=== PATIENT | female | born 1990 | race Two or more races ===

== ENCOUNTER 2017-11-26 00:25 | Emergency (ER) | payer MEDICAID, SELFPAY ==
[2017-11-26 00:25] VITALS: BP 133/83; PULSE 120; RESP 24; TEMP 36.8; O2SAT 97; BMI 54.1
--- NOTE | 2017-11-26 00:59 | EKG12_ITS ---
Test Reason : GENERALILLNESS Blood Pressure : / mmHG Vent. Rate : 103 BPM Atrial Rate : 103 BPM P-R Int : 160 ms QRS Dur : 082 ms QT Int : 336 ms P-R-T Axes : 046 013 012 degrees QTc Int : 440 ms Sinus tachycardia Otherwise normal ECG Confirmed by EDWARD CIFUENTES MD ([id number]), newspaper copy editor MARLENY MEHTA ([id number]) on 11/27/2017 8:35:15 AM Referred By: MARIO ALBERTO Confirmed By:EDWARD CIFUENTES MD
--- NOTE | 2017-11-26 01:15 | ED.DCSUM_ITS ---
- ER Visit Summary Date of Service: 11/26/17 Chief Complaint: Chest pain, leg pain, weakness History of Present Illness: The patient is a 27 F patient states 3 day history increasing weakness. No falls or injuries. States having shakes throughout. No fever, chills, sweats. Patient states 2 weeks ago had some right knee and leg swelling, improved over time. States a week ago noticed left leg swelling. Saw her PCP 5 days ago after developing some left lower back pain. States was recommended go to physical therapy. No testing performed. Patient states 4 days ago had mild left-sided chest pain, has shortness of breath, symptoms worsen with deep breaths. No exertional dyspnea. States pain in her right leg now in her medial thigh. No paresthesias. No injuries. History of venous sinus thrombosis 2 years ago . She is on Coumadin for 1 year. No recent travel, surgeries, or immobilizations. Patient states dry cough. No tobacco history. Physical Examination: General: Alert and oriented ?3, no acute distress HEENT: Normocephalic, atraumatic. Moist mucosa membranes Neck: supple, nontender. Cardiovascular: Regular tachycardic rate 102 and rhythm, no murmurs Respiratory: Normal breath sounds, symmetric, no distress Abdomen: Soft, nontender, nondistended Extremities: Symmetric lower extremities. Pulses intact distally. There is tenderness to medial thigh on the right. Neuro: no focal neurological deficits. Test Results: EKG: Sinus rate of 103, no ST changes. Isolated T-wave inversion in leads III. Troponin negative. D-dimer negative. HCG negative. CBC BMP negative. Chest x-ray: Negative. Emergency Department Course and Treatment: Patient presents with chest pain. Cardiac workup was negative. She has had persistent symptoms last 3 days. Negative troponin less likely cardiac in nature. Low risk Wells criteria for PE with tachycardia. D-dimer obtained negative. Initial order for Zofran however she declined due to symptoms resolving. Chest x-ray negative. Patient does have medial thigh pain on the right, she has had venous sinus thrombosis in the past. No recent travel. Discuss cannot rule out DVT out at this time therefore discussed giving Lovenox and returning for an ultrasound in the morning. She agrees with the plan. Discussed with patient any worsening symptoms to return otherwise follow-up with her PCP. All questions were answered. Treatment Plan: [] Disposition: Discharge Impression: 1. Atypical chest pain 2. Lower extremity pain bilateral This note was generated with [employer] dictation software. It may contain incorrect words, spelling, and punctuation that were not noted in review of the chart prior to signing ED Disposition - Plan for ED Patient: Disposition: Home or Assisted Living Chief Complaint: General Illness Diagnosis: Atypical chest pain, Bilateral lower extremity pain Instructions: ED Chest Pain Atypical Unkn Cause Referrals: Wade Antony [Primary Care Provider] - 3-5 Days Additional Instructions: Status post Lovenox. Return for ultrasound the legs in the morning. Follow-up with your PCP, return if any worsening symptoms.
[2017-11-26 01:33] VITALS: O2SAT 99
[2017-11-26] MEDS: 0.9% Normal Saline 1,000 ML 250 ML IV (01:34)
[2017-11-26 01:44] LABS: Absolute Lymphocyte Count 2.54 X10^3/ul (0.83-4.51); Absolute Neutrophil Count 6.1 X10^3/uL (2.0-7.7); Basophil# 0.01 X10^3/uL; Basophil% 0.1 % (0-1); Eosinophil# 0.08 X10^3/uL; Eosinophils% 0.9 % (0-5); Hematocrit 41.9 % (37-47); Hemoglobin 14.5 g/dl (12.0-15.0); Lymphocyte # 2.54 X10^3/ul (4.0); Lymphocyte % 27.1 % (19-41); Mean Corp Hgb Conc 34.6 g/gl (32-36); Mean Corpuscular Hgb 30.2 pg (27.0-32.0); Mean Corpuscular Volume 87.3 fL (81-99); Mean Platelet Vol. 10.3 fl (6.2-12.0); Monocyte# 0.63 X10^3/uL; Monocyte% 6.7 % (0-10); Neutrophil # 6.12 X10^3/uL (2.7-7.7); Neutrophil % 65.1 % (47-70); Platelet Count 223 K/mm3 (150-450); RBC Distribution Width CV 13.2 % (11.6-14.6); RBC Distribution Width SD 41.7 fl (35.1-43.9); White Blood Count 9.4 K/mm3 (4.4-11.0)
[2017-11-26 01:46] LABS: POSITIVE COUNT NO; POSITIVE DIFFERENTIAL NO; POSITIVE MORPHOLOGY NO
[2017-11-26 01:51] LABS: International Normalized Ratio 1.1; Partial Thromboplast Time 27.7 Seconds (24.1-36.2); Prothrombin Time (Protime)PT. 13.9 SECONDS (11.7-14.9)
[2017-11-26 02:01] LABS: Anion Gap 10 (5-15); BUN 12 mg/dL (7-18); BUN/Creat Ratio 17.7 RATIO (10-20); Calcium,Total 8.3 mg/dL (8.5-10.1); Chloride 103 mmol/L (98-107); Creatinine, Serum 0.68 mg/dL (0.55-1.02); EST Glomerular Filtration Rate 111 mL/min (>60); Est Glom Filt Rate - Afr Amer 134 mL/min (>60); Estimated Creatinine Clearance 98.29 ml/min; Glucose 97 mg/dL (74-106); Potassium 3.9 mmol/L (3.5-5.1); Sodium Level 139 mmol/L (136-145)
[2017-11-26 02:02] LABS: Pregnancy, Serum, hCG Quali. NEGATIVE Negative (0-9 Nonpreg)
--- NOTE | 2017-11-26 02:05 | RAD_ITS ---
STUDY: X-RAY CHEST REASON FOR EXAM: Female, 27 years old. Pain under left breast increased weakness and shaking x3 days. TECHNIQUE: PA and lateral views of the chest. 3 images COMPARISON: None. FINDINGS: The lungs are clear and expanded. There is no demonstrated pleural abnormality. Normal size heart. Normal mediastinum and ernst. Normal visualized pulmonary arteries. Normal visualized aortic arch and descending thoracic aorta. Normal visualized thoracic spine. Normal visualized ribs, clavicles, and shoulders. Obesity. RAD/Chest PA and Lateral IMPRESSION: Normal x-ray examination of the chest. Electronically Signed: Meghna Valente MD at 3:01 EDT , Service support ,
[2017-11-26 02:34] VITALS: BP 119/66; PULSE 92; RESP 18; O2SAT 96
[2017-11-26] MEDS: Enoxaparin 150 MG/ML Syringe SC (03:38)
[2017-11-26 04:16] VITALS: BP 113/66; PULSE 94; RESP 21; O2SAT 100
== END 2017-11-26 04:18 | disposition home or self-care (01) ==
PROVIDERS: Emergency Provider Emergency Medicine; Family Provider Family Medicine; PCP Family Medicine
DX: R07.89 Other chest pain (principal); M79.604 Pain in right leg; M79.605 Pain in left leg; R29.898 Other symptoms and signs involving the musculoskeletal system; R06.00 Dyspnea, unspecified; R05 Cough; R11.0 Nausea; I10 Essential (primary) hypertension; Z86.718 Personal history of other venous thrombosis and embolism; Z79.899 Other long term (current) drug therapy
CPT/HCPCS: 71046; 80048; 84484; 84703; 85025; 85379; 85610; 85730; 93005; 96361; 96372; 96374; 99284; J2405

== ENCOUNTER 2018-02-26 07:35 | Emergency (ER) | payer MEDICAID, SELFPAY ==
[2018-02-26 07:36] VITALS: BP 164/92; PULSE 120; RESP 20; TEMP 36.6; O2SAT 99; BMI 54.8
--- NOTE | 2018-02-26 07:51 | EKG12_ITS ---
Test Reason : UPPER EXTREMTE Blood Pressure : / mmHG Vent. Rate : 089 BPM Atrial Rate : 089 BPM P-R Int : 164 ms QRS Dur : 084 ms QT Int : 350 ms P-R-T Axes : 049 006 010 degrees QTc Int : 425 ms Normal sinus rhythm Minimal voltage criteria for LVH, may be normal variant Borderline ECG Confirmed by JADE PINA, FLORENCIO ([id number]), field map editor FUAD CARRINGTON ([id number]) on 03/01/2018 2:58:24 PM Referred By: NAVEEN Confirmed By:FLORENCIO HANSEN MD
--- NOTE | 2018-02-26 07:51 | RAD_ITS ---
STUDY: X-RAY CHEST REASON FOR EXAM: Female, 27 years old. Anterior chest pain and right-sided rib pain following heavy lifting. TECHNIQUE: PA and lateral views of the chest. COMPARISON: Comparison is made with prior study dated November 18, 2017. FINDINGS: EKG electrodes are seen. The lungs are clear and expanded. There is no demonstrated pleural abnormality. Normal size heart. Normal mediastinum and ernst. Normal visualized pulmonary arteries. Normal visualized aortic arch and descending thoracic aorta. Normal visualized thoracic spine. Normal visualized ribs, clavicles, and shoulders. There is no demonstrated abnormality of the visualized soft tissue structures of the upper abdomen. RAD/Chest PA and Lateral IMPRESSION: Normal x-ray examination of the chest. Electronically Signed: Nas Patel MD at 8:37 EDT Tel [phone], Service support ,
--- NOTE | 2018-02-26 08:10 | ED.DCSUM_ITS ---
- ER Visit Summary Date of Service: 02/26/18 Chief Complaint: Arm pain, chest heaviness History of Present Illness: The patient is a 27 F presents to the emergency department with multiple complaints. Patient states that last Thursday, she was moving a lot of furniture. She states she began have a tightness across her left lateral ribs. It went into her back. She states it was worse when she would move her cough. She states that she saw her primary care physician who thought it was more likely muscular. She was started on muscle relaxers. She states over the past few days, she is noticed a lot more pain in her left tricep especially when she moves it. She states today, she began to have more h eaviness across her chest and felt like it hurts to take a deep breath. She denies cough. She denies fevers or chills. She denies any history of pulmonary embolus. She has no history of coronary vascular disease. Physical Examination: Vital signs reviewed General: Well-nourished, well-developed Head: Normocephalic, atraumatic Eyes: Pupils equal and reactive, extraocular muscles intact Neck, supple, no lymphadenopathy Heart: Regular rate and rhythm Respiratory: No distress, clear bilaterally, mild tenderness over the lower left lateral ribs without step-off or deformity Abdomen: Soft, nontender, nondistended, no peritoneal signs Back: Nontender Extremities: Mild tenderness in the left posterior tricep with arm extension, 5 out of 5 strength, normal pulses, no edema, no cords Skin: Normal color no rash Neuro: Alert and oriented, no focal or lateralizing deficits Test Results: [] Emergency Department Course and Treatment: Clinically, the patient symptoms do seem entirely muscular. However, she is been having pain with taking a deep breath. She was initially tachycardic. She has no asymmetric leg swelling. She has no history of coagulopathy. EKG was obtained which showed sinus rhythm at a rate of 89. There is no evidence of right ventricular strain or acute ischemia. Chest x-ray shows no pneumonia, hemothorax, or other dangerous process. I did obtain a d-dimer which was negative. Patient's cardiac enzymes were also negative. At this time, I am going to continue her on anti-infla mmatories. I will add 2 days of analgesics. The patient will continue light range of motion exercises of the tricep. Again, her pulses are normal. Compartments are soft. There is no evidence of infectious process. I do feel that she is safe for outpatient therapy. Treatment Plan: [] Disposition: Discharge Impression: 1. Left chest wall strain 2. Left triceps strain This note was generated with [employer] dictation software. It may contain incorrect words, spelling, and punctuation that were not noted in review of the chart prior to signing ED Disposition - Plan for ED Patient: Chief Complaint: Upper Extremity Injury Instructions: ED Strain Chest Wall, ED Strain Muscle Ext Prescriptions: Hydrocodone Bitart/Apap 5-325 [[place] 5MG-325MG] 1 tab PO Q6H PRN PRN 2 Days #6 tab PRN Reason: Pain Naproxen [Naprosyn] 500 mg PO BID PRN #20 tab Referrals: Wade Antony [Primary Care Provider] -
[2018-02-26 08:11] VITALS: BP 122/77; PULSE 91; RESP 15; O2SAT 97
[2018-02-26] MEDS: 0.9% Normal Saline 1,000 ML 1000 ML IV (08:13)
[2018-02-26] MEDS: Ketorolac 30 MG/ML Syringe IV (08:13)
[2018-02-26 08:30] LABS: Anion Gap 8 (5-15); BUN 12 mg/dL (7-18); Calcium,Total 8.5 mg/dL (8.5-10.1); Chloride 104 mmol/L (98-107); EST Glomerular Filtration Rate 106 mL/min (>60); Est Glom Filt Rate - Afr Amer 128 mL/min (>60); Estimated Creatinine Clearance 95.48 ml/min; Glucose 108 mg/dL (74-106); Potassium 3.8 mmol/L (3.5-5.1); Sodium Level 138 mmol/L (136-145)
[2018-02-26 08:34] LABS: Pregnancy, Serum, hCG Quali. NEGATIVE Negative (0-9 Nonpreg)
[2018-02-26 08:35] LABS: D-Dimer Quantitative (DVT/PE) 0.34 FEU/ug/m (0.27-0.49)
[2018-02-26 08:40] LABS: Absolute Lymphocyte Count 1.41 X10^3/ul (0.83-4.51); Absolute Neutrophil Count 5.4 X10^3/uL (2.0-7.7); Basophil# 0.01 X10^3/uL; Basophil% 0.1 % (0-1); Eosinophil# 0.03 X10^3/uL; Eosinophils% 0.4 % (0-5); Hematocrit 43.7 % (37-47); Hemoglobin 14.5 g/dl (12.0-15.0); Lymphocyte # 1.41 X10^3/ul (4.0); Lymphocyte % 19.2 % (19-41); Mean Corp Hgb Conc 33.2 g/gl (32-36); Mean Corpuscular Volume 87.4 fL (81-99); Mean Platelet Vol. 9.9 fl (6.2-12.0); Monocyte# 0.43 X10^3/uL; Monocyte% 5.9 % (0-10); Neutrophil # 5.44 X10^3/uL (2.7-7.7); Neutrophil % 74.3 % (47-70); Platelet Count 210 K/mm3 (150-450); RBC Distribution Width CV 13.1 % (11.6-14.6); RBC Distribution Width SD 42.1 fl (35.1-43.9); White Blood Count 7.3 K/mm3 (4.4-11.0)
[2018-02-26 08:41] LABS: POSITIVE COUNT NO; POSITIVE DIFFERENTIAL NO; POSITIVE MORPHOLOGY NO
[2018-02-26 09:10] VITALS: BP 120/77; PULSE 89; RESP 18; O2SAT 96
== END 2018-02-26 09:11 | disposition home or self-care (01) ==
LOC: ED 07:54
PROVIDERS: Emergency Provider Emergency Medicine; Family Provider Family Medicine; PCP Family Medicine
DX: S29.011A Strain of muscle and tendon of front wall of thorax, initial encounter (principal); S46.312A Strain of muscle, fascia and tendon of triceps, left arm, initial encounter; X58.XXXA Exposure to other specified factors, initial encounter; Y93.9 Activity, unspecified; Y92.9 Unspecified place or not applicable; E66.9 Obesity, unspecified; I10 Essential (primary) hypertension; Z79.899 Other long term (current) drug therapy; Z72.0 Tobacco use
CPT/HCPCS: 71046; 80048; 84484; 84703; 85025; 85379; 93005; 96361; 96374; 99285; J7030; A4216

== ENCOUNTER 2018-04-02 23:24 | Emergency (ER) | payer MEDICAID, SELFPAY ==
[2018-04-02 23:26] VITALS: BP 161/114; PULSE 110; RESP 16; TEMP 37.1; O2SAT 95; BMI 54.8
[2018-04-03 00:19] LABS: Mucous, Urine 0 SEEN /hpf (<or=2+); Red Blood Cells-Urine 0 SEEN /hpf (0-5)
[2018-04-03 00:20] LABS: Color, Urine Straw (Yellow); Glucose, Dipstick Normal (Normal); Ketone-Dipstick Negative (Negative); Leukocyte Esterase-Dipstick 500 /ul (Negative); Nitrite-Dipstick Negative (Negative); Occult Blood-Urine 25 /ul (Negative); Protein-Dipstick Negative (Negative); Urine Bilirubin Dipstick Negative (Negative); Urine Clarity Sl. Cloudy (Clear); Urine Urobilinogen Normal (Normal)
[2018-04-03 00:23] LABS: Internal QC Validated? YES +Cl - CLEAR BKGD; Pregnancy, Urine Negative Negative
[2018-04-03] MEDS: 0.9% Normal Saline 1,000 ML 150 ML IV (00:23)
[2018-04-03] MEDS: Ketorolac 30 MG/ML Syringe IV (00:24)
[2018-04-03 00:27] LABS: Bacteria RARE /hpf (None Seen); Squamous Epithelial Cells - UA 5-10 SEEN /hpf (5-10); White Blood Cells 10-25 SEEN /hpf (0-5)
[2018-04-03 00:36] LABS: Absolute Lymphocyte Count 2.17 X10^3/ul (0.83-4.51); Absolute Neutrophil Count 5.8 X10^3/uL (2.0-7.7); Basophil# 0.02 X10^3/uL; Basophil% 0.2 % (0-1); Eosinophil# 0.09 X10^3/uL; Hematocrit 45.2 % (37-47); Hemoglobin 15.3 g/dl (12.0-15.0); Lymphocyte # 2.17 X10^3/ul (4.0); Lymphocyte % 24.7 % (19-41); Mean Corp Hgb Conc 33.8 g/gl (32-36); Mean Corpuscular Hgb 29.5 pg (27.0-32.0); Mean Corpuscular Volume 87.3 fL (81-99); Mean Platelet Vol. 10.1 fl (6.2-12.0); Monocyte# 0.73 X10^3/uL; Monocyte% 8.3 % (0-10); Neutrophil # 5.75 X10^3/uL (2.7-7.7); Neutrophil % 65.6 % (47-70); Platelet Count 236 K/mm3 (150-450); RBC Distribution Width CV 13.2 % (11.6-14.6); RBC Distribution Width SD 41.8 fl (35.1-43.9); Red Blood Count 5.18 M/mm3 (4.2-5.4); White Blood Count 8.8 K/mm3 (4.4-11.0)
[2018-04-03 00:37] LABS: POSITIVE COUNT NO; POSITIVE DIFFERENTIAL NO; POSITIVE MORPHOLOGY NO
[2018-04-03 00:51] LABS: Anion Gap 6 (5-15); BUN 10 mg/dL (7-18); BUN/Creat Ratio 14.7 RATIO (10-20); Calcium,Total 8.6 mg/dL (8.5-10.1); Chloride 105 mmol/L (98-107); Creatinine, Serum 0.68 mg/dL (0.55-1.02); EST Glomerular Filtration Rate 110 mL/min (>60); Est Glom Filt Rate - Afr Amer 133 mL/min (>60); Estimated Creatinine Clearance 98.29 ml/min; Glucose 95 mg/dL (74-106); Potassium 3.9 mmol/L (3.5-5.1); Sodium Level 139 mmol/L (136-145)
--- NOTE | 2018-04-03 01:19 | CT_ITS ---
HISTORY: LOW ABDOMEN AND PELVIC PAIN,PREG TEST WAS NEGATIVE,PT HAS IUDHX:HTN,. TECHNIQUE: Multiple axial images were obtained of the abdomen and pelvis without oral or IV contrast. A radiation dose optimization technique was used for this scan. IV Contrast dosage and agent: None. Oral contrast: None. COMPARISON: None FINDINGS: Lung bases: Clear. Mild elevation of the right hemidiaphragm compatible with chronic change. Small fat-containing umbilical hernia. The gallbladder is filled with numerous small stones. No pericholecystic inflammatory changes identified and no biliary dilatation seen. Evaluation of the major abdominal organs is partly limited secondary to the lack of IV contrast. Liver is upper normal in size and no focal lesion is apparent. Spleen and pancreas show no CT abnormality. Both kidneys are normal in position. No renal or ureteral calculi and no hydronephrosis or hydroureter seen. Abdominal aorta is normal in caliber. No ascites or retroperitoneal lymphadenopathy. Appendix: Normal GI tract: No obstruction. Pelvis: Anteverted uterus with IUD in place. The pelvis shows no free fluid or lymphadenopathy. Urinary bladder is unremarkable. Osseous structures: No fracture or suspicious lesion. CT/Abdomen/Pelvis without Cont IMPRESSION: 1. No appendicitis or other acute disease. 2. Cholelithiasis. No biliary dilatation identified. 3. Small fat-containing umbilical hernia. 4. IUD in place. Individualized dose optimization techniques were used for this CT. at 0220 Reported and signed by: Sherif Lopez MD Electronically Signed: Sherif Lopez, at 2:18 EDT Tel , Service support ,
--- NOTE | 2018-04-03 02:27 | ED.DCSUM_ITS ---
- ER Visit Summary Date of Service: 04/03/18 Chief Complaint: Abdominal pain History of Present Illness: The patient is a 27 F who was seen at [facility] on 29 March for pelvic pressure and thought she had a UTI. She has positive for trichomoniasis. She has been on Flagyl. Pain is not improving. She does have a follow-up appointment with her DEBT COLLECTOR on Thursday, but due to continued pain tonight came in for evaluation. She has not noted a fever. She complains of continued bladder pressure but does not have actual dysuria. She currently has an IUD in place. Physical Examination: Blood pressure is 161/114, temperature 98.7, heart rate 110, respiratory rate 16, pulse ox 95% on room air. Patient sitting upright in bed no acute distress. She is nontoxic appearing. Head neck examination is normal. Heart is regular rate and rhythm. Lung sounds are clear. Abdomen is soft with mild tenderness in the suprapubic region. No guarding or rebound. Test Results: CBC was normal white count. Hemoglobin is concentrated at 15.3. Chemistry studies unremarkable. Urinalysis does show 500 leukocyte esterase with 10-25 white cells and rare bacteria. test is negative. Emergency Department Course and Treatment: Patient was given Toradol and IV fluids. On repeat evaluation she was holding more the left lower quadrant of her abdomen stating this area now hurt. CT flank was obtained that shows no mally dence of appendicitis or other acute disease. There is evidence of cholelithiasis without biliary dilatation. An IUD is in place. Test results are discussed with the patient. She will be given a 3-day course of Bactrim and urine culture has been sent. I did send urine for gonorrhea and chlamydia as well. Patient will follow up with her CERTIFIED LEGAL SECRETARY SPECIALIST on Thursday as scheduled. Blood pressure at time of discharge is 136/94. Treatment Plan: [] Disposition: Discharge Impression: Cystitis Addendum: After the patient was discharged lab called with a positive Chlamydia results. Patient will be called in the morning and appropriate antibiotics to be called in for her. This note was generated with [employer] software. It may contain incorrect words, spelling, and punctuation that were not noted in review of the chart prior to signing ED Disposition - Plan for ED Patient: Disposition: Home or Assisted Living Chief Complaint: Abd Pain Instructions: ED UTI Cystitis Female Prescriptions: Smz/Tmp Ds [Bactrim Ds] 1 tablet PO BID #6 tablet Referrals: Janet Agudelo MD [STAFF PHYSICIAN] - Keep Branden appointment
[2018-04-03] MEDS: Smz/Tmp Ds Tablet 1 TABLET PO (02:29)
[2018-04-03 02:33] VITALS: BP 136/94; PULSE 97; O2SAT 95
[2018-04-03 04:02] LABS: Chlamydia Trachomatis by PCR POSITIVE (Negative); Neisserai gonorrhoeae by PCR Negative (Negative); Probe Check PASS
--- NOTE | 2018-04-03 04:09 | NURSING ---
POSITIVE CHLAMYDIA REPORTED TO DR. CASTRO. VERBALIZED UNDERSTANDING. ORDERS GIVEN
== END 2018-04-03 02:35 | disposition home or self-care (01) ==
PROVIDERS: Emergency Provider Emergency Medicine; Family Provider Family Medicine; PCP Family Medicine
DX: N30.90 Cystitis, unspecified without hematuria (principal); K80.20 Calculus of gallbladder without cholecystitis without obstruction; I10 Essential (primary) hypertension; Z86.19 Personal history of other infectious and parasitic diseases; Z97.5 Presence of (intrauterine) contraceptive device; Z79.899 Other long term (current) drug therapy; Z87.891 Personal history of nicotine dependence
CPT/HCPCS: 74176; 80048; 81001; 81025; 85025; 87086; 87088; 87491; 87591; 96361; 96374; 99284; J7030; A4216

== ENCOUNTER → 2018-04-05 12:30 | Outpatient (CLI) | payer MEDICAID, SELFPAY ==
--- NOTE | 2018-04-05 12:30 | ECC_PTH ---
PATIENT: CASIE SOLANO LOC: [facility] U#:[id number] AGE/SX: 34/F ROOM: RE04/05/[address]: Dr. Janet Henderson MD : 1990 BED: DIS: SPEC #: [id number] RECD: 04/05/18 14:03 STATUS: LADONNA JUNAID #: [id number] ANABEL: 04/05/18 12:[address]: Janet Gallagher DEPT: SURGICAL PATHOLOGY RECD BY: Jazmin Jones ENTERED: 04/05/18 14:57 SP TYPE: ECC MANUEL DR: Dr. Wade Antony MD Tissues: Endocervical Procedures: Surgery Specimen Level IV HEADER OPERATION: ECC PRE-OP DIAGNOSIS: History of SYDNIE II and positive HR-HPV, ParaGard IUD, pap 2016, LMP 03/16/18 TISSUE SUBMITTED: ECC MICROSCOPIC DIAGNOSIS ECC: Fragments of benign endocervical mucosa with chronic inflammation and squamous metaplasia, blood and mucous. Negative for dysplasia. BEATA:tien 04/06/18 COMMENT Please make reference to previous specimen ([id number]), cervix at 8 o'clock, biopsy with diagnosis of mild to moderate squamous dysplasia and ([id number]) cervix, 8 o'clock and cervix, 12 o'clock, biopsy with focal changes consistent with HPV cytopathic effects. MICROSCOPIC DESCRIPTION Slides are reviewed. GROSS DESCRIPTION Received in fixative is one container labeled with the patient's name and designated ECC. The specimen consists of multiple fragments of hemorrhagic mucoid tissue that in aggregate measure 1.5 x 1.5 x 0.1 cm. The specimen is totally submitted in one cassette. / BEATA:tien 04/05/18 TC:3 CPT: 95240
[2018-04-09 10:28] LABS: HPV APTIMA, High Risk Positive (Negative)
== END ==
PROVIDERS: Family Provider Family Medicine; PCP Family Medicine; Referring Provider Obstetrics & Gynecology; Visit Provider Obstetrics & Gynecology
DX: N87.9 Dysplasia of cervix uteri, unspecified (principal); Z12.4 Encounter for screening for malignant neoplasm of cervix
CPT/HCPCS: 87624; 88175; 88305; G0145

== ENCOUNTER → 2018-04-16 15:09 | Outpatient (CLI) | payer MEDICAID, SELFPAY ==
[2018-04-16 09:12] VITALS: BMI 55.7
[2018-04-16 17:53] LABS: Chlamydia Trachomatis by PCR Negative (Negative); Neisserai gonorrhoeae by PCR Negative (Negative); Probe Check PASS; Sample Adequacy Control PASS; Specimen Processing Control PASS; Trichomonas Vag DNA by PCR Negative (Negative)
== END ==
PROVIDERS: Visit Provider Obstetrics & Gynecology
DX: Z11.3 Encounter for screening for infections with a predominantly sexual mode of transmission (principal)
CPT/HCPCS: 87491; 87591; 87661

== ENCOUNTER 2018-04-20 10:11 | Day surgery (SDC) | payer MEDICAID, SELFPAY ==
[2018-04-16 09:12] VITALS: BMI 55.7
[2018-04-19 13:14] VITALS: BMI 55.8
[2018-04-20] VITALS (9 sets, daily range): BP systolic 108–123; BP diastolic 63–98; PULSE 74–99; RESP 14–16; TEMP 36.4–36.7; O2SAT 93–99; BMI 55.2
[2018-04-20 10:43] LABS: Internal QC Validated? YES +Cl - CLEAR BKGD; Pregnancy, Urine Negative Negative
[2018-04-20] MEDS: Cefazolin 2 GM in 0.9% Normal Saline 100 ML IV (11:16)
--- NOTE | 2018-04-20 11:22 | PCM.OPRPT ---
Problem List (1) Calculus of gallbladder with chronic cholecystitis without obstruction Status: Chronic (2) Right upper quadrant pain Status: Acute Report of Operation Date of Procedure: 04/20/18 Pre-Operative Diagnosis: K80.10 calculus of the gallbladder. R10.11 right upper quadrant abdominal pain Post-Operative Diagnosis: Same Surgery/Procedure Performed:: 21620 laparoscopic cholecystectomy Type of Anesthesia:: General Anesthesiologist: Oliverio Lyon Description of Procedure: Patient was brought into the operating room. Placed in the supine position. Under excellent general endotracheal base and the abdomen was sterilely prepped and draped in the usual fashion. Local was injected in for umbilically. Dissection was carried down to the fascia. The fascia was grasped with a Molina. Varies needle was placed inside the abdomen. The abdomen was insufflated to 15 torr. A 10/12 trocar was placed without difficulty. Patient was placed in the head up and rotated to the left position. A subxiphoid #5 trochars placed, inferior to this another #5 trocar was placed, laterally a #5 trocar was placed. All these under direct visualization without injury to underlying structures. Fundus of the gallbladder was retracted in a cephalad direction. Infundibulum was grasped after moderate amount of adhesions were taken down off of the gallbladder. I dissected out the cystic duct. I placed hemoclips proximally distally on the duct. Ligated the duct. Place hemoclips proximal and distally on the artery. Ligated the artery. Deliver the gallbladder from the gallbladder bed with use of electrocautery. I had no spillage of bile or stones. Placed a specimen a specimen bag. I delivered through the umbilical port without difficulty. I irrigated the right upper quadrant good hemostasis was noted. I remove the trochars under direct visualization good hemostasis was noted. I closed the fascia the umbilical port with a [id number] stitch of 0 Vicryl. The skin incisions were closed with septicum stitches of 4-0 Monocryl. Steri-Strips are applied sterile dressings were applied the patient tolerated the procedure well. - Admit VTE Documentation VTE Present on Admission: No VTE Mechan Device Prophylaxis: SCD's VTE Pharm Prophylaxis ordered?: No Reason prophylaxis not ordered:: Treatment Not Indicated
--- NOTE | 2018-04-20 11:25 | DCINST_ITS ---
Discharge Diet: Light diet - advance as tolerated Discharge Activity: May Not Drive - for 2-3 days or while taking narcotic pain medications., - - Do not drive, work heavy equipment or sign legal documents for 24 hours. May shower in (days): 1 - with the bandage in place. Additional Activity Instructions:: Pain medication may cause nausea. You should typically eat light foods as you take your pain medications. Pain medication may also cause constipation. If this is a problem for you, please discuss with your doctor. Call your doctor if your incision/area has: Continuous Slow Oozing, Sudden Increased Bleeding, Increased Pain/ Swelling, Increased Redness, Foul Smelling Discharge Call your doctor if you observe: Fever of 101 or Higher Suture Line Care: Avoid Pulling/Pushing, Avoid Pinching/Bending Additional Dressing/Incision Instructions:: Leave operative bandaids on for 2 days. When you remove dressing, leave Steri-Strips on until your follow-up appointment, or until the Steri-Strips fall off on their own. Allergies/Adverse Reactions: Allergies No Known Allergies Allergy (Verified 04/16/18 09:13) Medications to take at Discharge lisinopril 20 mg tablet 10 mg PO DAILY tab 04/16/18 Oxycodone HCl/Acetaminophen [Percocet 5/325] 1 - 2 tab PO Q4H PRN PRN 5 Days #30 tab 04/20/18 The following prescriptions were given: Oxycodone HCl/Acetaminophen [Percocet 5/325] 1 - 2 tab PO Q4H PRN PRN 5 Days #30 tab PRN Reason: Pain Primary Care Physician: Wade Antony [Primary Care Provider] - Test Results: Test results from this visit will be discussed in further detail at your follow- up appointment, if applicable. Please Follow Up With: João Quinn MD - Please call [phone] to schedule an appointment. When: 7 days after your surgery.
[2018-04-20] MEDS: Bupivacaine Mpf 0.5% 30 ML VIAL (11:58)
--- NOTE | 2018-04-20 12:00 | GALL_PTH ---
PATIENT: CASIE SOLANO LOC: [facility] [place] U#:[id number] AGE/SX: 27/F ROOM: RE04/20/[address]: Dr. João Quinn MD : 1990 BED: DIS: 04/20/2018 SPEC #: [id number] RECD: 04/20/18 12:18 STATUS: LADONNA JUNAID #: [id number] ANABEL: 04/20/18 12:[address]: João Quinn DEPT: SURGICAL PATHOLOGY RECD BY: Silver Nguyen ENTERED: 04/20/18 12:36 SP TYPE: JONNY JACKSON DR: Dr. Wade Antony MD Tissues: Gallbladder, NOS Procedures: Surgery Specimen Level III HEADER OPERATION: Laparoscopic cholecystectomy PRE-OP DIAGNOSIS: Calculus of gallbladder with chronic cholecystitis without obstruction; right upper quadrant abdominal pain TISSUE SUBMITTED: Gallbladder MICROSCOPIC DIAGNOSIS Gallbladder: Chronic cholecystitis, cholelithiasis and cholesterolosis. A pericystic lymph node with reactive changes. BEATA:tien 04/21/18 MICROSCOPIC DESCRIPTION Slides are reviewed. GROSS DESCRIPTION Received is one container labeled with the patient's name and designated gallbladder. The specimen consists of a gallbladder measuring 8.5 cm in length and up to 2.5 cm in diameter. The external surface is pink-jay, smooth and glistening for the most part. Focally it is granular, hemorrhagic and contains cautery artifact. The gallbladder contains green-yellow mucoid bile and multiple greenish-yellow multifaceted stones measuring in aggregate 4 x 4.5 x 2 cm and 0.5 to 0.7 cm in greatest dimension. The mucosa also shows several yellowish streaks consistent with cholesterolosis. The mucosa is bile-stained and without any mass lesions. The gallbladder wall measures up to 0.3 cm in thickness. Also present close to the cystic duct is an ovoid piece of pink soft tissue, a possible lymph node measuring 0.5 cm in greatest dimension. Intel Analyst sections from the gallbladder and the cystic duct are submitted in one cassette including the entire ovoid piece of tissue, a possible lymph node. / BEATA:tien 04/20/18 TC:3 CPT: 63890
[2018-04-20] MEDS: Acetaminophen 325 MG Tablet PO (16:14)
[2018-04-20] MEDS: oxyCODONE 5 MG Tablet PO (16:15)
== END 2018-04-20 17:54 | disposition home or self-care (01) ==
LOC: SDC 10:12 → AC 10:13
PROVIDERS: Anesthesiology; Family Provider Family Medicine; PCP Family Medicine; Referring Provider Surgery; Visit Provider Surgery
PROC: (CPT 47610; principal; 2018-04-20 11:40)
DX: K80.10 Calculus of gallbladder with chronic cholecystitis without obstruction (principal); Z86.718 Personal history of other venous thrombosis and embolism; Z79.899 Other long term (current) drug therapy; I10 Essential (primary) hypertension; Z87.891 Personal history of nicotine dependence; Z86.73 Personal history of transient ischemic attack (TIA), and cerebral infarction without residual deficits
CPT/HCPCS: 47562; 81025; 88304; J7120; J2405

== ENCOUNTER → 2018-05-24 10:24 | Outpatient (CLI) | payer MEDICAID, SELFPAY ==
[2018-04-20 10:37] VITALS: BMI 55.2
[2018-05-24 10:44] LABS: Absolute Lymphocyte Count 2.18 X10^3/ul (0.83-4.51); Absolute Neutrophil Count 4.5 X10^3/uL (2.0-7.7); Basophil# 0.01 X10^3/uL; Basophil% 0.1 % (0-1); Eosinophil# 0.11 X10^3/uL; Eosinophils% 1.5 % (0-5); Hematocrit 43.4 % (37-47); Hemoglobin 14.6 g/dl (12.0-15.0); Lymphocyte # 2.18 X10^3/ul (4.0); Lymphocyte % 29.4 % (19-41); Mean Corp Hgb Conc 33.6 g/gl (32-36); Mean Corpuscular Hgb 29.5 pg (27.0-32.0); Mean Corpuscular Volume 87.7 fL (81-99); Mean Platelet Vol. 9.7 fl (6.2-12.0); Monocyte# 0.58 X10^3/uL; Monocyte% 7.8 % (0-10); Neutrophil # 4.52 X10^3/uL (2.7-7.7); Neutrophil % 61.1 % (47-70); Platelet Count 207 K/mm3 (150-450); RBC Distribution Width CV 13.5 % (11.6-14.6); RBC Distribution Width SD 43.5 fl (35.1-43.9); Red Blood Count 4.95 M/mm3 (4.2-5.4); White Blood Count 7.4 K/mm3 (4.4-11.0)
[2018-05-24 10:46] LABS: POSITIVE COUNT NO; POSITIVE DIFFERENTIAL NO; POSITIVE MORPHOLOGY NO
[2018-05-24 10:53] LABS: ALB/GLOB Ratio 0.8 RATIO (0.9-2.4); AST(SGOT) 11 U/L (15-37); Alanine Aminotransfer ALT/SGPT 21 U/L (13-56); Albumin, Serum 3.3 g/dL (3.2-5.0); Alkaline Phosphatase 68 U/L (45-117); Anion Gap 9 (5-15); BUN 10 mg/dL (7-18); BUN/Creat Ratio 15.5 RATIO (10-20); Calcium,Total 8.4 mg/dL (8.5-10.1); Chloride 105 mmol/L (98-107); Creatinine, Serum 0.65 mg/dL (0.55-1.02); EST Glomerular Filtration Rate 116 mL/min (>60); Est Glom Filt Rate - Afr Amer 141 mL/min (>60); Glucose 85 mg/dL (74-106); Protein, Total 7.3 g/dL (6.4-8.2); Sodium Level 143 mmol/L (136-145)
== END ==
PROVIDERS: Family Provider Family Medicine; PCP Family Medicine; Referring Provider Physician Assistant; Visit Provider Physician Assistant
DX: R10.9 Unspecified abdominal pain (principal)
CPT/HCPCS: 36415; 80053; 85025

== ENCOUNTER → 2018-07-01 14:32 | Outpatient (CLI) | payer MEDICAID, SELFPAY ==
[2018-06-11 08:11] VITALS: BMI 55.2
--- NOTE | 2018-07-01 | CER_PTH ---
PATIENT: CASIE SOLANO LOC: [facility] U#:[id number] AGE/SX: 34/F ROOM: RE07/01/[address]: Dr. Janet Henderson MD : 1990 BED: DIS: SPEC #: [id number] RECD: 07/02/18 09:11 STATUS: LADONNA JUNAID #: [id number] ANABEL: 07/01/18 00:[address]: Janet Gallagher DEPT: SURGICAL PATHOLOGY RECD BY: Tony Faustin Tissues: Endocervical Procedures: Surgery Specimen Level IV HEADER OPERATION: Colposcopy PRE-OP DIAGNOSIS: ASCUS, positive HRHPV, remote history SYDNIE II in 2016, LMP 06/10/18, pap 04/05/18 TISSUE SUBMITTED: Endocervical curettage MICROSCOPIC DIAGNOSIS Endocervix, curettings: Scant strips of benign superficial endocervix. AM:tien 07/05/18 MICROSCOPIC DESCRIPTION Slides are reviewed. GROSS DESCRIPTION Received is one container labeled with the patient's name and not further designated. The specimen consists of light jay mucoid material that measures 1 x 0.5 x <0.1 cm. The specimen is totally submitted in one cassette. / AM:tien 07/02/18 TC:5 CPT: 30881
== END ==
PROVIDERS: Referring Provider Obstetrics & Gynecology; Visit Provider Obstetrics & Gynecology
DX: R87.610 Atypical squamous cells of undetermined significance on cytologic smear of cervix (ASC-US) (principal)
CPT/HCPCS: 88305

== ENCOUNTER 2018-07-25 13:39 | Emergency (ER) | payer MEDICAID, SELFPAY ==
[2018-06-11 08:11] VITALS: BMI 55.2
[2018-07-25 13:39] VITALS: BP 161/95; PULSE 114; RESP 18; TEMP 36.3; O2SAT 99; BMI 55.7
--- NOTE | 2018-07-25 14:28 | CT_ITS ---
STUDY: CT BRAIN WITHOUT CONTRAST REASON FOR EXAM: Female, 27 years old. Right posterior headache 3 days. On antibiotics for sinus infection. Hypertension. History of stroke. RADIATION DOSAGE (If Supplied By Facility): CTDIvol = ( 44.99 ) mGy, DLP = ( 779.24 ) mGycm TECHNIQUE: Transaxial CT imaging of the brain was performed without administration of intravenous contrast material. Coronal and sagittal 2-D MPR Individualized dose optimization techniques were used for this CT. COMPARISON: None. FINDINGS: Paranasal sinuses within the field of view are normal. The base of each maxillary sinus lies below the [id number] not evaluated. Mastoid air cells and middle ear cavities clear. Craniofacial osseous structures normal. Extra cranial soft tissues including orbital contents appear normal. 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 There is no evidence of Dandy-Walker malformation of the cerebellum. There is symmetric moderate ectasia of the lateral ventricles without ectasia of the 3rd or 4th ventricle, chronic and likely developmental. There appears to be normally formed corpus callosum. Normal midline structures. The right parenchyma is otherwise normal in morphology and density characteristics. There is no acute intracranial bleed, mass or mass effect. There is no evidence of acute infarct. 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 No evidence of acute hydronephrosis. There is no ectasia of the 3rd or 4th ventricles. There is no effacement of the cortex cortical gyri to suggest intracranial hypertension. There is also no effacement of the basilar cisterns. No other acute cranial process is evident. The majority of the paranasal sinuses are within the field of view with the exception of the base of each maxillary sinus. There is no evidence of sinus disease. Electronically Signed: Silver Cohn MD at 15:15 EST Tel , Service support ,
--- NOTE | 2018-07-25 14:29 | ED.VISSUMM ---
- ER Visit Summary Date of Service: 07/25/18 Chief Complaint: Right posterior headache with sinus congestion History of Present Illness: The patient is a 27 F past medical history of hypertension, prior sinus venous thrombosis but that was in the past currently on no blood thinners. And intermittent headaches. They states she is had URI type symptoms. She was treated in urgent care and placed on Augmentin twice daily. She did not feel any better. She still has sinus congestion but is clear. Also productive cough of clear sputum. She complains of right posterior headache that was gradual in onset for the last 3 days. No neurological symptoms. No trauma. No visual change. Able to ambulate. Headache was gradual onset. Not thunderclap. Physical Examination: Well-appearing young female. Vital signs are stable. She is afebrile. She does not look septic or toxic. She is in no distress. HEENT exam pupils round reactive light. No facial droop. Normal speech. Posterior pharynx moist and pink. No erythema or exudate. No trouble swallowing or breathing. TMs have fluid behind the eardrums but otherwise on markable. No erythema. Canals are unremarkable. Scalp nontender. No signs of trauma. Neck nontender. No meningismus. Able to touch chin to chest. No lymphadenopathy. Lungs clear to auscultation bilaterally. Heart regular rate and rhythm no murmur. Abdomen obese but soft. Nontender. Normal bowel sounds without peritoneal signs. Patient moving all 4 extremities. Neurovascular intact. Neurologically she is awake and alert. No facial droop. Pupils round reactive light. Normal speech. 5 out of 5 justice of the peace strength. Dorsi plantar flexion intact. Bilaterally. Fingertip to nose and heel to emeks within normal limits. NIH score is 0. 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 No sinusitis. No bleed. No mass. Emergency Department Course and Treatment: Patient clinically has a viral URI. I think we will be able to stop her antibiotic. She has no signs of bacterial infection. No signs of pneumonia. No signs of sinusitis clinically. Treatment Plan: Tylenol and Motrin for pain. Follow-up with not improving. Disposition: Discharge Impression: Acute viral URI Acute headache This note was generated with [employer]isma dictation software. It may contain incorrect words, spelling, and punctuation that were not noted in review of the chart prior to signing ED Disposition - Plan for ED Patient: Referrals: Wade Antony [Primary Care Provider] -
--- NOTE | 2018-07-25 14:32 | ED.DCSUM_ITS ---
- ER Visit Summary Date of Service: 07/25/18 Chief Complaint: Right posterior headache with sinus congestion History of Present Illness: The patient is a 27 F past medical history of hypertension, prior sinus venous thrombosis but that was in the past currently on no blood thinners. And intermittent headaches. They states she is had URI type symptoms. She was treated in urgent care and placed on Augmentin twice daily. She did not feel any better. She still has sinus congestion but is clear. Also productive cough of clear sputum. She complains of right posterior headache that was gradual in onset for the last 3 days. No neurological symptoms. No trauma. No visual change. Able to ambulate. Headache was gradual onset. Not thunderclap. Physical Examination: Well-appearing young female. Vital signs are stable. She is afebrile. She does not look septic or toxic. She is in no distress. HEENT exam pupils round reactive light. No facial droop. Normal speech. Posterior pharynx moist and pink. No erythema or exudate. No trouble swallowing or breat susan. TMs have fluid behind the eardrums but otherwise on markable. No erythema. Canals are unremarkable. Scalp nontender. No signs of trauma. Neck nontender. No meningismus. Able to touch chin to chest. No lymphadenopathy. Lungs clear to auscultation bilaterally. Heart regular rate and rhythm no murmur. Abdomen obese but soft. Nontender. Normal bowel sounds without peritoneal signs. Patient moving all 4 extremities. Neurovascular intact. Neurologically she is awake and alert. No facial droop. Pupils round reactive light. Normal speech. 5 out of 5 dispatcher service chief strength. Dorsi plantar flexion intact. Bilaterally. Fingertip to nose and heel to meeks within normal limits. NIH score is 0. 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 No sinusitis. No bleed. No mass. Emergency Department Course and Treatment: Patient clinically has a viral URI. I think we will be able to stop her antibiotic. She has no signs of bacterial infection. No signs of pneumonia. No signs of sinusitis clinically. Treatment Plan: Tylenol and Motrin for pain. Follow-up with not improving. Disposition: Discharge Impression: Acute viral URI Acute headache This note was generated with Osmet[employer]ation software. It may contain incorrect words, spelling, and punctuation that were not noted in review of the chart prior to signing ED Disposition - Plan for ED Patient: Referrals: Wade Antony [Primary Care Provider] -
--- NOTE | 2018-07-25 15:58 | ED.DEP ---
ED Disposition - Plan for ED Patient: Disposition: Home or Assisted Living Instructions: ED Cephalgia Unspecified Referrals: Wade Antony [Primary Care Provider] - 3-5 Days if not improving Additional Instructions: I would stop the antibiotic. Plenty of fluids and rest. Tylenol and Motrin for pain. On your CAT scan there is no signs of sinusitis or any bleeding. Follow-up with your doctor if not improving.
[2018-07-25 16:12] VITALS: BP 108/76; PULSE 71; RESP 15; O2SAT 98
== END 2018-07-25 16:13 | disposition home or self-care (01) ==
PROVIDERS: Emergency Provider Emergency Medicine; Family Provider Family Medicine; PCP Family Medicine
DX: J06.9 Acute upper respiratory infection, unspecified (principal); R51 Headache; I10 Essential (primary) hypertension
CPT/HCPCS: 70450; 99282

== ENCOUNTER → 2018-07-26 10:37 | Outpatient (CLI) | payer MEDICAID, SELFPAY ==
[2018-06-11 08:11] VITALS: BMI 55.2
[2018-07-25 13:39] VITALS: BMI 55.7
== END ==
PROVIDERS: Family Provider Family Medicine; PCP Family Medicine; Referring Provider Surgery; Visit Provider Surgery
DX: Z53.9 Procedure and treatment not carried out, unspecified reason (principal)

== ENCOUNTER 2019-01-07 14:45 | Emergency (ER) | payer SELFPAY ==
[2019-01-07 14:46] VITALS: PULSE 103; RESP 16; TEMP 36.5; O2SAT 97; BMI 58.0
[2019-01-07 15:02] VITALS: BP 153/100; PULSE 103; RESP 16; TEMP 36.5; O2SAT 97
--- NOTE | 2019-01-07 15:16 | CT_ITS ---
STUDY: CTA OF THE HEAD AND NECK WITH IV CONTRAST REASON FOR EXAM: Female, 28 years old. Headache after chiropractor manipulation RADIATION DOSAGE (If Supplied By Facility): CTDIvol = ( 22.23 ) mGy, DLP = ( 1607.27 ) mGycm TECHNIQUE: CT angiography was performed with a multi-detector CT scanner. Data acquisition was obtained from the aortic arch through the vertex following intravenous administration of 100 IV Isovue 370. MIP images were reconstructed from the axial data set. Post-processing of the angiographic images was performed, with multiplanar reformation and 3D reconstruction. Individualized dose optimization techniques were used for this CT. COMPARISON: CT head 07/25/2018. FINDINGS: Normal bilateral petrous carotid arteries. Normal right cavernous carotid artery with a normal supraclinoid bifurcation. Normal left cavernous carotid artery with a normal supraclinoid bifurcation. Normal right A1 segments of the anterior cerebral artery. Normal left A1 segments of the anterior cerebral artery. Normal intact anterior communicating artery (ACOM). Normal bilateral A2 segments of the anterior cerebral arteries. Normal right M1 and M2 segments of the middle cerebral arteries, with a normal M1 bifurcation. Normal left M1 and M2 segments of the middle cerebral arteries, with a normal M1 bifurcation. Normal right posterior communicating artery (PCOM). Normal left posterior communicating artery (PCOM). Normal bilateral vertebral arteries. Normal basilar artery with a normal basilar bifurcation. The visualized bilateral superior cerebellar (SCA) arteries are normal. Normal bilateral P1, P2 and visualized P3 segments of the posterior cerebral arteries. There is no demonstrated aneurysm of the [place]. There is no demonstrated abnormality of the visualized brain. AORTIC ARCH: Normal visualized aortic arch. Normal origins of the brachiocephalic, left common carotid, and left subclavian arteries. RIGHT CAROTID ARTERIES: Normal right common carotid artery (CCA). Normal right common carotid bulb. Normal origin of the right internal carotid (ICA) artery without a hemodynamically significant stenosis. Normal visualized cervical portion of the right internal carotid artery. Normal origin of the right external carotid artery (ECA). LEFT CAROTID ARTERIES: Normal left common carotid artery (CCA). Normal left common carotid bulb. Normal origin of the left internal carotid (ICA) artery without a hemodynamically significant stenosis. Normal visualized cervical portion of the left internal carotid artery. Normal origin of the left external carotid artery (ECA). VERTEBRAL ARTERIES: Normal bilateral vertebral arteries. 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 Stable posterior fossa arachnoid cyst. CT/CTA Head AND Neck W/ Contrast IMPRESSION: Normal CTA Head and neck with contrast. No dissection. 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 Electronically Signed: María Elena Almanzar, at 16:58 EDT Tel , Service support ,
--- NOTE | 2019-01-07 15:17 | ED.DCSUM_ITS ---
History of Present Illness Chief Complaint: Headache Informant: Patient Onset: Weeks - 3 weeks ago Context: Sudden Onset Timing: Continuous Quality: Pain Location: Occiput and vertex Current Severity: Mild Maximum Severity: Moderate Worsened by: Change in position Relieved by: Improved with ibuprofen Associated Symptoms: Blurred vision, problems with balance, also dysuria Narrative: Patient is a 28-year-old woman whose last normal menstrual period was 2 weeks ago who presents with headache that started after chiropractic manipulation 3 weeks ago. She is had a headache since. She reports improvement with ibuprofen. She has a past medical history significant for sinus thrombosis and was on anticoagulant for 1 year. Her headache is worse when she is supine. There is no change if she leans forward. She complains of mild nasal conge stion. She has no history of sinus problems or sinusitis. She does report by ocular blurred vision that is intermittent. She denies trouble with speech or swallowing. She denies paresthesia, anesthesia or motor weakness. She states that she feels unsteady. She also reports dysuria. She was recently treated for urinary tract infection. She denies hematuria. She denies frequency. There is a family history of diabetes. Prior similar symptoms: Yes Recent Illness/Hospitalization: Yes - UTI - Past Medical History (1) H/O cerebral venous sinus thrombosis Status: Acute (2) Calculus of gallbladder with chronic cholecystitis without obstruction Status: Chronic Past Medical History - Allergies and Home Meds Allergies/Adverse Reactions: Allergies No Known Allergies Allergy (Verified 01/07/19 14:49) Primary Care Physician: Wade Antony MD [Primary Care Provider] - Prior records reviewed: Yes Lives: With Family Smoking Status: Former smoker Alcohol: None Drugs: None Review of Systems General: Denies: Chills, Fever, Malaise, Sweats, Weight loss Eyes: Reports: Visual changes - bilaterally, Blurred Vision - bilaterally. Denies: Diplopia ENT: Reports: - - He denies decreased hearing or tinnitus.. Denies: Bilateral ear pain, Rhinorrhea, Sore throat Cardiovascular: Denies: Chest pain, Palpitations Respiratory: Denies: Dyspnea, Cough, Dyspnea on exertion Gastrointestinal: Denies: Abdominal pain, Nausea, Vomiting, Diarrhea, Melena, Hematochezia Genitourinary: Reports: Dysuria. Denies: Hematuria, Frequency Musculoskeletal: Denies: Back pain, Extremity Pain Skin: Denies: Rash, Wounds Neurological: Reports: Headache. Denies: Weakness, Parasthesia, Numbness Psych: Reports: Anxiety. Denies: Depression Hematologic: Denies: Easy bruising, Easy bleeding Physical Exam Vital Signs/Narrative: Vital Signs Temp Pulse Resp BP Pulse Ox 01/07/19 15:02 97.7 F L 103 H 16 153/100 H 97 01/07/19 14:46 97.7 F L 103 H 16 97 General: Well nourished, Well developed, Obese, No Acute Distress Head: Normocephalic, Atraumatic Eyes: Perrl, EOMI, - - Cup-to-disc ratio is normal. There is no papilledema. Venous pulsations noted bilaterally.. Negative for: Pale conjunctiva, Scleral icterus ENT: Moist mucous membranes, No rhinorrhea, TM's clear. Negative for: Nasal congestion, Sinus tenderness Neck: Supple, Nontender, No lymphadenopathy, No JVD Cardiovascular: Regular rate, Regular rhythm, No murmurs, Normal S1, Normal S2 Respiratory: No distress, CTA bilaterally, Chest nontender Abdomen: Soft, Nontender, Nondistended, Normal bowel sounds Back: Nontender, Normal Inspection Extremities: Nontender, No edema Skin: Normal color, No rash, No Trauma. Negative for: Cyanosis, Diaphoresis, Jaundice Neurological: Alert, Oriented x3, Cranial nerves II-XII grossly intact, Normal Strength, Normal Sensation, Normal DTR, Normal Gait Psychological: Normal affect, Normal Mood Diagnostic/Tx/Re-eval Impressions Head/Neck CTA 01/07/19 15:16 IMPRESSION: Normal CTA Head and neck with contrast. No dissection. 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 Electronically Signed: Josecarolyn Almanzar, at 16:58 EDT Tel , Service support , 01/07/19 15:16 CTA Head AND Neck W/ Contrast [CT] Stat Laboratory Results 01/07/19 01/07/19 01/07/19 15:25 15:25 15:36 WBC 7.7 RBC 5.50 H Hgb 16.2 H Hct 48.1 H MCV 87.5 MCH 29.5 MCHC 33.7 RDW Std Deviation 41.3 RDW Coeff of Susie 12.9 Plt Count 231 MPV 9.7 Immature Gran % (Auto) 0.300 Neut % (Auto) 68.3 Lymph % (Auto) 23.1 [place] % (Auto) 7.0 Eos % (Auto) 1.0 Baso % (Auto) 0.3 Absolute Neuts (auto) 5.2 Absolute Lymphs (auto) 1.77 Nucleated RBC % 0 Sodium 138 Potassium 3.8 Chloride 105 Carbon Dioxide 27.0 Anion Gap 6 BUN 7 Creatinine 0.70 Estim Creat Clear Calc 94.63 Est GFR (MDRD) Af Amer 127 Est GFR (MDRD) Non-Af 105 BUN/Creatinine Ratio 10.0 Glucose 98 Calcium 9.0 Urine Color Yellow Urine Clarity Sl. Cloudy Urine pH 6.5 Ur Specific Cooter 1.010 Urine Protein Negative Urine Glucose (UA) Normal Urine Ketones Negative Urine Occult Blood 25 H Urine Nitrite Negative Urine Bilirubin Negative Urine Urobilinogen Normal Ur Leukocyte Esterase 100 H Urine RBC 0-5 SEEN Urine WBC 0-5 SEEN Ur Squamous Epith Cells 5-10 SEEN Urine Bacteria 1+ Urine Mucus 0 SEEN Urinalysis is not suggestive of urinary tract infection. There are 5-10 squamous epithelial cells with negative nitrites and slightly positive blood and leukoesterase. There are only 0-5 RBCs and 0-5 WBCs. Will order culture. - Medical Decision Making With complaint of positional headache and history of venous sinus thrombosis one is entertained possibility of recurrent venous sinus thrombosis. Also need to entertain possibility of idiopathic endocrine function since she reports intermittent change in vision. With history of headache occurring after manipulation by chiropractor need to evaluate for dissection of the vertebrobasilar system. Since patient claims of dysuria with frequent urination and recent urinary tract infection will obtain UA to assess for UTI. Blood pressure is 153/100. She states she was on lisinopril. She states her doctor discontinued the lisinopril 1 month ago. Also obtain appropriate blood work to assess for endorgan injury. Patient was informed of her results. She was informed to follow-up with her doctor. She will need a work-up for idiopathic intercranial hypertension, pseudotumor cerebri. ED Disposition - Plan for ED Patient: Disposition: Home or Assisted Living Diagnosis: Headache in back of head, Dysuria Instructions: HEADACHE, Unspecified, DYSURIA, Uncertain Cause (Adult) Prescriptions: Phenazopyridine HCl [Pyridium] 200 mg PO TID #10 tab Prescription Printed Referrals: Wade Antony MD [Primary Care Provider] - 3-5 Days
[2019-01-07 15:37] LABS: Mucous, Urine 0 SEEN /hpf (<or=2+)
[2019-01-07 15:50] LABS: Absolute Lymphocyte Count 1.77 X10^3/uL (0.83-4.51); Absolute Neutrophil Count 5.2 X10^3/uL (2.0-7.7); Basophil# 0.02 X10^3/uL; Basophil% 0.3 % (0-1); Eosinophil# 0.08 X10^3/uL; Hematocrit 48.1 % (37-47); Hemoglobin 16.2 g/dL (12.0-15.0); Lymphocyte # 1.77 X10^3/ul (4.0); Lymphocyte % 23.1 % (19-41); Mean Corp Hgb Conc 33.7 g/dL (32-36); Mean Corpuscular Hgb 29.5 pg (27.0-32.0); Mean Corpuscular Volume 87.5 fL (81-99); Mean Platelet Vol. 9.7 fl (6.2-12.0); Monocyte# 0.54 X10^3/uL; NRBC Flagged by Analyzer 0 % (0-5); Neutrophil # 5.24 X10^3/uL (2.7-7.7); Neutrophil % 68.3 % (47-70); Platelet Count 231 K/mm3 (150-450); RBC Distribution Width CV 12.9 % (11.6-14.6); RBC Distribution Width SD 41.3 fl (35.1-43.9); White Blood Count 7.7 K/mm3 (4.4-11.0)
[2019-01-07 15:51] LABS: Anion Gap 6 (5-15); BUN 7 mg/dL (7-18); Chloride 105 mmol/L (98-107); EST Glomerular Filtration Rate 105 mL/min (>60); Est Glom Filt Rate - Afr Amer 127 mL/min (>60); Estimated Creatinine Clearance 94.63 ml/min; Glucose 98 mg/dL (74-106); Potassium 3.8 mmol/L (3.5-5.1); Sodium Level 138 mmol/L (136-145)
[2019-01-07 15:52] LABS: Color, Urine Yellow (Yellow); Glucose, Dipstick Normal (Normal); Ketone-Dipstick Negative (Negative); Leukocyte Esterase-Dipstick 100 /ul (Negative); Nitrite-Dipstick Negative (Negative); Occult Blood-Urine 25 /ul (Negative); Protein-Dipstick Negative (Negative); Urine Bilirubin Dipstick Negative (Negative); Urine Clarity Sl. Cloudy (Clear); Urine Urobilinogen Normal (Normal); Urine pH 6.5 (5.0 - 8.0)
[2019-01-07 16:51] LABS: Bacteria 1+ /hpf (None Seen); Red Blood Cells-Urine 0-5 SEEN /hpf (0-5); Squamous Epithelial Cells - UA 5-10 SEEN /hpf (5-10); White Blood Cells 0-5 SEEN /hpf (0-5)
[2019-01-07 18:12] VITALS: BP 112/91; PULSE 90
[2019-01-07 19:59] VITALS: BP 156/108; PULSE 88; RESP 16; O2SAT 98
== END 2019-01-07 20:02 | disposition home or self-care (01) ==
PROVIDERS: Emergency Provider Emergency Medicine; Family Provider Family Medicine; PCP Family Medicine
DX: R51 Headache (principal); R30.0 Dysuria; R09.81 Nasal congestion; H53.8 Other visual disturbances; E66.9 Obesity, unspecified; F41.9 Anxiety disorder, unspecified; Z87.19 Personal history of other diseases of the digestive system; Z86.73 Personal history of transient ischemic attack (TIA), and cerebral infarction without residual deficits; Z87.440 Personal history of urinary (tract) infections; Z87.891 Personal history of nicotine dependence
CPT/HCPCS: 70496; 70498; 80048; 81001; 85025; 87086; 87088; 99284; Q9967; A4216

== ENCOUNTER → 2019-01-13 | Outpatient (CLI) | payer SELFPAY ==
[2019-01-07 14:46] VITALS: BMI 58.0
== END | disposition home or self-care (01) ==
LOC: LABSPEC 13:14
PROVIDERS: Visit Provider Obstetrics & Gynecology
DX: N39.0 Urinary tract infection, site not specified (principal)
CPT/HCPCS: 87086; 87088

== ENCOUNTER 2019-03-02 21:55 | Emergency (ER) | payer OTHER, SELFPAY ==
[2019-03-02 21:55] VITALS: BP 150/90; PULSE 101; RESP 16; TEMP 36.6; O2SAT 98; BMI 57.2
--- NOTE | 2019-03-02 22:13 | CT_ITS ---
STUDY: CT ABDOMEN AND PELVIS WITH CONTRAST REASON FOR EXAM: Female, 28 years old. Right-sided pain. Recurrent urinary tract infections. RADIATION DOSAGE (If Supplied By Facility): CTDIvol = ( 18.74 ) mGy, DLP = ( 1172.41 ) mGycm TECHNIQUE: Transaxial images were obtained from the dome of the diaphragm to the symphysis pubis without oral contrast. IV Isovue 300 100 was administered. Sagittal and coronal images were reconstructed. Individualized dose optimization techniques were used for this CT. COMPARISON: April 03, 2018. FINDINGS: The visualized lung bases are unremarkable. The visualized portions of the heart are within normal limits. Normal liver. The gallbladder is no longer visualized suggestive of cholecystectomy. Normal spleen. Normal pancreas. Normal bilateral adrenal glands. Normal right kidney. Normal left kidney. Normal visualized stomach. Normal small intestine. Normal colon. The appendix is visualized and appears normal. Normal abdominal aorta. Normal inferior vena cava. Normal retroperitoneum. No intra-abdominal free air. Normal urinary bladder. IUD centrally located within the uterus. No adnexal masses seen. 3.7 x 3.0 cm umbilical hernia containing soft tissue and fat. Small right inguinal hernia containing fat. Degenerative changes of the sacroiliac joints. L5-S1 disc space narrowing. CT/Abdomen/Pelvis W IV Cont ONLY IMPRESSION: No acute findings in the abdomen or pelvis. No hydronephrosis or urinary tract stones. No evidence of bowel obstruction. Small ventral and right inguinal hernias. Gallbladder is not visualized suggestive of cholecystectomy. Electronically Signed: Kali Garcia MD at 0:00 EDT , Service support ,
[2019-03-02] MEDS: 0.9% Normal Saline 1,000 ML 1000 ML IV (22:25)
[2019-03-02] MEDS: Ketorolac 30 MG/ML Syringe IV (22:26)
[2019-03-02 22:33] LABS: Bacteria 0 SEEN /hpf (None Seen); Mucous, Urine 0 SEEN /hpf (<or=2+)
[2019-03-02 22:35] LABS: Color, Urine Yellow (Yellow); Glucose, Dipstick Normal (Normal); Ketone-Dipstick Negative (Negative); Leukocyte Esterase-Dipstick 25 /ul (Negative); Nitrite-Dipstick Negative (Negative); Occult Blood-Urine 25 /ul (Negative); Protein-Dipstick 15 mg/dl (Negative); Specific Gravity, Urine 1.015 (1.002-1.030); Urine Bilirubin Dipstick Negative (Negative); Urine Clarity Cloudy (Clear); Urine Urobilinogen Normal (Normal); Urine pH 6.5 (5.0 - 8.0)
[2019-03-02 22:42] LABS: Squamous Epithelial Cells - UA 0-5 SEEN /hpf (5-10)
[2019-03-02 22:42] LABS: Absolute Lymphocyte Count 1.81 X10^3/uL (0.83-4.51); Absolute Neutrophil Count 5.2 X10^3/uL (2.0-7.7); Basophil# 0.01 X10^3/uL; Basophil% 0.1 % (0-1); Eosinophil# 0.07 X10^3/uL; Eosinophils% 0.9 % (0-5); Hematocrit 46.6 % (37-47); Hemoglobin 15.6 g/dL (12.0-15.0); Lymphocyte # 1.81 X10^3/ul (4.0); Lymphocyte % 23.8 % (19-41); Mean Corp Hgb Conc 33.5 g/dL (32-36); Mean Corpuscular Hgb 29.6 pg (27.0-32.0); Mean Corpuscular Volume 88.4 fL (81-99); Mean Platelet Vol. 9.7 fl (6.2-12.0); Monocyte# 0.48 X10^3/uL; Monocyte% 6.3 % (0-10); NRBC Flagged by Analyzer 0 % (0-5); Neutrophil # 5.22 X10^3/uL (2.7-7.7); Neutrophil % 68.5 % (47-70); Platelet Count 222 K/mm3 (150-450); RBC Distribution Width CV 12.6 % (11.6-14.6); RBC Distribution Width SD 41.3 fl (35.1-43.9); Red Blood Count 5.27 M/mm3 (4.2-5.4); White Blood Count 7.6 K/mm3 (4.4-11.0)
[2019-03-02 22:43] LABS: White Blood Cells 0-5 SEEN /hpf (0-5)
[2019-03-02 22:44] LABS: Red Blood Cells-Urine 0-5 SEEN /hpf (0-5)
[2019-03-02 22:46] LABS: Internal QC Validated? YES +Cl - CLEAR BKGD; Pregnancy, Urine Negative Negative
[2019-03-02 23:05] LABS: ALB/GLOB Ratio 0.9 RATIO (0.9-2.4); AST(SGOT) 16 U/L (15-37); Alanine Aminotransfer ALT/SGPT 26 U/L (13-56); Albumin, Serum 3.7 g/dL (3.2-5.0); Alkaline Phosphatase 81 U/L (45-117); Anion Gap 4 (5-15); BUN 7 mg/dL (7-18); BUN/Creat Ratio 10.2 RATIO (10-20); Calcium,Total 8.8 mg/dL (8.5-10.1); Chloride 105 mmol/L (98-107); Creatinine, Serum 0.69 mg/dL (0.55-1.02); EST Glomerular Filtration Rate 108 mL/min (>60); Est Glom Filt Rate - Afr Amer 131 mL/min (>60); Globulin 4.1 g/dL (2.2-4.2); Glucose 90 mg/dL (74-106); Lipase 96 U/L (73-393); Potassium 3.7 mmol/L (3.5-5.1); Protein, Total 7.8 g/dL (6.4-8.2); Sodium Level 138 mmol/L (136-145)
--- NOTE | 2019-03-02 23:09 | ED.DCSUM_ITS ---
- ER Visit Summary Date of Service: 03/02/19 Chief Complaint: Flank pain History of Present Illness: The patient is a 28 F with right flank pain. The patient was seen previously and diagnosed with a UTI. She has been on Macrobid for 3 days with no improvement. In fact, her pain is getting worse. The pain is in her right flank and radiates sometimes to her right shoulder. She never had this before. She has had some diarrhea but no other significant GI symptoms. No or [employer] symptoms. She has a history of and cholecystectomy. She is not currently or breast-feeding. Physical Examination: Afebrile and vital signs unremarkable except for heart rate of 101. She appears nontoxic and in no acute distress. Right flank tender on exam. Skin normal. Exam otherwise normal. Test Results: Hemoglobin 15.6. Comprehensive metabolic panel and lipase unremarkable. Urinalysis showed no sign of bleeding or infection. hCG was negative. CT pending. Emergency Department Course and Treatment: Patient symptoms are concerning for ovarian cyst with diaphragmatic irritation and referred pain to her right shoulder. She does not appear to have intractable pain or other findings which would make me think that this is torsion. She is not having infectious [employer]EL[employer] symptoms. She is not having urinary symptoms. No history of kidney stones or hematuria. Her gallbladder has been removed. She has no other liver pathology. No right upper quadrant pain. No other significant history or symptoms. Given that her pain is worsening and not improving with antibiotics, I did expand the differential. Check blood work which was all fairly unremarkable. Urine showed no sign of infection or bleeding. CT is pending. Oncoming doctor will check the results of the CT and treat accordingly. I notified the patient that the oncoming doctor will check the results. She is feeling somewhat better with fluids and Toradol. Will reassess. Treatment Plan: As above Disposition: Pending CT results Impression: 1. Right flank pain This note was generated with [employer]ation software. It may contain incorrect words, spelling, and punctuation that were not noted in review of the chart prior to signing ED Disposition - Plan for ED Patient: Referrals: Wade Antony MD [Primary Care Provider] -
[2019-03-03 01:00] VITALS: BP 134/82; PULSE 77; RESP 18; TEMP 36.8; O2SAT 98
[2019-03-03] MEDS: Mag Hydrox/Al Hydrox/Simeth 30 ML UDC PO (01:05)
--- NOTE | 2019-03-03 01:19 | ED.DCSUM_ITS ---
- ER Visit Summary Date of Service: 03/03/19 Chief Complaint: [] History of Present Illness: The patient is a 28 F [] Physical Examination: [] Test Results: [ Clinical Impression(s) from Imaging Studies Abdomen/Pelvis CT 03/02/19 22:13 IMPRESSION: No acute findings in the abdomen or pelvis. No hydronephrosis or urinary tract stones. No evidence of bowel obstruction. Small ventral and right inguinal hernias. Gallbladder is not visualized suggestive of cholecystectomy. Electronically Signed: Kali Garcia MD at 0:00 EDT , Service support , Laboratory Data 03/02/19 03/02/19 03/02/19 22:08 22:08 22:30 WBC 7.6 RBC 5.27 Hgb 15.6 H Hct 46.6 MCV 88.4 MCH 29.6 MCHC 33.5 RDW Std Deviation 41.3 RDW Coeff of Susie 12.6 Plt Count 222 MPV 9.7 Immature Gran % (Auto) 0.400 Neut % (Auto) 68.5 Lymph % (Auto) 23.8 [place] % (Auto) 6.3 Eos % (Auto) 0.9 Baso % (Auto) 0.1 Absolute Neuts (auto) 5.2 Absolute Lymphs (auto) 1.81 Nucleated RBC % 0 Sodium Potassium Chloride Carbon Dioxide Anion Gap BUN Creatinine Estim Creat Clear Calc Est GFR (MDRD) Af Amer Est GFR (MDRD) Non-Af BUN/Creatinine Ratio Glucose Calcium Total Bilirubin AST ALT Alkaline Phosphatase Total Protein Albumin Globulin Albumin/Globulin Ratio Lipase Urine Color Yellow Urine Clarity Cloudy Urine pH 6.5 Ur Specific [place] 1.015 Urine Protein 15 H Urine Glucose (UA) Normal Urine Ketones Negative Urine Occult Blood 25 H Urine Nitrite Negative Urine Bilirubin Negative Urine Urobilinogen Normal Ur Leukocyte Esterase 25 H Urine RBC 0-5 SEEN Urine WBC 0-5 SEEN Ur Squamous Epith Cells 0-5 SEEN Urine Bacteria 0 SEEN Urine Mucus 0 SEEN Urine Test Negative 03/02/19 22:30 WBC RBC Hgb Hct MCV MCH MCHC RDW Std Deviation RDW Coeff of Susie Plt Count MPV Immature Gran % (Auto) Neut % (Auto) Lymph % (Auto) [place] % (Auto) Eos % (Auto) Baso % (Auto) Absolute Neuts (auto) Absolute Lymphs (auto) Nucleated RBC % Sodium 138 Potassium 3.7 Chloride 105 Carbon Dioxide 29.0 Anion Gap 4 L BUN 7 Creatinine 0.69 Estim Creat Clear Calc 96.00 Est GFR (MDRD) Af Amer 131 Est GFR (MDRD) Non-Af 108 BUN/Creatinine Ratio 10.2 Glucose 90 Calcium 8.8 Total Bilirubin 0.80 AST 16 ALT 26 Alkaline Phosphatase 81 Total Protein 7.8 Albumin 3.7 Globulin 4.1 Albumin/Globulin Ratio 0.9 Lipase 96 Urine Color Urine Clarity Urine pH Ur Specific [place] Urine Protein Urine Glucose (UA) Urine Ketones Urine Occult Blood Urine Nitrite Urine Bilirubin Urine Urobilinogen Ur Leukocyte Esterase Urine RBC Urine WBC Ur Squamous Epith Cells Urine Bacteria Urine Mucus Urine Test Diagnostic Data Abdomen/Pelvis CT 03/02/19 22:13 IMPRESSION: No acute findings in the abdomen or pelvis. No hydronephrosis or urinary tract stones. No evidence of bowel obstruction. Small ventral and right inguinal hernias. Gallbladder is not visualized suggestive of cholecystectomy. Electronically Signed: Kali Garcia MD at 0:00 EDT , Service support , ] Emergency Department Course and Treatment: [Patient was signed out to me by Dr. García. Toradol and fluids were given and patient did have mild improvement of her symptoms. Remaining lab work was normal. Patient no bacteria in her urine. CT of the abdomen and pelvis without contrast showed small ventral and inguinal hernias. They are not strangulated or incarcerated. This might be contributing to patient's symptoms. In addition patient notes that she has a history of acid reflux and is been told that she needs a stronger medication. Patient is given a GI cocktail as well as IV Pepcid for those symptoms. She is prescribed omeprazole in case there is a component of gastritis causing her symptoms. Patient is prescribed ibuprofen in case this is a hernia causing the pain or muscle skeletal. She is counseled that the ibuprofen might worsen her stomach and to use it sparingly. Patient does not have findings consistent with pyelonephritis, nephrolithiasis, colitis, torsion or other acute surgical abnormality. She is stable for outpatient follow-up. Patient had a cholecystectomy with Dr. Quinn and is instructed to follow-up with him further for hernia evaluation. Patient counseled on signs and symptoms requiring return to emergency room. She verbalizes agreement understand this plan. She is given a work note for tomorrow. She is discharged home in stable condition. Treatment Plan: [] Disposition: [Discharge home] Impression: [Right flank pain] This note was generated with [employer] dictation software. It may contain incorrect words, spelling, and punctuation that were not noted in review of the chart prior to signing ED Disposition - Plan for ED Patient: Disposition: Home or Assisted Living Diagnosis: Right flank pain Instructions: FLANK PAIN, Uncertain Cause Prescriptions: Ibuprofen 600 mg PO 4X/DAY #16 tab Prescription Printed Omeprazole 20 mg PO BID #20 tab. Prescription Printed Referrals: Wade Antony MD [Primary Care Provider] - Additional Instructions: You have been seen for right flank pain. The exact cause is not clear at this time. You did not have signs of kidney stone or kidney infection. It is possible that this might be pain from your stomach such as stomach inflammation. You have been prescribed a new antacid medication, omeprazole. Take this instead of ranitidine. If you feel like the ibuprofen is making her pain worse stop taking it as it might irritate the stomach. Your CT did incidentally show small hernias in your groin region. This can be followed up further with your surgeon, Dr. Quinn. Return to the emergency room if you develop worsening symptoms or other concerns. Otherwise, follow-up with your primary care doctor.
== END 2019-03-03 01:29 | disposition home or self-care (01) ==
PROVIDERS: Emergency Provider Emergency Medicine; Family Provider Family Medicine; PCP Family Medicine
DX: R10.9 Unspecified abdominal pain (principal); K40.90 Unilateral inguinal hernia, without obstruction or gangrene, not specified as recurrent; K43.9 Ventral hernia without obstruction or gangrene; Z87.440 Personal history of urinary (tract) infections; Z90.49 Acquired absence of other specified parts of digestive tract
CPT/HCPCS: 74177; 80053; 81001; 81025; 83690; 85025; 96361; 96374; 96375; 99282; Q9967; A4216; J3490

== ENCOUNTER → 2019-03-07 12:32 | Outpatient (CLI) | payer OTHER, SELFPAY ==
[2019-03-04 11:01] VITALS: BMI 57.2
== END ==
PROVIDERS: Family Provider Family Medicine; PCP Family Medicine; Referring Provider Surgery; Visit Provider Surgery
DX: R19.7 Diarrhea, unspecified (principal)
CPT/HCPCS: 36415; 83630; 87493; 87506

== ENCOUNTER 2019-03-14 09:38 | Day surgery (SDC) | payer OTHER, SELFPAY ==
[2019-03-10 14:28] VITALS: BMI 57.2
[2019-03-14] VITALS (8 sets, daily range): BP systolic 111–144; BP diastolic 60–94; PULSE 80–99; RESP 16–18; TEMP 36.1–36.2; O2SAT 92–97; BMI 56.4
[2019-03-14] MEDS: Lactated Ringers 1,000 ML 100 ML IV (10:22)
--- NOTE | 2019-03-14 10:26 | HP.PCM_ITS ---
History and Physical Date of Admission: 03/14/19 [facility] [address] [place], [place] [id number] OFFICE VISIT Date of Service: 03/10/19 MR#: [id number] Acct: [id number] Name: CASIE SOLANO Rep #: [id number] : 1990 Provider: João weiner MD Age/Sex: 28/F Location: [facility] Status: Signed Intake Vital Signs 03/10/19 Body Mass Index (BMI) 57.2 Intake Visit Reasons: Right Lower Quadrant Pain US 03/08 [place] Chief Complaint: right mid abd pain into RLQ/ diarrhea Balance Truing Inspector Required: No Is patient in pain?: Yes Allergies No Known Allergies Allergy (Verified 03/10/19 14:27) Medications Nitrofurantoin Macrocrystals [Macrobid] 1 cap PO BID 03/02/19 [History Confirmed 03/10/19] Ranitidine HCl [Zantac] 150 mg PO DAILY 03/02/19 [History Confirmed 03/10/19] Ibuprofen 600 mg PO 4X/DAY #16 tab 03/03/19 [Rx Confirmed 03/10/19] omeprazole 20 mg delayed release,disintegrating tablet 20 mg PO BID tab. 03/04/19 [History Confirmed 03/10/19] [facility] Medical History Abdominal pain (Acute) Anxiety (Acute) Chlamydia (Acute) Cholelithiasis (Acute) DVT (deep venous thrombosis) (Acute) GERD (gastroesophageal reflux disease) (Acute) Hemorrhoid (Acute) TIA (transient ischemic attack) (Acute) Hypertension (Chronic) Surgical History History of (Acute) History of cholecystectomy (Acute ~2018) Family History Mother Diabetes Hypertension Social History (Updated 03/10/19 @ 14:55 by João Quinn MD) Smoking Status: Never smoker alcohol intake: never substance use type: does not use HPI HPI HPI: CAISE SOLANO, is a 28 F who presents to the office today for HPI HPI Surgical H&P: Yes HPI: CASIE SOLANO, is a 28 F who presents to the office today for Follow-up from right upper quadrant abdominal pain and diarrhea. Patient states that particularly after she has been eating she is been having some discomfort in the epigastric right upper quadrant area almost feels identical to her pain that she had prior to having her gallbladder removed. At that time she had multiple gallstones and I subsequently took her to surgery and removed her gallbladder. Postoperatively she was doing well but still experiencing some discomfort and then gradually went away and now it has come back and she was having significant amount of diarrhea. I obtained stool for WBCs which was negative enteric pathogen panel was entirely negative C. difficile was also negative. A CAT scan of her abdomen and pelvis showed an incisional hernia at her umbilical area.Amazingly most of her pain is not even in around this area it is on the sides in the right upper quadrant and left upper quadrant as well as the leftLower quadrant at times ROS General General: Yes fatigue; no weight change, appetite, colon cancer or breast cancer HEENT HEENT: No difficulty swallowing, eye injury, eye surgery, swollen glands or hoarseness Endo Endocrine: No thyroid disease, diabetes mellitus, thyroid cancer, Hair loss, heat intolerance or cold intolerance Cardio Cardiovascular: Yes high blood pressure; no murmur, pacemaker, heart disease, atrial fibrillation, heart attack, heart stent, palpitations, shortness of breat with exertion or chest pain Psych Psychiatric: Yes anxiety; no depression or hearing voices Resp Respiratory: No shortness of breath, No sleep apnea, No cough, No COPD, No asthma, No emphysema, No wheezing Gastro Gastrointestinal: Yes abdominal pain, No nausea or vomiting, Yes diarrhea, Yes constipation, Yes blood in stool, Yes acid reflux, Yes hemorrhoids, No ulcers, No gallbladder problem, No black,tarry stools Caleb Hematologic: No blood thinners, No blood disorders, No bleeding, No anemia, Yes blood clots Neuro Neurologic: Yes numbness, Yes tingling, Yes other (tia) Exam Const General: no acute distress, well developed, well hydrated Orientation: oriented to person, oriented to place, oriented to time [facility] Head: normocephalic, atraumatic Ears: external ears normal Mouth: moist mucous membranes Eyes Sclera: sclerae normal Pupils: normal by confrontation Neck Neck: no lymphadenopathy noted Neck mass: No Thyroid: thyroid normal, symmetrical Chest Chest palpation & inspection: normal inspection of the chest Resp Effort & Inspection: normal respiratory effort Auscultation: clear to auscultation bilaterally Percussion: percussion normal Cardio Rate: regular rate Rhythm: regular rhythm Heart Sounds: no murmurs GI Inspection: obesity (Morbid) Palpation: soft, no hepatosplenomegaly, no masses, nontender Rectal Exam: other Other: Rectal exam deferred. I could not feel this hernia at her umbilical area whatsoever today. Granted her overall body size really does not lend itself to being able to palpate her fascia with any degree of certainty. Extrem General: normal to inspection, no clubbing, cyanosis or edema Assessment & Plan Problems 1. Incisional hernia, without obstruction or gangrene K43.2; K43.91 2. Diarrhea, unspecified type R19.7 3. Right upper quadrant abdominal pain R10.11 Plan I have discussed the above with the patient. I have offered the patient esophagogastroduodenoscopy for evaluation. I have explained the risks/benefits of the procedure and described the procedure. I have discussed the risks with the patient, including but not limit ed to: infection, bleeding, perforation of the GI tract requiring emergency surgery, inability to complete the procedure, injury to any internal organs, complications of anesthesia, etc. - the patient understands and agrees to proceed. I have answered all the patient's questions to the patient's satisfaction and the patient has no further questions. The patient has been given instructions for the colon cleansing preparation. Unfortunately I do not think I have any other choice but to do an upper scope on her. Given the fact that she underwent surgery for right upper quadrant abdominal pain and still seems to have right upper quadrant abdominal pain despite having her gallbladder removed I think it mandates visualization of the esophagus stomach and duodenal areas. Coding Level of Care Code Off vis,est,level 3 Diagnoses Incisional hernia, without obstruction or gangrene K43.2; K43.91 ??Obstruction and gangrene presence: without obstruction or gangrene Diarrhea, unspecified type R19.7 ??Diarrhea type: unspecified type Right upper quadrant abdominal pain R10.11 03/10/19 2656 <Electronically signed by João leon MD> Date _ João Pereyra Signature: Date (if applicable) CC: Wade Antony MD ~ I have re-examined the patient. There are no clinical changes since date of exam.
--- NOTE | 2019-03-14 10:30 | IMM_PTH ---
PATIENT: CASIE SOLANO LOC: EN U#:[id number] AGE/SX: 28/F ROOM: RE03/14/[address]: Dr. João Quinn MD : 1990 BED: DIS: 03/14/2019 SPEC #: [id number] RECD: 03/14/19 13:45 STATUS: LADONNA REQ #: [id number] ANABEL: 03/14/19 10:[address]: João Quinn DEPT: IMMUNOHISTOCHEMISTRY RECD BY: Alysia Rosa ENTERED: 03/14/19 13:46 SP TYPE: IMMUNO OTHR DR: Dr. Wade Antony MD Tissues: C - Stomach, NOS Procedures: H Pylori (initial) PHYSICIAN & INSTITUTION [place] [address] SPECIMEN INFORMATION: Tissue Source: C - Antral biopsy Clinical Info: Right upper quadrant abdominal pain Specimen Number: [id number] CPT code: 46494 METHODOLOGY: Deparaffinized sections of prefer/formalin-fixed tissue or PAP/DQ stained slides are incubated with monoclonal/polyclonal antibodies/oligonucleotide probes. Localization is made via biotin free immunoperoxidase method. Appropriate controls are performed and reacted as expected. Results on target cell population are indicated in the following table: RESULTS: ANTIBODY / CLONE RESULT Block C H Pylori (polyclonal) negative These tests were developed and their performance characteristics determined by [facility]. They may not have been cleared or approved by the U.S. Food and Drug Administration. The FDA has determined that such clearance or approval is not necessary. INTERPRETATION: C. Antral biopsy: Negative for Helicobacter pylori organisms. SJ:tien 03/15/19
--- NOTE | 2019-03-14 10:30 | EGD_PTH ---
PATIENT: CASIE SOLANO LOC: EN U#:[id number] AGE/SX: 28/F ROOM: RE03/14/[address]: Dr. João Quinn MD : 1990 BED: DIS: 03/14/2019 SPEC #: [id number] RECD: 03/14/19 13:05 STATUS: LADONNA JUNAID #: [id number] ANABEL: 03/14/19 10:[address]: João Quinn DEPT: SURGICAL PATHOLOGY RECD BY: Junior Scanlon ENTERED: 03/14/19 13:36 SP TYPE: EGD BIOPSY ERNESTINA DR: Dr. Wade Antony MD Tissues: A - COLON BIOPSY B - Duodenum, NOS C - Gastric mucous membrane Procedures: Surgery Specimen Level IV HEADER OPERATION: [place] [place] PRE-OP DIAGNOSIS: Right upper quadrant abdominal pain TISSUE SUBMITTED: A - Small bowel biopsy, B - Duodenal bulb biopsy, C - Antral biopsy and H.?pylori MICROSCOPIC DIAGNOSIS A. Small bowel biopsy: Fragments of duodenal mucosa, no pathologic diagnosis. B. Duodenal bulb, biopsy: Fragments of duodenal mucosa, no pathologic diagnosis. C. Antral biopsy: Minimal gastritis. See microscopic description and comment. SJ:tien 03/15/19 COMMENT C. The results of immunohistochemistry for Helicobacter pylori will be reported separately ([id number]). MICROSCOPIC DESCRIPTION Slides are reviewed. The specimen shows fragments of gastric mucosa with chronic inflammatory cell infiltrates in the lamina propria consisting of lymphocytes and plasma cells, consistent with minimal chronic gastritis. GROSS DESCRIPTION A - Received in fixative is one container labeled with the patient's name and designated small bowel biopsy. The specimen consists of multiple irregular fragments of light jay soft tissue that in aggregate measure 0.3 x 0.3 x 0.1 cm. The specimen is totally submitted in one cassette. B - Received in fixative is one container labeled with the patient's name and designated duodenal bulb biopsy. The specimen consists of multiple irregular fragments of light jay soft tissue that in aggregate measure 0.6 x 0.3 x 0.1 cm. The specimen is totally submitted in one cassette. C - Received in fixative is one container labeled with the patient's name and designated antral biopsy. The specimen consists of multiple irregular fragments of light jay soft tissue that in aggregate measure 0.6 x 0.3 x 0.1 cm. The specimen is totally submitted in one cassette. / SJ:rg 03/14/19 TC:3 CPT: 98106 x3
[2019-03-14 10:39] LABS: Internal QC Validated? YES +Cl - CLEAR BKGD
--- NOTE | 2019-03-14 11:01 | OP.ENDO_ITS ---
03/14/2019 Wade Antony [address] [place] [address] [place] [address] Re : Upper GI endoscopy procedure for Manjula Maciel Dear Dr. Antony This procedure was performed on Thursday, March 14, 2019. My impressions and recommendations are as follows: Impressions : - Normal esophagus. - Z-line regular, 37 cm from the incisors. - Gastritis. Biopsied. - Normal examined duodenum. Biopsied. Recommendations : - Await pathology results. - Repeat upper endoscopy (date not yet determined) for surveillance. - Return to my office in 1 week. - Continue present medications. My findings are described in the full procedure note, which is enclosed. If I can be of further assistance, please feel free to contact me at Doctor phone number(s): , Fax: [phone], Work: . Sincerely, MD João Cortes MD 03/14/2019 11:00:50 AM This report has been signed electronically.
[2019-03-14 12:00] LABS: Pregnancy, Serum, hCG Quali. NEGATIVE Negative (0-9 Nonpreg)
== END 2019-03-14 13:07 | disposition home or self-care (01) ==
LOC: EN 09:39 → AC 09:41
PROVIDERS: Anesthesiology; Family Provider Family Medicine; PCP Family Medicine; Referring Provider Family Medicine; Visit Provider Surgery
PROC: 0DJ08ZZ Inspection of Upper Intestinal Tract, Via Natural or Artificial Opening Endoscopic (ICD-10-PCS; CPT 43235; principal; 2019-03-14 10:25)
DX: K29.70 Gastritis, unspecified, without bleeding (principal); K43.2 Incisional hernia without obstruction or gangrene; K21.9 Gastro-esophageal reflux disease without esophagitis; Z86.19 Personal history of other infectious and parasitic diseases; Z87.19 Personal history of other diseases of the digestive system; Z86.718 Personal history of other venous thrombosis and embolism; Z86.73 Personal history of transient ischemic attack (TIA), and cerebral infarction without residual deficits; Z90.49 Acquired absence of other specified parts of digestive tract; Z87.891 Personal history of nicotine dependence
CPT/HCPCS: 43239; 36415; 84703; 88305; 88342; J7120; J2405

== ENCOUNTER 2019-04-29 19:37 | Emergency (ER) | payer OTHER, SELFPAY ==
[2019-03-14 10:02] VITALS: BMI 56.4
[2019-04-29 19:38] VITALS: BP 168/81; PULSE 90; RESP 18; TEMP 36.7; O2SAT 98; BMI 56.7
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
[2019-04-29 21:05] VITALS: BP 149/87; PULSE 83; RESP 18; O2SAT 98
--- NOTE | 2019-04-29 21:06 | ED.RN ---
THIS NURSE REVIEWED D/C INSTRUCTIONS WITH PT. PT VERBALIZED UNDERSTANDING OF INSTRUCTIONS. PT DENIES FURTHER NEEDS OR QUESTIONS AT THIS TIME
== END 2019-04-29 21:07 | disposition home or self-care (01) ==
PROVIDERS: Emergency Provider Emergency Medicine; Family Provider Family Medicine; PCP Family Medicine
DX: S20.211A Contusion of right front wall of thorax, initial encounter (principal); S30.1XXA Contusion of abdominal wall, initial encounter; S70.311A Abrasion, right thigh, initial encounter; S63.616A Unspecified sprain of right little finger, initial encounter; V89.2XXA Person injured in unspecified motor-vehicle accident, traffic, initial encounter; Y93.9 Activity, unspecified; Y92.9 Unspecified place or not applicable; K21.9 Gastro-esophageal reflux disease without esophagitis; Z86.718 Personal history of other venous thrombosis and embolism; Z87.891 Personal history of nicotine dependence
CPT/HCPCS: 71250; 73130; 99282

== ENCOUNTER 2019-10-03 17:37 | Emergency (ER) | payer OTHER, SELFPAY ==
[2019-10-03 17:38] VITALS: BP 183/90; PULSE 114; RESP 18; TEMP 36.3; O2SAT 98; BMI 56.6
--- NOTE | 2019-10-03 17:57 | MRI_ITS ---
STUDY: EXAMINATION - MRV BRAIN WITHOUT CONTRAST REASON FOR EXAM: Female, 28 years old. migraine, nausea, vomiting x 5 days -- patient states prev stroke 2016, and quot;blood clot in brain and quot; TECHNIQUE: 3D [id number] (TOF) imaging was performed. COMPARISON: MR brain from today FINDINGS: Normal flow within the superior sagittal sinus. Normal flow within the superficial cortical veins. Normal flow within the paired internal cerebral veins, vein of Major and straight sinus. Normal flow within the right transverse and sigmoid sinuses. Left transverse sinus is not well visualized. Normal flow within the bilateral jugular bulbs. 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 Electronically Signed: Lucas Pina MD at 20:29 EDT , Service support ,
--- NOTE | 2019-10-03 17:57 | MRI_ITS ---
STUDY: MRI BRAIN WITHOUT CONTRAST REASON FOR EXAM: Female, 28 years old. migraine, nausea, vomiting x 5 days -- patient states prev stroke 2016, and quot;blood clot in brain and quot; -- unable to complete exam due to claustrophobia, pre meds given, exam stopped mid ax T1 TECHNIQUE: Standardized multiplanar fat and water weighted pulse sequences were obtained. COMPARISON: MRI of the brain from today. FINDINGS: Normal size of the ventricles and extra-axial spaces for the patient''s age except for possible colpocephaly. Normal white matter tracts of the supratentorial brain. Megacisterna magna. Normal bilateral basal ganglia. Normal thalami. There is no extra-axial fluid accumulation. Normal flow voids within the major intracranial circulation suggesting patency by spin echo criteria. Normal sella turcica, pituitary gland, infundibular stalk, optic chiasm and hypothalamus. Normal tectal plate and pineal gland. Normal midbrain, cassandra and medulla. Normal cerebellum. Normal basal cisterns. Normal bilateral temporal bones. Normal bilateral internal auditory canals. No demonstrated orbital abnormality, within the constraints of a routine brain study. Normal visualized paranasal sinuses. Normal calvarium and skull base. Normal visualized soft tissue structures. Normal visualized upper cervical spine. MRI/Brain without Contrast IMPRESSION: No acute disease. Electronically Signed: Lucas Pina MD at 20:08 EDT , Service support ,
[2019-10-03] MEDS: 0.9% Normal Saline 1,000 ML 999 ML IV (18:34)
[2019-10-03] MEDS: DiphenhydrAMINE 50 MG/ML Syringe 25 MG IV (18:35)
[2019-10-03] MEDS: Ketorolac 30 MG/ML Syringe IV (18:36)
[2019-10-03] MEDS: proCHLORPERazine 10 MG/2 ML Vial IV (18:37)
[2019-10-03 20:18] VITALS: BP 140/75; PULSE 77; RESP 15; O2SAT 97
--- NOTE | 2019-10-03 20:33 | ED.VISSUMM ---
- ER Visit Summary Date of Service: 10/03/19 Chief Complaint: Headache History of Present Illness: The patient is a 28 F with a headache for the past 5 days. The pain is over her left eye. 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 She was on blood thinners for a year but is currently not on any anticoagulation. Physical Examination: Afebrile and vital signs unremarkable. Head and neck atraumatic. Cranial nerves grossly intact. Normal strength, sensation, speech, gait. 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 She was improved on reevaluation and will be discharged home. Follow-up with her primary care doctor. Treatment Plan: As above Disposition: Discharge Impression: Headache This note was generated with [employer] dictation software. It may contain incorrect words, spelling, and punctuation that were not noted in review of the chart prior to signing ED Disposition - Plan for ED Patient: Referrals: Wade Antony MD [Primary Care Provider] -
--- NOTE | 2019-10-03 20:34 | ED.DEP ---
ED Disposition - Plan for ED Patient: Instructions: ED Headache Unspecified Referrals: Wade Antony MD [Primary Care Provider] -
[2019-10-03 20:54] VITALS: BP 132/68; PULSE 87; RESP 16; O2SAT 96
== END 2019-10-03 20:57 | disposition home or self-care (01) ==
LOC: ED 20:25
PROVIDERS: Emergency Provider Emergency Medicine; PCP Family Medicine
DX: G43.909 Migraine, unspecified, not intractable, without status migrainosus (principal); Z86.718 Personal history of other venous thrombosis and embolism
CPT/HCPCS: 70544; 70551; 96361; 96374; 96375; 99283; J7030; A4216

== ENCOUNTER → 2019-11-30 | Outpatient (CLI) | payer OTHER, SELFPAY ==
[2019-12-08 18:20] LABS: HPV Reflexed? NOT INDICATED
== END | disposition home or self-care (01) ==
LOC: LABSPEC 14:08
PROVIDERS: PCP Family Medicine; Visit Provider Obstetrics & Gynecology
DX: Z12.4 Encounter for screening for malignant neoplasm of cervix (principal)
CPT/HCPCS: 88175; G0145

== ENCOUNTER → 2020-02-22 | Outpatient (CLI) | payer OTHER, SELFPAY ==
--- NOTE | 2020-02-22 | IMM_PTH ---
PATIENT: CASIE SOLANO LOC: [facility] U#:[id number] AGE/SX: 29/F ROOM: RE02/22/[address]: Dr. Janet Henderson MD : 1990 BED: DIS: 02/22/2020 SPEC #: [id number] RECD: 02/24/20 12:50 STATUS: LADONNA REQ #: [id number] ANABEL: 02/22/20 00:[address]: Janet Gallagher DEPT: IMMUNOHISTOCHEMISTRY RECD BY: Alysia Rosa ENTERED: 02/24/20 12:51 SP TYPE: IMMUNO OTHR DR: Dr. Wade Antony MD Tissues: A - Uterine cervix, NOS B - Endocervical Procedures: p16 (initial) KI-67 (add) PHYSICIAN & INSTITUTION [place] [id number] SPECIMEN INFORMATION: Tissue Source: A - Cervical biopsy at 11 o'clock, B - ECC Clinical Info: LGSIL; skin tag left groin Specimen Number: [id number] A & B CPT code: 51749 x2, 81032 x2 METHODOLOGY: Deparaffinized sections of prefer/formalin-fixed tissue or PAP/DQ stained slides are incubated with monoclonal/polyclonal antibodies/oligonucleotide probes. Localization is made via biotin free immunoperoxidase method. Appropriate controls are performed and reacted as expected. Results on target cell population are indicated in the following table: RESULTS: ANTIBODY / CLONE RESULT Block A P16 (E6H4) positive, rare Ki-67 (30-9) positive, low Block B P16 (E6H4) positive, focal block-like Ki-67 (30-9) positive, low These tests were developed and their performance characteristics determined by [facility]. They may not have been cleared or approved by the U.S. Food and Drug Administration. The FDA has determined that such clearance or approval is not necessary. The above immunohistochemical/dualISH markers are ordered and reviewed by the Pathologist. INTERPRETATION: A. Cervix at 11 o'clock, biopsy: Focal HPV change suspected. B. Endocervix, curettage: Consistent with mild and focal moderate squamous dysplasia, HSIL (SYDNIE I-II). AM:tien 02/27/20
--- NOTE | 2020-02-22 14:00 | CER_PTH ---
PATIENT: CASIE SOLANO [facility] U#:[id number] AGE/SX: 29/F ROOM: RE02/22/[address]: Dr. Janet Henderson MD : 1990 BED: DIS: 02/22/2020 SPEC #: [id number] RECD: 02/22/20 15:55 STATUS: LADONNA JUNAID #: [id number] ANABEL: 02/22/20 14:[address]: Janet Gallagher DEPT: SURGICAL PATHOLOGY RECD BY: Jazmin Jones ENTERED: 02/23/20 09:05 SP TYPE: CERV OTHR DR: Dr. Wade Antony MD Tissues: A - Uterine cervix, NOS B - Endocervical C - TISSUE SURGICALLY REMOVED Procedures: Surgery Specimen Level IV HEADER OPERATION: Colposcopy / skin tag removal PRE-OP DIAGNOSIS: LGSIL, skin tag left groin TISSUE SUBMITTED: A - Cervical biopsy at 11 o'clock, B - ECC, C - Skin tag left groin MICROSCOPIC DIAGNOSIS A. Cervix at 11 o'clock, biopsy: Focal HPV change suspected. See comment. B. Endocervix, curettings: Strips of benign superficial endocervix. Detached fragments of squamous mucosa with mild and focal moderate dysplasia, (HSIL).. See comment. C. Left groin skin tag, excision: Fragments of benign fibroepithelial polyp, mildly inflamed. Hyperkeratosis. AM:tien 02/24/20 COMMENT A & B. Results from immunohistochemistry ([id number]) for surrogate HPV marker (p16) will be reported separately. Case has been reviewed in consultation with Dr. Henderson who concurs with the above diagnosis. IDC:SJ MICROSCOPIC DESCRIPTION Slides are reviewed. GROSS DESCRIPTION A - Received in fixative is one container labeled with the patient's name and designated cervical biopsy at 11 o'clock. The specimen consists of multiple irregular fragments of light jay soft tissue that in aggregate measure 0.2 x 0.2 x 0.1 cm. The specimen is totally submitted in one cassette. B - Received in fixative is one container labeled with the patient's name and designated ECC. The specimen consists of a scant amount of soft tissue. The specimen is totally submitted for cell block preparation. C - Received in fixative is one container labeled with the patient's name and designated skin tag left groin. The specimen consists of two pieces of jay-white skin measuring 0.5 x 0.5 x 0.1 cm and 0.5 x 0.2 x 0.1 cm. The entire specimen is submitted in one cassette. / BEATA:tien 02/23/20 TC:0 CPT: 45235 x3
[2020-02-25 03:06] LABS: Chlamydia By Nucleic Acid AMP Negative (Negative)
[2020-02-25 08:10] LABS: Gonococcus By Nucleic Acid AMP Negative (Negative)
== END | disposition home or self-care (01) ==
LOC: LABSPEC 15:38
PROVIDERS: PCP Family Medicine; Visit Provider Obstetrics & Gynecology
DX: Z11.3 Encounter for screening for infections with a predominantly sexual mode of transmission (principal); L91.8 Other hypertrophic disorders of the skin
CPT/HCPCS: 87491; 87591; 88305; 88341; 88342

== ENCOUNTER 2020-04-05 10:08 | Day surgery (SDC) | payer OTHER, SELFPAY ==
[2020-04-04 15:39] LABS: Hematocrit 45.5 % (37-47); Hemoglobin 15.1 g/dL (12.0-15.0); Mean Corp Hgb Conc 33.2 g/dL (32-36); Mean Corpuscular Hgb 29.5 pg (27.0-32.0); Mean Platelet Vol. 9.7 fl (6.2-12.0); Platelet Count 249 K/mm3 (150-450); RBC Distribution Width CV 12.6 % (11.6-14.6); RBC Distribution Width SD 41.1 fl (35.1-43.9); Red Blood Count 5.11 M/mm3 (4.2-5.4); White Blood Count 9.9 K/mm3 (4.4-11.0)
[2020-04-04 15:59] LABS: Prothrombin Time (Protime)PT. 13.1 SECONDS (11.7-14.9)
[2020-04-05] VITALS (8 sets, daily range): BP systolic 111–151; BP diastolic 57–90; PULSE 83–114; RESP 16–18; TEMP 36.4–37.3; O2SAT 95–100; BMI 58.9
--- NOTE | 2020-04-05 | IMM_PTH ---
PATIENT: CASIE SOLANO LOC: [facility] [place] U#:[id number] AGE/SX: 29/F ROOM: RE04/05/[address]: Dr. Janet Henderson MD : 1990 BED: DIS: 04/05/2020 SPEC #: [id number] RECD: 04/09/20 14:05 STATUS: LADONNA REQ #: [id number] ANABEL: 04/05/20 00:[address]: Janet Gallagher DEPT: IMMUNOHISTOCHEMISTRY RECD BY: Alysia Rosa ENTERED: 04/09/20 14:07 SP TYPE: IMMUNO OTHR DR: Dr. Wade Antony MD Tissues: A - Uterine cervix, NOS Procedures: KI-67 (add) P16 (add) KI-67 (initial) PHYSICIAN & INSTITUTION [place] [id number] SPECIMEN INFORMATION: Tissue Source: A - Ectocervix, open at 6 o'clock, biopsy Clinical Info: HGSIL, SYDNIE II Specimen Number: [id number] A1 & A2 CPT code: 86803, 16045 x3 METHODOLOGY: Deparaffinized sections of prefer/formalin-fixed tissue or PAP/DQ stained slides are incubated with monoclonal/polyclonal antibodies/oligonucleotide probes. Localization is made via biotin free immunoperoxidase method. Appropriate controls are performed and reacted as expected. Results on target cell population are indicated in the following table: RESULTS: ANTIBODY / CLONE RESULT Block A1 P16 (E6H4) positive, block staining Ki-67 (30-9) positive, moderate Block A2 P16 (E6H4) positive, focal block staining Ki-67 (30-9) positive, moderate These tests were developed and their performance characteristics determined by [facility]. They may not have been cleared or approved by the U.S. Food and Drug Administration. The FDA has determined that such clearance or approval is not necessary. The above immunohistochemical/dualISH markers are ordered and reviewed by the Pathologist. INTERPRETATION: A. Ectocervix, open at 6 o'clock, biopsy: Mild and moderate squamous dysplasia. SJ:tien 04/10/20
[2020-04-05] MEDS: Lactated Ringers 1,000 ML 100 ML IV (10:50)
[2020-04-05 11:24] LABS: Internal QC Validated? YES +Cl - CLEAR BKGD; Pregnancy, Serum, hCG Quali. NEGATIVE Negative
--- NOTE | 2020-04-05 11:34 | HP.PCM_ITS ---
- Problem List (1) HGSIL (high grade squamous intraepithelial lesion) on Pap smear of cervix Status: Acute (2) SYDNIE II (cervical intraepithelial neoplasia II) Status: Acute History and Physical Date of Admission: 04/05/20 Surgical History and Physical Date: 04/04/2020 Name: MANJULA MACIEL Age: 29 Date of : 1990 Manjula Maciel, a 29 year old female 1 0 0 0 1, presents for LEEP with top hat on April 05, 2020 at 9:00. Manjula is here for her pre-op, LEEP planned. LMP 03/02/20 regular and lasting 6 days. Reports that she is doing well with no complaints. Pre-op concent's reviewed and signed. States she got tested today for COVID for her upcoming surgery. LJW as above. hx HGSIL PAP with colposcopy positive for CIN2 on ECC. Plan for LEEP. [facility] MEDICATIONS HISTORY: Current medications prescribed by our practice are: 1. ibuprofen 600 mg tablet, one tab po q 6 hours prn 2. ParaGard T 380A 380 square mm intrauterine device, Placed 04/07/16. Due for removal 04/07/26 ALLERGIES: No Known Allergies Infections - Chicken pox Illnesses - Blood Clot in brain,Stroke,HTN Accidents - None Hospitalizations - see surgery and Childbirth paternal grandparent with congestive heart failure; Review of Systems: GENERAL - Denies fever, or chills SKIN - Denies skin changes EYES - Denies visual changes EARS - Denies difficulty hearing NOSE - Denies nasal congestion or bleeding MOUTH - Denies sore throat or difficulty swallowing NECK - Denies pain or swelling RESPIRATORY - Denies shortness of breath or wheezing CARDIOVASCULAR - Denies palpitations or chest pain GASTROINTESTINAL - Denies nausea, vomiting, diarrhea, constipation GENITOURINARY - Denies dysuria, frequency of urination, incontinence of urine MUSCULOSKELETAL - knee pain NEUROLOGICAL - Denies localized numbness or weakness PSYCHIATRIC - Denies depression or anxiety ENDOCRINE - Denies heat or cold intolerance, weight loss or gain HEMATO-IMMUNOLOGIC - Denies excesive bleeding with cuts SOCIAL HISTORY: Alcohol Use - denies drinking Smoking - Never Diet - no special diet Lifestyle - Exercise - minimal Seat Belt Use - always Employer - [employer] Job Description - Asst landscaping manager Illicit Drug Use - None Sexual Activity - [employer] Residence - rents an apartment Hours Worked - 40 hours per week Children Name(s) - Gilles Control - Paragard and Placed 04/07/16 FAMILY HISTORY: MENSTRUAL HISTORY: LMP Known?- Niki, placed 04/07/16Amount/Duration - 6 days, Regularity - Regular, Frequency - monthly days, LMP - 03/02/20, Age Onset Menarche - 12 PAST PREGNANCIES: Total Pregnancies - 1; Full Term Pregnancies - 1; Premature - 0; Abortions, Induced - 0; Abortions, Spontaneous - 0; Ectopics - 0; Multiple Births - 0; Living Children - 1 SURGICAL HISTORY: 1. 04/12/2018 Cholecystectomy ; Dr. Roque Quinn - 2. 07/10/2015 ; Dr. To - PHYSICAL EXAM BP- 124/72 Sitting, Right arm, regular cuff Weight- 312.12394 lbs Height- 62.00 inch BMI:57.18 CONSTITUTIONAL - NAD, well nourished, and well developed SKIN - No rash, lesions, or ulcers HEENT - Normocephalic, PERRLA, EOMI LUNGS - CTA x2 without wheezes, crackles or rales CARDIAC - Regular rate and rhythm without rubs, murmurs, or gallops NEUROLOGICAL - normal gait, normal balance, normal motor PSYCHIATRIC - A and O to time, place, person, mood and affect External Genitial Vagina - non-tender without lesions Urethra/Urethral Meatus - non-tender Bladder - non-tender Vagina - vaginal reyna are pink and moist without loss of rugae and no evidence of atropy Cervix - without cervical motion tenderness and has normal size and features without evident lesions Uterus - limited by body habitus Adnexa - limited by body habitus 02/22/20 MICROSCOPIC DIAGNOSIS A. Cervix at 11 o'clock, biopsy: Focal HPV change suspected. See comment. B. Endocervix, curettings: Strips of benign superficial endocervix. Detached fragments of squamous mucosa with mild and focal moderate dysplasia, (HSIL).. Laboratory Tests 04/05/20 04/04/20 04/04/20 Range/Units 11:00 15:15 15:15 WBC 9.9 (4.4-11.0) K/mm3 RBC 5.11 (4.2-5.4) M/mm3 Hgb 15.1 H (12.0-15.0) g/dL Hct 45.5 (37-47) % MCV 89.0 (81-99) fL MCH 29.5 (27.0-32.0) pg MCHC 33.2 (32-36) g/dL RDW Std Deviation 41.1 (35.1-43.9) fl RDW Coeff of Susie 12.6 (11.6-14.6) % Plt Count 249 (150-450) K/mm3 MPV 9.7 (6.2-12.0) fl PT (11.7-14.9) SECONDS INR APTT (24.1-36.2) Seconds Serum , Qual NEGATIVE Negative Blood Type B NEGATIVE Antibody Screen NEGATIVE 04/04/20 Range/Units 15:15 WBC (4.4-11.0) K/mm3 RBC (4.2-5.4) M/mm3 Hgb (12.0-15.0) g/dL Hct (37-47) % MCV (81-99) fL MCH (27.0-32.0) pg MCHC (32-36) g/dL RDW Std Deviation (35.1-43.9) fl RDW Coeff of Susie (11.6-14.6) % Plt Count (150-450) K/mm3 MPV (6.2-12.0) fl PT 13.1 (11.7-14.9) SECONDS INR 1.0 APTT 28.0 (24.1-36.2) Seconds Serum , Qual Negative Blood Type Antibody Screen ASSESSMENT/PLAN: 1. Moderate Cervical Dysplasia Path - ECC positive for severe dysplasia (CINII) Prior hx CINII and no excision procedure as pt lost to f/u Plan for LEEP with top hat, ECC. Discussed consideration for CKC if relaxation under anesthesia allows, pt declines, prefers to proceed with LEEP Procedural r/b/i reviewed at length
--- NOTE | 2020-04-05 11:40 | CER_PTH ---
PATIENT: CASIE SOLANO LOC: [facility] [place] U#:[id number] AGE/SX: 29/F ROOM: RE04/05/[address]: Dr. Janet Henderson MD : 1990 BED: DIS: 04/05/2020 SPEC #: [id number] RECD: 04/05/20 13:56 STATUS: LADONNA REAmilcar #: [id number] ANABEL: 04/05/20 11:[address]: Janet Gallagher DEPT: SURGICAL PATHOLOGY RECD BY: Hanna Nunez ENTERED: 04/06/20 07:00 SP TYPE: CERV OTHR DR: Dr. Wade Antony MD Tissues: A - UTERINE CERVIX LEEP B - UTERINE CERVIX LEEP C - Endocervical Procedures: Surgery Specimen Level IV HEADER OPERATION: LEEP cone with top hat PRE-OP DIAGNOSIS: HGSIL, SYDNIE II TISSUE SUBMITTED: A - Ectocervix, open at 6 o'clock, B - Endocervix, C - Endocervical curettings MICROSCOPIC DIAGNOSIS A. Ectocervix, LEEP conization: Mild and focal moderate squamous dysplasia with HPV changes (HGSIL and SYDNIE I-II). Acute and chronic cystic cervicitis. Resection margins are free of dysplastic changes. See comment. B. Endocervix, LEEP conization: Negative for dysplasia. Chronic cystic cervicitis. C. Endocervical curettings: Fragments of benign endocervical epithelium, blood and mucous, negative for dysplasia. Scant fragments of benign endometrial tissue. SJ:tien 04/09/20 COMMENT A. Immunohistochemistry ([id number]) for surrogate HPV marker (p16) supports the above diagnosis. Please make reference to previous specimen ([id number]) ECC with diagnosis of detached fragments of squamous mucosa with mild and focal moderate dysplasia. MICROSCOPIC DESCRIPTION Slides are reviewed. GROSS DESCRIPTION A - Received in fixative is one container labeled with the patient's name and designated ectocervix, open at 6 o'clock. The specimen consists of a jay, indurated piece of LEEP conization measuring 2 x 1.5 cm and up to 0.6 cm in length. The specimen is opened at 6 o'clock. No mucosal tissue is identified. The non-mucosal surface is inked black. The specimen is radially sectioned and submitted entirely in four cassettes as follows: 1 - 12 to 3 o'clock, 2 - 3 to 6 o'clock, 3 - 6 to 9 o'clock, 4 - 9 to 12 o'clock. B - Received in fixative is one container labeled with the patient's name and designated endocervix. The specimen consists of a jay, indurated piece of LEEP conization measuring 1.4 x 1 0.6 cm. No mucosal tissue is identified. The non-mucosal surface is inked black. The specimen is serially sectioned and submitted entirely in two cassettes. C - Received in fixative is one container labeled with the patient's name and designated endocervical curettings. The specimen consists of scant fragments of hemorrhagic soft tissue that in aggregate measure 0.4 x 0.4 x 0.1 cm. The specimen is totally submitted in one cassette. / BEATA:tien 04/06/20 TC:3 CPT: 41785 x2, 13684
[2020-04-05] MEDS: Iodine/Potassium Iodide 14ML Bottle 1 DRP TOPICAL (13:25)
--- NOTE | 2020-04-05 13:39 | PCM.OPRPT ---
Problem List (1) HGSIL (high grade squamous intraepithelial lesion) on Pap smear of cervix Status: Acute (2) SYDNIE II (cervical intraepithelial neoplasia II) Status: Acute Report of Operation Date of Procedure: 04/05/20 Pre-Operative Diagnosis: 1. HGSIL PAP. 2. SYDNIE II on ECC Post-Operative Diagnosis: 1. HGSIL PAP. 2. SYDNIE II on ECC Surgery/Procedure Performed:: 1. LEEP. 2. Top-Hat. 3. Endocervical curettage Description of Surgical Findings:: Lugol's resistance at 12:00 on the ectocervix Type of Anesthesia:: Local MAC Anesthesiologist: Cornelio Reina Specimen's removed: 1. Ectocervix, open at 6 o'clock. 2. Top-Hat. 3. Endocervical curettings Estimated Blood Loss (mL): 50 Fluids Replaced: 1400 mL Description of Procedure: 29-year-old 1 para 1 with a history of abnormal Paps. Pap in November 2019 showed HGSIL. Colposcopic biopsy demonstrated SYDNIE-2 on ECC. The patient was counseled regarding management options opted to proceed with a LEEP with with plan to Top-Hat and ECC. Procedural risks, benefits and indications and alternatives were reviewed at length. Procedure: Patient was brought to the operating room and signed was performed. She is placed in the dorsal supine position and induced under MAC. She was repositioned to dorsolithotomy and the perineum prepped. Straight catheterization of the bladder was performed. The perineum was draped in sterile fashion and patient placed into high lithotomy. Insulated speculum was placed vaginally. Paracervical block was formed using 20 cc of 1% lidocaine with 1: 100,000 epinephrine. Lugol's solution was applied to the ectocervix with limited uptake at 12:00. A LEEP excisional biopsy was performed using 2 cm wide loop. A LEEP Top-Hat was performed. No cervical curettage was done. The LEEP excisional bed was fulgurated and Monsel's solution applied with compression until hemostasis obtained. The procedure was complete. The speculum was removed from the vagina patient was placed into dorsal supine position, awakened and transferred to the recovery room without complication. Sponge counts were correct x2. The patient tolerated the procedure well. - Complications None - Admit VTE Documentation VTE Present on Admission: No VTE Mechan Device Prophylaxis: SCD's VTE Pharm Prophylaxis ordered?: No
--- NOTE | 2020-04-05 13:45 | DCINST_ITS ---
Discharge Diet: No Restrictions Discharge Activity: Return to Normal Activity, May Shower, - - No tub bath for 2 weeks, nothing in the vagina, avoid pushing/pulling/jumping May resume sexual activity in: 4 weeks Lifting Restrictions: 20 lb Call your doctor if you observe: Fever of 101 or Higher, Inability to urinate, Inability to have a bowel movement, Using more than one pad per hour, Shortness of breath, Chest pain, Calf discomfort, Uncontrolled pain Allergies/Adverse Reactions: Allergies No Known Allergies Allergy (Verified 04/05/20 10:31) Medications to take at Discharge Ibuprofen 600 mg PO TID PRN #30 tab 04/05/20 The following prescriptions were given: Ibuprofen 600 mg PO TID PRN #30 tab PRN Reason: Pain Score 1-10 Transmission Status: Pending to [facility] [id number] Orders to be completed after discharge: ,Urine Time Frame: 04/05/20, Facility: [facility], Location: Laboratory Primary Care Physician: Wade Antony MD [Primary Care Provider] - Test Results: Test results from this visit will be discussed in further detail at your follow- up appointment, if applicable. Please Follow Up With: Janet Gallagher MD When: 2-4 weeks
== END 2020-04-05 15:54 | disposition home or self-care (01) ==
LOC: SDC 10:09 → AC 10:09
PROVIDERS: Anesthesiology; PCP Family Medicine; Referring Provider Obstetrics & Gynecology; Visit Provider Obstetrics & Gynecology
PROC: 0UBC7ZZ Excision of Cervix, Via Natural or Artificial Opening (ICD-10-PCS; CPT 57522; principal; 2020-04-05 11:25)
DX: N87.1 Moderate cervical dysplasia (principal); Z11.59 Encounter for screening for other viral diseases; Z87.891 Personal history of nicotine dependence
CPT/HCPCS: 57522; 36415; 84703; 85027; 85610; 85730; 86850; 86900; 86901; 87426; 88305; 88341; 88342; C9803; J7120; J2405

== ENCOUNTER → 2021-09-20 | Outpatient (CLI) | payer OTHER, SELFPAY ==
[2021-09-26 17:24] LABS: HPV APTIMA, High Risk Positive (Negative)
== END | disposition home or self-care (01) ==
LOC: LABSPEC 12:21
PROVIDERS: PCP Family Medicine; Visit Provider Obstetrics & Gynecology
DX: Z12.4 Encounter for screening for malignant neoplasm of cervix (principal)
CPT/HCPCS: 87624; 88175; G0145

== ENCOUNTER → 2021-11-05 | Outpatient (CLI) | payer OTHER, SELFPAY ==
--- NOTE | 2021-11-05 14:15 | EMB_PTH ---
PATIENT: CASIE SOLAN[facility] U#:[id number] AGE/SX: 31/F ROOM: RE11/05/[address]: Dr. Janet Henderson MD : 1990 BED: DIS: 11/05/2021 SPEC #: [id number] RECD: 11/06/21 08:18 STATUS: LADONNA REQ #: [id number] ANABEL: 11/05/21 14:[address]: Janet Gallagher DEPT: SURGICAL PATHOLOGY RECD BY: Hanna Nunez ENTERED: 11/06/21 08:18 SP TYPE: ENDOM BX/C OTHR DR: Dr. Wade Antony MD Tissues: Endometrium, NOS Procedures: Surgery Specimen Level IV HEADER OPERATION: Colposcopy PRE-OP DIAGNOSIS: ASCUS pap, positive HR-HPV, LEEP SYDNIE I-II TISSUE SUBMITTED: Endocervical curettings MICROSCOPIC DIAGNOSIS Endocervical curettings: Fragments of benign ecto- and endocervical epithelium and mucous, negative for dysplasia. See comment. BEATA:tien 11/07/2021 COMMENT Clinical correlation and appropriate follow up are necessary. Please make reference to previous specimen ([id number]), ectocervix, LEEP conization with diagnosis of ?mild and focal moderate squamous dysplasia with HPV changes.? MICROSCOPIC DESCRIPTION Slides are reviewed. GROSS DESCRIPTION Received in fixative is one container labeled with the patient's name and designated endocervical curettings. The specimen consists of multiple irregular fragments of jay mucoid tissue that in aggregate measure 1 x 0.2 x <0.1 cm. The specimen is totally submitted in one cassette. / BEATA:tien 11/06/2021 TC:3 CPT: 51391
== END | disposition home or self-care (01) ==
LOC: LABSPEC 16:06
PROVIDERS: PCP Family Medicine; Visit Provider Obstetrics & Gynecology
DX: R87.810 Cervical high risk human papillomavirus (HPV) DNA test positive (principal)
CPT/HCPCS: 88305

== ENCOUNTER → 2022-03-26 | Outpatient (CLI) | payer OTHER, SELFPAY ==
[2022-04-03 22:07] LABS: HPV Genotype 16, Aptima Negative (Negative)
[2022-04-05 19:26] LABS: HPV APTIMA, High Risk Positive (Negative); HPV Genotype 18,45 Aptima Negative (Negative)
== END | disposition home or self-care (01) ==
LOC: LABSPEC 10:55
PROVIDERS: PCP Family Medicine; Visit Provider Student in an Organized Health Care Education/Training Program
DX: Z12.4 Encounter for screening for malignant neoplasm of cervix (principal)
CPT/HCPCS: 87624; 88175; G0145

== ENCOUNTER → 2022-08-20 | Outpatient (CLI) | payer OTHER, SELFPAY ==
[2022-08-29 09:37] LABS: HPV APTIMA, High Risk Positive (Negative)
== END | disposition home or self-care (01) ==
LOC: LABSPEC 15:11
PROVIDERS: PCP Family Medicine; Visit Provider Student in an Organized Health Care Education/Training Program
DX: Z12.4 Encounter for screening for malignant neoplasm of cervix (principal)
CPT/HCPCS: 87624; 88175; G0145

== ENCOUNTER 2022-10-24 09:24 | Day surgery (SDC) | payer OTHER, SELFPAY ==
[2022-10-24] VITALS (7 sets, daily range): BP systolic 91–158; BP diastolic 64–103; PULSE 81–95; RESP 16–20; TEMP 36.1–37.4; O2SAT 93–99; BMI 65.7
--- NOTE | 2022-10-24 | CER_PTH ---
PATIENT: CASIE SOLANO LOC: [facility] [place] U#:[id number] AGE/SX: 31/F ROOM: RE10/24/[address]: Dr. Altagracia Bourgeois DO : 1990 BED: DIS: 10/24/2022 SPEC #: [id number] RECD: 10/24/22 13:26 STATUS: LADONNA REAmilcar #: [id number] ANABEL: 10/24/22 00:[address]: Altagracia Bourgeois DEPT: SURGICAL PATHOLOGY RECD BY: Tony Faustin ENTERED: 10/24/22 13:26 SP TYPE: CERV OTHR DR: No Primary Care Phys Tissues: Uterine cervix, NOS Procedures: Surgery Specimen Level IV HEADER OPERATION: Exam under anesthesia, cervical biopsies PRE-OP DIAGNOSIS: Abnormal pap test TISSUE SUBMITTED: Cervical biopsies MICROSCOPIC DIAGNOSIS Cervix, biopsy: Fragments of ectocervical mucosa, negative for dysplasia. See comment. BEATA:tien 10/28/2022 COMMENT Multiple levels are examined. Clinical correlation and appropriate follow-up are necessary. MICROSCOPIC DESCRIPTION Slides are reviewed. GROSS DESCRIPTION Received in fixative is one container labeled with the patient's name and designated cervical biopsy. The specimen consists of multiple irregular fragments of jay soft tissue that in aggregate measure 1.5 x 0.5 x 0.2 cm. The specimen is totally submitted in one cassette. / SJ:tien 10/24/2022 TC:5 CPT: 29674
[2022-10-24 10:09] LABS: Hemoglobin 15.6 g/dL (12.0-15.0); Mean Corp Hgb Conc 33.2 g/dL (32-36); Mean Corpuscular Hgb 29.8 pg (27.0-32.0); Mean Corpuscular Volume 89.7 fL (81-99); Platelet Count 241 K/mm3 (150-450); RBC Distribution Width CV 13.1 % (11.6-14.6); RBC Distribution Width SD 42.5 fl (35.1-43.9); Red Blood Count 5.24 M/mm3 (4.2-5.4); White Blood Count 7.5 K/mm3 (4.4-11.0)
[2022-10-24] MEDS: Lactated Ringers 1,000 ML 15 ML IV (10:11)
--- NOTE | 2022-10-24 10:13 | PCM.HP.BLA ---
History and Physical Date of Admission: 10/24/22 HPI: 31-year-old female plan for exam under anesthesia and colposcopic cervical biopsies for abnormal Pap test. Inadequate visualization for colposcopy in office. Denies headache or vision changes, chest pain or shortness of breath, nausea or vomiting, diarrhea constipation, fevers or chills. G1, P1 Medical history: 1. Class III obesity 2. History of normal Pap test Surgical history: 1. section 2. Cholecystectomy 3. Naselle tooth extraction Family history: Noncontributory Social history: Former tobacco use. Denies alcohol or drug use. Allergies: No known drug allergies Medications: 1. Apple cider vinegar 2. Vitamin D 3 3. Probiotic 4. Ibuprofen as needed 4. Multivitamin Review of system: Negative otherwise stated above Physical exam: Blood pressure 158/103, heart rate 94, respiratory rate 16, temp 97.1 ?F, oxygen saturation 97% on room air General: No acute distress HEENT: Normocephalic/atraumatic, PERRLA Cardiorespiratory: No increased effort Abdomen: Soft, nontender Extremities no edema Neurologic: Cranial nerves II through XII grossly intact, no focal deficits Musculoskeletal: Moves all extremities equally Assessment/plan: 31-year-old female with abnormal Pap test plan for exam under anesthesia and colposcopic cervical biopsies. All risk, benefits, alternative discussed with patient: Risk include but not limited to: Risk of bleeding twin transfusion, infection, injury to surrounding tissue, VTE, ice admission. Patient were consented. Patient understands procedure and reasoning for intraoperative biopsies. Pap test: Low-grade squamous intraepithelial lesion, HPV positive.
[2022-10-24 10:16] LABS: Internal QC Validated? YES +Cl - CLEAR BKGD; Pregnancy, Urine Negative Negative
[2022-10-24] MEDS: Iodine/Potassium Iodide 14ML Bottle 1 DRP TOPICAL (11:30)
[2022-10-24] MEDS: FERRIC SUBSULFATE 8 GM SOLN (11:33)
--- NOTE | 2022-10-24 11:37 | PCM.OPRPT ---
Report of Operation Date of Procedure: 10/24/22 Pre-Operative Diagnosis: Low-grade squamous intraepithelial lesion, HPV positive Post-Operative Diagnosis: Low-grade squamous intraepithelial lesion, HPV positive Surgery/Procedure Performed:: Exam under anesthesia, cervical biopsy Description of Surgical Findings:: Normal-appearing external genitalia. Palpated cervix on bimanual exam, surface of cervix smooth without masses on palpation. Unable to palpate uterus or ovaries due to body habitus. Large amount of paravaginal adipose tissue limiting exam and full visualization of cervix. Cervix with Lugol staining covering. Surgeon: Altagracia Bourgeois Type of Anesthesia: MAC Specimen's removed: Cervical biopsies Estimated Blood Loss (mL): 5 cc Fluids Replaced: 600CC Description of Procedure: Indication/risk/benefits: 31-year-old female with abnormal Pap test plan for intraoperative exam under anesthesia, colposcopy, cervical biopsies. Attempted colposcopy in office, unable to visualize cervix due to anatomy. Therefore decision intraoperatively was made. All risk, benefits, alternatives were discussed with patient. Risk include are not limited to: Risk of bleeding, infection, injury to surrounding tissue, VTE, ICU admission. Patient aware and consented. Procedure: Patient taken to the operating room and MAC anesthesia induced. Patient placed in the dorsal lithotomy position prepped and draped in usual sterile fashion. Unable to visualize cervix with weighted speculum and Millan retractor. Unable to visualize cervix with large speculum. Right angle retractor placed in the posterior vagina and Cameron retractor placed anteriorly. Cervix was visualized, unable to visualize transformation zone. Lugol's placed. Lugol staining noted above. Attempted to use colposcope to visualize cervix, however patient was having oxygen desaturation and procedure needed to be expedited. Therefore decision to take biopsies circumferentially was made without use of colposcope. 3 cervical biopsies taken. Unable to complete endocervical curetting due to patient anatomy. Monsel's placed. Cervix hemostatic. Retractors were removed. Urine output: None measured Complications None
--- NOTE | 2022-10-24 11:44 | DCINST_ITS ---
Discharge Instructions Diet Discharge Diet: No restrictions Activity Discharge Activity: Return to Normal Activity and May Shower May resume sexual activity in: 2 weeks Weight Bearing Status: Weight bearing as tolerated Lifting Restrictions: None Dressing / Incision Call your doctor if you observe: Fever of 101 or Higher, Change in Color, Inability to urinate, Using more than 1 pad per hour, Shortness of breath, Dizziness, Swelling in the ankles, Chest pain and Calf discomfort Follow Up Care Please Follow Up With: Altagracia Bourgeois DO When: 1-2 week postoperative visit Test Results: Test results from this visit will be discussed in further detail at your follow- up appointment, if applicable. Discharge Plan Admission Primary Reason for Your Visit: Exam under anesthesia, cervical biopsies Attending Provider: Altagracia Bourgeois Primary Care Provider: Lily Cheung Primary Discharge Orders/Prescriptions Prescriptions: No Action ibuprofen 600 MG tablet 600 mg PO TID PRN (Reason: Pain Score 1-10) Qty: 30 0RF multivitamin Capsule 1 cap PO DAILY cholecalciferol (vitamin D3) [Vitamin D3] 25 mcg (1,000 unit) Capsule 25 mcg PO DAILY apple cider vinegar 500 mg Tablet 500 mg PO DAILY Probiotic 3 billion cell Capsule 3,000 mmu cells PO DAILY Rx Instructions: administer with a meal Referrals / Follow Up: Care Physician,Lily Primary [Primary Care Provider] - Disposition Disposition (needs filled in before D/C Order can be placed): Home, Self Care
[2022-10-24] MEDS: Acetaminophen 500 MG Tablet 1000 MG PO (12:42)
== END 2022-10-24 13:05 | disposition home or self-care (01) ==
LOC: SDC 09:25 → AC 09:27
PROVIDERS: Anesthesiology; Referring Provider Student in an Organized Health Care Education/Training Program; Visit Provider Student in an Organized Health Care Education/Training Program
PROC: (CPT 57410; principal; 2022-10-24 10:50)
DX: R87.619 Unspecified abnormal cytological findings in specimens from cervix uteri (principal); E66.9 Obesity, unspecified; F12.90 Cannabis use, unspecified, uncomplicated; Z87.891 Personal history of nicotine dependence; Z86.73 Personal history of transient ischemic attack (TIA), and cerebral infarction without residual deficits
CPT/HCPCS: 57421; 00940; 81025; 85027; 86850; 86900; 86901; 88305; J7120; J2405

== ENCOUNTER 2022-12-26 15:58 | Emergency (ER) | payer SELFPAY ==
[2022-12-26 15:59] VITALS: BP 168/98; PULSE 120; RESP 17; TEMP 36.2; O2SAT 99; BMI 65.4
--- NOTE | 2022-12-26 16:34 | ED.RN ---
PT AND PT SPOUSE STATE SHE HAS BEEN TAKING BABY ASPIRIN DAILY WELL AN OVER THE COUNTER WATER PILL. UNSURE OF NAME OF WATER PILL/ DOSAGE.
--- NOTE | 2022-12-26 17:17 | EX.ED.DYSGE1 ---
HPI History of Present Illness Chief Complaint: Edema Detail of Chief Complaint: Edema of the feet and lower extremity, pain in lower extremity, paresthesia Informant: patient and spouse/S.O. Onset/Context/Timing Onset: Weeks Context: Sudden Onset Timing: Intermittent Quality: Paresthesia and electrical shocking pain Current Severity: Mild Maximum Severity: Moderate Worsened by: Nothing Relieved by: Nothing Associated Symptoms Associated Symptoms: Question of claudication right calf. Narrative Narrative: Patient is a 32-year-old woman who is BMI is 65.4. She presents because of edema to her lower extremities. She also complains of electrical pain right heel radiating into her calf. She also complains of bilateral numbness in her lower extremities. She denies recent weight gain or weight loss. She states she has seen a chiropractor and told she has sciatica. Patient states the pain is on the side and goes down to her ankle. This crosses multiple dermatomes. Patient does complain of fatigue. Significant other states she snores significantly. She is never been tested for obstructive sleep apnea. She reports decreased urine output over the last week. She states she is drinking more fluids. She denies history of diabetes. Prior similar symptoms: No Recent Illness/Hospitalization: No PFSH PFS Medical History Abdominal pain Alcohol use Anxiety Back pain Chlamydia Easy bruising Former smoker Heartburn Hemorrhoid History of edema Hx of LEEP (loop electrosurgical excision procedure) of cervix complicating Hypertension Leg cramps Marijuana use Shortness of breath on exertion TIA (transient ischemic attack) Vertigo Home Medications ibuprofen 600 mg tablet 600 mg PO TID PRN Pain Score 1-10 #30 tabs 04/05/20 [Rx Last Taken Unknown] apple cider vinegar 500 mg tablet 500 mg PO DAILY 10/22/22 [History Last Taken Unknown] cholecalciferol (vitamin D3) 25 mcg (1,000 unit) capsule (Vitamin D3) 25 mcg PO DAILY 10/22/22 [History Last Taken Unknown] lactobacillus combination no.4 3 billion cell capsule (Probiotic) 3,000 mmu cells PO DAILY 10/22/22 [History Last Taken Unknown] multivitamin 1 cap PO DAILY 10/22/22 [History Last Taken Unknown] aspirin 81 mg capsule 81 mg PO DAILY 12/26/22 [History Last Taken Unknown] Allergy/AdvReac Type Severity Reaction Status Date / Time No Known Allergies Allergy Verified 12/26/22 16:01 Family History Mother Diabetes Hypertension Surgical History History of History of cholecystectomy (~2018) History of esophagogastroduodenoscopy (EGD) Hx of wisdom tooth extraction Social History (Updated 12/26/22 @ 17:[address] Baudilio Walton MD) household members: significant other Smoking Status: Former smoker alcohol intake: never substance use type: does not use ROS ROS ED Constitutional Constitutional ED: Denies chills, fever(s), subjective, sweats or weight loss Cardiovascular Cardiovascular: Denies chest pain or palpitations Respiratory/Chest Respiratory/Chest: Denies cough, dyspnea or dyspnea on exertion Gastrointestinal Gastrointestinal: Denies abdominal pain, constipation, nausea or vomiting Genitourinary Genitourinary ED: Denies dysuria, hematuria or urinary frequency Musculoskeletal Musculoskeletal: Reports back pain; Denies arthralgias, myalgias or neck pain Integumentary Denies rash Neurologic Neurologic: Reports paresthesias; Denies headache(s) or weakness Endocrine Endocrinology: Denies cold intolerance or heat intolerance Hematologic/Lymphatic Hematologic/Lymphatic: Reports systems reviewed and no addt'l complaints, except as documented EXAM Physical Exam Const Vital Signs: 12/26/22 15:59 12/26/22 16:29 Temperature 97.2 F L Temperature Source Temporal Pulse Rate 120 H Respiratory Rate 17 Respiratory Effort Normal Non-Labored Respiratory Pattern Normal Blood Pressure 168/98 H Blood Pressure Mean 121 Pulse Ox 99 Oxygen Delivery Method Room Air Positive well nourished and well developed Constitutional Narrative: BMI is 65.4. General Appearance ED: well developed and NAD; Negative for pallor HEENT Reports moist mucous membranes HEENT Narrative: Head is atraumatic normocephalic. Ears normal. Eyes PERRL and EOMs intact bilaterally General Eye ED: Negative for pale conjunctiva or scleral icterus Neck no lymphadenopathy, supple and no JVD Resp normal respiratory effort Cardio regular rate and regular rhythm Back/Spine no CVA tenderness Back/Spine Narrative: Straight leg test is negative right and left. Patient reports altered sensation L3 and L5 5 dermatome on the left. Patellar and ankle reflexes are 1+. There is no delayed relaxation of the ankle reflex. EHLs intact. 5/5 strength with plantar dorsiflexion of the foot. Gait observed no foot drop. Extremity normal to inspection Extremity Narrative: There is no pitting edema. DP and PT pulse are palpable. Patient does have hair on her toes. There is no discoloration, asymmetry, leg vein distention, palpable cords or tenderness in the distribution of deep venous system. Neuro oriented x3, CN's II-XII intact bilaterally and no sensory deficits noted Sensorium / Orientation: alert Psych mental status grossly normal Skin no rashes or lesions noted, no wounds and skin turgor normal General Skin Exam: Negative for jaundice or pallor MDM MDM MDM Narrative Medical decision making narrative: Suspect patient's leg swelling is due to pulmonary hypertension from undiagnosed obstructive sleep apnea We will obtain comprehensive metabolic panel to assess total protein, albumin and renal function. UA to assess for proteinuria and hematuria. TSH to evaluate for hypothyroidism. Lab Data Attestation: I reviewed the patient's lab results. Lab results narrative: Comprehensive metabolic panel is normal. Urine is positive for bacteria. Since she is asymptomatic urine culture was sent. If positive she will receive a call. Patient was informed that it is my opinion that this is related to obstructive sleep apnea. She needs to follow-up with her doctor for sleep study. She apparently had a sleep study 4 to 5 years ago which was borderline. Labs: Laboratory Results - last 24 hr 12/26/22 12/26/22 17:40 18:00 Sodium 136 Potassium 4.0 Chloride 103 Carbon Dioxide 28.0 Anion Gap 5 BUN 9 Creatinine 0.74 Estim Creat Clear Calc 82.36 Est GFR (MDRD) Af Amer 116 Est GFR (MDRD) Non-Af 96 BUN/Creatinine Ratio 12.1 Glucose 99 Calcium 8.9 Total Bilirubin 0.70 AST 28 ALT 40 Alkaline Phosphatase 65 Total Protein 7.6 Albumin 3.6 Globulin 4.0 Albumin/Globulin Ratio 0.9 TSH 2.15 Urine Color Yellow Urine Clarity Clear Urine pH 6.5 Ur Specific [place] 1.010 Urine Protein Negative Urine Glucose (UA) Normal Urine Ketones Negative Urine Occult Blood 10 H Urine Nitrite Negative Urine Bilirubin Negative Urine Urobilinogen Normal Ur Leukocyte Esterase 100 H Urine RBC 0-5 SEEN Urine WBC 0-5 SEEN Ur Squamous Epith Cells 0-5 SEEN Urine Bacteria 1+ Urine Mucus 0 SEEN Discharge Plan Triage Chief Complaint: Edema ED Provider: Baudilio Walton Dx/Rx/DC Orders Clinical Impression: Lymphedema associated with obesity, Body mass index (BMI) greater than 50 Instructions: ED Peripheral Edema, Bilateral, ED Sleep Apnea, Obstructive Prescriptions: No Action ibuprofen 600 MG tablet 600 mg PO TID PRN (Reason: Pain Score 1-10) Qty: 30 0RF multivitamin Capsule 1 cap PO DAILY cholecalciferol (vitamin D3) [Vitamin D3] 25 mcg (1,000 unit) Capsule 25 mcg PO DAILY apple cider vinegar 500 mg Tablet 500 mg PO DAILY Probiotic 3 billion cell Capsule 3,000 mmu cells PO DAILY Rx Instructions: administer with a meal aspirin 81 mg capsule 81 mg PO DAILY Primary Care Provider: Rupal Vincent NP Referrals: Rupal Vincent NP, [facility] [Primary Care Provider] - 1 Week Activity Restrictions/Additional Instructions: Recommend contacting your doctor for outpatient sleep study. Disposition Disposition: Home, Self Care
[2022-12-26 17:46] LABS: Mucous, Urine 0 SEEN /hpf (<or=2+)
[2022-12-26 18:03] LABS: Color, Urine Yellow (Yellow); Glucose, Dipstick Normal (Normal); Ketone-Dipstick Negative (Negative); Leukocyte Esterase-Dipstick 100 /ul (Negative); Nitrite-Dipstick Negative (Negative); Occult Blood-Urine 10 /ul (Negative); Protein-Dipstick Negative (Negative); Urine Bilirubin Dipstick Negative (Negative); Urine Clarity Clear (Clear); Urine Urobilinogen Normal (Normal); Urine pH 6.5 (5.0 - 8.0)
[2022-12-26 18:19] LABS: Bacteria 1+ /hpf (None Seen); Red Blood Cells-Urine 0-5 SEEN /hpf (0-5); Squamous Epithelial Cells - UA 0-5 SEEN /hpf (5-10); White Blood Cells 0-5 SEEN /hpf (0-5)
[2022-12-26 18:34] LABS: ALB/GLOB Ratio 0.9 RATIO (0.9-2.4); AST(SGOT) 28 U/L (15-37); Alanine Aminotransfer ALT/SGPT 40 U/L (13-56); Albumin, Serum 3.6 g/dL (3.2-5.0); Alkaline Phosphatase 65 U/L (45-117); Anion Gap 5 (5-15); BUN 9 mg/dL (7-18); BUN/Creat Ratio 12.1 RATIO (10-20); Calcium,Total 8.9 mg/dL (8.5-10.1); Chloride 103 mmol/L (98-107); Creatinine, Serum 0.74 mg/dL (0.55-1.02); EST Glomerular Filtration Rate 96 mL/min (>60); Est Glom Filt Rate - Afr Amer 116 mL/min (>60); Estimated Creatinine Clearance 82.36 ml/min; Glucose 99 mg/dL (74-106); Protein, Total 7.6 g/dL (6.4-8.2); Sodium Level 136 mmol/L (136-145); Thyroid Stim Hormone (TSH) 2.15 uIU/mL (0.358-3.74)
[2022-12-26 19:12] VITALS: BP 143/90; PULSE 91; RESP 18; O2SAT 100
[2022-12-26 19:14] VITALS: BP 143/90; PULSE 91; RESP 18; O2SAT 100
== END 2022-12-26 19:15 | disposition home or self-care (01) ==
PROVIDERS: Emergency Provider Emergency Medicine; PCP Nurse Practitioner Family; Visit Provider Emergency Medicine
DX: I89.0 Lymphedema, not elsewhere classified (principal); Z68.43 Body mass index [BMI] 50.0-59.9, adult; E66.9 Obesity, unspecified; Z87.891 Personal history of nicotine dependence; I10 Essential (primary) hypertension; Z79.82 Long term (current) use of aspirin; Z90.49 Acquired absence of other specified parts of digestive tract
CPT/HCPCS: 80053; 81001; 84443; 87086; 87088; 99285; A4216

== ENCOUNTER 2023-04-18 12:07 | Emergency (ER) | payer SELFPAY ==
[2023-04-18 12:09] VITALS: BP 182/105; PULSE 106; RESP 16; TEMP 36.6; O2SAT 98; BMI 62.6
--- NOTE | 2023-04-18 12:26 | CT_ITS ---
EXAM: CT ABDOMEN AND PELVIS WITH INTRAVENOUS CONTRAST CLINICAL INDICATION: RLQ pain TECHNIQUE: Helically acquired images were obtained of the abdomen and pelvis with intravenous contrast. This CT exam was performed using one or more of the following dose reduction techniques: automated exposure control, adjustment of the mA and/or kV according to patient size, and/or use of iterative reconstruction technique. CONTRAST: 100 mL of IV Isovue-[id number]. RADIATION DOSE: CTDIvol = 24.189 mGy, DLP = 1238.30 mGy-cm COMPARISON: CT abdomen and pelvis with IV contrast 03/02/2019. FINDINGS: LOWER THORAX: Unremarkable. Lung bases are clear. No cardiomegaly. No significant pericardial effusion. ABDOMEN: LIVER: Unremarkable. Homogeneous. No focal mass. GALLBLADDER AND BILE DUCTS: Unremarkable. No calcified gallstones. No gallbladder distention or wall edema. No intra- or extrahepatic biliary ductal dilation. PANCREAS: Unremarkable. No focal cystic or solid mass. SPLEEN: Unremarkable. Normal size without focal cystic or solid mass. ADRENALS: Unremarkable. No nodules. KIDNEYS AND URETERS: Unremarkable. Normal renal size and position. No hydronephrosis. STOMACH AND BOWEL: Unremarkable. No stomach or bowel distention. No focal inflammatory change. PELVIS: APPENDIX: Normal appendix. BLADDER: Unremarkable. REPRODUCTIVE: IUD device inside the uterus. ABDOMEN and PELVIS: INTRAPERITONEAL SPACE: Unremarkable. No ascites or other fluid collection. No free air. BONES/JOINTS: Unremarkable. No suspicious lytic or blastic abnormality. SOFT TISSUES: Anterior fold of the lower abdominal fat simulating anterior abdominal wall hernia. Small midline umbilical hernia containing small omental fat. VASCULATURE: Unremarkable. Abdominal aorta is non-dilated. LYMPH NODES: Unremarkable. No enlarged lymph nodes. CT/Abdomen/Pelvis W IV Cont ONLY IMPRESSION: 1. Normal CT of the appendix. 2. No suspicious acute abnormality in the abdomen and pelvis. 3. Small midline umbilical hernia containing only small omental fat. Electronically Signed: Jesse Gao MD at 13:56 EST ,
--- NOTE | 2023-04-18 12:30 | EX.ED.DYSGE1 ---
HPI <JAQUAN Best - Last Filed: 04/18/23 15:02> History of Present Illness Chief Complaint: Abd Pain Narrative Narrative: Patient presenting today due to a dull aching pain in her right flank that radiates to her right lower quadrant, right lower back, right groin and right anterior proximal thigh that she has had since Thursday. She has been taking ibuprofen with some relief of her symptoms, certain movements and positions while lying down seem to aggravate her pain. She reports that she was recently coughing a lot and does not know if that could have caused her pain. She did have a little bit of nausea this morning but otherwise has not had any nausea or vomiting. She has had 2 loose stools between yesterday and today. No fever, chills, diarrhea, blood in the stool, or urinary symptoms. Previous abdominal surgeries include cholecystectomy and a . PFSH <JAQUAN Best - Last Filed: 04/18/23 15:02> [facility] Medical History Abdominal pain Alcohol use Anxiety Back pain Chlamydia Easy bruising Former smoker Heartburn Hemorrhoid History of edema Hx of LEEP (loop electrosurgical excision procedure) of cervix complicating Hypertension Leg cramps Marijuana use Shortness of breath on exertion TIA (transient ischemic attack) Vertigo Home Medications ibuprofen 600 mg tablet 600 mg PO TID PRN Pain Score 1-10 #30 tabs 04/05/20 [Rx Last Taken Unknown] apple cider vinegar 500 mg tablet 500 mg PO DAILY 10/22/22 [History Last Taken Unknown] cholecalciferol (vitamin D3) 25 mcg (1,000 unit) capsule (Vitamin D3) 25 mcg PO DAILY 10/22/22 [History Last Taken Unknown] lactobacillus combination no.4 3 billion cell capsule (Probiotic) 3,000 mmu cells PO DAILY 10/22/22 [History Last Taken Unknown] multivitamin 1 cap PO DAILY 10/22/22 [History Last Taken Unknown] aspirin 81 mg capsule 81 mg PO DAILY 12/26/22 [History Last Taken Unknown] Allergy/AdvReac Type Severity Reaction Status Date / Time No Known Allergies Allergy Verified 04/18/23 12:10 Family History Mother Diabetes Hypertension Surgical History History of History of cholecystectomy (~2018) History of esophagogastroduodenoscopy (EGD) Hx of wisdom tooth extraction Social History household members: significant other Smoking Status: Former smoker alcohol intake: never substance use type: does not use ROS <JAQUAN Best - Last Filed: 04/18/23 15:02> ROS ED Constitutional Constitutional ED: Denies chills or fever(s) Cardiovascular Cardiovascular: Denies chest pain or palpitations Respiratory/Chest Respiratory/Chest: Denies cough or dyspnea Gastrointestinal Gastrointestinal: Reports abdominal pain and nausea; Denies constipation, diarrhea or vomiting Genitourinary Genitourinary ED: Denies dysuria, hematuria or urinary urgency Musculoskeletal Musculoskeletal: Reports myalgias Integumentary Denies rash Neurologic Neurologic: Denies weakness EXAM <JAQUAN Best - Last Filed: 04/18/23 15:02> Physical Exam Const Vital Signs: 04/18/23 12:09 04/18/23 14:28 Temperature 97.8 F Temperature Source Temporal Pulse Rate 106 H Respiratory Rate 16 16 Blood Pressure 182/105 H 141/88 H Blood Pressure Mean 130 105 Pulse Ox 98 Oxygen Delivery Method Room Air Positive well nourished, well developed and no apparent distress General Appearance ED: well developed HEENT Reports normocephalic and head/scalp atraumatic Mouth ED: Yes moist mucous membranes normal Eyes PERRL and EOMs intact bilaterally Neck full ROM and supple Chest Wall inspection of chest normal Resp normal respiratory effort and clear to auscultation bilaterally Cardio regular rate and regular rhythm GI soft to palpation, non-distended and no masses GI Narrative: Right lower quadrant tenderness to palpation without any rigidity, guarding, or rebound tenderness. Back/Spine normal ROM and normal to inspection Back/Spine Narrative: Right lumbar paraspinal tenderness to palpation, right hip tenderness to palpation. General Back: Negative for CVA tenderness Extremity normal to inspection and full ROM Neuro oriented x3, CN's II-XII intact bilaterally, moves all extremities, no focal motor deficits and no sensory deficits noted Sensorium / Orientation: awake and alert Psych mental status grossly normal and thought process normal Skin no rashes or lesions noted and no wounds <Dr. Bhavin Kelly MD - Last Filed: 04/18/23 13:01> Physical Exam Const Vital Signs: 04/18/23 12:09 04/18/23 14:28 Temperature 97.8 F Temperature Source Temporal Pulse Rate 106 H Respiratory Rate 16 16 Blood Pressure 182/105 H 141/88 H Blood Pressure Mean 130 105 Pulse Ox 98 Oxygen Delivery Method Room Air [facility] <JAQUAN Best - Last Filed: 04/18/23 15:02> [facility] Narrative Medical decision making narrative: Patient presenting today due to pain to her right flank that radiates to her right lower quadrant, right hip, right groin, and right lower back. She has had this pain since Thursday. She describes it as a dull ache that is worsened with certain movements. She had a little bit of nausea this morning but is no longer nauseous, no vomiting or diarrhea. She is well-appearing and in no acute distress. Labs obtained as well as a CT of the abdomen pelvis to rule out appendicitis, kidney stone, diverticulitis, ovarian cyst, and other etiology. Labs overall are unremarkable. UA is contaminated and patient is not having any urinary symptoms. CT exam negative for any acute findings. She was given Toradol for pain and on reexamination reports some improvement of her symptoms. At this time, her pain is unclear, suspected to be musculoskeletal in nature. She will be discharged home in stable condition and is comfortable with plan. I have personally performed a face to face assessment of the patient and have reviewed the CELINA Note. I performed a substantive portion of the visit including all aspects of the following. My bynum findings include: History is 32-year-old female complaining of right lower quadrant and flank abdominal pain. No dysuria. Menstrual period about a week ago. No history of kidney stones. Denies any trauma. No fever. Still has her appendix. Exam is [well-appearing 32-year-old female. Vital signs are stable afebrile. Initial blood pressure is elevated at 182/105. HEENT exam unremarkable. Neck nontender. No lymphadenopathy. Lungs clear to auscultation. Heart regular rhythm no murmur rate about 100. Abdomen is obese soft. Tender in the right lower quadrant. No obvious hernia or mass. No signs of trauma. Right upper, left upper and left lower quadrants are unremarkable. No distention. Moving all 4 extremities. Nontender. Neurologically she is awake alert. Back no specific significant tenderness. No signs of trauma.] Medical Decision Making [32-year-old female with right lower quadrant abdominal pain. Benign exam. Differential would include appendicitis versus kidney stone versus UTI versus ovarian cyst versus ectopic etc. CAT scan labs are being obtained.] Other additions or changes: [None] Lab Data Labs: Laboratory Results - last 24 hr 04/18/23 04/18/23 12:40 12:48 WBC 8.5 RBC 5.29 Hgb 15.7 H Hct 47.9 H MCV 90.5 MCH 29.7 MCHC 32.8 RDW Std Deviation 44.1 H RDW Coeff of Susie 13.2 Plt Count 258 MPV 9.6 Immature Gran % (Auto) 0.200 Neut % (Auto) 74.7 H Lymph % (Auto) 20.2 [place] % (Auto) 3.9 Eos % (Auto) 0.8 Baso % (Auto) 0.2 Absolute Neuts (auto) 6.3 Absolute Lymphs (auto) 1.71 Nucleated RBC % 0 Sodium 139 Potassium 3.8 Chloride 106 Carbon Dioxide 28.0 Anion Gap 5 BUN 11 Creatinine 0.84 Estim Creat Clear Calc 76.04 Est GFR (MDRD) Af Amer 101 Est GFR (MDRD) Non-Af 83 BUN/Creatinine Ratio 13.1 Glucose 131 H Calcium 9.0 Total Bilirubin 0.70 AST 22 ALT 35 Alkaline Phosphatase 67 Total Protein 7.6 Albumin 3.5 Globulin 4.1 Albumin/Globulin Ratio 0.9 Serum , Qual NEGATIVE Urine Color Yellow Urine Clarity Clear Urine pH 6.0 Ur Specific [place] 1.015 Urine Protein 15 H Urine Glucose (UA) Normal Urine Ketones Negative Urine Occult Blood 50 H Urine Nitrite Negative Urine Bilirubin Negative Urine Urobilinogen Normal Ur Leukocyte Esterase 100 H Urine RBC 0 SEEN Urine WBC 10-25 SEEN Ur Squamous Epith Cells 5-10 SEEN Urine Bacteria 1+ Urine Mucus 0 SEEN Radiography Diagnostic Testing: Clinical Impression(s) from Imaging Studies Abdomen/Pelvis CT 04/18/23 12:26 IMPRESSION: 1. Normal CT of the appendix. 2. No suspicious acute abnormality in the abdomen and pelvis. 3. Small midline umbilical hernia containing only small omental fat. Electronically Signed: Jesse Gao MD at 13:56 EST , <Dr. Bhavin Kelly MD - Last Filed: 04/18/23 13:01> [facility] Narrative Medical decision making narrative: Patient presenting today due to pain to her right flank that radiates to her right lower quadrant, right hip, right groin, and right lower back. She has had this pain since Thursday. She describes it as a dull ache that is worsened with certain movements. She had a little bit of nausea this morning but is no longer nauseous, no vomiting or diarrhea. She is well-appearing and in no acute distress. I have personally performed a face to face assessment of the patient and have reviewed the CELINA Note. I performed a substantive portion of the visit including all aspects of the following. My bynum findings include: History is 32-year-old female complaining of right lower quadrant and flank abdominal pain. No dysuria. Menstrual period about a week ago. No history of kidney stones. Denies any trauma. No fever. Still has her appendix. Exam is [well-appearing 32-year-old female. Vital signs are stable afebrile. Initial blood pressure is elevated at 182/105. HEENT exam unremarkable. Neck nontender. No lymphadenopathy. Lungs clear to auscultation. Heart regular rhythm no murmur rate about 100. Abdomen is obese soft. Tender in the right lower quadrant. No obvious hernia or mass. No signs of trauma. Right upper, left upper and left lower quadrants are unremarkable. No distention. Moving all 4 extremities. Nontender. Neurologically she is awake alert. Back no specific significant tenderness. No signs of trauma.] Medical Decision Making [32-year-old female with right lower quadrant abdominal pain. Benign exam. Differential would include appendicitis versus kidney stone versus UTI versus ovarian cyst versus ectopic etc. CAT scan labs are being obtained.] Other additions or changes: [None] History & Record Review Discussion w/independent historian: Patient Additional record(s) reviewed:: Prior inpatient record, Prior outpatient record, Prior ED visit and Prior labs Lab Data Attestation: I reviewed the patient's lab results. Lab results narrative: Seizures white count 8.5. H&H of 15 and 47. Platelets 258. Labs: Laboratory Results - last 24 hr 04/18/23 04/18/23 12:40 12:48 WBC 8.5 RBC 5.29 Hgb 15.7 H Hct 47.9 H MCV 90.5 MCH 29.7 MCHC 32.8 RDW Std Deviation 44.1 H RDW Coeff of Susie 13.2 Plt Count 258 MPV 9.6 Immature Gran % (Auto) 0.200 Neut % (Auto) 74.7 H Lymph % (Auto) 20.2 [place] % (Auto) 3.9 Eos % (Auto) 0.8 Baso % (Auto) 0.2 Absolute Neuts (auto) 6.3 Absolute Lymphs (auto) 1.71 Nucleated RBC % 0 Sodium 139 Potassium 3.8 Chloride 106 Carbon Dioxide 28.0 Anion Gap 5 BUN 11 Creatinine 0.84 Estim Creat Clear Calc 76.04 Est GFR (MDRD) Af Amer 101 Est GFR (MDRD) Non-Af 83 BUN/Creatinine Ratio 13.1 Glucose 131 H Calcium 9.0 Total Bilirubin 0.70 AST 22 ALT 35 Alkaline Phosphatase 67 Total Protein 7.6 Albumin 3.5 Globulin 4.1 Albumin/Globulin Ratio 0.9 Serum , Qual NEGATIVE Urine Color Yellow Urine Clarity Clear Urine pH 6.0 Ur Specific [place] 1.015 Urine Protein 15 H Urine Glucose (UA) Normal Urine Ketones Negative Urine Occult Blood 50 H Urine Nitrite Negative Urine Bilirubin Negative Urine Urobilinogen Normal Ur Leukocyte Esterase 100 H Urine RBC 0 SEEN Urine WBC 10-25 SEEN Ur Squamous Epith Cells 5-10 SEEN Urine Bacteria 1+ Urine Mucus 0 SEEN Radiography Diagnostic Testing: Clinical Impression(s) from Imaging Studies Abdomen/Pelvis CT 04/18/23 12:26 IMPRESSION: 1. Normal CT of the appendix. 2. No suspicious acute abnormality in the abdomen and pelvis. 3. Small midline umbilical hernia containing only small omental fat. Electronically Signed: Jesse Gao MD at 13:56 EST , Discharge Plan Triage Chief Complaint: Abd Pain ED Midlevel Provider: Alison Gary ED Provider: Bhavin Kelly Dx/Rx/DC Orders Clinical Impression: Abdominal pain Instructions: ED Abdominal Pain Unkn Cause Fem Prescriptions: No Action ibuprofen 600 MG tablet 600 mg PO TID PRN (Reason: Pain Score 1-10) Qty: 30 0RF multivitamin Capsule 1 cap PO DAILY cholecalciferol (vitamin D3) [Vitamin D3] 25 mcg (1,000 unit) Capsule 25 mcg PO DAILY apple cider vinegar 500 mg Tablet 500 mg PO DAILY Probiotic 3 billion cell Capsule 3,000 mmu cells PO DAILY Rx Instructions: administer with a meal aspirin 81 mg capsule 81 mg PO DAILY Stand Alone Forms: ED Work / School Excuse Primary Care Provider: Rupal Vincent NP Referrals: Rupal Vincent NP, [facility] [Primary Care Provider] - Activity Restrictions/Additional Instructions: Please follow-up with your PCP and return for any worsening of your symptoms. Disposition Disposition: Home, Self Care Discharge Date/Time: 04/18/23 14:25
[2023-04-18 12:51] LABS: Internal QC Validated? YES +Cl - CLEAR BKGD; Pregnancy, Serum, hCG Quali. NEGATIVE Negative
[2023-04-18 12:52] LABS: Mucous, Urine 0 SEEN /hpf (<or=2+); Red Blood Cells-Urine 0 SEEN /hpf (0-5)
[2023-04-18 12:54] LABS: Color, Urine Yellow (Yellow); Glucose, Dipstick Normal (Normal); Ketone-Dipstick Negative (Negative); Leukocyte Esterase-Dipstick 100 /ul (Negative); Nitrite-Dipstick Negative (Negative); Occult Blood-Urine 50 /ul (Negative); Protein-Dipstick 15 mg/dl (Negative); Specific Gravity, Urine 1.015 (1.002-1.030); Urine Bilirubin Dipstick Negative (Negative); Urine Clarity Clear (Clear); Urine Urobilinogen Normal (Normal)
[2023-04-18 12:54] LABS: Absolute Lymphocyte Count 1.71 X10^3/uL (0.83-4.51); Absolute Neutrophil Count 6.3 X10^3/uL (2.0-7.7); Basophil# 0.02 X10^3/uL; Basophil% 0.2 % (0-1); Eosinophil# 0.07 X10^3/uL; Eosinophils% 0.8 % (0-5); Hematocrit 47.9 % (37-47); Hemoglobin 15.7 g/dL (12.0-15.0); Lymphocyte # 1.71 X10^3/ul (0.83-4.51); Lymphocyte % 20.2 % (19-41); Mean Corp Hgb Conc 32.8 g/dL (32-36); Mean Corpuscular Hgb 29.7 pg (27.0-32.0); Mean Corpuscular Volume 90.5 fL (81-99); Mean Platelet Vol. 9.6 fl (6.2-12.0); Monocyte# 0.33 X10^3/uL; Monocyte% 3.9 % (0-10); NRBC Flagged by Analyzer 0 % (0-5); Neutrophil # 6.32 X10^3/uL (2.7-7.7); Neutrophil % 74.7 % (47-70); Platelet Count 258 K/mm3 (150-450); RBC Distribution Width CV 13.2 % (11.6-14.6); RBC Distribution Width SD 44.1 fl (35.1-43.9); Red Blood Count 5.29 M/mm3 (4.2-5.4); White Blood Count 8.5 K/mm3 (4.4-11.0)
[2023-04-18] MEDS: Ketorolac 15 MG/ML Vial IV (12:55)
--- NOTE | 2023-04-18 12:55 | ED.RN ---
RN ATTEMPTED MULTIPLE TIMES TO SIGN ONTO COMPUTER IN ROOM 13, RM PT IS CURRENTLY IN, UNABLE TO. ERROR MESSAGE SAYS INVALID USERNAME- UNABLE TO SCAN OF MEDICATION.
[2023-04-18 12:59] LABS: ALB/GLOB Ratio 0.9 RATIO (0.9-2.4); AST(SGOT) 22 U/L (15-37); Alanine Aminotransfer ALT/SGPT 35 U/L (13-56); Albumin, Serum 3.5 g/dL (3.2-5.0); Alkaline Phosphatase 67 U/L (45-117); Anion Gap 5 (5-15); BUN 11 mg/dL (7-18); BUN/Creat Ratio 13.1 RATIO (10-20); Chloride 106 mmol/L (98-107); Creatinine, Serum 0.84 mg/dL (0.55-1.02); EST Glomerular Filtration Rate 83 mL/min (>60); Est Glom Filt Rate - Afr Amer 101 mL/min (>60); Estimated Creatinine Clearance 76.04 ml/min; Globulin 4.1 g/dL (2.2-4.2); Glucose 131 mg/dL (74-106); Potassium 3.8 mmol/L (3.5-5.1); Protein, Total 7.6 g/dL (6.4-8.2); Sodium Level 139 mmol/L (136-145)
[2023-04-18 13:02] LABS: Bacteria 1+ /hpf (None Seen); Squamous Epithelial Cells - UA 5-10 SEEN /hpf (5-10); White Blood Cells 10-25 SEEN /hpf (0-5)
[2023-04-18 14:28] VITALS: BP 141/88; RESP 16
== END 2023-04-18 14:25 | disposition home or self-care (01) ==
PROVIDERS: Physician Assistant; Emergency Provider Emergency Medicine; PCP Nurse Practitioner Family; Visit Provider Emergency Medicine
DX: R10.9 Unspecified abdominal pain (principal); Z87.891 Personal history of nicotine dependence; I10 Essential (primary) hypertension; Z86.73 Personal history of transient ischemic attack (TIA), and cerebral infarction without residual deficits; Z79.82 Long term (current) use of aspirin; Z90.49 Acquired absence of other specified parts of digestive tract
CPT/HCPCS: 74177; 80053; 81001; 84703; 85025; 96374; 99283; Q9967; A4216

== ENCOUNTER 2023-08-02 03:07 | Emergency (ER) | payer SELFPAY ==
[2023-08-02 03:08] VITALS: BP 188/87; PULSE 127; RESP 18; TEMP 36.6; O2SAT 95; BMI 63.3
--- NOTE | 2023-08-02 03:30 | CT_ITS ---
EXAM: CT HEAD WITHOUT INTRAVENOUS CONTRAST CLINICAL INDICATION: headache TECHNIQUE: Multiple axial images were obtained of the head without intravenous contrast. This CT exam was performed using one or more of the following dose reduction techniques: automated exposure control, adjustment of the mA and/or kV according to patient size, and/or use of iterative reconstruction technique. RADIATION DOSE: CTDIvol = 44.99 mGy, DLP = 846.73 mGy-cm COMPARISON: MRI brain 10/03/2019 FINDINGS: BRAIN AND EXTRA-AXIAL SPACES: Unremarkable. No intra- or extra-axial hemorrhage. No evidence of acute infarct. No intracranial mass or mass effect. There is preservation of the madden/white matter interface. Posterior fossa structures are unremarkable. Ventricles are appropriate for age. No hydrocephalus. Basal cisterns are patent. BONES/JOINTS: Unremarkable. No discrete lytic or blastic abnormalities. SINUSES: Unremarkable as visualized. Clear. MASTOID AIR CELLS: Unremarkable. Clear. ORBITS: Visualized globes, extraocular muscles, optic nerves and retrobulbar fat appear unremarkable. CT/Brain/Head without Contrast IMPRESSION: Negative head/brain CT without intravenous contrast. Electronically Signed: Jared Ackerman MD at 5:06 EST ,
[2023-08-02] MEDS: 0.9% Normal Saline (1000mL) 1,000 ML 999 ML IV (03:57)
[2023-08-02] MEDS: Metoclopramide 10 MG/2 ML Vial IV (03:57)
[2023-08-02] MEDS: DiphenhydrAMINE 50 MG/ML Syringe IV (03:57)
[2023-08-02 04:00] VITALS: BP 161/111; PULSE 94; RESP 18; O2SAT 99
--- OUTSIDE RECORDS SUMMARY | 2023-08-02 05:13 | XMS RPT_ITS | CCD ---
Author Name Unknown Address [address] [place] [address] Organization [facility] Care Team Providers Care Executive Vice President And Chief Financial Officer Name Role Phone MARK ABBASI DO Admitting Unavailable MARK ABBASI DO Attending Unavailable MARK ABBASI DO Primary Care Unavailable Unavailable Primary Care Provider UnavailAlma Chew Primary Care Provider VaccAlma wall Primary Care Provider Alma Antony Primary Care Provider JOSSE OWEN, ALEJANDRA Dominguez Primary Care Physicia n HUGO JONES Attending Unavailable Unavailable Primary Care Provider UnavailBRE Linares MD Attending Unavailable JOSSE OWEN, ALEJANDRA Dominguez Primary Care Unava ilable BRE SIMS MD Attending Unavailable JOSSE OWEN, ALEJANDRA Dominguez Primary Care Unava ilable JOSSE OWEN, ALEJANDRA Dominguez Primary Care Unava ilable TIERNEY GARCIA Attending Unavaila ble MATTIE HYMAN Referring Unavailable MATTIE HYMAN Attending Unavailable VACCARIELLOALMA Consulting Unavailable JULIET SUMMERS DO Primary Care Unavailable JULIET SUMMERS DO Attending Unavailable VACCARIELLOALMA Referring Unavailable JULIET SUMMERS DO Admitting Unavailable PROVIDER, UNKNOWN Consulting Unavailable PROVIDER, UNKNOWN Consulting Unavailable PROVIDER, UNKNOWN Consulting Unavailable VACCARIELLOALMA Consulting Unavailable VACCARIELLOALMA Referring Unavailable GRADY CHANDLER Admitting Unavailable GRADY CHANDLER Primary Care Unavailable GRADY CHANDLER Attending Unavailable PROVIDER, UNKNOWN Consulting Unavailable PROVIDER, UNKNOWN Consulting Unavailable PROVIDER, UNKNOWN Consulting Unavailable VACCARIELLO, ALMA Consulting Unavailable ALEJANDRA LOAIZA CNP Admitting Unavailable ALEJANDRA LOAIZA CNP Primary Care Unavailable ALEJANDRA LOAIZA CNP Attending Unavailable PROVIDER, UNKNOWN Consulting Unavailable PROVIDER, UNKNOWN Consulting Unavailable PROVIDER, UNKNOWN Consulting Unavailable Medications Current Medications Medication Drug Class(es) Dates Sig (Normalized) Sig (Original) Acidophilus Probiotic Blend oral capsule (2 sources) Start: 12-31-2022 take 1 capsule by mouth once daily Acidophilus Probiotic Blend oral capsule Dose = 1 cap(s), Oral, qDay, 0 Refill(s) Start Date: 12/31/22 Status: Ordered ascorbic acid 500 mg oral tablet (5 sources) Vitamin C take 1 tablet by mouth once daily vitamin C (ASCORBIC ACID) 500 MG tablet Indications: supplement Take 500 mg by mouth daily Indications: supplement 0 Active cholecalciferol 2000 unt oral capsule (5 sources) Vitamin D Cholecalciferol (VITAMIN D) 50 MCG (2000 UT) CAPS capsule Indications: supplement Take by mouth daily Indications: supplement 0 Active ergocalciferol 55961 unt oral capsule (4 sources) Provitamin D2 Compound Start: 07-25-2019 End: 09-13-2019 take 1 capsule by mouth every week ergocalciferol (ERGOCALCIFEROL) 1.25 MG (59329 UT) capsule Indications: Vitamin D deficiency Take 1 capsule by mouth once a week for [address] Vitamin Replacement Protocol 8 capsule 0 07/25/2019 Active Multiple Vitamin (MULTI VITAMIN DAILY PO) (17 sources) take 1 tablet by mouth once daily Multiple Vitamin (MULTI VITAMIN DAILY PO) Indications: Supplement Take 1 tablet by mouth daily Indications: Supplement 0 Active Borqs's Bounty Women's Daily Multivitamin (2 sources) Start: 12-31-2022 Borqs's Bounty Women's Daily Multivitamin qDay, 0 Refill(s) Start Date: 12/31/22 Status: Ordered omeprazole 20 mg delayed release oral capsule (17 sources) Proton Pump Inhibitor take 1 capsule by mouth once daily omeprazole (PRILOSEC) 20 MG delayed release capsule Indications: GERD Take 20 mg by mouth daily Indications: GERD 0 Active Optimum Magnesium Gluconate 250 mg oral tablet (2 sources) Start: 12-31-2022 take 1 tablet by mouth once daily Optimum Magnesium Gluconate 250 mg oral tablet 250 mg Dose = 1 tab(s), Oral, Daily, # 30 tab(s), 0 Refill(s) Start Date: 12/31/22 Status: Ordered CHANI-T LIVER SUPPORT (2 sources) Start: 12-31-2022 CHANI-T LIVER SUPPORT CHANI-T LIVER SUPPORT, 0 Refill(s), 135.7 Start Date: 12/31/22 Status: Ordered 1000 ml sodium chloride 9 mg/ml injection (2 sources) Start: 10-18-2019 0.9 % sodium chloride infusion Vitamin C plus Zinc (2 sources) Start: 12-31-2022 take 1 tablet by mouth once daily Vitamin C plus Zinc Dose = 1 tab(s), Oral, qDay, 0 Refill(s) Start Date: 12/31/22 Status: Ordered Vitamin D3 50 mcg (2000 intl units) oral capsule (2 sources) Start: 12-31-2022 Vitamin D3 50 mcg (2000 intl units) oral capsule Dose : 50 mcg = 1 cap(s), Oral, Daily, 0 Refill(s) Start Date: 12/31/22 Status: Ordered ZAHLER CORE GREENS (2 sources) Start: 12-31-2022 ZAHLER CORE GREENS ZAHLER CORE GREENS, 0 Refill(s), 135.7 Start Date: 12/31/22 Status: Ordered Completed/Discontinued Medications Medication Drug Class(es) Dates Sig (Normalized) Sig (Original) copper 313 mg drug implant (2 sources) Copper-containing Intrauterine Device copper (PARAGARD T 380A) 380 square mm intrauterine device 1 Intra Uterine Device by INTRAUTERINE route. 0 Active Problems Active Problems Problem Classification Problem Date Documented Date Episodic/Chronic Abdominal pain (4 sources) Generalized abdominal pain; Translations: [Pain in female pelvis] Onset: 04-21-2023 04-17-2023 Episodic Acute cerebrovascular disease (17 sources) Embolic stroke; Translations: [Cerebrovascular accident (CVA) due to embolism] 04-11-2019 Chronic Coma; stupor; and brain damage (18 sources) Daytime somnolence; Translations: [Daytime sleepiness] 04-01-2019 Episodic Esophageal disorders (18 sources) Gastroesophageal reflux disease; Translations: [GERD (gastroesophageal reflux disease)] 04-01-2019 Chronic Essential hypertension (20 sources) Hypertensive disorder; Translations: [Essential hypertension] 04-01-2019 Chronic Gastritis and duodenitis (6 sources) Chronic superficial gastritis; Translations: [Chronic superficial gastritis without bleeding] Onset: 10-18-2019 10-18-2019 Episodic Malaise and fatigue (17 sources) Fatigue; Translations: [Fatigue] 04-01-2019 Episodic Other and unspecified benign neoplasm (6 sources) Gastric polyp; Translations: [Gastric polyps] Onset: 10-18-2019 10-18-2019 Episodic Other connective tissue disease (2 sources) Unspecified symptoms and signs involving the musculoskeletal system; Translations: [Unspecified symptoms and signs involving the musculoskeletal system] Onset: 12-27-2022 Episodic Other non-traumatic joint disorders (17 sources) Hip pain; Translations: [Joint pain, hip] 04-01-2019 Episodic Other nutritional; endocrine; and metabolic disorders (18 sources) Morbid obesity; Translations: [Morbid obesity] 04-01-2019 Chronic Other nutritional; endocrine; and metabolic disorders (17 sources) Body mass index 40+ - severely obese; Translations: [Morbid obesity with BMI of 50.0-59.9, adult] Onset: 04-21-2019 04-21-2019 Chronic Other nutritional; endocrine; and metabolic disorders (1 source) Morbid (severe) obesity due to excess calories; Translations: [Morbid (severe) obesity due to excess calories] Onset: 08-20-2022 Chronic Spondylosis; intervertebral disc disorders; other back problems (17 sources) Backache; Translations: [Back pain] 04-01-2019 Episodic Past or Other Problems Problem Classification Problem Date Documented Da te Episodic/Chronic Other screening for suspected conditions (not mental disorders or infectious disease) (2 sources) Encounter for screening for diseases of the blood and blood-forming organs and certain disorders involving the immune mechanism; Translations: [Encounter for screening for lipoid disorders] Onset: 08-20-2022 Episodic Results Test Name Value Interpretation Reference Range Facil ity Vital Signs Date Time Vital Sign Value Performing Clinician Facility 04-17-2023 15:19-0500 Body height 157.5 cm Mattie Yenni FIRE SYSTEMS INSPECTOR.HEMODIALYSIS CHARGE NURSE Work Phone: [facility] 04-17-2023 15:19-0500 Body weight 156.04 kg Mattie Cuthbert FIRE SYSTEMS INSPECTOR.MARY Work Phone: [facility] 04-17-2023 15:19-0500 Diastolic blood pressure 78 mm[Hg] Mattie Cuthbert FIRE SYSTEMS INSPECTOR.HEMODIALYSIS CHARGE NURSE Work Phone: [facility] 04-17-2023 15:19-0500 Systolic blood pressure 124 mm[Hg] Mattie Hyman APRN.HEMODIALYSIS CHARGE NURSE Work Phone: [facility] 10-18-2019 08:50-0400 BP Diastolic 81 mm[Hg] Alma Nguyen [facility] [place] [facility] [place] 10-18-2019 08:50-0400 BP Systolic 126 mm[Hg] Alma Nguyen [facility] [place] [facility] [place] 10-18-2019 08:50-0400 Pulse (Heart Rate) 99 /min Alma Nguyen [facility] [place] 10-18-2019 08:50-0400 Pulse Oximetry 95 % Alma Nguyen [facility] , [place] 10-18-2019 08:50-0400 Respiratory Rate 18 /min Alma Nguyen [employer] [place] 10-18-2019 07:59-0400 BMI (Body Mass Index) 55.74 kg/m2 Alma Bautista [facility] [place], [place] 10-18-2019 07:59-0400 Body Temperature 98.71 [degF] Alma Nguyen [employer] [place] 10-18-2019 07:59-0400 Body weight 133.81 kg Alma Nguyen [facility] [place] [facility] [place] 10-18-2019 07:59-0400 Height 154.9 cm Alma Nguyen [facility] , [place] Encounters Encounter Date Encounter Type Care Provider Facility Start: 07-20-2023 End: 07-20-2023 Emergency department patient visit [facility] Start: 04-26-2023 End: 04-26-2023 Emergency department patient visit [facility] Start: 04-21-2023 End: 04-21-2023 ambulatory MATTIE YENNI Facility:[facility] Start: 04-21-2023 End: 04-21-2023 Subsequent hospital visit by physician [facility] Work Phone: Radiology Procedures Date Procedure Procedure Detail Performing Clinician Start: 04-26-2023 Urinalysis ALMA CRAWFORD Plan of Treatment Date Care Activity Detail Author Start: 2040 Shingles Vaccine (1 of 2) Shingles Vaccine (1 of 2) [place] Start: 01-30-2023 [facility] Start: 06-01-2022 Depression Assessment Depression Assessment [facility] Start: 2020 HPV Testing HPV Testing [facility] Start: 01-31-2020 Influenza vaccination [place] Start: 12-16-2019 End: 12-16-2019 Office Visit 12/16/2019 Office Visit Hematology and Oncology Alma Pacheco MD [address] [facility] [address] [place] [address] [phone] [facility] Start: 11-23-2019 End: 11-23-2019 Virtual Visit 11/23/2019 Virtual Visit Psychology Tali Jovel, PhD [address] [place] [address] [phone] [facility] Start: 11-11-2019 End: 11-11-2019 Virtual Visit [facility] Start: 10-18-2019 End: 10-18-2019 Appointment 10/18/2019 Appointment IP Unit Alma Nguyen MD [address] [place] [address] [phone] [facility] Start: 06-30-2019 End: 06-30-2019 Patient encounter procedure 06/30/2019 Office Visit Pulmonology Shahana Tariq MD [address] [place] [address] [phone] [facility] Start: 04-21-2019 End: 04-21-2019 Office Visit 04/21/2019 Office Visit Bariatrics Alma Nguyen MD [address] [place] [address] [phone] Bariatric [facility] Start: 01-30-2019 Influenza vaccination Flu vaccine (#1) [place] Start: 11-03-2011 Cervical cancer screen Cervical cancer screen [place] Start: 11-03-2011 Pap Testing Pap Testing [facility] Start: 11-03-2011 Screening for malignant neoplasm of cervix Cervical cancer screen [place] Start: 2009 DTaP/Tdap/Td vaccine (1 - Tdap) DTaP/Tdap/Td vaccine (1 - Tdap) [place] Start: 2009 Urine microalbumin profile DTaP,Tdap,Td Vaccine (4 - Tdap) [facility] Start: 2008 Hepatitis C Screening Hepatitis C Screening [facility] Start: 2008 HIV Screening HIV Screening [facility] Start: 2005 HIV screen HIV screen [place] Start: 2005 HIV screening HIV screen [place] Start: 2001 DTaP/Tdap/Td vaccine (1 - Tdap) DTaP/Tdap/Td vaccine (1 - Tdap) [place] Start: 11-03-1991 Varicella Vaccine (1 of 2 - 2-dose childhood series) Varicella Vaccine (1 of 2 - 2-dose childhood series) [place] Start: 05-04-1991 Covid-19 Vaccine (#1) Covid-19 Vaccine (#1) [facility] Start: 1990 Hepatitis B Vaccine (1 of 3 - 3-dose series) Hepatitis B Vaccine (1 of 3 - 3-dose series) [facility] End: 05-16-2024 Us transvaginal US FEMALE PELVIS TRANSVAG Radiology Routine Pelvic pain in female 1 Occurrences starting 04/17/2023 until 05/16/2024 [facility] Work Phone: Payers Date Payer Category Payer Self-pay 2019 Unknown [employer] [address] xxxxxxxxxxxx 2019-Present [phone] [address] [place] [address] xxxxxxxxxxxx [id number] 2019 Unknown [employer] [address] [id number] 2019-Present [phone] [address] [place] [address] [id number] 2017 Medicaid [id number] 1990 Unknown [id number] 1990 Unknown [id number] 1990 Unknown [id number] 1990 Unknown [id number] 1990 Unknown [id number] Unknown [id number] Social History Date Type Detail Facility Start: 04-11-2019 End: 06-06-2019 Tobacco smoking status NHIS Former smoker [place] Start: 2008 End: 06-01-2014 History of tobacco use Current smoker [place] Start: 2008 End: 06-01-2014 History of tobacco use Cigarette Smoker [place] Start: 04-11-2019 End: 04-17-2023 Cigarettes smoked current (pack per day) - Reported [place] Start: 04-11-2019 End: 04-17-2023 Alcohol intake Ex-drinker (finding) [facility] Start: 04-01-2019 History SDOH Alcohol Frequency 1 [place] Start: 1990 Sex Assigned At Not on file M [place] Exposure to SARS-CoV -2 (event) Unable to assess [place] Start: 11-11-2019 End: 04-17-2023 Tobacco use and exposure Never used [place] Start: 12-29-2022 End: 04-17-2023 Tobacco smoking status Never smoked tobacco (finding) [facility] Sex Assigned At Female [facility] Start: 04-17-2023 Tobacco use panel [facility] Clinical Notes 12-31-2022 to 04-21-2023 Jen Thorpe RDMS - 04/21/2023 7:00 AM Mattie Green APRN.HEMODIALYSIS CHARGE NURSE - 04/17/2023 3:14 PM ESTLaboratoryLaboratory Note Date & Type Note Facility 04-21-2023 Note HNO ID: [id number] Author: Jen Thorpe RDMS Service: ? Author Type: Payroll Professional Type: Progress Notes Filed: 04/21/2023 11:19 AM Note Text: Radiology Service Progress Note PATIENT NAME: Casie Maciel DATE OF SERVICE: April 21, 2023 TIME: 11:19 AM PATIENT IDENTITY VERIFICATION COMPLETED USING TWO (2) IDENTIFIERS: Name and Date of confirmed by patient verbally. FALL SCREENING: Has the patient had 2 falls in the last year or 1 fall with injury or currently using an Ambulatory Assistive Device (Walker, Cane, Wheelchair, Crutches, etc.)? No PATIENT GENDER DATA: Female. status: : No status: NO. PATIENT RELEVANT IMPLANT DATA REVIEWED: Not Applicable RADIOLOGY DEPARTMENT: Ultrasound PERIPHERAL IV DATA: Not applicable SIGNED BY: Jen Thorpe RDMS RVCassandra April 21, 2023 11:19 AM [facility] 04-21-2023 History of Present illness Narrative Radiology Service Progress Note PATIENT NAME: Casie Maciel DATE OF SERVICE: April 21, 2023 TIME: 11:19 AM PATIENT IDENTITY VERIFICATION COMPLETED USING TWO (2) IDENTIFIERS: Name and Date of confirmed by patient verbally. FALL SCREENING: Has the patient had 2 falls in the last year or 1 fall with injury or currently using an Ambulatory Assistive Device (Walker, Cane, Wheelchair, Crutches, etc.)? No PATIENT GENDER DATA: Female. status: : No status: NO. PATIENT RELEVANT IMPLANT DATA REVIEWED: Not Applicable RADIOLOGY DEPARTMENT: Ultrasound PERIPHERAL IV DATA: Not applicable SIGNED BY: Jen Thorpe RDMS RVCassandra April 21, 2023 11:19 AM documented in this encounter [facility] 04-17-2023 Note HNO ID: [id number] Author: Mattie Hyman APRN.HEMODIALYSIS CHARGE NURSE Service: ? Author Type: Nurse Practitioner Type: Progress Notes Filed: 04/17/2023 4:24 PM Note Text: Jinrikisha Driver offered: Patient declines. Casie Maciel is a 32 year old female who presents for problem visit pelvic pain RLQ. Transfer from [place] HPI: pt states that she will get a random pain in the RLQ that is aching and will radiate into her hip and groin area. She has noticed over the past few months that she has been getting more cramping with her period and some pain with intercourse. She has a Paragard in place. She does not want anymore children due to the complication after her son. OB History T0 L1 SAB0 IAB0 Ectopic0 Multiple0 Live Births0 Geophysical Laboratory Chief History LMP: 04/10/2023, Having periods Age at Menarche: Age at First : Age at Menopause: Geophysical Laboratory Chief History Comments: Sexual Activity: Yes; Male Contraception: I.U.D. PAST MEDICAL HISTORY Diagnosis Date Generalized anxiety disorder PAST SURGICAL HISTORY Procedure Laterality Date CERVIX UTERI CONIZA LP ELCTRO EXCI SECTION HX EXTRACTION ERUPTED TOOTH/EXR REMOVAL GALLBLADDER No family history on file. Social History Tobacco Use Smoking status: Never Smokeless tobacco: Never Vaping Use Vaping Use: Never used Substance Use Topics Alcohol use: Not Currently Drug use: Yes Types: Marijuana Current Outpatient Medications Medication Sig copper (PARAGARD T 380A) 380 square mm intrauterine device 1 Intra Uterine Device by INTRAUTERINE route. No current facility-administered medications for this visit. Allergies As of Date: 04/17/2023 (No Known Allergies) Fully Assessed 04/17/2023 REVIEW OF SYSTEMS Expanded ROS: N/A Allergies and current medication updated:Yes EXAM: BP 124/78 Ht 5' 2 (1.58m) Wt 344 lb (156.0kg) LMP 04/10/2023 BMI 62.90 kg/(m2). GENERAL: pleasant, female in no apparent distress HEENT: Normocephalic, atraumatic, mucus membranes moist, and no lesions CHEST: Normal inspiratory effort NEURO: alert and oriented x3,exam grossly non-focal EXTREMITIES: normal ASSESSMENT/PLAN: 1. Pelvic pain in female - ICD9: 625.9, ICD10: R10.2 - US FEMALE PELVIS TRANSVAG Will notify patient of test results. May need to remove the Paraguard due to the pain Mattie Hyman APRN.CNP Medical Decision Making: Problems: Low: Acute, uncomplicated illness or injury Data: Unique test(s) ordered: 1 Risk: Low: Low risk from testing/treatment Medical Decision Making Level: 3 - Low ' [facility] 04-17-2023 History of Present illness Narrative Jinrikisha Driver offered: Patient declines. Casie Maciel is a 32 year old female who presents for problem visit pelvic pain RLQ. Transfer from [place] HPI: pt states that she will get a random pain in the RLQ that is aching and will radiate into her hip and groin area. She has noticed over the past few months that she has been getting more cramping with her period and some pain with intercourse. She has a Paragard in place. She does not want anymore children due to the complication after her son. OB History T0 L1 SAB0 IAB0 Ectopic0 Multiple0 Live Births0 Geophysical Laboratory Chief History LMP: 04/10/2023, Having periods Age at Menarche: Age at First : Age at Menopause: Geophysical Laboratory Chief History Comments: Sexual Activity: Yes; Male Contraception: I.U.D. PAST MEDICAL HISTORY Diagnosis Date Generalized anxiety disorder PAST SURGICAL HISTORY Procedure Laterality Date CERVIX UTERI CONIZA LP ELCTRO EXCI SECTION HX EXTRACTION ERUPTED TOOTH/EXR REMOVAL GALLBLADDER No family history on file. Social History Tobacco Use Smoking status: Never Smokeless tobacco: Never Vaping Use Vaping Use: Never used Substance Use Topics Alcohol use: Not Currently Drug use: Yes Types: Marijuana Current Outpatient Medications Medication Sig copper (PARAGARD T 380A) 380 square mm intrauterine device 1 Intra Uterine Device by INTRAUTERINE route. No current facility-administered medications for this visit. Allergies As of Date: 04/17/2023 (No Known Allergies) Fully Assessed 04/17/2023 REVIEW OF SYSTEMS Expanded ROS: N/A Allergies and current medication updated:Yes EXAM: BP 124/78 Ht 5' 2 (1.58m) Wt 344 lb (156.0kg) LMP 04/10/2023 BMI 62.90 kg/(m^2). GENERAL: pleasant, female in no apparent distress HEENT: Normocephalic, atraumatic, mucus membranes moist, and no lesions CHEST: Normal inspiratory effort NEURO: alert and oriented x3,exam grossly non-focal EXTREMITIES: normal ASSESSMENT/PLAN: 1. Pelvic pain in female - ICD9: 625.9, ICD10: R10.2 - US FEMALE PELVIS TRANSVAG Will notify patient of test results. May need to remove the Paraguard due to the pain Mattie Hyman APRN.CNP Medical Decision Making: Problems: Low: Acute, uncomplicated illness or injury Data: Unique test(s) ordered: 1 Risk: Low: Low risk from testing/treatment Medical Decision Making Level: 3 - Low ' documented in this encounter [facility] 12-31-2022 Evaluation + Plan note Future Scheduled TestsPathology Tissue Request 12/31/22 [facility] Evaluation + Plan note Future Appointments Appointment Date:01/14/2023 03:40:00 PM Scheduled Provider:BRE SIMS MD Location:[facility] Appointment Type:Telephone Future Scheduled TestsPathology Tissue Request 12/31/22 [facility] Pelvic pain in female Unspecified symptom associated with female genital organs [facility] Narrative No data available for this section [facility] Hospital Discharge instructions No data available for this section [facility] Progress note No data available for this section [facility] Reason for referral (narrative)* Diagnostic Procedure Only (Routine) - Authorized Specialty Diagnoses / Procedures Referred By Contcyndi t Referred To Contact US IMAGING Diagnoses Pelvic pain in female Procedures US FEMALE PELVIS TRANSVAG US TRANSVAGINAL Mattie Hyman APRN.CNP [address] [place] [address] [place] [address] Referral ID Status Reason Start Date Expiration Date Visits Requested Visits Authorized [id number] Authorized Auto-Generat ed Referral [facility]/16[facility]2024 [facility] Diagnostic Procedure Only (Routine) - Closed Specialty Diagnoses / Procedures Referred By Yvette t Referred To Contact US IMAGING Diagnoses Pelvic pain in female Procedures US FEMALE PELVIS TRANSVAG US TRANSVAGINAL Mattie Hyman APRN.CNP [address] [address] [place] [address] Referral ID Status Reason Start Date Expiration Date V isits Requested Visits Authorized [id number] Closed Patient Cleared - Qualified 100% FAS 04/17/2023 04/19/2023 1 1 [facility] Summary Purpose Family History No Family History Records FoundNo Family History Records FoundNo Family History Records Found No data available for this section No Family History Records Found No data available for this section No Family History Records FoundNo Family History Records FoundNo Family History Records Found Advance Directives No Advanced Directives Records FoundDocuments on File Type Date Recorded Patient Utility Sales Representative Expl anation Advance Directives and Living Will Power of Steno Typist Latest Code Status on File Code Status Date Activated Date Inactivated Comments Full Code 10/18/2019 7:50 AM Documents on File Type Date Recorded Patient Utility Sales Representative Expl anation Advance Directives and Living Will Power of Steno Typist Latest Code Status on File Code Status Date Activated Date Inactivated Comments Full Code 10/18/2019 7:50 AM 10/18/2019 11:44 AM Latest Code Status on File Code Status Date Activated Date Inactivated Comments Full Code 10/18/2019 7:50 AM 10/18/2019 11:44 AM Assessments Diagnosis Essential hypertension Unspecified essential hypertension Daytime sleepiness Morbid obesity (HCC) Morbid obesity Diagnosis Gastric polyps Benign neoplasm of stomach GERD (gastroesophageal reflux disease) Esophageal reflux Morbid obesity with BMI of 50.0-59.9, adult (HCC) Chronic superficial gastritis without bleeding Atrophic gastritis without mention of hemorrhage Diagnosis Generalized abdominal pain Abdominal pain, generalized Discharge Instructions * Instructions* Sharyn Small RN - 10/18/2019 Upper GI Endoscopy: What to expect at home ACTIVITY: DO NOT DRIVE, OPERATE MACHINERY, OR DRINK ANY ALCOHOL TODAY. Avoid making critical decisions, signing legal documents, or performing any activity that requires alertness for the rest of the day. You may be bloated or have gas pains since air was introduced into the stomach for the procedure. You may need to pass the gas throughout the day. You may experience a mild sore throat. You may use an [id number] chloraseptic spray, gargle with warm salt water, or use throat lozenges. Notify your physician if this feeling lasts more than 48 hours. Rest the remainder of the day. You may resume normal activity tomorrow. You may return to work tomorrow. DIET: You may resume a normal diet unless notified or recommended by your physician. You may be eager to eat a large meal after fasting, but it is a good idea to start with light mealsand ease into solid foods the first day. (*) If your stomach is upset, try clear liquids and bland, low-fat foods like plain toast or rice. Drink plenty of fluids for the first 24 hours (unless your physician states otherwise). MEDICATION: Resume your normal home medications unless notified or recommended by your physician. If you take blood thinners (such as Coumadin, Eliquis, Plavix, Aspirin, etc.) or anti-inflammatory medications (Advil, Motrin, Aleve, etc.), ask your physician when you may resume these medications. FOLLOW-UP APPOINTMENT: Follow up with or call your physician as needed. When to call for help: Call your doctor IMMEDIATELY or seek medical care if you experience: ? Severe pain or vomiting ? Coughing up more than a teaspoon of blood ? You pass a large amount of tar-like stools ? Your belly is swollen and firm with severe pain ? A fever greater than 101 degrees ? Redness or swelling of arm from the IV site for more than 48 hours ? Sudden onset of chest pain or shortness of breath ? If you become extremely dizzy or pass out (lose consciousness) IF YOU ARE UNABLE TO REACH YOUR PHYSICIAN GO TO NEAREST EMERGENCY DEPARTMENT documented in this encounter Reason for Referral Status Reason Specialty Diagnoses / Procedures Referre d By Contact Referred To Contact [facility] Diagnoses Generalized abdominal pain Procedures US Abdomen Complete Riana Spear, ERICKA - HEMODIALYSIS CHARGE NURSE [address] [id number] Additional Source Comments INFORMATION SOURCE (unrecogn ized section and content) DATE CREATED AUTHOR AUTHOR'S ORGANIZ ATION 12/18/2019 [facility] DATE CREATED AUTHOR AUTHOR'S ORGANIZ ATION 09/15/2021 [facility] DATE CREATED AUTHOR AUTHOR'S ORGANIZ ATION 01/01/2023 [place] DATE CREATED AUTHOR AUTHOR'S ORGANIZ ATION 04/18/2023 [facility] ([place]) DATE CREATED AUTHOR AUTHOR'S ORGANIZ ATION 04/22/2023 [facility] DATE CREATED AUTHOR AUTHOR'S ORGANIZ ATION 07/20/2023 [facility] Patient Care team informatio n (unrecognized section and content) Care Team Personnel Name: ALEJANDRA LOAIZA [employer] INSPECTOR-HEMODIALYSIS CHARGE NURSE Member Role: Primary Care Physician Address: Address: [address] [place] [address] [place] [address] Name: BRE SIMS MD Position: P4 Oncology Provider Member Role: Gynecologic Oncologist Address: Address: [address] [place] [address] Gynec[address] On[address] Care Team Related Persons Name: AVNI BOX Name: HANK MACIELRIA Name: HANK MACIELRIA Name: HANK MACIELRIA Care Team Personnel Name: ALEJANDRA LOAIZA [employer] SYSTEMS INSPECTOR-HEMODIALYSIS CHARGE NURSE Member Role: Primary Care Physician Address: Address: [address] [place] [address] [place] [address] Name: BRE SIMS MD Position: P4 Oncology Provider Member Role: Gynecologic Oncologist Address: Address: [address] [place] [address] Gy[address] On[address] Care Team Related Persons Name: AVNI BOX Name: MACIEL, DELFINO Name: MACIEL, DELFINO Name: MACIEL, DELFINO Source Comments (unrecognize d section and content) In the event this informatio n is protected by the Federal Confidentiality of Alcohol and Drug Abuse Patient Records regulations: The Federal rules restrict any use of the information to criminally investigate or prosecute any alcohol or drug abuse patient[facility] the event this information is protected by the Federal Confidentiality of Alcohol and Drug Abuse Patient Records regulations: The Federal rules restrict any use of the information to criminally investigate or prosecute any alcohol or drug abuse patient.[facility] Reason for Visit (unrecogniz ed section and content) Specialty Diagnoses / Procedures Referred By Contac t Referred To Contact Diagnoses Abnormal period Procedures Annual [place] [facility] [place] [address] Referral ID Status Reason Start Date Expiration Date Visits Requested Visits Authorized [id number] Authorized Patient Cleared - Qualified 100% FAS 3 07/15/2023 99 99 Reason Comments Pelvic Pain FOR RECORDS PERTAINING TO PATIENTS WHO ARE OR HAVE BEEN ENROLLED IN A CHEMICAL DEPENDENCY/SUBSTANCEABUSE PROGRAM, SOME INFORMATION MAY BE OMITTED. This clinical summary was aggregated from multiple sources. Caution should be exercised in using it in the provision of clinical care. This summary normalizes information from multiple sources, and as a consequence, information in this document may materially change the coding, format and clinical context of patient data. In addition, data may be omitted in some cases. CLINICAL DECISIONS SHOULD BE BASED ON THE PRIMARY CLINICAL RECORDS. [employer] provides no warranty or guarantee of the accuracy or completeness of information in this document.
[2023-08-02 05:25] VITALS: BP 159/102
--- NOTE | 2023-08-02 05:33 | EX.ED.DYSGE1 ---
HPI History of Present Illness Chief Complaint: Headache Informant: patient and spouse/S.O. Narrative Narrative: Patient is a 32-year-old female who presents with headache. Patient states that she has had 3 days of headache along the left forehead. She states she did strike her head on the couch prior to headache beginning but that this was minimal trauma and she did not think much of this as there is no associated skin injury or loss of consciousness. She also reports the headache came on gradually increased over the course of hours but is now constant. She reports she has been checking her blood pressure at home and it has been elevated and she states that she has not had to be on blood pressure medication for multiple years. She also states that when she was she had a spontaneous brain bleed but denies any history of bleeding disorder or blood thinner use. Therefore as she has had persistent headache and elevated blood pressure she concerned for potential brain bleed as she has had in the past and therefore comes in for evaluation [facility] Medical History Abdominal pain Alcohol use Anxiety Back pain Chlamydia Easy bruising Former smoker Heartburn Hemorrhoid History of edema Hx of LEEP (loop electrosurgical excision procedure) of cervix complicating Hypertension Leg cramps Marijuana use Shortness of breath on exertion TIA (transient ischemic attack) Vertigo Home Medications ibuprofen 600 mg tablet 600 mg PO TID PRN Pain Score 1-10 #30 tabs 04/05/20 [Rx Last Taken Unknown] apple cider vinegar 500 mg tablet 500 mg PO DAILY 10/22/22 [History Last Taken Unknown] cholecalciferol (vitamin D3) 25 mcg (1,000 unit) capsule (Vitamin D3) 25 mcg PO DAILY 10/22/22 [History Last Taken Unknown] lactobacillus combination no.4 3 billion cell capsule (Probiotic) 3,000 mmu cells PO DAILY 10/22/22 [History Last Taken Unknown] multivitamin 1 cap PO DAILY 10/22/22 [History Last Taken Unknown] aspirin 81 mg capsule 81 mg PO DAILY 12/26/22 [History Last Taken Unknown] lisinopril 20 mg tablet 20 mg PO DAILY 30 days #30 tabs 08/02/23 [Rx Last Taken Unknown] Allergy/AdvReac Type Severity Reaction Status Date / Time No Known Allergies Allergy Verified 08/02/23 03:13 Family History Mother Diabetes Hypertension Surgical History History of History of cholecystectomy (~2018) History of esophagogastroduodenoscopy (EGD) Hx of wisdom tooth extraction Social History household members: significant other Smoking Status: Former smoker alcohol intake: never substance use type: does not use ROS ROS ED Constitutional Constitutional ED: Denies chills or fever(s) Eyes Eyes: Denies change in vision ENT ENT ED: Denies sore throat Cardiovascular Cardiovascular: Denies chest pain Respiratory/Chest Respiratory/Chest: Denies cough or dyspnea Gastrointestinal Gastrointestinal: Denies abdominal pain, diarrhea, nausea or vomiting Genitourinary Genitourinary ED: Denies dysuria Musculoskeletal Musculoskeletal: Denies myalgias Integumentary Denies rash Neurologic Neurologic: Reports headache(s); Denies paresthesias or weakness Hematologic/Lymphatic Hematologic/Lymphatic: Denies easy bleeding or easy bruising EXAM Physical Exam Const Vital Signs: 08/02/23 03:08 08/02/23 04:00 08/02/23 05:25 Temperature 97.9 F Temperature Source Temporal Pulse Rate 127 H 94 Respiratory Rate 18 18 Blood Pressure 188/87 H 161/111 H 159/102 H Blood Pressure Mean 120 127 121 Pulse Ox 95 99 Oxygen Delivery Method Room Air Room Air 08/02/23 06:05 Temperature 97.9 F Temperature Source Pulse Rate 100 Respiratory Rate 19 H Blood Pressure 156/110 H Blood Pressure Mean 125 Pulse Ox 96 Oxygen Delivery Method Positive well nourished, well developed and obese General Appearance ED: well developed; Negative for pallor Nutritional Appearance: obese HEENT HEENT Narrative: Normocephalic atraumatic Eyes PERRL and EOMs intact bilaterally General Eye ED: Negative for scleral icterus Neck supple Neck Narrative: No nuchal rigidity or meningeal signs noted Resp normal respiratory effort and clear to auscultation bilaterally Cardio regular rhythm Rate: tachycardic and other Other Details: Tachycardic rate with regular rhythm No murmurs rubs or gallops noted GI normal to inspection, nondistended, normoactive bowel sounds, non-tender, non-distended and no masses GI Narrative: No pulsatile mass Auscultation: normoactive bowel sounds Palpation: soft Extremity normal to inspection Extremity Narrative: No asymmetric edema no pitting edema negative Homans' sign bilaterally Neuro oriented x3, CN's II-XII intact bilaterally and no sensory deficits noted Neuro Narrative: Cranial nerves II through XII are grossly intact there are no focal neurologic deficits No pronator drift no dysmetria no truncal ataxia NIH stroke scale score of 0 Sensorium / Orientation: alert Motor Exam: strength 5/5 throughout Psych mental status grossly normal Skin no rashes or lesions noted, no wounds and skin turgor normal General Skin Exam: Negative for jaundice or pallor MDM MDM MDM Narrative Medical decision making narrative: Patient presented to the ER hypertensive and mildly tachycardic. She reported a headache that came on gradually increased over the course of hours but denies any previous history of headache disorder. She also has a history of spontaneous brain bleed when . Secondary to this history there is concern for spontaneous subarachnoid hemorrhage as the cause. Also headache could be secondary to hypertension or potential sinusitis or mass. A head CT was obtained which revealed no acute bleed or mass or signs of sinus infection. Patient was given IV fluids Toradol Benadryl and Reglan and on reevaluation had improvement of her headache and her neuroexam remained normal. Also her hypertension improved with treatment of the headache as well. Therefore at this time I do not feel there is need for further workup patient be started on lisinopril secondary to the hypertension and she can follow-up with her family doctor on an outpatient basis History & Record Review Discussion w/independent historian: Patient and Significant other Radiography Diagnostic Testing: Clinical Impression(s) from Imaging Studies Brain CT 08/02/23 03:30 IMPRESSION: Negative head/brain CT without intravenous contrast. Electronically Signed: Jared Ackerman MD at 5:06 EST , Discharge Plan Triage Chief Complaint: Headache ED Provider: Manuel Kraus Dx/Rx/DC Orders Clinical Impression: Cephalgia, Hypertension Instructions: ED Headache Unspecified, ED Hypertension New Begin Treatment Prescriptions: New lisinopril 20 mg tablet 20 mg PO DAILY 30 Days Qty: 30 0RF No Action ibuprofen 600 MG tablet 600 mg PO TID PRN (Reason: Pain Score 1-10) Qty: 30 0RF multivitamin Capsule 1 cap PO DAILY cholecalciferol (vitamin D3) [Vitamin D3] 25 mcg (1,000 unit) Capsule 25 mcg PO DAILY apple cider vinegar 500 mg Tablet 500 mg PO DAILY Probiotic 3 billion cell Capsule 3,000 mmu cells PO DAILY Rx Instructions: administer with a meal aspirin 81 mg capsule 81 mg PO DAILY Primary Care Provider: Rupal Vincent NP Referrals: Rupal Vincent NP, [employer] [Primary Care Provider] - Activity Restrictions/Additional Instructions: Please begin taking the lisinopril once a day for improved blood pressure control. Keep a blood pressure journal so your family doctor can evaluate your blood pressure and his response to the medication. If you have any further concerns or worsening of symptoms please return for repeat evaluation Disposition Disposition: Home, Self Care Discharge Date/Time: 08/02/23 06:06
[2023-08-02] MEDS: Lisinopril 20 MG Tablet PO (06:01)
[2023-08-02 06:05] VITALS: BP 156/110; PULSE 100; RESP 19; TEMP 36.6; O2SAT 96
== END 2023-08-02 06:06 | disposition home or self-care (01) ==
PROVIDERS: Emergency Provider Emergency Medicine; PCP Nurse Practitioner Family; Visit Provider Emergency Medicine
DX: R51.9 Headache, unspecified (principal); I10 Essential (primary) hypertension; Z87.891 Personal history of nicotine dependence; Z86.73 Personal history of transient ischemic attack (TIA), and cerebral infarction without residual deficits; Z79.82 Long term (current) use of aspirin; Z90.49 Acquired absence of other specified parts of digestive tract
CPT/HCPCS: 70450; 96361; 96374; 96375; 99284; J7030; A4216

== ENCOUNTER 2024-03-20 15:23 | Emergency (ER) | payer SELFPAY ==
[2024-03-20 15:24] VITALS: BP 164/92; PULSE 118; RESP 20; TEMP 36.7; O2SAT 98; BMI 64.2
--- NOTE | 2024-03-20 18:25 | EDS_ITS ---
HPI History of Present Illness Chief Complaint: Dental Narrative Narrative: Chief complaint and HPI: Dental pain. 33-year-old female presents for evaluation of dental pain with mild swelling. Patient states that she had an infected right lower molar. She states this was about 2 weeks ago and it was removed by her dentist. She states she was placed on amoxicillin. Patient states she finished her antibiotics on Thursday. She states since Thursday she has been having increased pain and swelling in the area. She denies any fever, chills, shortness of breath, chest pain, difficulty swallowing, difficulty tolerating secretions nausea, vomiting. She states she occasionally gets pain in her right ear. She denies any neck stiffness. She noticed some mild swelling in her right cheek today. She has been taking ibuprofen 600 mg that her dentist prescribed her. Review of systems: See HPI Medications: As listed on the chart Allergies: As listed on the chart PFSH: Per chart Vital signs: As listed on the chart. Reviewed. Physical exam: Gen: A&O x3, NAD Head: Normocephalic, atraumatic Eyes: No sclera icterus, conjunctiva clear, PERRL, EOMI ENT: TMs clear BL, moist mucous membranes, posterior oropharynx unremarkable, uvula midline, tonsils not enlarged, no tonsillar exudates, no tongue enlargement, no submandibular swelling, no Juanito angina, no dental abscess visualized, patient does have mild swelling and irritation of the gingiva where her previous right lower back molar was removed, no facial tenderness, mild swelling to the right cheek in the distribution of where her tooth lays Neck: Trachea midline, No JVD, Full ROM, No meningismus, no lymphadenopathy CV: RRR, no murmurs, no peripheral edema Resp: Lungs CTA BL, no w/r/c Skin: Warm, dry, no rash Neuro: Alert, oriented, grossly intact, sensation intact Psych: Cooperative, appropriate mood and affect [facility] Medical History Abdominal pain Alcohol use Anxiety Back pain Chlamydia Easy bruising Former smoker Heartburn Hemorrhoid History of edema Hx of LEEP (loop electrosurgical excision procedure) of cervix complicating Hypertension Leg cramps Marijuana use Shortness of breath on exertion TIA (transient ischemic attack) Vertigo Home Medications ?Medication ?Instructions ?Recorded ?Last Taken ?Type ibuprofen 600 mg tablet 600 mg PO TID PRN Pain Score 1-10 04/05/20 Unknown Rx #30 tabs apple cider vinegar 500 mg tablet 500 mg PO DAILY 10/22/22 Unknown History cholecalciferol (vitamin D3) 25 25 mcg PO DAILY 10/22/22 Unknown History mcg (1,000 unit) capsule (Vitamin D3) lactobacillus combination no.4 3 3,000 mmu cells PO DAILY 10/22/22 Unknown History billion cell capsule (Probiotic) multivitamin 1 cap PO DAILY 10/22/22 Unknown History aspirin 81 mg capsule 81 mg PO DAILY 12/26/22 Unknown History Allergy/AdvReac Type Severity Reaction Status Date / Time No Known Allergies Allergy Verified 03/20/24 15:27 Family History Mother Diabetes Hypertension Surgical History History of History of cholecystectomy (~2018) History of esophagogastroduodenoscopy (EGD) Hx of wisdom tooth extraction Social History household members: significant other Smoking Status: Former smoker alcohol intake: never substance use type: does not use EXAM Physical Exam Const Vital Signs: 03/20/24 15:24 Temperature 98.1 F Temperature Source Oral Pulse Rate 118 H Respiratory Rate 20 H Blood Pressure 164/92 H Blood Pressure Mean 116 Pulse Ox 98 Oxygen Delivery Method Room Air MDM MDM MDM Narrative Medical decision making narrative: 33-year-old female presents for evaluation of dental pain after recent tooth infection that was pulled. See physical exam findings. No abscess to I&D. Patient likely has infection. Given that she was recently on amoxicillin we will place her on Augmentin. She has no systemic symptoms. I do not think any imaging or laboratory workup is needed at this time. She was told to follow-up with her dentist. She is to continue the 600 mg ibuprofen. I did offer her a [place] while in the emergency department. She declined. Patient is stable to discharge home. Return precautions were explained. She confirmed understanding. Impression: 1. Right lower dental infection 2. History of recent tooth infection in this area Discharge Plan Triage Chief Complaint: Dental ED Provider: Feroz Stevenson Dx/Rx/DC Orders Prescriptions: No Action ibuprofen 600 MG tablet 600 mg PO TID PRN (Reason: Pain Score 1-10) Qty: 30 0RF multivitamin Capsule 1 cap PO DAILY cholecalciferol (vitamin D3) [Vitamin D3] 25 mcg (1,000 unit) Capsule 25 mcg PO DAILY apple cider vinegar 500 mg Tablet 500 mg PO DAILY Probiotic 3 billion cell Capsule 3,000 mmu cells PO DAILY Rx Instructions: administer with a meal aspirin 81 mg capsule 81 mg PO DAILY Primary Care Provider: Prudence Vergara Referrals: Prudence Vergara, [employer] [employer]-[facility] [Primary Care Provider] - Print Language: Citizen [place]
== END 2024-03-20 19:37 | disposition home or self-care (01) ==
PROVIDERS: Emergency Provider Surgery; PCP Nurse Practitioner Family; Referring Provider Surgery; Visit Provider Surgery
DX: K04.7 Periapical abscess without sinus (principal); I10 Essential (primary) hypertension; Z87.891 Personal history of nicotine dependence; Z86.73 Personal history of transient ischemic attack (TIA), and cerebral infarction without residual deficits; Z79.82 Long term (current) use of aspirin; Z90.49 Acquired absence of other specified parts of digestive tract
CPT/HCPCS: 99282; A4216

== ENCOUNTER 2024-04-09 13:50 | Emergency (ER) | payer SELFPAY ==
[2024-04-09 13:52] VITALS: BP 159/104; PULSE 105; RESP 18; TEMP 36.3; O2SAT 98; BMI 62.3
[2024-04-09 14:37] LABS: Absolute Lymphocyte Count 2.08 X10^3/uL (0.83-4.51); Absolute Neutrophil Count 5.5 X10^3/uL (2.0-7.7); Basophil# 0.02 X10^3/uL; Basophil% 0.2 % (0-1); Eosinophil# 0.11 X10^3/uL; Eosinophils% 1.3 % (0-5); Hematocrit 44.7 % (37-47); Hemoglobin 15.4 g/dL (12.0-15.0); Lymphocyte # 2.08 X10^3/ul (0.83-4.51); Lymphocyte % 25.1 % (19-41); Mean Corp Hgb Conc 34.5 g/dL (32-36); Mean Corpuscular Hgb 30.6 pg (27.0-32.0); Mean Corpuscular Volume 88.7 fL (81-99); Mean Platelet Vol. 9.5 fl (6.2-12.0); Monocyte# 0.56 X10^3/uL; Monocyte% 6.8 % (0-10); NRBC Flagged by Analyzer 0 % (0-5); Neutrophil # 5.49 X10^3/uL (2.7-7.7); Neutrophil % 66.4 % (47-70); Platelet Count 257 K/mm3 (150-450); RBC Distribution Width CV 12.6 % (11.6-14.6); RBC Distribution Width SD 41.4 fl (35.1-43.9); Red Blood Count 5.04 M/mm3 (4.2-5.4); White Blood Count 8.3 K/mm3 (4.4-11.0)
[2024-04-09 14:43] LABS: Internal QC Validated? YES +Cl - CLEAR BKGD; Pregnancy, Serum, hCG Quali. NEGATIVE Negative
[2024-04-09 14:44] LABS: Record Kit Lot#, Serum Preg. 869294
[2024-04-09 14:50] LABS: Anion Gap 5 (5-15); BUN 13 mg/dL (7-18); BUN/Creat Ratio 22.6 RATIO (10-20); Calcium,Total 8.8 mg/dL (8.5-10.1); Chloride 108 mmol/L (98-107); Creatinine, Serum 0.58 mg/dL (0.55-1.02); EST Glomerular Filtration Rate 128 mL/min (>60); Est Glom Filt Rate - Afr Amer 155 mL/min (>60); Estimated Creatinine Clearance 192.86 ml/min; Glucose 102 mg/dL (74-106); Potassium 3.7 mmol/L (3.5-5.1); Sodium Level 140 mmol/L (136-145)
== END 2024-04-09 16:04 | disposition home or self-care (01) ==
PROVIDERS: Nurse Practitioner; Emergency Provider Emergency Medicine; PCP Nurse Practitioner Family; Visit Provider Emergency Medicine
DX: R68.84 Jaw pain (principal); I10 Essential (primary) hypertension; Z87.891 Personal history of nicotine dependence; Z86.73 Personal history of transient ischemic attack (TIA), and cerebral infarction without residual deficits; Z90.49 Acquired absence of other specified parts of digestive tract; J01.90 Acute sinusitis, unspecified
CPT/HCPCS: 70491; 80048; 84703; 85025; 87631; 99283; Q9967; A4216

== ENCOUNTER 2024-11-29 17:35 | Emergency (ER) | payer SELFPAY ==
[2024-11-29 17:36] VITALS: BP 145/117; PULSE 106; RESP 18; TEMP 36.4; O2SAT 98; BMI 66.6
[2024-11-29 17:38] VITALS: BP 145/117; PULSE 105; RESP 18; TEMP 36.4; O2SAT 98
[2024-11-29 20:04] LABS: Hematocrit 44.5 % (37-47); Hemoglobin 15.3 g/dL (12.0-15.0); Immature Granulocytes Count 0.020 X10^3/uL (0.0-0.0); Mean Corp Hgb Conc 34.4 g/dL (32-36); Mean Corpuscular Volume 88.6 fL (81-99); Mean Platelet Vol. 9.4 fl (6.2-12.0); NRBC Flagged by Analyzer 0 % (0-5); Platelet Count 259 K/mm3 (150-450); RBC Distribution Width CV 12.9 % (11.6-14.6); RBC Distribution Width SD 41.8 fl (35.1-43.9); Red Blood Count 5.02 M/mm3 (4.2-5.4); White Blood Count 8.0 K/mm3 (4.4-11.0)
[2024-11-29 20:32] LABS: AST(SGOT) 31 U/L (<=31); Alanine Aminotransfer ALT/SGPT 38 U/L (<=34); Albumin, Serum 4.2 g/dL (3.5-5.0); Alkaline Phosphatase 65 U/L (35-104); Anion Gap 12 (5-15); BUN 11 mg/dL (4-19); BUN/Creat Ratio 14.0 RATIO (10-20); Calcium,Total 9.1 mg/dL (7.6-11.0); Carbon Dioxide 24.4 mmol/L (21.0-32.0); Chloride 102 mmol/L (98-108); Estimated Creatinine Clearance 152.65 ml/min (50-250); Globulin 3.3 g/dL (2.2-4.2); Glucose 92 mg/dL (70-99); Lipase 33 U/L (13-75); Potassium 4.3 mmol/L (3.3-5.1)
[2024-11-29 21:00] VITALS: BP 144/108
[2024-11-29 21:13] LABS: Internal QC Validated? YES +Cl - CLEAR BKGD; Pregnancy, Serum, hCG Quali. NEGATIVE Negative; Record Kit Lot#, Serum Preg. 947241
--- NOTE | 2024-11-29 22:21 | EDS_ITS ---
HPI History of Present Illness Chief Complaint: Abd Pain Narrative Narrative: Chief complaint and HPI: Abdominal pain. 34-year-old female with past medical history of anxiety and HTN presents for evaluation of abdominal pain. Onset of abdominal pain several days ago. Describes it as cramping. Patient states she had similar pain to this earlier last month. States she was seen at [facility] and diagnosed with a UTI. States she took antibiotics and the pain improved. Patient states that she ended her menstrual cycle approximately 3 days ago. Since then she has developed recurrent abdominal pain. Located mostly on the right as before. States she went to urgent care who recommended her come to the emergency department for imaging. Patient denies any fever, chills, chest pain, shortness of breath, nausea, vomiting, dysuria, hematuria, constipation, diarrhea. Review of systems: See HPI Medications: As listed on the chart Allergies: As listed on the chart PFSH: Per chart Vital signs: As listed on the chart. Reviewed. Physical exam: Gen: A&O x3, NAD Head: Normocephalic, atraumatic Eyes: No sclera icterus, conjunctiva clear ENT: Moist mucous membranes Neck: Trachea midline, No JVD CV: RRR, no murmurs, no peripheral edema Resp: Lungs CTA BL, no w/r/c GI: Abd soft, non-distended, mildly tender to palpation in the right lower quadrant, no r/r/g : No CVA tenderness Musc: Full ROM, no deformity Skin: Warm, dry Neuro: Alert, oriented, grossly intact, sensation intact Psych: Cooperative, appropriate mood and affect [facility] History Abdominal pain Alcohol use Anxiety Back pain Chlamydia Easy bruising Former smoker Heartburn Hemorrhoid History of edema Hx of LEEP (loop electrosurgical excision procedure) of cervix complicating Hypertension Leg cramps Marijuana use Shortness of breath on exertion TIA (transient ischemic attack) Vertigo Home Medications ?Medication ?Instructions ?Recorded ?Last Taken ?Type apple cider vinegar 500 mg tablet 500 mg PO DAILY 09/30 09/21 Unknown History cholecalciferol (vitamin D3) 25 25 mcg PO DAILY Unknown History mcg (1,000 unit) capsule (Vitamin D3) lactobacillus combination no.4 3 3,000 mmu cells PO DA ERIK 10/22/22 Unknown History billion cell capsule (Probiotic) multivitamin 1 cap PO DAILY 10/22/22 Unkn own History Allergy/AdvReac Type Severity Reaction Status Date / Time No Known Allergies Allergy Verified 11/29/24 17:38 Family History Mother Diabetes Hypertension Surgical History History of History of cholecystectomy (~2018) History of esophagogastroduodenoscopy (EGD) Hx of wisdom tooth extraction Social History household members: significant other Smoking Status: Former smoker alcohol intake: never substance use type: does not use EXAM Physical Exam Const Vital Signs: 11/29/24 17:36 11/29/24 17:38 11/29/24 21:00 Temperature 97.6 F L 97.6 F L Temperature Source Temporal Temporal Pulse Rate 106 H 105 H Respiratory Rate 18 18 Blood Pressure 145/117 H 145/117 H 144/108 H Blood Pressure Mean 126 126 120 Pulse Ox 98 98 Oxygen Delivery Method Room Air Room Air 11/29/24 23:00 11/30/24 00:05 Temperature 98.1 F 98.1 F Temperature Source Oral Pulse Rate 94 93 Respiratory Rate 16 16 Blood Pressure 138/90 H 110/70 Blood Pressure Mean 106 83 Pulse Ox 95 96 Oxygen Delivery Method Room Air MDM MDM MDM Narrative Medical decision making narrative: 34-year-old female with past medical history of anxiety and HTN presents for evaluation of abdominal pain. Similar to previous abdominal pain in which she was diagnosed with a UTI. Differential diagnosis includes but is not limited to UTI, appendicitis, colitis, gastroenteritis, urolithiasis. CBC relatively unremarkable without leukocytosis. CMP relatively unremarkable except for mild ALT elevation. Lipase unremarkable. Serum negative. CT abdomen pelvis shows rectus muscle diastases but otherwise no acute findings. UA positive for blood, leuk esterase, and 25-50 WBCs. However she has no nitrites or bacteria. This is not the cleanest sample with 10-25 squamous epithelial cells. Patient is not endorsing any dysuria or urinary frequency. Urine culture sent. Given unclear urine sample, risk and benefits were discussed with the patient about starting antibiotics. Patient in agreement to hold off on antibiotics for now until urine culture is obtained to assess for true UTI. Patient's pain has improved. Follow-up with PCP. Return precautions explained. She agreed and understand the plan. Impression: 1. Abdominal pain Lab Data Labs: Laboratory Results - last 24 hr 11/29/24 11/29/24 19:46 22:05 WBC 8.0 RBC 5.02 Hgb 15.3 H Hct 44.5 MCV 88.6 MCH 30.5 MCHC 34.4 RDW Std Deviation 41.8 RDW Coeff of Susie 12.9 Plt Count 259 MPV 9.4 Immature Gran % (Auto) 0.200 Neut % (Auto) 59.0 Lymph % (Auto) 33.3 Smith % (Auto) 5.7 Eos % (Auto) 1.4 Baso % (Auto) 0.4 Absolute Neuts (auto) 4.7 Absolute Lymphs (auto) 2.67 Nucleated RBC % 0 Sodium 139 Potassium 4.3 Chloride 102 Carbon Dioxide 24.4 Anion Gap 12 BUN 11 Creatinine 0.76 Estim Creat Clear Calc 152.65 Est GFR (MDRD) Non-Af 106 BUN/Creatinine Ratio 14.0 Glucose 92 Calcium 9.1 Total Bilirubin 0.84 AST 31 ALT 38 H Alkaline Phosphatase 65 Total Protein 7.5 Albumin 4.2 Globulin 3.3 Albumin/Globulin Ratio 1.2 Lipase 33 Serum , Qual NEGATIVE Urine Color Yellow Urine Clarity Clear Urine pH 6.0 Ur Specific [place] 1.010 Urine Protein 15 H Urine Glucose (UA) Normal Urine Ketones Negative Urine Occult Blood 25 H Urine Nitrite Negative Urine Bilirubin Negative Urine Urobilinogen Normal Ur Leukocyte Esterase 500 H Urine RBC 0-5 SEEN Urine WBC 25-50 SEEN Ur Squamous Epith Cells 10-25 SEEN Urine Bacteria 0 SEEN Urine Mucus 0 SEEN Urine Trichomonas 0-5 SEEN Radiography Diagnostic Testing: Clinical Impression(s) from Imaging Studies Abdomen/Pelvis CT 11/29/24 22:38 IMPRESSION: No acute findings Reading Location: [place] [id number] Discharge Plan Triage Chief Complaint: Abd Pain ED Provider: Feroz Stevenson Dx/Rx/DC Orders Clinical Impression: Abdominal pain Instructions: ED Abdominal Pain Unkn Cause Fem Prescriptions: No Action multivitamin Capsule 1 cap PO DAILY cholecalciferol (vitamin D3) [Vitamin D3] 25 mcg (1,000 unit) Capsule 25 mcg PO DAILY apple cider vinegar 500 mg Tablet 500 mg PO DAILY Probiotic 3 billion cell Capsule 3,000 mmu cells PO DAILY Rx Instructions: administer with a meal Primary Care Provider: Prudence Vergara Referrals: Prudence Vergara, [facility] [Primary Care Provider] - 3-5 Days Activity Restrictions/Additional Instructions: Follow-up with your primary care physician. Return back to the ED if symptoms change or worsen Print Language: Citizen Of [place] Disposition Disposition: Home, Self Care Discharge Date/Time: 11/30/24 00:09
[2024-11-29 22:24] LABS: Mucous, Urine 0 SEEN /hpf (<or=2+)
[2024-11-29 22:28] LABS: Color, Urine Yellow (Yellow); Glucose, Dipstick Normal (Normal); Ketone-Dipstick Negative (Negative); Leukocyte Esterase-Dipstick 500 /ul (Negative); Nitrite-Dipstick Negative (Negative); Occult Blood-Urine 25 /ul (Negative); Protein-Dipstick 15 mg/dl (Negative); Specific Gravity, Urine 1.010 (1.002-1.030); Urine Bilirubin Dipstick Negative (Negative)
--- NOTE | 2024-11-29 22:38 | CT_ITS ---
PROCEDURE: ABDOMEN/PELVIS W IV CONT ONLY 11/29/2024 REASON FOR EXAM: RIGHT LOWER QUADRANT NOMINAL PAIN TECHNIQUE: ABDOMEN/PELVIS W IV CONT ONLY Coronal and Sagittal reconstruction series were provided. CONTRAST: Isovue 370 VOLUME: 90 mL One or more dose reduction techniques were used (e.g., Automated exposure control, adjustment of the mA and/or kV according to patient size, use of iterative reconstruction technique. RADIATION DOSE SUMMARY: CTDlvol: 38 mGy DLP: 1534 mGycm COMPARISON: 04/18/2023 FINDINGS: Clear lung bases. Normal heart size. Status post cholecystectomy. Liver, pancreas, spleen, adrenal glands and kidneys are unremarkable. No hydronephrosis. Normal bladder. IUD in uterus. Normal ovaries. No retroperitoneal or pelvic adenopathy. No free air. Nondistended bowel. Normal appendix. No acute large bowel findings. Rectus muscle diastasis. No acute abdominal wall findings. CT/Abdomen/Pelvis W IV Cont ONLY IMPRESSION: No acute findings [facility]
--- NOTE | 2024-11-29 22:38 | CT_ITS ---
PROCEDURE: ABDOMEN/PELVIS W IV CONT ONLY 11/29/2024 REASON FOR EXAM: RIGHT LOWER QUADRANT NOMINAL PAIN TECHNIQUE: ABDOMEN/PELVIS W IV CONT ONLY Coronal and Sagittal reconstruction series were provided. CONTRAST: Isovue 370 VOLUME: 90 mL One or more dose reduction techniques were used (e.g., Automated exposure control, adjustment of the mA and/or kV according to patient size, use of iterative reconstruction technique. RADIATION DOSE SUMMARY: CTDlvol: 38 mGy DLP: 1534 mGycm COMPARISON: 04/18/2023 FINDINGS: Clear lung bases. Normal heart size. Status post cholecystectomy. Liver, pancreas, spleen, adrenal glands and kidneys are unremarkable. No hydronephrosis. Normal bladder. IUD in uterus. Normal ovaries. No retroperitoneal or pelvic adenopathy. No free air. Nondistended bowel. Normal appendix. No acute large bowel findings. Rectus muscle diastasis. No acute abdominal wall findings. CT/Abdomen/Pelvis W IV Cont ONLY IMPRESSION: No acute findings Reading [facility]
[2024-11-29 23:00] VITALS: BP 138/90; PULSE 94; RESP 16; TEMP 36.7; O2SAT 95
[2024-11-29 23:19] LABS: Trichomonas 0-5 SEEN /hpf (None Seen)
[2024-11-29 23:20] LABS: Red Blood Cells-Urine 0-5 SEEN /hpf (0-5); Squamous Epithelial Cells - UA 10-25 SEEN /hpf (5-10)
[2024-11-30 00:05] VITALS: BP 110/70; PULSE 93; RESP 16; TEMP 36.7; O2SAT 96
== END 2024-11-30 00:09 | disposition home or self-care (01) ==
PROVIDERS: Emergency Provider Surgery; PCP Nurse Practitioner Family; Visit Provider Surgery
DX: R10.9 Unspecified abdominal pain (principal); Z87.891 Personal history of nicotine dependence; Z86.73 Personal history of transient ischemic attack (TIA), and cerebral infarction without residual deficits; Z90.49 Acquired absence of other specified parts of digestive tract
CPT/HCPCS: 74177; 80053; 81001; 83690; 84703; 85025; 87086; 87088; 99282; Q9967; A4216

== ENCOUNTER → 2025-02-07 | Outpatient (CLI) | payer SELFPAY | END | disposition home or self-care (01) | LOC: LABSPEC 16:07 | PROVIDERS: PCP Nurse Practitioner Family; Referring Provider Physician Assistant; Visit Provider Physician Assistant | DX: R39.9 Unspecified symptoms and signs involving the genitourinary system (principal) | CPT/HCPCS: 87086; 87088 ==

== ENCOUNTER 2025-04-23 14:33 | Emergency (ER) | payer SELFPAY ==
[2025-04-23 14:34] VITALS: BP 162/98; PULSE 118; RESP 18; TEMP 36.2; O2SAT 98; BMI 68.4
--- OUTSIDE RECORDS SUMMARY | 2025-04-23 15:51 | XMS RPT_ITS | CCD ---
Author Organization [facility], [facility]–1983 [facility] Care Team Providers Care Screw Machine Adjuster Automatic Name Role Phone MARK ABBASI DO Admitting [...] Unava ilable TIERNEY GARCIA Attending Unavaila ble Unavailable Primary Care Provider UnavailPRUDENCE Middleton APRN Admitting Unavailable PRUDENCE VERGARA APRN Primary Care Unavailable PRUDENCE VERGARA APRN Consulting Unavailable PRUDENCE VERGARA APRN Attending Unavailable PROVIDER, UNKNOWN Consulting Unavailable PRUDENCE VERGARA APRN Admitting Unavailable PRUDENCE VERGARA APRN Primary Care Unavailable PRUDENCE VERGARA APRN Consulting Unavailable PRUDENCE VERGARA APRN Attending Unavailable PROVIDER, UNKNOWN Consulting Unavailable PRUDENCE VERGARA APRN Consulting Unavailable KRIS LORD MD Admitting Unavailable KRIS LORD MD Primary Care Unavailable KRIS LORD MD Attending Unavailable PROVIDER, UNKNOWN Consulting Unavailable PRUDENCE VERGARA APRN Referring Unavailable ERIC MILAN Admitting Unavailable ERIC MILAN Primary Care Unavailable ERIC MILAN Attending Unavailable VERGARA, PRUDENCE SENIOR JAVA SOFTWARE ENGINEER Consulting Unavailable PROVIDER, UNKNOWN Consulting Unavailable PRUDENCE VERGARA SENIOR JAVA SOFTWARE ENGINEER Consulting Unavailable JAYA JIMENES JR Admitting Unavailable JAYA JIMENES JR Primary Care Unavailable JAYA JIMENES JR Attending Unavailable PRUDENCE VERGARA SENIOR JAVA SOFTWARE ENGINEER Referring Unavailable PROVIDER, UNKNOWN Consulting Unavailable Vergara SUPERVISOR FLOOR ASSEMBLY-C, [facility] Primary Care Provider Graham HA, Dr. Redman Emergency Provider ALEC SAENZ Attending Unavailable SELF Referring Unavailable Jai SUPERVISOR FLOOR ASSEMBLY-C, [facility] Primary Care Provider Pierre PINA, Dr. Dixon Attending Provider Graham HA, Dr. Redman Attending Provider Jai SUPERVISOR FLOOR ASSEMBLY-C, [facility] Referring Provider [phone] Landon Grider Attending Provider Jai SUPERVISOR FLOOR ASSEMBLY-C, [facility] Physicia n Pierre PINA, Dr. Dixon Attending Physician Graham HA, Dr. Redman Attending Physician Graham HA, [facility] Landon Grider Attending Physician Landon Grider Referring Provider Jai Prudence Mcfarlanearet Primary Care UnavailDestiny Hernandez Attending Unavailable JaiPrudencet Referring Unavailabl e Landon Grider Attending Unavailable JaiPrudence Primary Care UnavailLandon Cartwright Referring Unavailable Donal Saavedra Attending Unavailable JaiPrudencet Primary Care Unavailalen e Feroz Stevenson Attending Unavailabl e Jai Prudence Bui Primary Care UnavailDestiny Hernandez Attending Unavailable Prudence Vergara Referring Unavailabl e Prudence Vergara Primary Care Unavailabl e Landon Grider Attending Unavailable Prudence Vergara Primary Care Prudence Correa Referring Prudence Correa Primary Care Destiny Manley Attending Prudence Curtis Referring Dinah fernández Medications Current Medications Medication Drug Class(es) Dates Sig (Normalized) Sig (Original) Acidophilus Probiotic Blend oral capsule (2 sources) Start: 12-31-2022 take 1 capsule by mouth once daily Acidophilus Probiotic Blend oral capsule Dose = 1 cap(s), Oral, qDay, 0 Refill(s) Start Date: 12/31/22 Status: Ordered apple cider vinegar 500 mg oral tablet (8 sources) Start: 10-22-2022 take 1 tablet by mouth once daily Apple Cider Vinegar 500 mg Tablet Active 500 mg PO DAILY October 22, 2022 12:00am Complies with drug therapy ascorbic acid 500 mg oral tablet (5 sources) Vitamin C take 1 tablet by mouth once daily vitamin C (ASCORBIC ACID) 500 MG tablet Indications: supplement Take 500 mg by mouth daily Indications: supplement 0 Active cholecalciferol 0.025 mg oral capsule (13 sources) Vitamin D Start: 10-22-2022 take 1 capsule by mouth once daily Cholecalciferol (VITAMIN D) 50 MCG (2000 UT) CAPS capsule Indications: supplement Take by mouth daily Indications: supplement 0 Active ciprofloxacin 500 mg oral tablet (1 source) Quinolone Antimicrobial Start: 03-15-2025 End: 03-20-2025 take 1 tablet by mouth twice daily Ciprofloxacin Hcl 500 mg tablet Discontinued 500 mg PO TWICE A DAY 10 5 0 March 15, 2025 12:00am March 19, 2025 12:00am March 20, 2025 12:08am copper 313 mg drug implant (4 sources) Copper-containing Intrauterine Device copper (PARAGARD T 380A) 380 square mm intrauterine device 1 Intra Uterine Device by INTRAUTERINE route. Active Comment on above: 1 Intra Uterine Lakeisha ce by INTRAUTERINE route. doxycycline hyclate 100 mg oral tablet (1 source) Tetracycline-class Drug Start: 03-15-2025 take 1 tablet by mouth at bedtime Start: 03-15-2025 take 1 tablet by mouth at bedt jamia ergocalciferol 46724 unt oral capsule (4 sources) Provitamin D2 Compound Start: 07-25-2019 End: 09-13-2019 take 1 capsule by mouth every week ergocalciferol (ERGOCALCIFEROL) 1.25 MG (76325 UT) capsule Indications: Vitamin D deficiency Take 1 capsule by mouth once a week for [address] Vitamin Replacement Protocol 8 capsule 0 07/25/2019 Active fluconazole 100 mg oral tablet (7 sources) Azole Antifungal Start: 11-22-2024 fluconazole (DIFLUCAN) 100 mg tablet TAKE 1 TABLET BY MOUTH DIRECTED. TAKE 1 TABLET FOLLOWING COMPLETION OF ANTIBIOTIC THERAPY. TAKE THE SECOND TABLET 3 DAYS LATER 11/22/2024 Active Start: 03-20-2024 End: 04-09-2024 Fluconazole 150 mg tablet Di scontinued 150 mg PO Every 3 Days 2 0 March 20, 2024 12:00am April 09, 2024 3:02pm september repeat second dose 72 hrs after first dose if symptoms persist Lactobacillus Combination No .4 (Probiotic) 3 billion cell Capsule (8 sources) Start: 10-22-2022 take 3 capsules by m outh once daily Start: 10-22-2022 take 3 capsules by m outh once daily Lactobacillus Combination No.4 (Probiotic) 3 billion cell Capsule Active 3000 NMA PO DAILY October 22, 2022 12:00am administer with a meal Start: 10-22-2022 take 3 capsules by m outh once daily Lactobacillus Combination No.4 (Probiotic) 3 billion cell Capsule Active 3000 MMU CELLS PO DAILY October 21, 2022 11:00pm administer with a meal Start: 10-22-2022 take 3 capsules by m outh once daily Lactobacillus Combination No.4 (Probiotic) 3 billion cell Capsule Active 3000 MMU CELLS PO DAILY October 22, 2022 12:00am administer with a meal magnesium glycinate 100 mg oral tablet (3 sources) Start: 02-21-2025 take 1 tablet by mouth three times daily metroNIDAZOLE 500 mg oral tablet (14 sources) Nitroimidazole Antimicrobial Start: 02-22-2025 take 1 tablet by mouth twice daily Start: 04-02-2018 End: 04-16-2018 take 1 tablet by mouth twice daily Metronidazole 500 MG tablet Discontinued 500 mg PO TWICE A DAY April 02, 2018 12:00am April 16, 2018 10:14am Multiple Vitamin (MULTI VITAMIN DAILY PO) (17 sources) take 1 tablet by mouth once daily Multiple Vitamin (MULTI VITAMIN DAILY PO) Indications: Supplement Take 1 tablet by mouth daily Indications: Supplement 0 Active Multivitamin preparation (3 sources) Start: 10-22-2022 take 1 capsule by mouth once daily Multivitamin Active 1 CAP PO DAILY October 21, 2022 11:00pm Start: 10-22-2022 take 1 capsule by [facility] once daily Multivitamin Active 1 CAP PO DAILY October 22, 2022 12:00am [facility] Women's Daily Multivitamin (2 sources) Start: 12-31-2022 [facility] Women's Daily Multivitamin qDay, 0 Refill(s) Start Date: 12/31/22 Status: Ordered Optimum Magnesium Gluconate 250 mg oral tablet (2 sources) Start: 12-31-2022 take 1 tablet by mouth once daily Optimum Magnesium Gluconate 250 mg oral tablet 250 mg Dose = 1 tab(s), Oral, Daily, # 30 tab(s), 0 Refill(s) Start Date: 12/31/22 Status: Ordered phenazopyridine hydrochloride 200 mg oral tablet (1 source) Start: 03-09-2025 take 1 tablet by mouth three times daily CHANI-T LIVER SUPPORT (2 sources) Start: 12-31-2022 CAHNI-T LIVER SUPPORT CHANI-T LIVER SUPPORT, 0 Refill(s), 135.7 Start Date: 12/31/22 Status: Ordered semaglutide 0.5 mg/0.1 mL syringe (1 source) inject 0.5 mg by subcutaneous injection every week semaglutide 0.5 mg/0.1 mL syringe Inject 0.5 mg subcutaneously one time a week. Active 1000 ml sodium chloride 9 mg/ml injection (2 sources) Start: 10-18-2019 0.9 % sodium chloride infusion sulfamethoxazole 800 mg / trimethoprim 160 mg oral tablet (12 sources) Dihydrofolate Reductase Inhibitor Antibacterial, Sulfonamide Antimicrobial Start: 11-14-2024 take 1 tablet by mouth every twelve hours sulfamethoxazole-t rimethoprim (BACTRIM DS) 800-160 mg per tablet Take 1 tablet by mouth every 12 hours. 11/14/2024 Active Start: 04-03-2018 End: 04-16-2018 Sulfamethoxazole-Trimethopri m 1 TABLET tablet Discontinued 1 {tbl} PO TWICE A DAY 6 0 April 03, 2018 12:00am April 16, 2018 10:14am Start: 04-03-2018 End: 04-16-2018 take 1 tablet by mouth twice daily Sulfamethoxazole-Trimethoprim Discontinu ed 1 TABLET PO TWICE A DAY April 02, 2018 11:00pm April 16, 2018 9:14am Vitamin C plus Zinc (2 sources) Start: [...] GREENS (2 sources) Start: 12-31-2022 ZAHLER CORE GR EENS ZAHLER CORE GREENS, 0 Refill(s), 135.7 Start Date: 12/31/22 Status: Ordered Completed/Discontinued Medications Medication Drug Class(es) Dates Sig (Normalized) Sig (Original) acetaminophen 325 mg / HYDROcodone bitartrate 5 mg oral tablet (11 sources) Opioid Agonist Start: 02-26-2018 End: 02-28-2018 Hydrocodone-Acetami nophen 1 TABLET tablet Discontinued 1 {tbl} PO EVERY 6 HOURS NEEDED as needed for Pain 6 2 0 February 26, 2018 8:45am February 27, 2018 12:00am February 28, 2018 12:09am Contusion of rib Contusion of unspecified front wall of thorax, initial encounter Start: 02-26-2018 End: 02-28-2018 take 1 tablet by mouth every six hours as needed Hydrocodone-Acetaminophen Discontinued 1 TABLET PO EVERY 6 HOURS NEEDED 6 2 February 26, 2018 7:45am February 27, 2018 11:09pm acetaminophen 325 mg / oxyCODONE hydrochloride 5 mg oral tablet (11 sources) Opioid Agonist Start: 04-20-2018 End: 04-25-2018 Oxycodone-Acetaminophen 1 TABLET tablet Discontinued 1 - 2 {tbl} PO EVERY 4 HOURS NEEDED as needed for Pain 30 5 April 20, 2018 1:00am April 24, 2018 1:00am April 25, 2018 1:14am Calculus of gallbladder with chronic cholecystitis without obstruction Start: 04-20-2018 End: 04-25-2018 take 1 tablet by mouth every four hours as needed Oxycodone-Acetaminophen Discontinued 1 - 2 TABLET PO EVERY 4 HOURS NEEDED 30 5 April 20, 2018 12:00am April 25, 2018 12:14am amoxicillin 500 mg oral capsule (1 source) Penicillin-class Antibacterial Start: 03-08-2024 End: 04-09-2024 take 1 capsule by mouth three times daily amoxicillin (AMOXIL) 500 mg capsule Take 500 mg by mouth three times a day. 03/08/2024 04/09/2024 Discontinued amoxicillin 875 mg / clavulanate 125 mg oral tablet (10 sources) Penicillin-class Antibacterial Start: 03-20-2024 End: 04-09-2024 Amoxicillin-Pot Clavulanate 875-125 mg tablet Discontinued 1 {tbl} PO TWICE A DAY 14 7 0 March 20, 2024 12:00am April 09, 2024 3:02pm Start: 08-24-2023 End: 03-20-2024 Amoxicillin-Pot Clavulanate 875-125 mg tablet Discontinued 1 {tbl} PO Q12H 14 0 August 24, 2023 12:00am March 20, 2024 3:27pm aspirin 81 mg oral tablet (8 sources) Platelet Aggregation Inhibitor, Nonsteroidal Anti-inflammatory Drug Start: 12-26-2022 End: 04-09-2024 take 1 capsule by mouth once daily Aspirin 81 mg capsule Discontinued 81 mg PO DAILY December 26, 2022 12:00am April 09, 2024 3:02pm azithromycin 500 mg oral tablet (3 sources) Macrolide Antimicrobial Start: 02-22-2025 End: 02-27-2025 take 1 tablet by mouth once daily Azithromycin 500 mg tablet Discontinued 500 mg PO daily 5 5 0 February 22, 2025 12:00am February 26, 2025 12:00am February 27, 2025 12:11am cephalexin 500 mg oral capsule (1 source) Cephalosporin Antibacterial Start: 03-29-2024 End: 04-09-2024 take 1 capsule by mouth three times daily cephALEXin (KEFLEX) 500 mg capsule Take 500 mg by mouth three times a day. 03/29/2024 04/09/2024 Discontinued clindamycin 150 mg oral capsule (1 source) Lincosamide Antibacterial Start: 04-01-2024 End: 04-09-2024 take 2 capsules by mouth three times daily at mealtime clindamycin (CLEOCIN) 150 mg capsule TAKE 2 CAPSULES BY MOUTH THREE TIMES DAILY WITH FOOD. CALL IF GI UPSET 04/01/2024 04/09/2024 Discontinued ibuprofen 600 mg oral tablet (20 sources) Nonsteroidal Anti-inflammatory Drug Start: 04-05-2020 End: 04-09-2024 take 1 tablet by mouth three times daily as needed for pain Ibuprofen 600 MG tablet Discontinued 600 mg PO THREE TIMES A DAY as needed for Pain Score 1-10 30 0 April 05, 2020 2:47pm April 09, 2024 3:02pm Start: 03-03-2019 End: 03-11-2019 take 1 tablet by mouth four times daily Ibuprofen 600 MG tablet Discontinued 600 mg PO 4 TIMES DAILY 16 0 March 03, 2019 12:00am March 11, 2019 10:25am lisinopril 20 mg oral tablet (17 sources) Angiotensin Converting Enzyme Inhibitor Start: 08-02-2023 End: 03-20-2024 take 1 tablet by mouth once daily Lisinopril 20 mg tablet Discontinued 20 mg PO DAILY 30 30 0 August 02, 2023 1:00am March 20, 2024 3:27pm Start: 11-26-2017 End: 04-16-2018 take 1 tablet by mouth once daily Lisinopril 20 MG tablet Discontinued 20 mg PO DAILY November 26, 2017 12:00am April 16, 2018 10:14am methylPREDNISolone 4 mg oral tablet (1 source) Corticosteroid Start: 03-11-2024 End: 04-09-2024 methylPREDNISolone (MEDROL DOSE-PACK) 4 mg Dose-Pack take by mouth as directed on inside of package 03/11/2024 04/09/2024 Discontinued Multivitamin Capsule (5 sources) Start: 10-22-2022 End: 02-21-2025 Multivitamin Capsule Discontinued 1 NMA PO DAILY October 22, 2022 12:00am February 21, 2025 10:45am Start: 10-22-2022 Multivitamin C apsule Active 1 NMA PO DAILY October 22, 2022 12:00am omeprazole 20 mg disintegrating oral tablet (20 sources) Proton Pump Inhibitor Start: 03-03-2019 End: 03-04-2019 take 1 tablet by mouth twice daily Omeprazole 20 MG tablet,disintegrat, delay rel Discontinued 20 mg PO TWICE A DAY 20 0 March 03, 2019 12:00am March 04, 2019 11:01am take 1 capsule by mouth once bettina ly omeprazole (PRILOSEC) 20 MG delayed release capsule Indications: GERD Take 20 mg by mouth daily Indications: GERD 0 Active Semaglutide (Weight Loss) (3 sources) Start: 02-21-2025 End: 03-14-2025 Semaglutide (Weight Loss) 0. 5 mg/0.5 mL pen injector Discontinued 0.5 mg SC EVERY WEEK February 21, 2025 12:00am March 14, 2025 8:44am administer weeks 5 through 8 of therapy Start: 02-21-2025 Semaglutide (W eight Loss) 0.5 mg/0.5 mL pen injector Active 0.5 mg SC EVERY WEEK February 21, 2025 12:00am administer weeks 5 through 8 of therapy Complies with drug therapy Problems Active Problems Problem Classification Problem Date Documented Da te Episodic/Chronic Acute cerebrovascular disease (17 sources) Embolic stroke; Translations: [Cerebrovascular accident (CVA) due to embolism] 04-11-2019 Chronic Biliary tract disease (11 sources) Cholelithiasis AND cholecystitis without obstruction; Translations: [Calculus of gallbladder with chronic cholecystitis without obstruction] 01-07-2019 Episodic Cancer of cervix (12 sources) High grade squamous intraepithelial lesion on cervical Papanicolaou smear; Translations: [High grade squamous intraepithelial lesion on cytologic smear of cervix (HGSIL)] Onset: 4 04-05-2020 Episodic Coma; stupor; and brain damage (18 sources) Daytime somnolence; Translations: [Daytime sleepiness] 04-01-2019 Episodic Esophageal disorders (18 sources) Gastroesophageal reflux disease; Translations: [GERD (gastroesophageal reflux disease)] 04-01-2019 Chronic Essential hypertension (20 sources) Hypertensive disorder; Translations: [Essential hypertension] 04-01-2019 Chronic Gastritis and duodenitis (6 sources) Chronic superficial gastritis; Translations: [Chronic superficial gastritis without bleeding] Onset: 0 10-18-2019 Episodic Genitourinary symptoms and ill-defined conditions (19 sources) Dysuria; Translations: [Dysuria] Onset: 5 01-08-2019 Episodic Headache; including migraine (17 sources) Occipital headache; Translations: [Occipital headache] 01-08-2019 Episodic Inflammatory diseases of female pelvic organs (8 sources) Acute vaginitis; Translations: [Acute vaginitis] Onset: 5 02-21-2025 Episodic Malaise and fatigue (17 sources) Fatigue; Translations: [Fatigue] 04-01-2019 Episodic Nonspecific chest pain (11 sources) Atypical chest pain; Translations: [Other chest pain] 11-27-2017 Episodic Other and unspecified benign neoplasm (6 sources) Gastric polyp; Translations: [Gastric polyps] Onset: 0 10-18-2019 Episodic Other connective tissue disease (8 sources) Pain in lower limb; Translations: [Pain in right leg] 11-27-2017 Episodic Other connective tissue disease (2 sources) Unspecified symptoms and signs involving the musculoskeletal system; Translations: [Unspecified symptoms and signs involving the musculoskeletal system] Onset: 3 Episodic Other connective tissue disease (7 sources) Pelvic floor dysfunction; Translations: [Other specified disorders of muscle] 02-21-2025 Episodic Other connective tissue disease (3 sources) Pain in bilateral legs; Translations: [Pain in right leg] 11-27-2017 Episodic Other connective tissue disease (1 source) Other specified disorders of muscle; Translations: [Other specified disorders of muscle] Onset: 5 Episodic Other diseases of veins and lymphatics (8 sources) Lymphedema associated with obesity; Translations: [Lymphedema, not elsewhere classified] 12-26-2022 Chronic Other ear and sense organ disorders (1 source) Otalgia, right ear; Translations: [Otalgia, unspecified] 04-09-2024 Episodic Other female genital disorders (7 sources) Pain in female genitalia on intercourse; Translations: [Unspecified dyspareunia] 02-21-2025 Chronic Other female genital disorders (1 source) Unspecified dyspareunia; Translations: [Unspecified dyspareunia] Onset: 5 Chronic Other female genital disorders (11 sources) Cervical intraepithelial neoplasia grade 2; Translations: [Moderate cervical dysplasia] 04-05-2020 Episodic Other non-traumatic joint disorders (17 sources) Hip pain; Translations: [Joint pain, hip] 04-01-2019 Episodic Other nutritional; endocrine; and metabolic disorders (18 sources) Morbid obesity; Translations: [Morbid obesity] 04-01-2019 Chronic Other nutritional; endocrine; and metabolic disorders (20 sources) Body mass index 40+ - severely obese; Translations: [Morbid obesity with BMI of 50.0-59.9, adult] Onset: 04-21-2019 Chronic Other upper respiratory infections (6 sources) Sore throat symptom; Translations: [Acute pharyngitis, unspecified] 04-09-2024 Episodic Otitis media and related conditions (5 sources) Acute right otitis media; Translations: [Otitis media, unspecified, right ear] 08-24-2023 Episodic Phlebitis; thrombophlebitis and thromboembolism (11 sources) History of cerebrovascular disease; Translations: [Personal history of other venous thrombosis and embolism] 01-07-2019 Episodic Spondylosis; intervertebral disc disorders; other back problems (17 sources) Backache; Translations: [Back pain] 04-01-2019 Episodic Urinary tract infections (7 sources) Urinary tract infectious disease; Translations: [Urinary tract infection, site not specified] Onset: 02-07-2025 Episodic Past or Other Problems Problem Classification Problem Date Documented Date Episodic/Chronic Abdominal pain (20 sources) Generalized abdominal pain; Translations: [Right upper quadrant pain] Onset: 11-29-2024 01-07-2019 Episodic Diabetes mellitus without complication (1 source) Impaired fasting glucose; Translations: [Impaired fasting glucose] Onset: 08-17-2024 Episodic Disorders of teeth and jaw (12 sources) Temporomandibular joint disorder; Translations: [Unspecified temporomandibular joint disorder, unspecified side] Onset: 05-05-2024 04-09-2024 Episodic Other screening for suspected conditions (not mental disorders or infectious disease) (3 sources) Encounter for screening for lipoid disorders; Translations: [Encounter for screening for diseases of the blood and blood-forming organs and certain disorders involving the immune mechanism] Onset: 08-17-2024 Episodic Unclassified (3 sources) Body mass index 40+ - severely obese; Translations: [Body mass index (BMI) greater than 50] 12-26-2022 Results Test Name Value Interpretation Reference Range Facility [place] 04-05-2025 MR/[facility] [address], [address] [place] [address] OFFICE VISIT Date of Service: 04/05/25 MR#: [id number] Acct: [id number] Name: CASIE SOLANO Rep #: [id number] 6 : 1990 Provider: Dr. Destiny Kuo i, MD Age/Sex: 34/F [place] [facility] [place]: Signed Intake Vital Signs 03/14/25 08:45 04/05/25 08:37 Height 5 ft 1 in 5 ft 1 in Weight: 340 lb 340 lb BMI 64.2 64.2 BP 130/76 H 138/80 H Pulse 70 76 Intake Visit Reasons: cystoscopy/repeat cultures Chief Complaint: cystoscopy and repeat cultures Unindentured Apprentice Required: No Accompanied by: self Is patient in pain?: No Allergies No Known Allergies Allergy (Verified 04/05/25 08:35) Medications ???Medication ???Instructions ???Recorded ???Confirmed ???Type apple cider vinegar 500 mg tablet 500 mg PO DAILY 10/22/22 04/05/25 History cholecalciferol (vitamin D3) 25 25 mcg PO DAILY 10/22/22 04/05/25 History mcg (1,000 unit) capsule (Vitamin D3) lactobacillus combination no.4 3 3,000 mmu cells PO DAILY 10/22/22 04/05/25 History billion cell capsule (Probiotic) magnesium glycinate 100 mg (as 100 mg PO TID 02/21/25 04/05/25 Hi story glycinate) tablet doxycycline hyclate 100 mg tablet 100 mg PO QHS #90 tabs 03/31/25 1 06/05/24 Rx nystatin-triamcinolone 100,000 1 applic topical BID #60 grams 10/2304/05/25 Rx unit/gram-0.1 % topical ointment Nurse's Note: sx are somewhat better but still has some itching PFSH Medical History Blood clots in brain Stroke Chronic headaches UTI (urinary tract infection) Back problem Marijuana use Alcohol use Easy bruising Back pain Vertigo Heartburn Former smoker Shortness of breath on exertion Leg cramps History of edema Hx of LEEP (loop electrosurgical excision procedure) of cervix complicating Anxiety TIA (transient ischemic attack) Hemorrhoid Chlamydia Abdominal pain Hypertension Surgical History Hx of wisdom tooth extraction History of esophagogastroduodenoscopy (EGD) History of cholecystectomy ( 2018) History of Family History Mother Diabetes Hypertension Social History household members: significant other Smoking Status: Former smoker alcohol intake: never substance use type: does not use what type of physical activity do you participate in: other frequency: 3-4 times per week duration: other do you feel safe at home: Yes HPI HPI Urology Chief Complaint: cystoscopy and repeat cultures Details: CASIE SOLANO, is a 34 F. She is here for cystoscopy for urinary tract infections and vaginal exam and cultures for acute vaginitis. She has no sign of acute urinary tract infection today. She denies hematuria. She does have one area of vaginal itching. The pain has resolved and she if finally feeling pretty much normal. Questions regarding the procedure were answered and she gives consent to proceed. ROS Const Constitutional: No chills, fatigue, fever(s), headache(s), night sweats, weakness, weight change, abnormal sleep pattern or change in appetite Eyes Eyes: No change in vision ENT ENT: No headache(s) or dry mouth Resp Respiratory: No cough, chest congestion, shortness of breath or wheezing Cardio Cardiology: Positive for other (No chest pain.); No shortness of breath, irregular heart rhythm or lightheadedness Gastro GI: Positive for other (No nausea.); No abdominal pain, change in bowel habits, constipation, diarrhea or vomiting Musc Musculoskeletal: No abnormal gait Skin Skin: No yellowing of the eye, lesions, itchy eyes, rash or skin ulcer Neuro Neurology: No abnormal gait, confusion, dizziness, weakness, headache(s) or memory loss Psych Psychiatric: No abnormal sleep pattern, No change in appetite, No confusion and No memory loss Endo Endocrine: No fatigue, increased thirst/drinking or weight change Aller/Imm Allergy/Immunologic: No itchy eyes or wheezing Caleb/Lymp Hematologic/Lymphatic: No easy bleeding, easy bruising or enlarged lymph nodes Exam Const General: cooperative, healthy appearing, comfortable and no acute distress [facility] Head: normocephalic and atraumatic Ears: hearing grossly normal bilaterally and external ears normal Nose: external nose normal Eyes General: appearance normal, both eyes and all related structures Neck Neck: normal visual inspection and trachea midline Chest Chest palpation inspection: normal inspection of the chest Resp Effort Inspection: normal respiratory effort, able to speak in complete sentences and symmetric chest movement Cardio R (more content not included)... Normal [facility] - Chemistry and C hemistry - challengeOrdered By: Destiny Jay on 03-14-2025 Bilirubin Ql (U) Negative [facility] Glucose Ql (U) Negative [facility] Ketones Ql (U) Negative [facility] pH (U) 6 [pH] [facility] Specific gravity (U) [Rel density] 1.015 [facility] Urobilinogen (U) [Mass/Vol] 0.4288844 mg/dL [facility] - Hematology and Cell countsOrdered By: Destiny Jay on 03-14-2025 Hemoglobin Ql (U) Trace [facility] - UrinalysisOrder ed By: Destiny Jay on 03-14-2025 Nitrite Ql (U) Negative [facility] Protein Ql (U) Negative [facility] MR/Efren 03-14-2025 MR/[facility] [address], [address] [place] [address] OFFICE VISIT Date of Service: 03/14/25 MR#: [id number] Acct: [id number] Name: CASIE SOLANO Rep #: [id number] : 1990 Provider: Dr. Destiny uKo i, MD Age/Sex: 34/F Location: [facility] Status: Signed Intake Vital Signs 02/21/25 10:47 03/14/25 08:45 Height 5 ft 1 in 5 ft 1 in Weight: 340 lb 340 lb BMI 64.2 64.2 BP 124/62 H 130/76 H Pulse 76 70 Intake Visit Reasons: repeat cultures Chief Complaint: repeat urine and vaginal cultures. Unindentured Apprentice Required: No Accompanied by: self Is patient in pain?: No Allergies No Known Allergies Allergy (Verified 03/14/25 08:43) Medications ???Medication ???Instructions ???Recorded ???Confirmed ???Type apple cider vinegar 500 mg tablet 500 mg PO DAILY 10/22/22 03/14/25 History cholecalciferol (vitamin D3) 25 25 mcg PO DAILY 10/22/22 02/07/25 History mcg (1,000 unit) capsule (Vitamin D3) lactobacillus combination no.4 3 3,000 mmu cells PO DAILY 10/22/22 02/07/25 History billion cell capsule (Probiotic) magnesium glycinate 100 mg (as 100 mg PO TID 02/21/25 02/21/25 Hi story glycinate) tablet metronidazole 500 mg tablet 500 mg PO BID #14 tabs 02/22/25 R x phenazopyridine 200 mg tablet 200 mg PO TID #30 tabs 03/09/25 R x (Pyridium) Nurse's Note: sx have gotten some better but still feel irritability going on in that area. Patient is undressed for swab today. [facility] Medical History (Updated 03/14/25 @ 19:[address] Destiny Jay MD) Blood clots in brain Stroke Chronic headaches UTI (urinary tract infection) Back problem Marijuana use Alcohol use Easy bruising Back pain Vertigo Heartburn Former smoker Shortness of breath on exertion Leg cramps History of edema Hx of LEEP (loop electrosurgical excision procedure) of cervix complicating Anxiety TIA (transient ischemic attack) Hemorrhoid Chlamydia Abdominal pain Hypertension Surgical History Hx of wisdom tooth extraction History of esophagogastroduodenoscopy (EGD) History of cholecystectomy ( 2018) History of Family History Mother Diabetes Hypertension Social History household members: significant other Smoking Status: Former smoker alcohol intake: never substance use type: does not use what type of physical activity do you participate in: other frequency: 3-4 times per week duration: other do you feel safe at home: Yes HPI HPI Urology Chief Complaint: repeat urine and vaginal cultures. Details: CASIE SOLANO, is a 34 F. She is here for repeat cultures after being treated for urinary and vaginal infections. She is still feeling completely normal, still some irritation. Doctor called away for emergency surgery. Cultures completed per nursing staff. Results POC Urinalysis w/Micro Office Urine Color Last Edit by Brandie Levin on 03/14/25 08:49 Office Urine Clarity Last Edit by Brandie Levin on 03/14/25 08:49 Office Urine Glucose Negative Last Edit by Brandie Levin on 03/14/25 08:49 Office Urine Ketones Negative Last Edit by Brandie Levin on 03/14/25 08:49 Office Urine Bilirubin Negative Last Edit by Brandie Levin on 03/14/25 08:49 Office Urine Urobilinogen 0.2 mg/dL Last Edit by Brandie Levin on 03/14/25 08:49 Off Ur Spec [place] 1.015 Last Edit by Brandie Levin on 03/14/25 08:49 Office Urine pH 6 Last Edit by Brandie Levin on 03/14/25 08:49 Office Urine Protein Negative Last Edit by Brandie Levin on 03/14/25 08:49 Office Urine Blood Trace Last Edit by Brandie Levin on 03/14/25 08:49 Office Urine Blood Hemolyzed Negative Last Edit by Brandie Levin on 03/14/25 08:49 Office Urine Nitrate Negative Last Edit by Brandie Levin on 03/14/25 08:49 Off Ur Leukocytes Negatve Last Edit by Brandie Levin on 03/14/25 08:49 Off Ur WBC Microscopic Last Edit by Brandie Levin on 03/14/25 08:49 Off Ur RBC Microscopic Last Edit by Brandie Levin on 03/14/25 08:49 Off Ur Bacteria Microscopic Last Edit by Brandie Levin on 03/14/25 08:49 Coding Level of Care Code No Charge Diagnoses Acute vaginitis N76.0 Dyspareunia, female N94.10 Pelvic floor dysfunction M62.89 UTI (urinary tract infection) N39.0 Assessment and Plan Assessment and Plan (1) Acute vaginitis: Status: Acute (2) Dyspareunia, female: Status: Acute (3) Pelvic floor dysfunction: Status: Acute (4) UTI (urinary tract infection): Status: Acute Orders: Orders POC UA Automated w/Microscopy Today R39.9 - Unspecified symptoms and signs involving the genitourinary system (more content not included)... Normal [facility] No Panel InformationOrdered By: Destiny Jay on 03-14-2025 Urine Leukocytes Negatve [facility] Urine Non-Hemolyzed Blood Negative [facility] - Chemistry and C hemistry - challengeOrdered By: Destiny Jay on 02-21-2025 Bilirubin Ql (U) Negative [facility] Glucose Ql (U) Negative [facility] Ketones Ql (U) Negative [facility] pH (U) 7 [pH] [facility] Specific gravity (U) [Rel density] 1.005 [facility] Urobilinogen (U) [Mass/Vol] 0.0227744 mg/dL [facility] - Hematology and Cell countsOrdered By: Destiny Jay on 02-21-2025 Hemoglobin Ql (U) Large [facility] - UrinalysisOrder ed By: Destiny Jay on 02-21-2025 Nitrite Ql (U) Negative [facility] Protein Ql (U) 2+ [facility] MR/Efren 02-21-2025 /[facility] [address], [address] [place] [address] OFFICE VISIT Date of Service: 02/21/25 MR#: [id number] Acct: [id number] Name: CASIE SOLANO Rep #: [id number] : 1990 Provider: Dr. Destiny Kuo i, MD Age/Sex: 34/F Location: [facility] Status: Signed Intake Vital Signs 11/29/24 17:36 02/07/25 06:34 02/21/25 10:47 Height 5 ft 1 in 5 ft 1 in 5 ft 1 in Weight: 340 lb BMI 64.2 BP 124/62 H Pulse 76 Intake Visit Reasons: uti yeast infections Chief Complaint: new patient- uti and yeast infections Unindentured Apprentice Required: No Accompanied by: boyfriend Is patient in pain?: No Allergies No Known Allergies Allergy (Verified 02/21/25 10:43) Medications ???Medication ???Instructions ???Recorded ???Confirmed ???Type apple cider vinegar 500 mg tablet 500 mg PO DAILY 10/22/22 02/07/25 History cholecalciferol (vitamin D3) 25 25 mcg PO DAILY 10/22/22 02/07/25 History mcg (1,000 unit) capsule (Vitamin D3) lactobacillus combination no.4 3 3,000 mmu cells PO DAILY 10/22/22 02/07/25 History billion cell capsule (Probiotic) magnesium glycinate 100 mg (as 100 mg PO TID 02/21/25 02/21/25 Hi story glycinate) tablet semaglutide (weight loss) 0.5 0.5 mg subcut QWEEK 02/21/2502/21 History mg/0.5 mL subcutaneous pen injector Is last menstrual period known: Yes Last menstrual period: 02/21/25 Nurse's Note: uti and then yeast infection after, one and off since october. Some vaginal itching and irritated sensation. Patient is on her period today. 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 Stroke Chronic headaches UTI (urinary tract infection) Back problem Marijuana use Alcohol use Easy bruising Back pain Vertigo Heartburn Former smoker Shortness of breath on exertion Leg cramps History of edema Hx of LEEP (loop electrosurgical excision procedure) of cervix complicating Anxiety TIA (transient ischemic attack) Hemorrhoid Chlamydia Abdominal pain Hypertension Surgical History Hx of wisdom tooth extraction History of esophagogastroduodenoscopy (EGD) History of cholecystectomy ( 2018) History of Family History Mother Diabetes Hypertension Social History household members: significant other Smoking Status: Former smoker alcohol intake: never substance use type: does not use what type of physical activity do you participate in: other How many days of moderate to strenuous exercise, like a brisk walk, did you do in the last 7 days: 3 frequency: 3-4 times per week duration: other do you feel safe at home: Yes Female Reproductive History Menstrual Date of last menstrual period: 02/21/25 HPI HPI Urology Chief Complaint: new patient- uti and yeast infections Details: CASIE SOLANO, is a 34 F. She is here for evaluation and management of []. Issues started in October with periumbilical abdominal pain. She had no symptoms of urinary tract infection at that time. They treated her with Bactrim and developed acute vaginitis that was treated with fluconazole. No vaginal culture was done. It was determined that her psoas muscle tightness and was causing pain and massage therapy resolved this issue. She was then seen in urgent care a second time and was sent to the ER for potential issue with her ovaries. In follow up she was given metrogel and 5 days fluconazole. She was sent here after that as she continued to have vaginal irritation. Right now she still has mild vaginal and urethral irritation. It is not constant, and it is not horrible. The issue now is pain with intercourse. The pain is at the opening and inside vaginally. She did have some bleeding with intercourse one time. She is currently on her period and the pad is causing discomfort as well. She has trouble wearing tampons now as well. It is uncomfortable and then hurts with removal. She is voiding 5-10 times during the day, 0-1 times at night. There is no urge incontinence where she cannot make it to the bathroom. There is no stress incontinence with cough, laugh, sneeze, lifting, etc. She has had maybe one urinary tract infections in the last year. She has not had visible blood in her urine. She has the following issues with chronic bowel function: none. She has no history of smoking. There was a post stroke. ROS Const Constitutional: No chills, fatigue, fever(s), headache(s), night sweats, weakness, weight change, abnormal sleep pattern or change in appetite Eyes Eyes: No change in vision ENT ENT: No headache(s) or dry mouth Resp (more content not included)... Normal [facility] No Panel InformationOrdered By: Destiny Jay on 02-21-2025 Urine Leukocytes Positive [facility] Urine Non-Hemolyzed Blood Large [facility] Urine Cultureon 02-09-2025 [facility] Mixed Gram Positive Organisms Clarence Count 80,000-100,000 MIXC Mixed contaminants. Submit a new specimen if indicated. Normal [facility] Comment on above: Performed By: #### M 100.2200 ####[facility] [id number] [place], [address] Laboratory - Chemistry and C hemistry - challengeOrdered By: Landon Hansen on 02-07-2025 Bilirubin Ql (U) Small (1+) [facility] Glucose Ql (U) Negative [facility] Ketones Ql (U) Negative [facility] Specific gravity (U) [Rel density] 1.025 [facility] Urobilinogen (U) [Mass/Vol] Negative [facility] Laboratory - Hematology and Cell countsOrdered By: Landon Hansen on 02-07-2025 Hemoglobin Ql (U) Small [facility] - Specimen inform ationOrdered By: Landon Hansen on 02-07-2025 Clarity (U) Cloudy [facility] Color (U) YELLOW [facility] - UrinalysisOrder ed By: Landon Hansen on 02-07-2025 Nitrite Ql (U) Negative [facility] Protein Ql (U) Negative [facility] No Panel InformationOrdered By: Landon Hansen on 02-07-2025 Urine Leukocytes Positive [facility] Urine Non-Hemolyzed Blood Non-Hemolyzed [facility] Office Visit Reporton 2024 Office Visit Report [facility] [address] [place] [address] OFFICE VISIT Date of Service: 02/07/25 MR#: [id number] Acct: [id number] Patient: CASIE SOLANO Rep #: [id number] : 1990 Provider: JAQUAN Lombardi Age/Sex: 34/F Location: [facility] Status: Signed Intake Vital Signs 11/29/24 17:36 02/07/25 06:34 Height 1.55 m 1.55 m Weight: 161.025 kg BMI 67.1 BP 128/88 H Blood Pressure Location Lt radial Position Sitting Pulse 106 H Pulse Source Monitor Temp 98.4 F Temp Source Temporal Pulse Oximetry (%) 97 Intake Visit Reasons: Urinary tract infection Chief Complaint: lower abdominal pain Allergies No Known Allergies Allergy (Verified 02/07/25 06:39) Medications ???Medication ???Instructions ???Recorded ???Confirmed ???Type apple cider vinegar 500 mg tablet 500 mg PO DAILY 10/22/22 02/07/25 History cholecalciferol (vitamin D3) 25 25 mcg PO DAILY 10/22/22 02/07/25 History mcg (1,000 unit) capsule (Vitamin D3) lactobacillus combination no.4 3 3,000 mmu cells PO DAILY 10/22/22 02/07/25 History billion cell capsule (Probiotic) multivitamin 1 cap PO DAILY 10/22/22 02/07/25 H istory [facility] Medical History Abdominal pain Alcohol use Anxiety Back pain Chlamydia Easy bruising Former smoker Heartburn Hemorrhoid History of edema Hx of LEEP (loop electrosurgical excision procedure) of cervix complicating Hypertension Leg cramps Marijuana use Shortness of breath on exertion TIA (transient ischemic attack) Vertigo Surgical History History of History of cholecystectomy ( 2018) History of esophagogastroduodenoscopy (EGD) Hx of wisdom tooth extraction Family History Mother Diabetes Hypertension Social History household members: significant other Smoking Status: Former smoker alcohol intake: never substance use type: does not use HPI HPI Chief Complaint: lower abdominal pain Details: CASIE SOLANO, is a 34 F who presents to the office today for loewr abdominal pain. She is concerned she might have a UTI. She has had issues with this since October. She was seen at the ER and had a UA, was told she had a UTI and prescribed bactrim. After being on bactrim she had a yeast infection and was placed on diflucan. The yeast infection never cleared up so she saw her PCP who did a test that showed some yeast still, and she was subsequently placed on a week long course of diflucan. She was seen in [place] ER and had a CT abdomen which did not show any acute findings and a urine culture which did not show any significant growth. She was referred to [facility] but she cannot get in until the end of this month, and she also called her OBGYN Norma traceyon but cannot get in until June. She continues to have lower abdominal pain. She has some irritation at the urethra and a small amount of discharge. She notes no lesions or rashes stating she had her boyfriend check her for this. She denies increased urgency or frequency, and has no dysuria. She has no flank pain. She has no fever/chills. ROS Const Constitutional: No chills or fever(s) Gastro GI: Positive for abdominal pain Genitourinary-Female: No burning urination, painful urination, urinary frequency or urinary hesitancy Exam Const General: cooperative, healthy appearing, comfortable, no acute distress, well developed and well groomed Nutritional Appearance: obese Orientation: alert, awake and oriented x3 Resp Effort Inspection: normal respiratory effort, able to speak in complete sentences, symmetric chest movement and no cough Auscultation: Bilateral: Clear to Auscultation Cardio Rate: regular rate Rhythm: regular rhythm Heart Sounds: no murmurs Musc Other: no cva tenderness Results POC Urinalysis Dip (Clinic) Office Urine Color YELLOW Last Edit by Jigna Marte on 02/07/25 06:44 Office Urine Clarity Cloudy Last Edit by Jigna Marte on 02/07/25 06:44 Office Urine Glucose Negative Last Edit by Jigna Marte on 02/07/25 06:44 Office Urine Ketones Negative Last Edit by Jigna Marte on 02/07/25 06:44 Off Ur Spec [place] 1.025 Last Edit by Jigna Marte on 02/07/25 06:44 Office Urine pH Last Edit by Jigna Marte on 02/07/25 06:44 Office Urine Bilirubin Small (1+) Last Edit by Jigna Marte on 02/07/25 06:44 Office Urine Urobilinogen Negative Last Edit by Jigna Marte on 02/07/25 06:44 Office Urine Blood Small Last Edit by Jigna Marte on 02/07/25 06:44 Office Urine Blood Hemolyzed Non-Hemolyzed Last Edit by Jigna Marte on 02/07/25 06:44 Office Urine Protein Negative Last Edit by Jigna Marte on (more content not included)... Normal [facility] Urine cultureOrdered By: Ceasar Hansen on 02-07-2025 Bacteria identified Cx Nom (U) Positive Abnormal [facility] Urine Cultureon 12-01-2024 [facility] Mixed Gram Positive Organisms Clarence Count 50,000-80,000 MIXC Mixed contaminants. Submit a new specimen if indicated. Normal [facility] Comment on above: Performed By: #### M 100.2200 #### [facility] [address] [place], [place], [address] Abdomen/Pelvis W IV Cont ONL Yon 11-29-2024 Abdomen/Pelvis W IV Cont ONLY [facility] [address] [place], [place] [address] Abdomen/Pelvis W IV Cont ONLY MR#: [id number] Acct: [id number] Name: CASIE SOLANO Rep #: [id number] : 1990 F 34 From: Nelson Han MD PCP: LISSA Coleman Status: REG ER Study: Abdomen/Pelvis W IV Cont ONLY Date of Exam: Exam# [id number] Ordering Dr: Feroz Stevenson DO PROCEDURE: ABDOMEN/PELVIS W IV CONT ONLY 11/29/2024 REASON FOR EXAM: RIGHT LOWER QUADRANT NOMINAL PAIN TECHNIQUE: ABDOMEN/PELVIS W IV CONT ONLY Coronal and Sagittal reconstruction series were provided. CONTRAST: Isovue 370 VOLUME: 90 mL One or more dose reduction techniques were used (e.g., Automated exposure control, adjustment of the mA and/or kV according to patient size, use of iterative reconstruction technique. RADIATION DOSE SUMMARY: CTDlvol: 38 mGy DLP: 1534 mGycm COMPARISON: 04/18/2023 FINDINGS: Clear lung bases. Normal heart size. Status post cholecystectomy. Liver, pancreas, spleen, adrenal glands and kidneys are unremarkable. No hydronephrosis. Normal bladder. IUD in uterus. Normal ovaries. No retroperitoneal or pelvic adenopathy. No free air. Nondistended bowel. Normal appendix. No acute large bowel findings. Rectus muscle diastasis. No acute abdominal wall findings. CT/Abdomen/Pelvis W IV Cont ONLY IMPRESSION: No acute findings Reading Location: [place] [address] CC: LISSA Vergara; Dr. Feroz Stevenson DO Oral Surgery Assistant: Signed Normal [facility] Absolute lymphocyte countOrd ered By: ED PROVIDER on 11-29-2024 Lymphocytes Auto (Unsp spec) [#/Vol] 2.67 10*3/uL 0.83-4.51 [facility] Absolute neutrophil countOrd ered By: ED PROVIDER on 11-29-2024 Neutrophils (Bld) [#/Vol] 4.7 10*3/uL 2.0-7.7 [facility] Anion gap in Serum or Plasma Ordered By: ED PROVIDER on 11-29-2024 Anion gap [Moles/Vol] 12 mmol/L 5-15 [facility] Automated lymphocyte count a s percentage of total leukocytesOrdered By: ED PROVIDER on 11-29-2024 Lymphocytes/100 WBC Auto (Unsp spec) 33.3 % 19-41 [facility] BUN/creatinine ratioOrdered By: ED PROVIDER on 11-29-2024 Urea nitrogen/Creatinine [Mass ratio] 14.0 mg/mg 10-20 [facility] Basophil percentageOrdered B y: ED PROVIDER on 11-29-2024 Basophils/100 WBC (Bld) 0.4 % 0-1 [facility] Bilirubin Test strip Ql (U)O rdered By: Feroz Stevenson on 11-29-2024 Bilirubin Ql (U) Negative Negative [facility] Bilirubin, totalOrdered By: ED PROVIDER on 11-29-2024 Bilirubin [Mass/Vol] 0.84 mg/dL 0.00-1.30 [facility] CBC W/Diff, Automatedon Absolute Lymph 2.67 X10 3/uL Normal 0.83-4.51 [facility] Comment on above: Performed By: #### L 700.6800, L500.4050, L100.0100, L501.2450 #### [facility] [address] [place], [address] Absolute Neut 4.7 X10 3/uL Normal 2.0-7.7 [facility] Comment on above: Performed By: #### L 700.6800, L500.4050, L100.0100, L501.2450 #### [facility] [address] [place], [address] Basophils/100 WBC (Bld) 0.4 % Normal 0-1 [facility] Comment on above: Performed By: #### L 700.6800, L500.4050, L100.0100, L501.2450 #### [facility] [address] [place], [address] Eosinophils/100 WBC (Bld) 1.4 % Normal 0-5 [facility] Comment on above: Performed By: #### L 700.6800, L500.4050, L100.0100, L501.2450 #### [facility] [address] [place], [address] Erythrocyte distribution width (RBC) [Ratio] 12.9 % Normal 11.6-14.6 [facility] Comment on above: Performed By: #### L 700.6800, L500.4050, L100.0100, L501.2450 #### [facility] [address] [place], [address] Hematocrit (Bld) [Volume fraction] 44.5 % Normal 37-47 [facility] Comment on above: Performed By: #### L 700.6800, L500.4050, L100.0100, L501.2450 #### [facility] [address] [place], [address] Hemoglobin (Bld) [Mass/Vol] 15.3 g/dL High 12.0-15.0 [facility] Comment on above: Performed By: #### L 700.6800, L500.4050, L100.0100, L501.2450 #### [facility] [address] [place], [address] IG% 0.200 Normal 0.0-0.9 [facility] Comment on above: Result Comment: IG% - Immature Granulocytes (promyelocytes, myelocytes and metamyelocytes) > 1% indicates that a LEFT SHIFT is Present. Performed By: #### L 700.6800, L500.4050, L100.0100, L501.2450 #### [facility] [address] [place], [address] Lymphocytes/100 WBC (Bld) 33.3 % Normal 19-41 [facility] Comment on above: Performed By: #### L 700.6800, L500.4050, L100.0100, L501.2450 #### [facility] [address] [place], [address] MCH (RBC) [Entitic mass] 30.5 pg Normal 27.0-32.0 [facility] Comment on above: Performed By: #### L 700.6800, L500.4050, L100.0100, L501.2450 #### [facility] [address] [place], [address] MCHC (RBC) [Mass/Vol] 34.4 g/dL Normal 32-36 [facility] Comment on above: Performed By: #### L 700.6800, L500.4050, L100.0100, L501.2450 #### [facility] [address] [place], [address] MCV (RBC) [Entitic vol] 88.6 fL Normal 81-99 [facility] Comment on above: Performed By: #### L 700.6800, L500.4050, L100.0100, L501.2450 #### [facility] [address] [place], [address] Monocytes/100 WBC (Bld) 5.7 % Normal 0-10 [facility] Comment on above: Performed By: #### L 700.6800, L500.4050, L100.0100, L501.2450 #### [facility] [address] [place], [address] Neutrophils/100 WBC (Bld) 59.0 % Normal 47-70 [facility] Comment on above: Performed By: #### L 700.6800, L500.4050, L100.0100, L501.2450 #### [facility] [address] [place], [address] Nucleated RBC (Bld) [#/Vol] 0 10*3/uL Normal 0-5 [facility] Comment on above: Performed By: #### L 700.6800, L500.4050, L100.0100, L501.2450 #### [facility] [address] [place], [address] Platelet mean volume (Bld) [Entitic vol] 9.4 fL Normal 6.2-12.0 [facility] Comment on above: Performed By: #### L 700.6800, L500.4050, L100.0100, L501.2450 #### [facility] [address] [place], [address] Platelets (Bld) [#/Vol] 259 10*3/uL Normal 150-450 [facility] Comment on above: Performed By: #### L 700.6800, L500.4050, L100.0100, L501.2450 #### [facility] [address] [place], [address] RBC (Bld) [#/Vol] 5.02 10*6/uL Normal 4.2-5.4 [facility] Comment on above: Performed By: #### L 700.6800, L500.4050, L100.0100, L501.2450 #### [facility] [address] [place], [address] RDW SD 41.8 fl Normal 35.1-43.9 [facility] Comment on above: Performed By: #### L 700.6800, L500.4050, L100.0100, L501.2450 #### [facility] [address] [place], [address] WBC (Bld) [#/Vol] 8.0 10*3/uL Normal 4.4-11.0 [facility] Comment on above: Performed By: #### L 700.6800, L500.4050, L100.0100, L501.2450 #### [facility] [address] [place], [address] CNOVon 11-29-2024 [facility] Office Visit (WSTR ) CASIE SOLANO ([id number]) 1990 F Date Time Provider Department 11/29/24 4:45 PM ALEC SAENZ [facility] During your visit today, we recorded the following information about you: Temperature Pulse Respiration Weight 98.9 degrees 86/minute 18/minute 161.2 kg Last Period 11/23/24 Alec Saenz PA 11/29/2024 5:09 PM Signed [facility] Subjective Casie Solano is a 34 year old female. Patient presents with: Abdominal Pain: Mid to lower abd pain radiating to RLQ, ER for UTI, tx Bactrim and Diflucan w/o relief HPI Abdominal Pain: - Initial abdominal pain began approximately two weeks ago, prompting an ER visit on Father's Day. - ER evaluation included a CT scan, which was reportedly normal. - Diagnosed with a UTI in the ER and prescribed Bactrim. Per chart review, urine culture came back negative. - Pain initially resolved but has gradually returned, described as a burning, pinching feeling when pressure is applied. - Pain is now also felt in the back. - Denies hematuria, fever, or emesis. - Recent urine culture from the ER visit was negative for UTI. Vaginal Irritation: - Patient requested fluconazole during the ER visit due to a history of yeast infections following antibiotic use. - After completing Bactrim, patient noticed white discharge indicative of a yeast infection, which has since resolved. - Currently experiencing redness and irritation in the vaginal area. - Denies current abnormal vaginal discharge or itching. PAST MEDICAL HISTORY Diagnosis Date Generalized anxiety disorder Stroke due to embolism (HCC) 2016 1 month PAST SURGICAL HISTORY Procedure Laterality Date CERVIX UTERI CONIZA LP ELCTRO EXCI SECTION HX EXTRACTION ERUPTED TOOTH/EXR REMOVAL GALLBLADDER ALLERGIES Patient has no known allergies. MEDICATIONS fluconazole (DIFLUCAN) 100 mg tablet TAKE 1 TABLET BY MOUTH DIRECTED. TAKE 1 TABLET FOLLOWING COMPLETION OF ANTIBIOTIC THERAPY. TAKE THE SECOND TABLET 3 DAYS LATER (Patient not taking: Reported on 11/29/2024) sulfamethoxazole-trimethopr im (BACTRIM DS) 800-160 mg per tablet Take 1 tablet by mouth every 12 hours. (Patient not taking: Reported on 11/29/2024) semaglutide 0.5 mg/0.1 mL syringe Inject 0.5 mg subcutaneously one time a week. copper (PARAGARD T 380A) 380 square mm intrauterine device 1 Intra Uterine Device by INTRAUTERINE route. No family history on file. Social History Tobacco Use Smoking status: Never Smokeless tobacco: Never Vaping Use Vaping status: Never Used Substance Use Topics Alcohol use: Not Currently Drug use: Yes Types: Marijuana Review of Systems Constitutional: (-) fever Gastrointestinal: (+) abdominal pain, (+) nausea, (-) vomiting Genitourinary: (+) genital erythema, (-) abnormal vaginal discharge, (-) vaginal pruritus, (-) hematuria Musculoskeletal: (+) back pain Skin: (-) rash Objective Pulse 86 Temp 37.2 ?C (98.9 ?F) Resp 18 Wt (!) 161.2 kg (355 lb 6.1 oz) LMP 11/23/2024 (Within Days) SpO2 95% BMI 65.00 kg/m? Physical Exam Vitals and nursing note reviewed. Constitutional: General: She is not in acute distress. Appearance: Normal appearance. She is not toxic-appearing. HENT: Mouth/Throat: Mouth: Mucous membranes are moist. Cardiovascular: Rate and Rhythm: Normal rate and regular rhythm. Pulmonary: Effort: Pulmonary effort is normal. Breath sounds: Normal breath sounds. Abdominal: General: Abdomen is flat. Palpations: Abdomen is soft. Tenderness: There is abdominal tenderness in the right lower quadrant. There is no right CVA tenderness, left CVA tenderness, guarding or rebound. Skin: General: Skin is warm and dry. Neurological: Mental Status: She is alert. {1. Lower abdominal pain (R10.30) - Abdominal pain initially evaluated in the ER two weeks ago; CT scan was normal, and patient was treated with Bactrim for presumed UTI. Urine culture from that visit was negative. - Currently experiencing recurrent lower abdominal pain, described as a burning, pinching sensation, with associated back pain and erythema in the genital area. No hematuria, abnormal vaginal discharge, or pruritus reported. No fevers or emesis. - Urinalysis today shows minimal leukocytes, not indicative of significant infection. - Differential diagnoses include ovarian pathology, appendicitis, or nephrolithiasis. - Referred to the emergency room for further evaluation and imaging to rule out appendicitis, ovarian pathology, or nephrolithiasis. Recording using [employer] software for draft documentation of the visit was discussed with the patient/authorized sales representative raw fibers; all questions welcomed and answered. Patient/authorized sales representative raw fibers agreed to proceed History and Record Review External record(s) reviewed: prior labs/i (more content not included)... Normal [facility] Carbon dioxide, total [Moles /volume] in Central venous bloodOrdered By: ED PROVIDER on 11-29-2024 CO2 [Moles/Vol] 24.4 mmol/L 21.0-32.0 [facility] Chloride assayOrdered By: ED PROVIDER on 11-29-2024 Chloride [Moles/Vol] 102 mmol/L 98-108 [facility] Comprehensive Metabolic Prof ilon 11-29-2024 Albumin [Mass/Vol] 4.2 g/dL Normal 3.5-5.0 [facility] Comment on above: Performed By: #### L 700.6800, L500.4050, L100.0100, L501.2450 #### [facility] [address] [place], [address] Albumin/Globulin [Mass ratio] 1.2 {ratio} Normal 0.9-2.4 [facility] Comment on above: Performed By: #### L 700.6800, L500.4050, L100.0100, L501.2450 #### [facility] [address] [place], [address] ALK PHOS 65 U/L Normal 35-104 [facility] Comment on above: Performed By: #### L 700.6800, L500.4050, L100.0100, L501.2450 #### [facility] [address] [place], [address] ALT [Catalytic activity/Vol] 38 U/L High <=34 [facility] Comment on above: Performed By: #### L 700.6800, L500.4050, L100.0100, L501.2450 #### [facility] [address] [place], [address] AST [Catalytic activity/Vol] 31 U/L Normal <=31 [facility] Comment on above: Performed By: #### L 700.6800, L500.4050, L100.0100, L501.2450 #### [facility] [address] [place], [address] Bilirubin [Mass/Vol] 0.84 mg/dL Normal 0.00-1.30 [facility] Comment on above: Performed By: #### L 700.6800, L500.4050, L100.0100, L501.2450 #### [facility] [address] [place], [address] BUN/CRE 14.0 RATIO Normal 10-20 [facility] Comment on above: Performed By: #### L 700.6800, L500.4050, L100.0100, L501.2450 #### [facility] [address] [place], [address] Calcium [Mass/Vol] 9.1 mg/dL Normal 7.6-11.0 [facility] Comment on above: Performed By: #### L 700.6800, L500.4050, L100.0100, L501.2450 #### [facility] [address] [place], [address] Chloride [Moles/Vol] 102 mmol/L Normal 98-108 [facility] Comment on above: Performed By: #### L 700.6800, L500.4050, L100.0100, L501.2450 #### [facility] [address] [place], [address] CO2 [Moles/Vol] 24.4 mmol/L Normal 21.0-32.0 [facility] Comment on above: Performed By: #### L 700.6800, L500.4050, L100.0100, L501.2450 #### [facility] [address] [place], [address] Creatinine [Mass/Vol] 0.76 mg/dL Normal 0.70-1.20 [facility] Comment on above: Performed By: #### L 700.6800, L500.4050, L100.0100, L501.2450 #### [facility] [address] [place], [address] ECRCL 152.65 ml/min Normal 50-250 [facility] Comment on above: Performed By: #### L 700.6800, L500.4050, L100.0100, L501.2450 #### [facility] [address] [place], [address] GAP 12 Normal 5-15 [facility] Comment on above: Performed By: #### L 700.6800, L500.4050, L100.0100, L501.2450 #### [facility] [address] [place], [address] GFR/1.73 sq M.predicted among non-blacks MDRD (S/P/Bld) [Vol rate/Area] 106 mL/min/{1.73_m2} Normal >60 [facility] Comment on above: Result Comment: mL/m in/1.73m2 CKD-EPI Creatinine Equation (2020) Performed By: #### L 700.6800, L500.4050, L100.0100, L501.2450 #### [facility] [address] [place], [address] Globulin (S) [Mass/Vol] 3.3 g/dL Normal 2.2-4.2 [facility] Comment on above: Performed By: #### L 700.6800, L500.4050, L100.0100, L501.2450 #### [facility] [address] [place], [address] Glucose [Mass/Vol] 92 mg/dL Normal 70-99 [facility] Comment on above: Performed By: #### L 700.6800, L500.4050, L100.0100, L501.2450 #### [facility] [address] [place], [address] Potassium [Moles/Vol] 4.3 mmol/L Normal 3.3-5.1 [facility] Comment on above: Performed By: #### L 700.6800, L500.4050, L100.0100, L501.2450 #### [facility] [address] [place], [address] Sodium [Moles/Vol] 139 mmol/L Normal 133-145 [facility] Comment on above: Performed By: #### L 700.6800, L500.4050, L100.0100, L501.2450 #### [facility] [address] [place], [address] T PROT 7.5 g/dL Normal 5.9-8.4 [facility] Comment on above: Performed By: #### L 700.6800, L500.4050, L100.0100, L501.2450 #### [facility] [address] [place], [address] Urea nitrogen [Mass/Vol] 11 mg/dL Normal 4-19 [facility] Comment on above: Performed By: #### L 700.6800, L500.4050, L100.0100, L501.2450 #### [facility] [address] [place], [address] Emergency Department Summary on 11-29-2024 Emergency Department Summary [facility] Medical Records Department [address] [place] [address] Emergency Department Summary 11/29/24 MR#: [id number] Acct: [id number] Name: CASIE SOLANO Rep #: [id number] : 1990 34 From: Feroz Stevenson DO PCP: LISSA Coleman Status:DEP ER Location: ED HPI History of Present Illness Chief Complaint: Abd Pain Narrative Narrative: Chief complaint and HPI: Abdominal pain. 34-year-old female with past medical history of anxiety and HTN presents for evaluation of abdominal pain. Onset of abdominal pain several days ago. Describes it as cramping. Patient states she had similar pain to this earlier last month. States she was seen at [facility] and diagnosed with a UTI. States she took antibiotics and the pain improved. Patient states that she ended her menstrual cycle approximately 3 days ago. Since then she has developed recurrent abdominal pain. Located mostly on the right as before. States she went to urgent care who recommended her come to the emergency department for imaging. Patient denies any fever, chills, chest pain, shortness of breath, nausea, vomiting, dysuria, hematuria, constipation, diarrhea. Review of systems: See HPI Medications: As listed on the chart Allergies: As listed on the chart PFSH: Per chart Vital signs: As listed on the chart. Reviewed. Physical exam: Gen: A O x3, NAD Head: Normocephalic, atraumatic Eyes: No sclera icterus, conjunctiva clear ENT: Moist mucous membranes Neck: Trachea midline, No JVD CV: RRR, no murmurs, no peripheral edema Resp: Lungs CTA BL, no w/r/c GI: Abd soft, non-distended, mildly tender to palpation in the right lower quadrant, no r/r/g : No CVA tenderness Musc: Full ROM, no deformity Skin: Warm, dry Neuro: Alert, oriented, grossly intact, sensation intact Psych: Cooperative, appropriate mood and affect PFSH PFSH Medical History Abdominal pain Alcohol use Anxiety Back pain Chlamydia Easy bruising Former smoker Heartburn Hemorrhoid History of edema Hx of LEEP (loop electrosurgical excision procedure) of cervix complicating Hypertension Leg cramps Marijuana use Shortness of breath on exertion TIA (transient ischemic attack) Vertigo Home Medications ???Medication ???Instructions ???Recorded ???Last Taken ???Type apple cider vinegar 500 mg tablet 500 mg PO DAILY 10/22/22 Unknown History cholecalciferol (vitamin D3) 25 25 mcg PO DAILY 10/22/22 Unknown H istory mcg (1,000 unit) capsule (Vitamin D3) lactobacillus combination no.4 3 3,000 mmu cells PO DAILY 10/22/22 Unknown History billion cell capsule (Probiotic) multivitamin 1 cap PO DAILY 10/22/22 Unknown Hi story Allergy/AdvReac Type Severity Reaction Status Date / Time No Known Allergies Allergy Verified 11/29/24 17:38 Family History Mother Diabetes Hypertension Surgical History History of History of cholecystectomy ( 2017) History of esophagogastroduodenoscopy (EGD) Hx of wisdom tooth extraction Social History household members: significant other Smoking Status: Former smoker alcohol intake: never substance use type: does not use EXAM Physical Exam Const Vital Signs: 11/29/24 17:36 11/29/24 17:38 11/29/24 21:00 Temperature 97.6 F L 97.6 F L Temperature Source Temporal Temporal Pulse Rate 106 H 105 H Respiratory Rate 18 18 Blood Pressure 145/117 H 145/117 H 144/108 H Blood Pressure Mean 126 126 120 Pulse Ox 98 98 Oxygen Delivery Method Room Air Room Air 11/29/24 23:00 11/30/24 00:05 Temperature 98.1 F 98.1 F Temperature Source Oral Pulse Rate 94 93 Respiratory Rate 16 16 Blood Pressure 138/90 H 110/70 Blood Pressure Mean 106 83 Pulse Ox 95 96 Oxygen Delivery Method Room Air MDM MDM MDM Narrative Medical decision making narrative: 34-year-old female with past medical history of anxiety and HTN presents for evaluation of abdominal pain. Similar to previous abdominal pain in which she was diagnosed with a UTI. Differential diagnosis includes but is not limited to UTI, appendicitis, colitis, gastroenteritis, urolithiasis. CBC relatively unremarkable without leukocytosis. CMP relatively unremarkable except for mild ALT elevation. Lipase unremarkable. Serum negative. CT abdomen pelvis shows rectus muscle diastases but otherwise no acute findings. UA positive for blood, leuk esterase, and 25-50 WBCs. However she has no nitrites or bacteria. This is not the cleanest sample with 10-25 squamous epithelial cells. Patient is not endorsing (more content not included)... Normal [facility] Eosinophil percentageOrdered By: ED PROVIDER on 11-29-2024 Eosinophils/100 WBC (Bld) 1.4 % 0-5 [facility] Erythrocyte distribution wid th ratioOrdered By: ED PROVIDER on 11-29-2024 Erythrocyte distribution width (RBC) [Ratio] 12.9 % 11.6-14.6 [facility] Erythrocyte distribution wid th standard deviationOrdered By: ED PROVIDER on 11-29-2024 Erythrocyte distribution width (RBC) [Ratio] 41.8 fl 35.1-43.9 [facility] Glomerular filtration rate ( GFR) estimation/1.73 sq m using serum, plasma, or whole bOrdered By: ED PROVIDER on 11-29-2024 GFR/1.73 sq M.predicted among non-blacks MDRD (S/P/Bld) [Vol rate/Area] 106 mL/min/{1.73_m2} >60 [facility] Comment on above: mL/min/1.73m2 CKD-EP I Creatinine Equation (2020) Hematocrit Auto (Bld) [Volum e fraction]Ordered By: ED PROVIDER on 11-29-2024 Hematocrit (Bld) [Volume fraction] 44.5 % 37-47 [facility] Hemoglobin measurementOrdere d By: ED PROVIDER on 11-29-2024 Hemoglobin (Bld) [Mass/Vol] 15.3 g/dL High 12.0-15.0 [facility] Immature granulocytes/100 WB C Auto (Bld)Ordered By: ED PROVIDER on 11-29-2024 Immature granulocytes/100 WBC (Bld) 0.200 % 0.0-0.9 [facility] Comment on above: IG% - Immature Granu locytes (promyelocytes, myelocytes and metamyelocytes) > 1% indicates that a LEFT SHIFT is Present. Ketones Test strip Ql (U)Ord ered By: Feroz Stevenson on 11-29-2024 Ketones Ql (U) Negative Negative [facility] - Chemistry and C hemistry - challengeOrdered By: ED PROVIDER on 11-29-2024 AST [Catalytic activity/Vol] 31 U/L <32 [facility] Lipaseon 11-29-2024 Lipase [Catalytic activity/Vol] 33 U/L Normal 13-75 [facility] Comment on above: Result Comment: Shruti martin note: LIPASE revised reference range effective 22. New Lipase methodology. Expected to produce lower values than the previous assay method. NEW Reference Range: 13 - 75 U/L Performed By: #### L 700.6800, L500.4050, L100.0100, L501.2450 #### [facility] [address] [place], [address] Lipase measurementOrdered By : ED PROVIDER on 11-29-2024 Lipase [Catalytic activity/Vol] 33 U/L 13-75 [facility] Comment on above: Please note:LIPASE r evised reference range effective 22. New Lipase methodology. Expected to produce lower values than the previous assay method. NEW Reference Range: 13 - 75 U/L MCV (mean corpuscular volume ) determinationOrdered By: ED PROVIDER on 11-29-2024 MCV (RBC) [Entitic vol] 88.6 fL 81-99 [facility] Mean corpuscular hemoglobin (MCH) determinationOrdered By: ED PROVIDER on 11-29-2024 MCH (RBC) [Entitic mass] 30.5 pg 27.0-32.0 [facility] Mean corpuscular hemoglobin concentration (MCHC) determinationOrdered By: ED PROVIDER on 11-29-2024 MCHC (RBC) [Mass/Vol] 34.4 g/dL 32-36 [facility] Mean platelet volume determi nationOrdered By: ED PROVIDER on 11-29-2024 Platelet mean volume (Bld) [Entitic vol] 9.4 fL 6.2-12.0 [facility] Microscopic analysis of urin e for red blood cells (RBC)Ordered By: Feroz Stevenson on 11-29-2024 Microscopic analysis of urine for red blood cells (RBC) 0-5 SEEN /hpf 0-5 [facility] Monocyte percentageOrdered B y: ED PROVIDER on 11-29-2024 Monocytes/100 WBC (Bld) 5.7 % 0-10 [facility] Mucus LM Ql (Urine sed)Order ed By: Feroz Stevenson on 11-29-2024 Mucus Ql (Urine sed) 0 SEEN /hpf [facility] Neutrophil percentageOrdered By: ED PROVIDER on 11-29-2024 Neutrophils/100 WBC (Bld) 59.0 % 47-70 [facility] Nitrite Test strip Ql (U)Ord ered By: Feroz Stevenson on 11-29-2024 Nitrite Ql (U) Negative Negative [facility] Nucleated red blood cell per centageOrdered By: ED PROVIDER on 11-29-2024 Nucleated RBC/100 WBC (Bld) [Ratio] 0 % 0-5 [facility] Platelet countOrdered By: ED PROVIDER on 11-29-2024 Platelets (Bld) [#/Vol] 259 10*3/uL 150-450 [facility] Potassium measurement (mass/ volume)Ordered By: ED PROVIDER on 11-29-2024 Potassium (Unsp spec) [Mass/Vol] 4.3 mmol/L 3.3-5.1 [facility] ,Serum,hCG Quali.on 11-29-2024 HCG, SERUM QUAL Normal [facility] Comment on above: Result Comment: Canc elled via OM: MD Ordered Performed By: #### L 700.6800 ####[facility] [address] [place], [address] INTERNAL QC OK? Normal [facility] Comment on above: Result Comment: Canc elled via OM: MD Ordered Performed By: #### L 700.6800 ####[facility] [address] [place], [address] RECORD KIT LOT# Normal [facility] Comment on above: Result Comment: Canc elled via OM: MD Ordered Performed By: #### L 700.6800 ####[facility] [address] [place], [address] HCG, SERUM QUAL Negative Normal [facility] Comment on above: Performed By: #### L 700.6800, L500.4050, L100.0100, L501.2450 ####[facility] [address] [place], [address] Protein Test strip Ql (U)Ord ered By: Feroz Stevenson on 11-29-2024 Protein Ql (U) 15 mg/dl High Negative [facility] RBC Auto (Bld) [#/Vol]Ordere d By: ED PROVIDER on 11-29-2024 RBC (Bld) [#/Vol] 5.02 10*6/uL 4.2-5.4 [facility] Serum beta-hCG test, qualita tiveOrdered By: ED PROVIDER on 11-29-2024 Beta HCG ( test) Ql Negative [facility] Serum creatinine measurement (mass/volume)Ordered By: ED PROVIDER on 11-29-2024 Creatinine [Mass/Vol] 0.76 mg/dL 0.70-1.20 [facility] Serum globulin measurementOr dered By: ED PROVIDER on 11-29-2024 Globulin (S) [Mass/Vol] 3.3 g/dL 2.2-4.2 [facility] Serum glucose measurement (m ass/volume)Ordered By: ED PROVIDER on 11-29-2024 Glucose [Mass/Vol] 92 mg/dL 70-99 [facility] Serum or plasma alanine gordon otransferase (ALT) measurementOrdered By: ED PROVIDER on 11-29-2024 ALT [Catalytic activity/Vol] 38 U/L High <35 [facility] Serum or plasma albumin paras urement (mass/volume)Ordered By: ED PROVIDER on 11-29-2024 Albumin [Mass/Vol] 4.2 g/dL 3.5-5.0 [facility] Serum or plasma albumin/glob ulin mass ratioOrdered By: ED PROVIDER on 11-29-2024 Albumin/Globulin [Mass ratio] 1.2 {ratio} 0.9-2.4 [facility] Serum or plasma alkaline hina sphatase measurementOrdered By: ED PROVIDER on 11-29-2024 ALP [Catalytic activity/Vol] 65 U/L 35-104 [facility] Serum or plasma calcium paras urement (mass/volume)Ordered By: ED PROVIDER on 11-29-2024 Calcium [Mass/Vol] 9.1 mg/dL 7.6-11.0 [facility] Serum or plasma urea nitroge n measurement (mass/volume)Ordered By: ED PROVIDER on 11-29-2024 Urea nitrogen [Mass/Vol] 11 mg/dL 4-19 [facility] Sodium levelOrdered By: MONICA NAVA on 11-29-2024 Sodium [Moles/Vol] 139 mmol/L 133-145 [facility] Squamous epithelial cells de tection in urine sediment by light microscopyOrdered By: Feroz Stevenson on 11-29-2024 Epithelial cells.squamous LM Ql (Urine sed) 10-25 SEEN /hpf 5-10 [facility] Total proteinOrdered By: ED PROVIDER on 11-29-2024 Protein [Mass/Vol] 7.5 g/dL 5.9-8.4 [facility] UA DIP, URINE (POC)on 2024 BILIRUBIN UA (POCT) Negative Negative [facility] CLARITY UA (POCT) Clear [place] COLOR UA (POCT) Yellow [facility] GLUCOSE UA (POCT) Negative Negative mg/dL [facility] Hemoglobin Ql (U) Trace-intact Abnormal Negative [facility] Interpretation and review of laboratory results Abnormal [facility] KETONE UA (POCT) Negative Negative mg/dL [facility] LEUKOCYTES UA (POCT) Small Abnormal Negative [facility] NITRITE UA (POCT) Negative Negative [place] PH UA (POCT) 6.5 4.5 - 8.0 [facility] Protein Ql (U) Negative Negative mg/dL [facility] SPECIFIC GRAVITY UA (POCT) 1.01 1.005 - 1.030 [facility] UROBILINOGEN UA (POCT) 0.2 Normal E.U./dL [facility] Location:[facility], [address] [place] [address], [place], [place], [id number] [place] [address] POINT OF CARE [facility] Urinalysis, Completeon 11-29 EPI,SQUAMOUS 10-25 SEEN Normal 5-10 [facility] Comment on above: Order Comment: MARY CTOR TO SPECIFY Performed By: #### L 400.0001 #### [facility] [address], [place], [id number] RBC 0-5 SEEN Normal 0-5 [facility] Comment on above: Order Comment: MARY CTOR TO SPECIFY Performed By: #### L 400.0001 #### [facility] [address] [facility] [place], [address] TRICHOMONAS 0-5 SEEN Normal None Seen [facility] Comment on above: Order Comment: MARY CTOR TO SPECIFY Performed By: #### L 400.0001 #### [facility] [address] [facility] [address] [place], [address] WBC 25-50 SEEN Normal 0-5 [facility] Comment on above: Order Comment: MARY CTOR TO SPECIFY Performed By: #### L 400.0001 #### [facility] [address] [facility] [place], [address] BACTERIA 0 SEEN Normal None Seen [facility] Comment on above: Order Comment: MARY CTOR TO SPECIFY Performed By: #### L 400.0001 #### [facility] [address] [place], [address] Mucus Ql (Urine sed) 0 SEEN Normal [facility] Comment on above: Order Comment: MARY CTOR TO SPECIFY Performed By: #### L 400.0001 #### [facility] [address] [place], [address] Urine clarityOrdered By: Cuco Stevenson on 11-29-2024 Clarity (U) Clear Clear [facility] Urine color determinationOrd ered By: Feroz Stevenson on 11-29-2024 Color (U) Yellow Yellow [facility] Urine cultureOrdered By: Cuco Stevenson on 11-29-2024 Bacteria identified Cx Nom (U) Positive Abnormal [facility] Urine glucose detectionOrder ed By: Feroz Stevenson on 11-29-2024 Glucose Ql (U) Normal mg/dl Normal [facility] Urine leukocyte esterase det ection by dipstickOrdered By: Feroz Stevenson on 11-29-2024 Leukocyte esterase Test strip Ql (U) 500 /ul High Negative [facility] Urine pHOrdered By: Feroz Calvert on 11-29-2024 pH (U) 6.0 [pH] 5.0 - 8.0 [facility] Urine sediment Trichomonas s pecies count by microscopy (number/low power field)Ordered By: Feroz Stevenson on 11-29-2024 Trichomonas sp LM.LPF (Urine sed) [#/Area] 0-5 SEEN /hpf None Seen [facility] Urine sediment bacteria coun t by microscopy (number/high power field)Ordered By: Feroz Stevenson on 11-29-2024 Bacteria LM.HPF (Urine sed) [#/Area] 0 /[HPF] None Seen [facility] Urine specific gravity measu rementOrdered By: Feroz Stevenson on 11-29-2024 Specific gravity (U) [Rel density] 1.010 1.002-1.03 0 [facility] Urine urobilinogen measureme ntOrdered By: Feroz Stevenson on 11-29-2024 Urobilinogen Ql (U) Normal mg/dl Normal [facility] White blood cell (WBC) count Ordered By: ED PROVIDER on 11-29-2024 WBC (Bld) [#/Vol] 8.0 10*3/uL 4.4-11.0 [facility] White blood cell countOrdere d By: Feroz Stevenson on 11-29-2024 White blood cell count 25-50 SEEN /hpf 0-5 [facility] ED MED ADMINISTRATION DETAIL on 11-14-2024 ED MED ADMINISTRATION DETAIL Data Entry Analyst Medication Administration Record [address] [address] [id number] 11/13/2024 Patient: CASIE SOLANO Sex: Female : 1990 Age: 34y MEASUREMENTS: Wt: 158.8 kg, Ht/Piotr: 61.0 in, BMI: 66.13 ALLERGIES: No known drug allergies Medication Ordered Medication Administration Date/Time IV NS 0.9 % 1000 19:11/13 IV NS 0.9 % 1000 mL started in bag#1 1000 mL at Started mL at 999 mL/hr 999 mL/hr via Site# 1. Allergies verified and confirmed 5 rights. Via 19:11/13/2024 (NOW x1) IV pump. IV patency established. IV site checked: no pain, redness, Socorro Rivera RVijay or swelling. IV flushed thoroughly pre-medication administration. Stopped Information reviewed with patient including reason for taking this :40 11/13/2024 medication, signs of allergic reaction and precautions. Verbalizes Snehal Loza R.N. understanding. - 19:22 Socorro Rivera R.N. Scanned 21:11/13 Medication Discontinued: bag #1 completed. Total amount infused: 1000 mL. IV patency established. IV site checked: no pain, redness, or swelling. IV flushed thoroughly post-medication administration. - 21:48 Snehal Loza R.N. 1 of 2 Data Entry Analyst Medication Ordered Medication Administration Date/Time cefTRIAXone 20:50 11/13 cefTRIAXone (Rocephin) IVPB 1gm/50ml NS 1 g Started (Rocephin) IVPB started at 100 mL/hr diluted in sodium chloride IVPB 0.9 % 20:50 11/13/2024 1gm/50ml NS 1 g Minibag+ 50 mL via Site# 1. Allergies verified and confirmed 5 Snehal Loza R.N. diluted in sodium rights. IV patency established. IV site checked: no pain, redness, or Stopped chloride IVPB 0.9 % swelling. IV flushed thoroughly pre-medication administration. 21:30 11/13/2024 Minibag+ 50 mL at Information reviewed with patient including reason for taking this Socorro Rivera R.N. 100 mL/hr (NOW x1) medication, signs of allergic reaction and precautions. Verbalizes Scanned understanding. - 20:53 Snehal Loza R.N. 21:30 11/13 Medication Discontinued: IV infused. Total amount infused: 50 mL. IV patency established. IV site checked: no pain, redness, or swelling. IV flushed thoroughly post-medication administration. - 21:30 Socorro Rivera R.N. [address] [facility] ED NURSES CLINICAL NOTEon ED NURSES CLINICAL NOTE Nurse Narrative Nurse Clinical [address] [address] [id number] 11/13/2024 18:04:00 Patient: CASIE SOLANO Sex: Female : 1990 Age: 34y Disposition: Discharge to Home Disposition Decision Time: 21:24 11/13/2024 Departure Time: 21:47 11/13/2024 TRIAGE Arrived by private vehicle. Historian: (patient). Primary physician (Roma Vergara). Triage time: 18:09 11/13/2024. Acuity: LEVEL 3. Chief Complaint: ABDOMINAL PAIN and NAUSEA and (Pt has lower abdominal pain in her panis area. She is concerned for hernia.). Onset. (3 days). ( Pt noticed she has a lot of burning pain to her left lower pelvic area. To the left. She states it is a sharp shooting pain, gets worse with movement and after eating.). -- 18:17 11/13/24 GLYNN Solano R.N. 18:16 11/13/24. SEPSIS SCREEN: NEGATIVE. SIRS criteria: heart rate greater than 90. No possible sources of infection. -- 18:21 11/13/24 GLYNN Solano R.N. 18:16 11/13/24. BP: 150/98 MAP: 115. HR: 115. RR: 16. O2 saturation: 97% Temperature: 97.9 F. Pain level now 7/10. Describes the pain as sharp and (stabbing). -- 18:17 11/13/24 MONICAT Lidia Solano R.N. Measurements: 18:15 11/13/24 Wt: 158.8 kg, Ht/Piotr: 61.0 in, BMI: 66.13 -- 18:15 11/13/24 MONICAT Lidia Solano R.N. Medications: ibuprofen 600 mg tablet: 600 mg three times a day . -- 18:12 11/13/24 GLYNN Solano R.N. 1 of 4 Nurse Narrative Ozempic 0.25 mg or 0.5 mg (2 mg/3 mL) subcutaneous pen injector: 0.5 mg weekly . (.) -- 18:11/13/24 GLYNN Solano R.N. 18:11/13/24. [facility] -- 18:17 11/13/24 MONICAT Lidia Solano R.N. Allergies: no known drug allergies -- 18:22 11/13/24 GLYNN Solano R.N. Problems: CVA - Cerebrovascular Accident -- 18:11/13/24 GLYNN Solano R.N. Hypertension -- 18:11/13/24 GLYNN Solano R.N. Surgeries: -- 18:14 11/13/24 GLYNN Solano R.N. Gallbladder Surgery -- 18:14 11/13/24 EDT Lidia Solano R.N. History 18:09 11/13/24. PAST MEDICAL HX: LNMP: Last normal menstrual period was 2 weeks ago. SOCIAL HX: Never smoker. Occasional alcohol use. No drug use. The patient has not traveled outside the [place] Infectious disease exposure: No infectious disease exposure. ABUSE ASSESSMENT: The patient answered yes to the question(s) Do you feel safe in your home? and no to the question(s) Are you afraid to go home?. SELF HARM ASSESSMENT: Self harm assessment was performed. The patient answered no to the question(s) Have you recently felt down, depressed, or hopeless? and Do you have thoughts of harming or killing yourself?. FALL RISK ASSESSMENT: Fall risk assessment completed. No risk factors identified. -- 18:17 11/13/24 EDT Lidia Solano R.N. 2 of 4 Nurse Narrative Interventions 18:09 11/13/24. Advanced care plan discussed with patient. Patient does not have advanced directive. -- 18:17 11/13/24 EDT Lidia Solano R.N. PHYSICAL ASSESSMENT 19:21 11/13/24. GENERAL / NEURO / PSYCH: Alert. Oriented X 4. Appears in no acute distress. RESPIRATORY: Respirations not labored. Breath sounds within normal limits. CVS: Cardiac rhythm: sinus tachycardia. Capillary refill less than 2 seconds. GI / : The patient has had nausea. Abdomen soft. Abdominal tenderness in the epigastric area. Bowel sounds within normal limits. SKIN: Skin is warm and dry. -- 19:32 11/13/24 EDT Socorro Rivera R.N. NURSING PROGRESS NOTES 18:45 11/13/24. ED physician at the patient's bedside. -- 18:50 11/13/24 EDT Socorro Rivera R.N. 18:46 11/13/24. Site #1 started in the left antecubital space with an 18g angiocath with aseptic technique and good blood return; 1 attempt. Blood drawn: rainbow set tube(s). Labeled in the presence of the patient and sent to the lab. Saline lock flushed with 5 mL saline. -- 18:52 11/13/24 EDT Kamran Pond E.M.T.-P. 19:04 11/13/24. Assisted patient to bathroom; tolerated well. Urine collected. -- 19:09 11/13/24 EDT Socorro Rivera R.N. 19:21 11/13/24. IV NS 0.9 % 1000 mL started in bag#1 1000 mL at 999 mL/hr via Site# 1. Allergies verified and confirmed 5 rights. Via IV pump. IV patency established. IV site checked: no pain, redness, or swelling. IV flushed thoroughly pre-medication administration. Information reviewed with patient including reason for taking this medication, signs of allergic reaction and precautions. Verbalizes understanding. -- 19:22 11/13/24 EDT Socorro Rivera R.N. 19:33 11/13/24. HR: 117 bpm. O2 saturation: 94%. -- 21:51 11/13/24 EDT Snehal Loza R.N. 19:38 11/13/24. HR: 113 bpm. O2 saturation: 95%. -- 21:51 11/13/24 EDT Snehal Loza R.N. 19:47 11/13/24. Patient transported to [place] by stretcher with radiology equipment servicer. -- 19:54 11/13/24 EDT Snehal Loza R.N. (more content not included)... Normal [facility] ED ORDER SHEET (CPOE ONLY)on 11-14-2024 ED ORDER SHEET (CPOE ONLY) Order Sheet Order Sheet [address] [place] [address] [id number] 11/13/2024 Patient: CASIE SOLANO Sex: Female : 1990 Age: 34y MEASUREMENTS: Wt: 158.8 kg, Ht/Piotr: 61.0 in, BMI: 66.13 ALLERGIES: No known drug allergies MEDICATION/IV/DRIP/FLUID ORDERS Order Description Priority Entered Acknowledged Completed IV NS 0.9 %1000 mL at 999 18:24 11/13/2024 18:30 19:22 mL/hr (NOW x1) Jaya Jimenes D.O. 11/13/2024 11/13/2024 SocorroSocorro Bran R.NTasha RTashaNTasha cefTRIAXone (Rocephin) IVPB 20:19 11/13/2024 20:53 1gm/50ml NS1 g diluted in Mark Abbasi D.O. 11/13/2024 sodium chloride IVPB 0.9 % Snehal Loza, Minibag+ 50 mL at 100 mL/hr R.N. (NOW x1) Reason for ordering with alerts: Clinical consideration given --20:19 11/13/2024 Mark Abbasi D.O. LAB ORDERS Order Description Priority Entered Acknowledged Collected Completed CBC w Diff Stat Stat 18:24 11/13/2024 18:30 11/13/2024 18:52 11/13/2024 Socorro Olivia Bryan Parker, D.O. R.N. E.M.T.-P. 1 of 3 Order Sheet CMP Stat Stat 18:24 11/13/2024 18:30 11/13/2024 18:52 11/13/2024 Socorro Olivia Bryan Parker, D.O. R.N. E.M.T.-P. Lipase Stat Stat 18:24 11/13/2024 18:30 11/13/2024 18:52 11/13/2024 Socorro Olivia Bryan Parker, D.O. R.N. E.M.T.-P. Urinalysis Stat Stat 18:24 11/13/2024 18:30 11/13/2024 19:20 11/13/2024 Socorro Olivia Katelyn Horst, D.O. R.N. R.N. HCG, Quant Serum Stat Stat 18:24 11/13/2024 18:30 11/13/2024 18:52 11/13/2024 Socorro Olivia Bryan Parker, D.O. R.NTasha E.M.T.-P. Urine Culture [CCL] Stat Stat 20:19 11/13/2024 20:39 11/13/2024 20:59 11/13/2024 Zabrina Cabello Crystal Brenner, R.NTasha RTashaNTasha DIAGNOSTIC STUDY ORDERS Order Description Priority Entered Acknowledged Completed CT ABD/PEL w Cont Stat Stat 18:53 11/13/2024 19:10 20:59 Jaya Jimenes D.O. 11/13/2024 11/13/2024 Snehal Olguin R.N. R.N. Order Comments: 18:52 11/13/2024: Status: Not . Jaya Jimenes D.O. Reason for Study: Abdominal Internal Pain STAFF ORDERS Order Description Priority Entered Acknowledged Collected Completed IV Saline Lock 18:24 11/13/2024 18:30 11/13/2024 18:52 11/13/2024 Jaya Jimenes, Socorro Rivera, Kamran Pond, 2 of 3 Order Sheet D.Kinjal R.Roxy. E.MTashaTTasha-P. [Electronically signed by Jaya Jimenes D.O. (11/13/2024 18:58 EDT)] [Electronically signed by Mark Abbasi D.O. (11/13/2024 23:23 EDT)] [address] [facility] ED PHYSICIAN CLINICAL REPORT on 11-14-2024 ED PHYSICIAN CLINICAL REPORT Narrative Physician Clinical Narrative [address] [address] [id number] 11/13/2024 18:04:00 Patient: CASIE SOLANO Sex: Female : 1990 Age: 34y Measurements Wt: 158.8 kg, Ht/Piotr: 61.0 in, BMI: 66.13 Initial Vital Sign Measured Time BP MAP HR RR O2Sat ETCO2 Temp Pain GCS RTS 18:16 11/13/2024 150/98 115 115 16 97% 97.9 F 7 Time Seen: 18:10 11/13/2024. Arrived- By private vehicle. Historian- patient. HISTORY OF PRESENT ILLNESS Chief Complaint: ABDOMINAL PAIN. It is described as located in the periumbilical area and in the lower abdomen. Similar symptoms previously. Patient has had similar symptoms once. REVIEW OF SYSTEMS EYES: No blurred vision. NEUROLOGICAL: No headache. CONSTITUTIONAL: No fever. : No difficulty with urination, pain with urination or urinary frequency. GI: No constipation, black stools or hematemesis. MUSCULOSKELETAL: No joint pain. Status: Not . PAST HISTORY See nurses notes. 1 of 13 Narrative CVA - Cerebrovascular Accident Hypertension Surgeries: Gallbladder Surgery Medications: ibuprofen 600 mg tablet: 600 mg three times a day . Ozempic 0.25 mg or 0.5 mg (2 mg/3 mL) subcutaneous pen injector: 0.5 mg weekly . (.) Allergies: no known drug allergies SOCIAL HISTORY Alcohol use. Drug use. ADDITIONAL NOTES The nursing notes have been reviewed. PHYSICAL EXAM Vital Signs: Have been reviewed. Appearance: Alert. Oriented X3. No acute distress. Eyes: Eyes normal inspection. CVS: Normal heart rate and rhythm. Respiratory: No respiratory distress. Painless inspiration. Breath sounds normal. Chest nontender. Abdomen: Soft. Tenderness in the periumbilical area and suprapubic area. Skin: Normal skin color. Normal skin turgor. Extremities: Extremities exhibit normal ROM. Neuro: Oriented X 3. No motor deficit. No sensory deficit. PROGRESS AND PROCEDURES MEDICAL DECISION MAKING: (34-year-old female with past medical history of cholelithiasis status post cholecystectomy presenting with abdominal pain which is lower in her abdomen. She states she is currently on 2 of 13 Narrative Ozempic to treat her weight. She has noted he has had pain around her lower abdomen for about 3 days. She describes it as burning. It is worse with eating and it is worse with trying to pull herself up to stand. Patient is concerned for possible hernia which I do not palpate. Differential also includes small bowel obstruction, UTI, pyelonephritis, colitis, diverticulitis. CBC was obtained to assess white blood cell count, hemoglobin, platelets. CMP to assess liver function, renal function, electrolytes, glucose. Urinalysis to assess for UTI. HCG to assess for . CT of the abdomen pelvis with IV contrast will be obtained. All lab work and imaging is pending. Patient signed out to incoming ED physician for follow-up and disposition. Patient declines analgesia and antiemetics at this time here). (Electronically signed by Jaya Jimenes D.O. 11/13/24 18:58:43 EDT) Generated by [facility] Physician Clinical [address] [place] [address] [id number] 11/13/2024 18:04:00 Patient: CASIE SOLANO Sex: Female : 1990 Age: 34y Disposition: Discharge to Home Disposition Decision Time: 21:24 11/13/2024 Departure Time: 21:47 11/13/2024 Measurements Wt: 158.8 kg, Ht/Piotr: 61.0 in, BMI: 66.13 Initial Vital Sign Measured Time BP MAP HR RR O2Sat ETCO2 Temp Pain GCS RTS 18:16 11/13/2024 150/98 115 115 16 97% 97.9 F 7 PAST HISTORY CVA - Cerebrovascular Accident Hypertension 3 of 13 Narrative Surgeries: Gallbladder Surgery Medications: ibuprofen 600 mg tablet: 600 mg three times a day . Ozempic 0.25 mg or 0.5 mg (2 mg/3 mL) subcutaneous pen injector: 0.5 mg weekly . (.) Allergies: no known drug allergies LABS, X-RAYS, AND EKG CT Abdomen - Pelvis: Mild low attenuation liver may relate to hepatic steatosis with hepatomegaly. No obstructive uropathy. The appendix is unremarkable. IUD is noted. No bowel obstruction, free air or significant free fluid. The appendix is unremarkable. Abdomen - pelvic CT performed with IV contrast. The study was interpreted by the radiologist. Interpretation time: 20:48 11/13/2024. Laboratory Tests: CBC + DIFF Final ANABEL: 11/13/2024 18:46:00 EDT MsgRcvd: 11/13/2024 19:00 EDT Lab Test Result Reference Status Received Comments 11/13/2024 19:00 CBC-COMPLETE CBC + DIFF Final EDT BLOOD COUNT 11/13/2024 19:00 WBC 9.6 x 10/UL 4.5 - 10.8 Final EDT 11/13/2024 19:00 RBC 5.21 x 10/UL 4.10 - 5.30 Final EDT 16.1 g/dl 11/13/2024 19:00 HEMOGLOBIN 12.0 - 16.0 Final (more content not included)... Normal [facility] ED SUPER BILLon 11-14-20[address] [facility] BILL [facility] [address] [place] [address] [id number] 11/13/2024 Patient: CASIE SOLANO Sex: Female : 1990 Age: 34y Facility Professional Category Item Description Code Code Quantity Fee Total Drugs Normal Saline 670837 1 $0.00 $0.00 1000cc (464545) Nurse/E/M EMERGENCY 539459 1 $0.00 $0.00 DEPT VISIT HIGH SEVERITYFUNCJ (42489-44) Nurse/IV/IM/Infusions Drip/IVPB initial 995607 1 $0.00 $0.00 (74682) Nurse/IV/IM/Infusions Hydration 070377 2 $0.00 $0.00 additional hour (74966) Grand $0.00 Total Providers Zabrina Olivia D.O. Chief Complaint 1 of 2 Superbill ABDOMINAL PAIN. Principal Diagnosis Acute right lower quadrant abdominal pain. Acute urinary tract infection with cystitis. No hematuria. ICD-10 Codes R10.31: Right lower quadrant pain N30.90: Cystitis, unspecified without hematuria [address] [facility] ED VISIT SUMMARYon ED VISIT SUMMARY Visit Overview Visit Overview [address] [address] [id number] 11/13/2024 Patient: CASIE SOLANO Sex: Female : 1990 Age: 34y 11/14/2024 05:02 AM EDT ED Arrival:18:04 11/13/2024 EDT Status:not Recent Travel:no Language:eng Adv Directive:No Isolation Status: Ethnicity:N Fall Risk:no risk Infectious Disease Exposure:no Measurements:5'1 / 154.9 Self-Harm Status:risk Sepsis Screen:negative cm 350.0 lb / 158.8 kg Chief Complaint:ABDOMINAL PAIN, NAUSEA, (3 days), (Pt has lower abdominal pain in her panis area. She is concerned for hernia. ), (Pt noticed she has a lot of burning pain to her left lower pelvic area. To the left. She states it is a sharp shooting pain, gets worse with movement and after eating. ), and (Roma Vergara) ALLERGIES No Known Drug Allergies 1 of 4 Visit Overview HOME MEDICATIONS ibuprofen 600 mg tablet: 600 mg three times a day . Ozempic 0.25 mg or 0.5 mg (2 mg/3 mL) subcutaneous pen injector: 0.5 mg weekly . (.) PAST MEDICAL HISTORY / PROBLEMS CVA - Cerebrovascular Accident Hypertension LNMP: Last normal menstrual period was 2 weeks ago See nurses notes PAST SURGICAL HISTORY Gallbladder Surgery SOCIAL HISTORY Smoking status: No Alcohol use: Yes Drug use: No ED COURSE MEDICATIONS GIVEN IN EMERGENCY DEPARTMENT 19:11/13/24 IV NS 0.9 % 1000 mL 999 mL/hr cefTRIAXone (Rocephin) IVPB 1gm/50ml NS 1 g diluted in sodium chloride IVPB 0.9 % 20:50 11/13/24 Minibag+ 50 mL 100 mL/hr IV SITE INFORMATION INTAKE OUTPUT REASSESMENT (most recent) 2 of 4 Visit Overview 19:11/13/24. GENERAL / NEURO / PSYCH: Alert. Oriented X 4. Appears in no acute distress. RESPIRATORY: Respirations not labored. Breath sounds within normal limits. CVS: Cardiac rhythm: sinus tachycardia. Capillary refill less than 2 seconds. GI / : The patient has had nausea. Abdomen soft. Abdominal tenderness in the epigastric area. Bowel sounds within normal limits. SKIN: Skin is warm and dry. VITAL SIGNS First Vitals Last Vitals Temp 18:16 11/13/24 97.9 F Temp 21:11/13/24 BP 18:11/13/24 150/98 BP 21:11/13/24 129/96 HR 18:16 11/13/24 115 HR 21:11/13/24 98 RR 18:16 11/13/24 16 RR 21:41 11/13/24 O2 Sat 18:16 11/13/24 97% O2 Sat 21:11/13/24 Pain 18:16 11/13/24 7 Pain 21:11/13/24 ETCO2 18:11/13/24 ETCO2 21:11/13/24 GCS 18:16 11/13/24 GCS 21:41 11/13/24 RTS 18:16 11/13/24 RTS 21:41 11/13/24 PROCEDURES NURSING INTERVENTIONS LABS / STUDIES LABS / STUDIES ORDERED CBC w Diff CMP CT ABD/PEL w Cont HCG, Quant Serum Lipase Urinalysis Urine Culture [CCL] LABS / STUDIES PENDING IMPORT CT ABDOMEN/PELVIS W CLINICAL IMPRESSION 3 of 4 Visit Overview ACUTE RIGHT LOWER QUADRANT ABDOMINAL PAIN ACUTE URINARY TRACT INFECTION WITH CYSTITIS. NO HEMATURIA [address] [facility] ED VITALS FLOW SHEETon 11-14 ED VITALS FLOW SHEET Vitals Vital Sign Flow Sheet [address] [address] [id number] 11/13/2024 Patient: CASIE SOLANO Sex: Female : 1990 Age: 34y Measurements Wt: 158.8 kg, Ht/Piotr: 61.0 in, BMI: 66.13 Measured Time BP MAP HR RR O2Sat ETCO2 Temp Pain GCS RTS 21:41 11/13/2024 129/96 107 98 21:41 11/13/2024 16 4 19:43 11/13/2024 113 95% 19:38 11/13/2024 113 95% 19:33 11/13/2024 117 94% 19:28 11/13/2024 127 93% 18:17 11/13/2024 150/98 115 114 18:16 11/13/2024 150/98 115 115 16 97% 97.9 F [address] [facility] Bacteria Ur Culton Bacteria identified Cx Nom (U) ORGANISM ID: 1 50,000-<100,000 CFU/ml Normal urogenital cheikh Normal [facility] Comment on above: Performed By: #### 6 30-4 #### [facility] CLIA [id number] [address] [place] [address] [place] CBC + DIFFon 11-13-2024 Baso # 0.01 x10EE3/UL Normal 0.00 - 0.10 [facility] Comment on above: Performed By: #### 2 45121 #### [facility],[address] [place] [address] Basophils/100 WBC (Bld) 0.2 % Normal 0.0 - 2.0 [facility] Comment on above: Performed By: #### 2 39828 #### [place] [address] CBC + DIFF Normal [facility] Comment on above: Result Comment: CBC- COMPLETE BLOOD COUNT Performed By: #### 2 62631 #### [place] [address] EO # 0.13 x10EE3/UL Normal 0.00 - 0.50 [facility] Comment on above: Performed By: #### 2 22543 #### [place] [address] Eosinophils/100 WBC (Bld) 1.3 % Normal 0.0 - 7.0 [facility] Comment on above: Performed By: #### 2 84658 #### [place] [address] Erythrocyte distribution width (RBC) [Ratio] 13.2 % Normal 12.0 - 15.6 [facility] Comment on above: Performed By: #### 2 57979 #### [place] [address] Hematocrit (Bld) [Volume fraction] 46.1 % High 34.0 - 46.0 [facility] Comment on above: Performed By: #### 2 67173 #### [facility],[address] [place] [address] Hemoglobin (Bld) [Mass/Vol] 16.1 g/dL High 12.0 - 16.0 [facility] Comment on above: Performed By: #### 2 02607 #### [place] [address] Lymph # 2.70 x10EE3/UL Normal 0.80 - 2.80 [facility] Comment on above: Performed By: #### 2 14152 #### [place] [address] Lymphocytes/100 WBC (Bld) 28.1 % Normal 20.0 - 45.0 [facility] Comment on above: Performed By: #### 2 27851 #### [facility],[address] [place] [address] MANUAL DIFF N/A Normal [facility] Comment on above: Performed By: #### 2 93628 #### [facility],[address] [place] [address] MCH (RBC) [Entitic mass] 31 pg Normal 27 - 33 [facility] Comment on above: Performed By: #### 2 21259 #### [place] [address] MCHC 35 X10 3 Normal 32 - 36 [facility] Comment on above: Performed By: #### 2 52331 #### [place] [address] MCV (RBC) [Entitic vol] 89 fL Normal 80 - 99 [facility] Comment on above: Performed By: #### 2 69712 #### [place] [address] [place] # 0.57 x10EE3/UL Normal 0.20 - 1.00 [facility] Comment on above: Performed By: #### 2 21913 #### [place] [address] MONOS % 5.9 % Normal 0.0 - 10.0 [facility] Comment on above: Performed By: #### 2 18854 #### [place] [address] Morphology Mic (Bld) [Interp] N/A Normal [facility] Comment on above: Performed By: #### 2 47322 #### [place] [address] Neut # 6.19 x10EE3/UL Normal 1.50 - 7.10 [facility] Comment on above: Performed By: #### 2 98107 #### [facility],[address] [place] [address] Neutrophils/100 WBC (Bld) 64.5 % Normal 46.0 - 76.0 [facility] Comment on above: Performed By: #### 2 87686 #### [facility],[address] [place] [address] PLATELET 252 x10EE3/UL Normal 150 - 450 [facility] Comment on above: Performed By: #### 2 54765 #### [facility],[address] [place] [address] 72909 Platelet mean volume (Bld) [Entitic vol] 7.5 fL Normal 6.6 - 10.5 [facility] Comment on above: Result Comment: AUTO MATED DIFFERENTIAL Performed By: #### 2 62919 #### [facility],[address] [place] [address] 27405 RBC 5.21 x 10EE6/UL Normal 4.10 - 5.30 [facility] Comment on above: Performed By: #### 2 35544 #### [facility],[address] [place] [address] 97884 WBC 9.6 x 10EE3/UL Normal 4.5 - 10.8 [facility] Comment on above: Performed By: #### 2 49942 #### [facility],[address] [place] [address] 82396 CMP with eGFRon 11-13-2024 AGE [address] [facility] Comment on above: Performed By: #### 2 08122 #### [facility],[address] [place] [address] 35112 Albumin [Mass/Vol] 3.6 g/dL Normal 3.4 - 5.0 [facility] Comment on above: Performed By: #### 2 38744 #### [facility],[address] [place] [address] 48777 Albumin/Globulin [Mass ratio] 0.8 {ratio} Low 0.9 - 1.6 [facility] Comment on above: Performed By: #### 2 99498 #### [facility],[address] [place] [address] 54258 ALK PHOS 66 U/L Normal 46 - 116 [facility] Comment on above: Performed By: #### 2 41046 #### [facility],[address] [place] [address] 54767 ALT [Catalytic activity/Vol] 41 U/L Normal 16 - 63 [facility] Comment on above: Performed By: #### 2 07001 #### [facility],[address] [place] [address] 82372 Anion gap [Moles/Vol] 13 mmol/L Normal 10 - 20 [facility] Comment on above: Performed By: #### 2 18541 #### [facility],[address] [place] [address] 72875 AST [Catalytic activity/Vol] 21 U/L Normal 13 - 39 [facility] Comment on above: Performed By: #### 2 08464 #### [facility],[address] [place] [address] 20913 B/C RATIO 18 ratio Normal 0 - 30 [facility] Comment on above: Performed By: #### 2 48491 #### [facility],[address] [place] [address] 45678 Bilirubin [Mass/Vol] 0.7 mg/dL Normal 0.2 - 1.0 [facility] Comment on above: Performed By: #### 2 64650 #### [facility],[address] [place] [address] 53583 Calcium [Mass/Vol] 9.1 mg/dL Normal 8.5 - 10.1 [facility] Comment on above: Performed By: #### 2 10884 #### [facility],[address] [place] [address] 57326 Chloride [Moles/Vol] 102 mmol/L Normal 98 - 107 [facility] Comment on above: Performed By: #### 2 76328 #### [facility],[address] [place] [address] 48511 CMP with eGFR Normal [facility] Comment on above: Result Comment: COMP REHENSIVE METABOLIC PANEL Performed By: #### 2 00315 #### [facility],[address] [place] [address] 40619 CO2 [Moles/Vol] 27.8 mmol/L Normal 21.0 - 32.0 [facility] Comment on above: Performed By: #### 2 19781 #### [facility],[address] [place] [address] 35014 Creatinine [Mass/Vol] 0.77 mg/dL Normal 0.55 - 1.02 [facility] Comment on above: Performed By: #### 2 61794 #### [facility],[address] [place] [address] 97564 GFR/1.73 sq M.predicted among non-blacks MDRD (S/P/Bld) [Vol rate/Area] mL/min/{1.73_m2} Normal 60 - 999 [facility] Comment on above: Performed By: #### 2 10076 #### [facility],[address] [place], [place] [address] Result Comment: ACCO RDING TO THE NATIONAL KIDNEY DISEASE EDUCATION PROGRAM(NKDE), A NORMAL eGFR IS A VALUE GREATER THAN OR EQUAL TO 60 ML/MIN/1.73 SQ METERS. CHRONIC KIDNEY DISEASE: <60mL/MIN/1.73 SQ METERS KIDNEY FAILURE: <15mL/MIN/1.73 SQ METERS THIS TEST SHOULD ONLY BE USED FOR PATIENTS 18 YEARS OF AGE AND OLDER. Globulin (S) [Mass/Vol] 4.3 g/dL High 1.5 - 3.8 [facility] Comment on above: Performed By: #### 2 90941 #### [facility],[address] [place] [address] 76209 Glucose [Mass/Vol] 101 mg/dL Normal 74 - 106 [facility] Comment on above: Performed By: #### 2 81055 #### [facility],[address] [place] [address] 33552 Potassium [Moles/Vol] 3.6 mmol/L Normal 3.5 - 5.1 [facility] Comment on above: Performed By: #### 2 84711 #### [facility],[address] [place] [address] 65903 Protein [Mass/Vol] 7.9 g/dL Normal 6.4 - 8.2 [facility] Comment on above: Performed By: #### 2 96839 #### [facility],[address] [place] [address] 09288 Sodium [Moles/Vol] 139 mmol/L Normal 136 - 145 [facility] Comment on above: Performed By: #### 2 55607 #### [facility],[address] [place] [address] 65494 Urea nitrogen [Mass/Vol] 14 mg/dL Normal 7 - 18 [facility] Comment on above: Performed By: #### 2 76370 #### [facility],[address] [place] [address] [facility]BDOMEN[facility] 2024 CT ABDOMEN/PELVIS [place] [address] Patient: CASIE SOLANO Phone#: : 1990 Age: 34 Gender: F Pt. Type: ER Account: [id number] Location: [facility] Ordering: JAYA JIMENES Exam Date: 11/13/2024/19:48 Family Phys: PRUDENCE VERGARA Charge Code: 857972 Physician: [place] Order #: [id number] Dose#: 54.4 PROCEDURE: CT ABDOMEN/PELVIS WITH CONTRAST COMPARISON: [facility], CT, ABDOMEN/PELVIS W [facility], 04/26/2023, 2:56. INDICATIONS: Abdominal internal pain. TECHNIQUE: After obtaining the patient's consent, CT images were created with non-ionic intravenous contrast material. All CT scans at this facility use dose modulation, iterative reconstruction, and/or weight based dosing when appropriate to reduce radiation dose to as low as reasonably achievable. IV CONTRAST: No IV contrast used,ml TOTAL DOSE: 54.4 CTDIvol(mGy) FINDINGS: LIVER: Fatty changes of the liver are present. BILIARY: The gallbladder is absent. PANCREAS: Normal. No lesion, fluid collection, ductal dilatation, or atrophy. SPLEEN: Normal. No enlargement or focal lesion. KIDNEYS: Normal. No mass, obstruction, or calcification. ADRENALS: Normal. No mass or enlargement. AORTA/VASCULAR: Normal. No aneurysm or dissection. RETROPERITONEUM: Normal. No mass or adenopathy. BOWEL/MESENTERY: There is moderate stool retention. ABDOMINAL WALL: Normal. No mass or hernia. URINARY BLADDER: Normal. No visible focal wall thickening, lesion, or calculus. PELVIC NODES: Normal. No adenopathy. PELVIC ORGANS: IUD is present in the uterus.. No visible mass. Pelvic organs appropriate for patient age. BONES: Normal. No bony lesion or fracture. LUNG BASES: Normal. No visible pulmonary or pleural disease. OTHER: Negative. Continued Report - Page 2 of 2 Patient: CASIE SOLANO Phone#: : 1990 Age: 34 Gender: F Pt. Type: ER Account: [id number] Location: 052 Ordering: JAYA JIMENES Exam Date: 11/13/2024/19:48 Family Phys: PRUDENCE VERGARA Charge Code: [id number] Physician: [place] Order #: [id number] Dose#: 54.4 CONCLUSION: 1. There is no evidence of acute abdominal or pelvic abnormality. Dictated by: Usha Wagoner MD on 11/13/2024 at 23:34 Approved by: Usha Wagoner MD on 11/13/2024 at 23:[address] [facility] LIPASEon 11-13-2024 Lipase [Catalytic activity/Vol] 36.0 U/L Normal 15.0 - 78.0 [facility] Comment on above: Result Comment: *PLE ASE NOTE THAT RANGES FOR LIPASE HAVE CHANGED OF 05/29/23 DUE TO AN ASSAY UPDATE BY THE REEL HOOKER.THE NEW ASSAY RANGE IS 6-250 U/L, WITH A REFERENCE RANGE OF 16-77 U/L. Performed By: #### 2 60045 #### [facility],[address] [place] [address] PREG SERUM QUANTon 5 HCG QUANTITATIVE 0 mIU/mL Normal 0 - 6 [facility] Comment on above: Result Comment: Refe rence Range: Male: <5 Female: Non: <5 1 - 7 days : 5 - 50 1 - 2 weeks: 50 - 500 2 - 3 weeks: 100 - 5000 3 - 4 weeks: 500 - 10,000 4 - 5 weeks: 1000 - 50,000 5 - 6 weeks: 10,000 - 100,000 6 - 8 weeks: 15,000 - 200,000 2 - 3 months: 10,000 - 100,000 2ND TRIMESTER 3000-50,000 3RD TRIMESTER 1000-50,000 Performed By: #### 2 55451 #### [facility],[address] [place] [address] URINALYSISon 11-13-[address] [facility] Comment on above: Performed By: #### 2 37929 ####[address] [address] Bacteria 2+ Normal [facility] Comment on above: Performed By: #### 2 40154 ####[facility],[address] [place], [place] [phone] Bilirubin Ql (U) Negative Normal NORMAL: NEGATIVE [facility] Comment on above: Performed By: #### 2 65931 ####[facility],[address] [place], [place] [phone] Casts NONE Normal [facility] Comment on above: Performed By: #### 2 44251 ####[facility],[address] [place] [address] Clarity (U) sl.cloudy Normal NORMAL: CLEAR [facility] Comment on above: Performed By: #### 2 64659 ####[facility],[address] [place], [place] [phone] Color (U) yellow Normal NORMAL: YELLOW [facility] Comment on above: Performed By: #### 2 80859 ####[facility],[address] [place], [place] [phone] Crystals LM Nom (Urine sed) NONE Normal [facility] Comment on above: Performed By: #### 2 43734 ####[facility],[address] [place] [address] Epi Cells FEW Normal [facility] Comment on above: Performed By: #### 2 51019 ####[facility],[address] [place], [place] [phone] Glucose Ql (U) NORM Normal NORMAL: NORMAL [facility] Comment on above: Performed By: #### 2 70755 ####[facility],[address] [place] [address] 28787 Hemoglobin Ql (U) 50 Abnormal NORMAL: NEGATIVE [facility] Comment on above: Performed By: #### 2 64613 ####[facility],[address] [place] [address] 52683 Ketone Negative Normal NORMAL: NEGATIVE [facility] Comment on above: Performed By: #### 2 41120 ####[facility],[address] [place] [address] 87070 Leukocytes 500 Abnormal NORMAL: NEGATIVE [facility] Comment on above: Performed By: #### 2 10004 ####[facility],[address] [place] [address] 13820 [address] NONE Normal [facility] Comment on above: Performed By: #### 2 27228 ####[facility],[address] [place] [address] 98568 Nitrite Ql (U) Negative Normal NORMAL: NEGATIVE [facility] Comment on above: Performed By: #### 2 26815 ####[facility],[address] [place] [address] pH (U) 6 [pH] Normal NORMAL: 5.0-8.0 [facility] Comment on above: Performed By: #### 2 58585 ####[facility],[address] [place] [address] Protein Ql (U) 15 Abnormal NORMAL: NEGATIVE [facility] Comment on above: Performed By: #### 2 49341 ####[facility],[address] [place] [address] Rbc 0-5 Normal 0-3/hpf [facility] Comment on above: Performed By: #### 2 78855 ####[facility],[address] [place] [address] Sp [place] 1.025 Normal NORMAL: 1.010-1.[address] [facility] Comment on above: Performed By: #### 2 90554 ####[facility],[address] [place] [address] Specimen Type R Normal [facility] Comment on above: Performed By: #### 2 60397 ####[facility],[address] [place] [address] Urinalysis dipstick W Reflex Microscopic panel (U) SEE BELOW Normal [facility] Comment on above: Result Comment: MICR OSCOPIC Performed By: #### 2 51139 ####[facility],[address] [place] [address] Urobilinog NORM Normal NORMAL: NORMAL [facility] Comment on above: Performed By: #### 2 34661 ####[facility],[address] [place] [address] Wbc 16-25 Normal 0-5/hpf [facility] Comment on above: Performed By: #### 2 88632 ####[facility],[address] [place] [address] 36252 Yeast NONE Normal [facility] Comment on above: Performed By: #### 2 69220 ####[facility],[address] [place] [address] 75795 URINE CULTURE [CCL]on 2024 Bacteria identified Cx Nom (U) URCUL See Results Below See Below CULTURE, URINE NORMAL UROGENITAL CHEIKH 50,000-<100,000 CFU/ml Normal urogenital cheikh SOURCE: Urine (Nonspecific) [facility] [address] [place] [address] Don Arroyo III, M.D. [id number] Normal [facility] Comment on above: Performed By: #### 2 35292 ####[address] [address] CBC + DIFFon 08-17-2024 Baso # 0.01 x10EE3/UL Normal 0.00 - 0.10 [facility] Comment on above: Performed By: #### 2 42688 #### [address] [address] Basophils/100 WBC (Bld) 0.2 % Normal 0.0 - 2.0 [facility] Comment on above: Performed By: #### 2 90903 #### [address] [address] CBC + DIFF Normal [facility] Comment on above: Result Comment: CBC- COMPLETE BLOOD COUNT Performed By: #### 2 81783 #### [address] [address] EO # 0.14 x10EE3/UL Normal 0.00 - 0.50 [facility] Comment on above: Performed By: #### 2 84113 #### [address] [address]24 Eosinophils/100 WBC (Bld) 1.9 % Normal 0.0 - 7.0 [facility] Comment on above: Performed By: #### 2 36837 #### [facility],[address] [place] [address] Erythrocyte distribution width (RBC) [Ratio] 13.1 % Normal 12.0 - 15.6 [facility] Comment on above: Performed By: #### 2 21580 #### [facility],[address] [place] [address] Hematocrit (Bld) [Volume fraction] 45.2 % Normal 34.0 - 46.0 [facility] Comment on above: Performed By: #### 2 00465 #### [facility],[address] [place] [address] Hemoglobin (Bld) [Mass/Vol] 15.9 g/dL Normal 12.0 - 16.0 [facility] Comment on above: Performed By: #### 2 47563 #### [facility],[address] [place] [address] Lymph # 1.88 x10EE3/UL Normal 0.80 - 2.80 [facility] Comment on above: Performed By: #### 2 51169 #### [place] [address] Lymphocytes/100 WBC (Bld) 25.6 % Normal 20.0 - 45.0 [facility] Comment on above: Performed By: #### 2 29324 #### [facility],[address] [place], [place] [phone] MANUAL DIFF N/A Normal [facility] Comment on above: Performed By: #### 2 25088 #### [place] [address] MCH (RBC) [Entitic mass] 32 pg Normal 27 - 33 [facility] Comment on above: Performed By: #### 2 31098 #### [place] [address] MCHC 35 X10 3 Normal 32 - 36 [facility] Comment on above: Performed By: #### 2 76048 #### [facility],[address] [place] [address] 18525 MCV (RBC) [Entitic vol] 90 fL Normal 80 - 99 [facility] Comment on above: Performed By: #### 2 60642 #### [facility],[address] [place] [address] 52906 [place] # 0.36 x10EE3/UL Normal 0.20 - 1.00 [facility] Comment on above: Performed By: #### 2 82702 #### [facility],[address] [place] [address] 62408 MONOS % 4.9 % Normal 0.0 - 10.0 [facility] Comment on above: Performed By: #### 2 76842 #### [facility],[address] [place] [address] 00355 Morphology Mic (Bld) [Interp] N/A Normal [facility] Comment on above: Performed By: #### 2 34638 #### [facility],[address] [place] [address] 08414 Neut # 4.96 x10EE3/UL Normal 1.50 - 7.10 [facility] Comment on above: Performed By: #### 2 98871 #### [facility],[address] [place] [address] 80091 Neutrophils/100 WBC (Bld) 67.5 % Normal 46.0 - 76.0 [facility] Comment on above: Performed By: #### 2 18970 #### [facility],[address] [place] [address] 06822 PLATELET 231 x10EE3/UL Normal 150 - 450 [facility] Comment on above: Performed By: #### 2 71567 #### [facility],[address] [place] [address] 17199 Platelet mean volume (Bld) [Entitic vol] 8.0 fL Normal 6.6 - 10.5 [facility] Comment on above: Result Comment: AUTO MATED DIFFERENTIAL Performed By: #### 2 20769 #### [facility],[address] [place] [address] 11909 RBC 5.03 x 10EE6/UL Normal 4.10 - 5.30 [facility] Comment on above: Performed By: #### 2 60440 #### [facility],[address] [place] [address] 19533 WBC 7.4 x 10EE3/UL Normal 4.5 - 10.8 [facility] Comment on above: Performed By: #### 2 92476 #### [facility],[address] [place] [address] 69808 CMP with eGFRon 08-17-[address]24 AGE [address] [facility] Comment on above: Performed By: #### 2 69575 #### [facility],[address] [place] [address] 32559 Albumin [Mass/Vol] 3.4 g/dL Normal 3.4 - 5.0 [facility] Comment on above: Performed By: #### 2 42715 #### [facility],[address] [place] [address] 28622 Albumin/Globulin [Mass ratio] 0.9 {ratio} Normal 0.9 - 1.6 [facility] Comment on above: Performed By: #### 2 03409 #### [facility],[address] [place] [address] 25259 ALK PHOS 61 U/L Normal 46 - 116 [facility] Comment on above: Performed By: #### 2 32021 #### [address] [address] ALT [Catalytic activity/Vol] 50 U/L Normal 16 - 63 [facility] Comment on above: Performed By: #### 2 39115 #### [facility],[address] [place] [address] 06114 Anion gap [Moles/Vol] 9 mmol/L Low 10 - 20 [facility] Comment on above: Performed By: #### 2 58451 #### [facility],[address] [place] [address] 75669 AST [Catalytic activity/Vol] 27 U/L Normal 13 - 39 [facility] Comment on above: Performed By: #### 2 68941 #### [facility],[address] [place] [address] B/C RATIO 16 ratio Normal 0 - 30 [facility] Comment on above: Performed By: #### 2 02803 #### [facility],[address] [place] [address] 25552 Bilirubin [Mass/Vol] 0.6 mg/dL Normal 0.2 - 1.0 [facility] Comment on above: Performed By: #### 2 91158 #### [facility],[address] [place], [place] [phone] Calcium [Mass/Vol] 8.7 mg/dL Normal 8.5 - 10.1 [facility] Comment on above: Performed By: #### 2 42156 #### [facility],[address] [place] [address] 60457 Chloride [Moles/Vol] 103 mmol/L Normal 98 - 107 [facility] Comment on above: Performed By: #### 2 24887 #### [facility],[address] [place] [address] 48917 CMP with eGFR Normal [facility] Comment on above: Result Comment: COMP REHENSIVE METABOLIC PANEL Performed By: #### 2 26600 #### [address] [address] CO2 [Moles/Vol] 29.4 mmol/L Normal 21.0 - 32.0 [facility] Comment on above: Performed By: #### 2 17684 #### [facility],[address] [place] [address] 55151 Creatinine [Mass/Vol] 0.76 mg/dL Normal 0.55 - 1.02 [facility] Comment on above: Performed By: #### 2 45057 #### [facility],[address] [place], [place] [phone] GFR/1.73 sq M.predicted among non-blacks MDRD (S/P/Bld) [Vol rate/Area] mL/min/{1.73_m2} Normal 60 - 999 [facility] Comment on above: Performed By: #### 2 16034 #### [facility],[address] [place], [place] [phone] Result Comment: ACCO RDING TO THE NATIONAL KIDNEY DISEASE EDUCATION PROGRAM(NKDE), A NORMAL eGFR IS A VALUE GREATER THAN OR EQUAL TO 60 ML/MIN/1.73 SQ METERS. CHRONIC KIDNEY DISEASE: <60mL/MIN/1.73 SQ METERS KIDNEY FAILURE: <15mL/MIN/1.73 SQ METERS THIS TEST SHOULD ONLY BE USED FOR PATIENTS 18 YEARS OF AGE AND OLDER. Globulin (S) [Mass/Vol] 3.9 g/dL High 1.5 - 3.8 [facility] Comment on above: Performed By: #### 2 72539 #### [place] [id number] Glucose [Mass/Vol] 115 mg/dL High 74 - 106 [facility] Comment on above: Performed By: #### 2 76196 #### [facility],[address] [place] [address] 72045 Potassium [Moles/Vol] 3.9 mmol/L Normal 3.5 - 5.1 [facility] Comment on above: Performed By: #### 2 41949 #### [facility],[address] [place] [address] 26027 Protein [Mass/Vol] 7.3 g/dL Normal 6.4 - 8.2 [facility] Comment on above: Performed By: #### 2 19281 #### [facility],[address] [place] [address] 39713 Sodium [Moles/Vol] 137 mmol/L Normal 136 - 145 [facility] Comment on above: Performed By: #### 2 11643 #### [facility],[address] [place] [address] 84727 Urea nitrogen [Mass/Vol] 12 mg/dL Normal 7 - 18 [facility] Comment on above: Performed By: #### 2 00204 #### [facility],[address] [place] [address] 17904 HEMOGLOBIN A1C (POM)on 08-17 Glucose [Mass/Vol] 128.4 mg/dL High 0.0 - 0.0 [facility] Comment on above: Result Comment: BLDo HEMOGLOBIN A1C REFERENCE RANGESBLDo Suggested Diagnosis HbA1c(%) HbA1C (mmol/mol Diabetic >/=6.5 >/=48 Prediabetes 5.7 - 6.4 39 - 47 Normal <5.7 <39 Performed By: #### 2 63764 #### [facility],[address] [place] [address] 12818 HbA1c (Bld) [Mass fraction] 6.1 % Normal 0.0 - 6.5 [facility] Comment on above: Performed By: #### 2 01600 #### [facility],[address] [place] [address] 34111 LIPID PROFILEon 08-17-2024 Cholesterol [Mass/Vol] 170 mg/dL Normal 0 - 240 [facility] Comment on above: Performed By: #### 2 68379 #### [facility],[address] [place] [address] 92061 Cholesterol in HDL [Mass/Vol] 64 mg/dL High 40 - 60 [facility] Comment on above: Performed By: #### 2 98926 #### [facility],[address] [place] [address] 57078 Cholesterol in LDL [Mass/Vol] 85 mg/dL Normal 0 - 129 [facility] Comment on above: Performed By: #### 2 92837 #### [facility],[address] [place] [address] 93380 Cholesterol.total/Cho lesterol in HDL [Mass ratio] 2.7 {ratio} Normal 0.0 - 5.0 [facility] Comment on above: Performed By: #### 2 41807 #### [facility],[address] [place] [address] 64247 Lipid [address] [facility] Comment on above: Result Comment: LIPI D PROFILE Performed By: #### 2 98265 #### [facility],[address] [place] [address] 43338 Triglyceride [Mass/Vol] 105 mg/dL Normal 0 - 150 [facility] Comment on above: Performed By: #### 2 07937 #### [facility],[address] [place] [address] 89983 Shoder Filler Cytology Reporton 2023 Shoder Filler Cytology Report . Pathology Reports Accession: Collected Date/Time: Received Date/Time: Pathologist: [id number] 05/10/2024 16:11 EST 05/12/2024 18:00 JOÃO BLAND MD Shoder Filler Cytology Report SPECIMEN: Specimen Description: Liquid Prep w/ HPV Specimen: Endocervical Screening or Diagnostic: Screening RELEVANT HISTORY: LMP: NOT GIVEN [id number] SPECIMEN ADEQUACY: SATISFACTORY FOR EVALUATION Endocervical/Transformation al zone component present INTERPRETATION/RESULTS: EPITHELIAL CELL ABNORMALITIES, SQUAMOUS Low-grade squamous intraepithelial lesion (LSIL) (encompassing: HPV/ mild dysplasia/ SYDNIE 1) ORGANISMS: Trichomonas vaginalis HIGH RISK HPV TESTING: Event Code Result HPV Interp See Interp HPVN HPV Interp Text: High Risk HPV Typing: NEGATIVE HPV types 16, 18, 31, 33, 35, 39, 45, 51, 52, 56, 58, 59, 66 and 68 DNA were undetectable or below the pre-set threshold. The dennis High-Risk HPV DNA Test is not intended for use as a screening device for Pap normal women under age 30 and is not intended to substitute for regular Pap screening. The dennis High-Risk HPV DNA Test is designed to augment existing methods for the detection of cervical disease and should be used in conjunction with clinical information derived from other diagnostic and screening tests, physical examinations and full medical history in accordance with appropriate patient management procedures. NOTE: A negative result does not preclude the presence of HPV infection because results depend on adequate specimen collection, absence of inhibitors and sufficient DNA to be detected. As of: 05/18/24 16:18 EST Pathology Reports Accession: Collected Date/Time: Received Date/Time: Pathologist: [id number] 05/10/2024 16:11 EST 05/12/2024 18:00 EST JOÃO SHETH MD COMMENT: This Pap Test was successfully processed and evaluated with the assistance of the [employer] ThinPrep Test Imaging System. Electronically Signed by Pathology report verified by [facility] Screened by: DIONNE DW Electronically signed by JOÃO SHETH Sign-Out Date: 05/19/2024 12:37 Performing Lab: [facility], [address] [place] [address] Pathology Dept Disclaimer The Pap test is a screening test for cervical cancer. As evidenced by published data, it is subject to both inherent false negative and false positive results. Your patient's results should be interpreted in context with pertinent clinical history including gynecological examination. Normal [facility] HPVon 05-18-2024 HPV Interp Normal See Interp HPVN [facility] Comment on above: Order Comment: Order placed by AP_HPV_ORDER rule from [id number] Result Comment: High Risk HPV Typing: NEGATIVE HPV types 16, 18, 31, 33, 35, 39, 45, 51, 52, 56, 58, 59, 66 and 68 DNA were undetectable or below the pre-set threshold. The dennis High-Risk HPV DNA Test is not intended for use as a screening device for Pap normal women under age 30 and is not intended to substitute for regular Pap screening. The dennis High-Risk HPV DNA Test is designed to augment existing methods for the detection of cervical disease and should be used in conjunction with clinical information derived from other diagnostic and screening tests, physical examinations and full medical history in accordance with appropriate patient management procedures. NOTE: A negative result does not preclude the presence of HPV infection because results depend on adequate specimen collection, absence of inhibitors and sufficient DNA to be detected. See Interp HPVN Performed By: #### H PV #### [facility] [address] [place] [address] HPV Source Cervix Normal [facility] Comment on above: Order Comment: Order placed by AP_HPV_ORDER rule from [id number] Performed By: #### H PV #### [facility] [address] [place] [address] Basic Metabolic Profile (BMP )on 04-09-2024 BUN/CRE 22.6 RATIO High 10-20 [facility] Comment on above: Performed By: #### L 100.0100, L500.2500, L700.6800 #### [facility] [address] [place], [address] CA,Total 8.8 mg/dL Normal 8.5-10.1 [facility] Comment on above: Performed By: #### L 100.0100, L500.2500, L700.6800 #### [facility] [address] [place], [address] Chloride [Moles/Vol] 108 mmol/L High 98-107 [facility] Comment on above: Performed By: #### L 100.0100, L500.2500, L700.6800 #### [facility] [address] [place], [address] CO2 [Moles/Vol] 28.0 mmol/L Normal 21.0-32.0 [facility] Comment on above: Performed By: #### L 100.0100, L500.2500, L700.6800 #### [facility] [address] [place], [address] Creatinine [Mass/Vol] 0.58 mg/dL Normal 0.55-1.02 [facility] Comment on above: Result Comment: The validity of the calculated GFR GFRAA in patients over 70 years has not been determined. Clinical correlation is essential. Performed By: #### L 100.0100, L500.2500, L700.6800 #### [facility] [address] [place], [address] ECRCL 192.86 ml/min Normal [facility] Comment on above: Performed By: #### L 100.0100, L500.2500, L700.6800 #### [facility] [address] [place], [address] EST GFR - AA 155 mL/min Normal >60 [facility] Comment on above: Result Comment: Afri can [place] GFR Calc Performed By: #### L 100.0100, L500.2500, L700.6800 #### [facility] [address] [place], [address] GAP 5 Normal 5-15 [facility] Comment on above: Performed By: #### L 100.0100, L500.2500, L700.6800 #### [facility] [address] [place], [address] GFR/1.73 sq M.predicted among non-blacks MDRD (S/P/Bld) [Vol rate/Area] 128 mL/min/{1.73_m2} Normal >60 [facility] Comment on above: Result Comment: Non- GFR Calc Performed By: #### L 100.0100, L500.2500, L700.6800 #### [facility] [address] [place], [address] Glucose [Mass/Vol] 102 mg/dL Normal 74-106 [facility] Comment on above: Result Comment: Fast ing Glucose result from 100 to 125 mg/dL suggests IMPAIRED HOMEOSTASIS per A.D.A. criteria. Performed By: #### L 100.0100, L500.2500, L700.6800 #### [facility] [address] [place], [address] Potassium [Moles/Vol] 3.7 mmol/L Normal 3.5-5.1 [facility] Comment on above: Performed By: #### L 100.0100, L500.2500, L700.6800 #### [facility] [address] [place], [address] Sodium [Moles/Vol] 140 mmol/L Normal 136-145 [facility] Comment on above: Performed By: #### L 100.0100, L500.2500, L700.6800 #### [facility] [address] [place], [address] Urea nitrogen [Mass/Vol] 13 mg/dL Normal 7-18 [facility] Comment on above: Performed By: #### L 100.0100, L500.2500, L700.6800 #### [facility] [address] [place], [address] CBC W/Diff, Automatedon 11-0 -2023 Absolute Lymph 2.08 X10 3/uL Normal 0.83-4.51 [facility] Comment on above: Performed By: #### L 100.0100, L500.2500, L700.6800 #### [facility] [address] [place], [address] Absolute Neut 5.5 X10 3/uL Normal 2.0-7.7 [facility] Comment on above: Performed By: #### L 100.0100, L500.2500, L700.6800 #### [facility] [address] [place], [address] Basophils/100 WBC (Bld) 0.2 % Normal 0-1 [facility] Comment on above: Performed By: #### L 100.0100, L500.2500, L700.6800 #### [facility] [address] [place], [address] Eosinophils/100 WBC (Bld) 1.3 % Normal 0-5 [facility] Comment on above: Performed By: #### L 100.0100, L500.2500, L700.6800 #### [facility] [address] [place], [address] Erythrocyte distribution width (RBC) [Ratio] 12.6 % Normal 11.6-14.6 [facility] Comment on above: Performed By: #### L 100.0100, L500.2500, L700.6800 #### [facility] [address] [place], [address] Hematocrit (Bld) [Volume fraction] 44.7 % Normal 37-47 [facility] Comment on above: Performed By: #### L 100.0100, L500.2500, L700.6800 #### [facility] [address] [place], [address] Hemoglobin (Bld) [Mass/Vol] 15.4 g/dL High 12.0-15.0 [facility] Comment on above: Performed By: #### L 100.0100, L500.2500, L700.6800 #### [facility] [address] [place], [address] IG% 0.200 Normal 0.0-0.9 [facility] Comment on above: Result Comment: IG% - Immature Granulocytes (promyelocytes, myelocytes and metamyelocytes) > 1% indicates that a LEFT SHIFT is Present. Performed By: #### L 100.0100, L500.2500, L700.6800 #### [facility] [address] [place], [address] Lymphocytes/100 WBC (Bld) 25.1 % Normal 19-41 [facility] Comment on above: Performed By: #### L 100.0100, L500.2500, L700.6800 #### [facility] [address] [place], [address] MCH (RBC) [Entitic mass] 30.6 pg Normal 27.0-32.0 [facility] Comment on above: Performed By: #### L 100.0100, L500.2500, L700.6800 #### [facility] [address] [place], [address] MCHC (RBC) [Mass/Vol] 34.5 g/dL Normal 32-36 [facility] Comment on above: Performed By: #### L 100.0100, L500.2500, L700.6800 #### [facility] [address] [place], [address] MCV (RBC) [Entitic vol] 88.7 fL Normal 81-99 [facility] Comment on above: Performed By: #### L 100.0100, L500.2500, L700.6800 #### [facility] [address] [place], [address] Monocytes/100 WBC (Bld) 6.8 % Normal 0-10 [facility] Comment on above: Performed By: #### L 100.0100, L500.2500, L700.6800 #### [facility] [address] [place], [address] Neutrophils/100 WBC (Bld) 66.4 % Normal 47-70 [facility] Comment on above: Performed By: #### L 100.0100, L500.2500, L700.6800 #### [facility] [address] [place], [address] Nucleated RBC (Bld) [#/Vol] 0 10*3/uL Normal 0-5 [facility] Comment on above: Performed By: #### L 100.0100, L500.2500, L700.6800 #### [facility] [address] [place], [address] Platelet mean volume (Bld) [Entitic vol] 9.5 fL Normal 6.2-12.0 [facility] Comment on above: Performed By: #### L 100.0100, L500.2500, L700.6800 #### [facility] [address] [place], [address] Platelets (Bld) [#/Vol] 257 10*3/uL Normal 150-450 [facility] Comment on above: Performed By: #### L 100.0100, L500.2500, L700.6800 #### [facility] [address] [place], [address] RBC (Bld) [#/Vol] 5.04 10*6/uL Normal 4.2-5.4 [facility] Comment on above: Performed By: #### L 100.0100, L500.2500, L700.6800 #### [facility] [address] [place], [address] RDW SD 41.4 fl Normal 35.1-43.9 [facility] Comment on above: Performed By: #### L 100.0100, L500.2500, L700.6800 #### [facility] [address] [place], [address] WBC (Bld) [#/Vol] 8.3 10*3/uL Normal 4.4-11.0 [facility] Comment on above: Performed By: #### L 100.0100, L500.2500, L700.6800 #### [facility] [address] [place], [address] CNOVanalilia 04-09-2024 CNOV Office Visit (UCWSTR ) SOLANO,CASIE ([id number]) 1990 F Date Time Provider Department 04/09/24 12:30 PM LUCAS PEÑALOZA [facility] During your visit today, we recorded the following information about you: Temperature Pulse Respiration Blood pressure 97.8 degrees 107/minute 18/minute 164/94 Weight 153.5 kg Lucas Peñaloza MD 04/09/2024 3:33 PM Signed Patient presents with: Sinus Problem: R lower tooth pulled 1 month ago, was on amox and then augmentin, has had sinus and R ear pain since HPI: Right head pain: Duration: intermittent issues for 1 month since having a right lower molar pulled Location: right ear, right throat, Character: aching Radiation: into the right neck and shoulder, sometimes into the back of the head Pain relievers: Motrin yesterday Associated: sore throat (worse today), right earache, slight post-nasal drainage and sinus pressure, TMJ Pertinent negatives: Denies fever, chills, nasal congestion, rhinorrhea Patient has been treated with amoxicillin, cephalexin, clindamycin, ibuprofen, and Medrol (only able to take 1 dose because she had pruritus with it). She completed clindamycin 4 days ago and was feeling well until 2 days ago. MEDICATIONS: copper (PARAGARD T 380A) 380 square mm intrauterine device 1 Intra Uterine Device by INTRAUTERINE route. ALLERGIES: ALLERGIES No Known Allergies VITALS: BP 164/94 Pulse 107 Temp 36.6 ?C (97.8 ?F) Resp 18 Wt (!) 153.5 kg (338 lb 6.5 oz) LMP 04/10/2023 SpO2 97% BMI 61.90 kg/m? PHYSICAL EXAM: GEN: pleasant, no acute distress, alert HEENT: PERRL, EOMI, no pain with palpation over the frontal or maxillary sinuses. Mouth: MMM, mild erythema, right lower last molar socket appears to be healing without erythema, edema, or purulent drainage. Left canal occluded by cerumen. Right canal clear. Right tympanic membrane without erythema, bulge, or effusion. Bilateral crepitus with jaw opening. NECK: supple, no lymphadenopathy, no thyromegaly HEART: regular rate, regular rhythm, no murmurs LUNGS: clear to auscultation, no wheezes or crackles, no increased WOB EXT: no clubbing, no cyanosis, no edema ASSESSMENT/PLAN: 1. Sore throat - ICD9: 462, ICD10: J02.9 (primary diagnosis) 2. Otalgia, right ear - ICD9: 388.70, ICD10: H92.01 3. TMJ dysfunction - ICD9: 524.60, ICD10: M26.609 - STREP A MOLECULAR (POC) - negative. Distribution of symptoms is not classic for sinusitis. Her ear exam is normal. I do suspect component of temporomandibular joint arthralgia. Ibuprofen has been upsetting her stomach. She declines meloxicam. Possible new viral URI developing the last couple days. Imaging may be required to further evaluate her lingering, recurrent symptoms. Follow-up with ENT or PCP. Lucas Peñaloza MD Allergies As of Date: 04/09/2024 (No Known Allergies) Date Reviewed: 04/09/2024 Reviewed by: Bailey Henley MA - Fully Assessed Reason for Visit: Sinus Problem [99] Cmt: R lower tooth pulled 1 month ago, was on amox and then augmentin, has had sinus and R ear pain since Primary Visit Diagnosis:Sore throat [J02.9] Other Visit Diagnoses:Otalgia, right ear [H92.01] TMJ dysfunction [M26.609] Order(s):STREP A MOLECULAR (POC) [2310245] Order #: [id number]. #:[id number] Prescriptions as of 04/09/2024 - copper (PARAGARD T 380A) 380 square mm intrauterine device 1 Intra Uterine Device by INTRAUTERINE route. Problem List As Of Date: 04/09/2024 (None) Medications Discontinued During This Encounter Prescriptions - amoxicillin (AMOXIL) 500 mg capsule (Discontinued) Reported on 04/09/2024 - cephALEXin (KEFLEX) 500 mg capsule (Discontinued) Take 500 mg by mouth three times a day. - clindamycin (CLEOCIN) 150 mg capsule (Discontinued) Reported on 04/09/2024 - fluconazole (DIFLUCAN) 150 mg tablet (Discontinued) Reported on 04/09/2024 - methylPREDNISolone (MEDROL DOSE-PACK) 4 mg Dose-Pack (Discontinued) Reported on 04/09/2024 Level of Service: OFFICE/OUTPATIENT [facility] 15 MINUTES [47111] Encounter Status:Closed by LUCAS PEÑALOZA on 04/09/24 Normal [facility] Emergency Department Summary on 04-09-2024 Emergency Department Summary [facility] Medical Records Department [address] [place] [address] Emergency Department Summary 04/09/24 MR#: [id number] Acct: [id number] Name: CASIE SOLANO Rep #: [id number] : 1990 33 From: Donal Saavedra DO PCP: LISSA Coleman Status:DEP ER Location: ED HPI History of Present Illness Chief Complaint: General Illness Narrative Narrative: Patient is a 33-year-old female with history of morbid obesity, who presents to the emergency department for ongoing right jaw, right neck pain. 1 month ago, patient had a right lower molar removed, this was infected and placed on amoxicillin, she continued have pain and they put her on Augmentin, the patient had continued symptoms after the Augmentin and was placed on clindamycin. Patient has been off clindamycin for couple days and is continue to have similar symptoms. She was told to come to the emergency department for further evaluation. Patient also states he been having sinus pain and intermittent chills. Patient was complains of bodyaches [facility] Medical History Abdominal pain Alcohol use Anxiety Back pain Chlamydia Easy bruising Former smoker Heartburn Hemorrhoid History of edema Hx of LEEP (loop electrosurgical excision procedure) of cervix complicating Hypertension Leg cramps Marijuana use Shortness of breath on exertion TIA (transient ischemic attack) Vertigo Home Medications ???Medication ???Instructions ???Recorded ???Last Taken ???Type apple cider vinegar 500 mg tablet 500 mg PO DAILY 10/22/22 Unknown History cholecalciferol (vitamin D3) 25 25 mcg PO DAILY 10/22/22 Unknown History mcg (1,000 unit) capsule (Vitamin D3) lactobacillus combination no.4 3 3,000 mmu cells PO DAILY 10/22/22 Unknown History billion cell capsule (Probiotic) multivitamin 1 cap PO DAILY 10/22/22 Unknown History Allergy/AdvReac Type Severity Reaction Status Date / Time No Known Allergies Allergy Verified 04/09/24 13:51 Family History Mother Diabetes Hypertension Surgical History History of History of cholecystectomy ( 2018) History of esophagogastroduodenoscopy (EGD) Hx of wisdom tooth extraction Social History household members: significant other Smoking Status: Former smoker alcohol intake: never substance use type: does not use ROS ROS ED ROS Narrative Constitutional: Negative for fever, chills, weight loss, weakness Eyes: Negative for vision loss, vision change, double vision ENT: Negative for any congestion. Positive for right ear pain, sore throat Cardiovascular: Negative for any chest pain, tightness, palpitations Respiratory: Negative for any cough, sputum production, hemoptysis, dyspnea, dyspnea on exertion, orthopnea Gastrointestinal: Negative for any abdominal pain, nausea, vomiting, diarrhea, constipation, blood in stool, blood in vomit : Negative for any urinary frequency, dysuria, retention, blood in urine Muscle skeletal: Negative for any neck pain, back pain. Positive for myalgias Neurological: Negative for any headache, syncope, dizziness Skin: Negative for any rashes, itching, abrasions, lacerations Psychiatric: Negative for any depression, anxiety, stress, suicidal ideation, homicidal ideation Hematologic: Negative for any excessive bruising, easy bleeding EXAM Physical Exam Narrative Exam Narrative: Vital signs reviewed. HEET: Head normocephalic atraumatic, TMs clear bilaterally. Posterior pharynx is clear, moist mucous membranes. Nares clear bilaterally. Patient's area where the right back molar was pulled, looks well-appearing, no redness or deep tissue infection. Neck: Supple with no lymphadenopathy or tenderness. No signs of meningismus. Cardiac: Regular rate and rhythm no murmurs gallops or rubs, equal peripheral pulses bilaterally. Respiratory: Lungs clear to auscultation bilaterally. No chest tenderness. Abdomen: Soft, nontender, nondistended. No abdominal bruit or pulsatile masses. No hepatosplenomegaly Extremities: No peripheral edema, no signs of gross trauma or deformity. Active full range of motion of all extremities. Neuro: Cranial nerves II through XII intact, no focal neurological deficits. Skin: Clean dry and intact with no rash, purpura, petechiae, vesicles or pustules. Backs/flank: No CVA tenderness, no midline spinal tenderness, no deformity. Psych: Normal mood and affect. No SI, HI or acute psychosis. Const Vital Signs: 04/09/24 13:52 04/09/24 14:00 Temperature 97.4 F L Temperature Source Temporal Pulse Rate 105 H Respiratory Rate 18 Respiratory Effo (more content not included)... Normal [facility] Emergency Department Summary [facility] Medical Records Department [address] [place] [address] Emergency Department Summary 04/09/24 MR#: [id number] Acct: [id number] Name: CASIE SOLANO Rep #: [id number] : 1990 33 From: Donal Saavedra DO PCP: LISSA Coleman Status:DEP ER Location: ED HPI History of Present Illness Chief Complaint: General Illness [facility] Medical History Abdominal pain Alcohol use Anxiety Back pain Chlamydia Easy bruising Former smoker Heartburn Hemorrhoid History of edema Hx of LEEP (loop electrosurgical excision procedure) of cervix complicating Hypertension Leg cramps Marijuana use Shortness of breath on exertion TIA (transient ischemic attack) Vertigo Home Medications ???Medication ???Instructions ???Recorded ???Last Taken ???Type apple cider vinegar 500 mg tablet 500 mg PO DAILY 10/22/22 Unknown History cholecalciferol (vitamin D3) 25 25 mcg PO DAILY 10/22/22 Unknown History mcg (1,000 unit) capsule (Vitamin D3) lactobacillus combination no.4 3 3,000 mmu cells PO DAILY 10/22/22 Unknown History billion cell capsule (Probiotic) multivitamin 1 cap PO DAILY 10/22/22 Unknown History Allergy/AdvReac Type Severity Reaction Status Date / Time No Known Allergies Allergy Verified 04/09/24 13:51 Family History Mother Diabetes Hypertension Surgical History History of History of cholecystectomy ( 2018) History of esophagogastroduodenoscopy (EGD) Hx of wisdom tooth extraction Social History household members: significant other Smoking Status: Former smoker alcohol intake: never substance use type: does not use EXAM Physical Exam Const Vital Signs: 04/09/24 13:52 04/09/24 14:00 Temperature 97.4 F L Temperature Source Temporal Pulse Rate 105 H Respiratory Rate 18 Respiratory Effort Normal Non-Labored Respiratory Pattern Normal Blood Pressure 159/104 H Blood Pressure Mean 122 Pulse Ox 98 Oxygen Delivery Method Room Air MDM MDM MDM Narrative Medical decision making narrative: I have personally performed a face to face assessment of the patient and have reviewed the CELINA Note. I performed a substantive portion of the visit including all aspects of the following. My bynum findings include: History is [patient presents to the emergency department complaint of right-sided neck pain and soreness in her shoulders and neck. She tells me that she had a molar extracted about a month ago right lower and was placed on amoxicillin for that. She then was changed over to Augmentin. She got a second opinion and was started on clindamycin for possible sinus infection. She states that typically she felt well for about a day after being on antibiotics but then discomfort would come back. This morning she woke up with achiness in her shoulders and upper back like if she were coming down with a virus. Patient does complain of a sore throat. She last finished clindamycin 4 days ago.] Patient has had no fevers. No significant cough. Exam is [HEENT-PERRLA, EOMI. Cranial nerves II through XII grossly intact. TMs clear. Mucous membranes moist. No adenopathy. Mild tenderness over the right submandibular portion of the neck. No masses palpated. No dental abscesses noted. No facial erythema or cellulitis. She has no trismus. Pharynx is not erythematous. Uvula midline. Mild tenderness over the right maxillary sinus but no tenderness over the frontal sinuses. Cardiovascular-regular rate and rhythm without murmur or ectopy Lungs-clear to auscultation, chest wall stable without crepitus or subcu emphysema Abdomen-normoactive bowel sounds, soft, nontender, no rebound or rigidity, no peritoneal signs. Extremities-intact ???4, normal range of motion, normal pulses, atraumatic] Medical Decison Making [ ] Other additions or changes: [None] Discharge Plan Triage Chief Complaint: General Illness ED Midlevel Provider: Adolfo Herrera ED Provider: Donal Saavedra Dx/Rx/DC Orders Prescriptions: No Action multivitamin Capsule 1 cap PO DAILY cholecalciferol (vitamin D3) [Vitamin D3] 25 mcg (1,000 unit) Capsule 25 mcg PO DAILY apple cider vinegar 500 mg Tablet 500 mg PO DAILY Probiotic 3 billion cell Capsule 3,000 mmu cells PO DAILY Rx Instructions: administer with a meal Primary Care Provider: Prudence Vergara Referrals: Prudence Vergara, [employer] [Primary Care Provider] - Print Language: Japanese What to do if you have Problems For any increased pain, shortness of breath, bleeding, nausea or vomiting, chest pain, or any (more content not included)... Normal [facility] M100.678on 04-09-2024 M100.678 Pending SARS-CoV-2 (COVID 19) Negative INFLUENZA A Negative INFLUENZA B Negative RSV PCR Negative Normal [facility] Comment on above: Performed By: #### M 100.678 ####[facility] [id number] [place], [place], [phone] ,Serum,hCG Quali.on 04-09-2024 HCG, SERUM QUAL Negative Normal [facility] Comment on above: Performed By: #### L 100.0100, L500.2500, L700.6800 #### [facility] [address] [place], [address] STREP A MOLECULAR (POC)on Procedural Control Valid [facility] Strep A (POCT) Negative Negative [facility] Soft Tissue Neck WITH Contra ston 04-09-2024 Soft Tissue Neck WITH Contrast [facility] Imaging Services [address] [place], [place] [id number] Soft Tissue Neck WITH Contrast MR#: [id number] Acct: [id number] Name: CASIE SOLANO Rep #: [id number] : 1990 F 33 From: Dhiraj Uribe MD PCP: LISSA Coleman Status: REG ER Study: Soft Tissue Neck WITH Contrast Date of Exam: 06/09/23 Exam# [id number] Ordering Dr: Adolfo Herrera [id number] EXAM: CT NECK WITH INTRAVENOUS CONTRAST CLINICAL INDICATION: Right jaw pain TECHNIQUE: Helically acquired images were obtained of the neck with intravenous contrast. This CT exam was performed using one or more of the following dose reduction techniques: automated exposure control, adjustment of the mA and/or kV according to patient size, and/or use of iterative reconstruction technique. CONTRAST: IV 100mL Isovue-370 COMPARISON: No relevant prior studies available. FINDINGS: NASOPHARYNX: Normal. SUPRAHYOID NECK: Normal. Oropharynx, oral cavity, parapharyngeal space and retropharyngeal space are unremarkable. INFRAHYOID NECK: Normal. The larynx, hypopharynx and supraglottis are unremarkable. SUBMANDIBULAR/PAROTID GLANDS: Salivary glands are normal in size. THYROID: Normal. No thyroid nodules or calcification. BONES/JOINTS: No suspicious lytic or blastic abnormality. SOFT TISSUES: Normal. VASCULATURE: No acute findings. LYMPH NODES: Normal. No lymphadenopathy. LUNG APICES: Unremarkable as visualized. CT/Soft Tissue Neck WITH Contrast IMPRESSION: No acute abnormality. Electronically Signed: Dhiraj Uribe MD at 15:41 EST , CC: LISSA Herrera; LISSA Vergara Oral Surgery Assistant: Signed Normal [facility] FACILITY CODING SUMMARYon FACILITY CODING SUMMARY Facility Coding Facility Coding Summary [address] [address] [id number] 03/14/2024 Patient: CASIE SOLANO Sex: Female : 1990 Age: 33y Providers: Eric Milan D.O. DIAGNOSTIC WORKUP Chief Complaint dental pain. -- Eric Milan D.O. Principal Diagnosis Dental pain. -- Eric Milan D.O. ICD-10 Codes K08.89: Other specified disorders of teeth and supporting structures PROCEDURES Procedures from Providers: Procedures from Nurses/Facility: SUPPLIES [facility]LEVEL [address] 1 of 2 Facility Coding This is a partial abstract of information documented in the full record. Beef Splitter must use independent judgment in selecting codes. CPT copyright 2022 [employer]. All Rights Reserved. 2 of 2 [facility] MED ADMINISTRATION DETAILon 03-14-2024 MED ADMINISTRATION DETAIL Data Entry Analyst Medication Administration Record [address] [address] [id number] 03/14/2024 Patient: CASIE SOLANO Sex: Female : 1990 Age: 33y MEASUREMENTS: Wt: 149.7 kg, Ht/Piotr: 64.0 in, BMI: 56.64 ALLERGIES: No known drug allergies Medication Ordered Medication Administration Date/Time 1 of 1 [facility] NURSES CLINICAL REPORT (NOTE S)on 03-14-2024 NURSES CLINICAL REPORT (NOTES) Nurse Narrative Nurse Clinical Narrative [address] [address] [id number] 03/14/2024 Patient: CASIE SOLANO Sex: Female : 1990 Age: 33y Disposition: Discharge to Home Disposition Decision Time: 13:26 03/14/2024 Departure Time: 13:31 03/14/2024 TRIAGE Arrived by private vehicle. Historian: patient. Triage time: 12:55 03/14/2024. Acuity: LEVEL 3. Chief Complaint: RIGHT LOWER TOOTHACHE and SWELLING OF JAW / FACE. Onset. (1 weeks). SEPSIS SCREEN: NEGATIVE. SIRS criteria negative. No possible sources of infection. -- 13:07 03/14/24 EDT Kiki Strickland R.N. 13:04 03/14/24. BP: 189/85 MAP: 120. HR: 103. RR: 20. O2 saturation: 96% Temperature: 98.5 F. Pain level now 7/10. Describes the pain as throbbing. -- 13:05 03/14/24 GLYNN Strickland R.N. Measurements: 13:06 03/14/24 Wt: 149.7 kg, Ht/Piotr: 64.0 in, BMI: 56.64 -- 13:06 03/14/24 GLYNN Strickland R.N. Medications: methylPREDNISolone 4 mg tablet: 4 mg . -- 13:03/14/24 GLYNN Strickland R.N. amoxicillin 500 mg capsule: 500 mg three times a day . -- 13:03/14/24 GLYNN Strickland R.N. ibuprofen 600 mg tablet: 600 mg three times a day . -- 13:03/14/24 GLYNN Strickland R.N. 1 of 3 Nurse Narrative Allergies: no known drug allergies -- 13:00 03/14/24 GLYNN Strickland R.N. Problems: CVA - Cerebrovascular Accident -- 13:03/14/24 GLYNN Strickland R.N. Hypertension -- 13:03/14/24 GLYNN Strickland R.N. ADDITIONAL SURGERIES: -- 13:03/14/24 GLYNN Strickland R.N. Gallbladder Surgery -- 13:03/14/24 GLYNN Strickland R.N. History 12:55 03/14/24. PAST MEDICAL HX: Last normal menstrual period- 2 weeks. Denies current . SOCIAL HX: Never smoker. No alcohol use or drug use. The patient has not traveled outside the [place] Infectious disease exposure: No infectious disease exposure. ABUSE ASSESSMENT: The patient answered yes to the question(s) Do you feel safe in your home? and no to the question(s) Are you afraid to go home?. Abuse denied. No suspicion of abuse. SELF HARM ASSESSMENT: Self harm assessment was performed. The patient answered no to the question(s) Have you recently felt down, depressed, or hopeless? and Do you have thoughts of harming or killing yourself?. FALL RISK ASSESSMENT: Fall risk assessment completed. No risk factors identified. -- 13:07 03/14/24 EDT Kiki Strickland, R.N. Interventions 12:55 03/14/24. Advanced care plan discussed with patient (Full CODE). -- 13:07 03/14/24 EDT Kiki Strickland R.N. 2 of 3 Nurse Narrative PHYSICAL ASSESSMENT 13:38 03/14/24. ( Patient describes a one week hx of right lower jaw pain. Patient recently had a tooth pulled in this area and is concerned for infection.). GENERAL / NEURO / PSYCH: Alert. Oriented X 4. Appears in no acute distress. HEENT: Pupils equal, round and reactive to light. Pharynx within normal limits. Voice within normal limits. No dental injury noted. Mucous membranes are pink. RESPIRATORY: Respirations not labored. CVS: Capillary refill less than 2 seconds. SKIN: Skin is warm and dry. Normal skin turgor. -- 13:38 03/14/24 EDT Cody Jenkins R.N. NURSING PROGRESS NOTES 13:29 03/14/24. Patient identifiers checked. Call light placed in reach. Side rails up x 1. Bed placed in lowest position. Patient placed in chair. -- 13:40 03/14/24 EDT Cody Jenkins R.N. DISPOSITION / DISCHARGE Departure time: 13:31 03/14/2024. Condition at departure: unchanged. No learning barriers present. Discharge instructions provided and reviewed with the patient. The patient was discharged home and accompanied by spouse. The patient left ambulatory and via private vehicle. Patient driving. -- 13:41 03/14/24 EDT Cody Jenkins R.N. (Electronically signed by Cody Jenkins R.N. 03/14/24 13:41:53 EDT) Generated by [facility] [address] [facility] ORDER SHEET (CPOE ONLY)on ORDER SHEET (CPOE ONLY) Order Sheet Order Sheet [address] [place] [address] [id number] 03/14/2024 Patient: CASIE SOLANO Sex: Female : 1990 Age: 33y MEASUREMENTS: Wt: 149.7 kg, Ht/Piotr: 64.0 in, BMI: 56.64 ALLERGIES: No known drug allergies MEDICATION/IV/DRIP/FLUID ORDERS Order Description Priority Entered Acknowledged Completed LAB ORDERS Order Description Priority Entered Acknowledged Collected Completed DIAGNOSTIC STUDY ORDERS Order Description Priority Entered Acknowledged Completed STAFF ORDERS Order Description Priority Entered Acknowledged Collected Completed [address] [facility] PHYS CLINICAL REPORT AND ADD SURAJon 03-14-2024 PHYS CLINICAL REPORT AND JAMESON Narrative Physician Clinical Narrative [facility] [address] [place] [address] [id number] 03/14/2024 Patient: CASIE SOLANO Sex: Female : 1990 Age: 33y Measurements Wt: 149.7 kg, Ht/Piotr: 64.0 in, BMI: 56.64 Initial Vital Sign Measured Time BP MAP HR RR O2Sat ETCO2 Temp Pain GCS RTS 13:04 03/14/2024 189/85 120 103 20 96% 98.5 F 7 Time Seen: 13:05 03/14/2024. Arrived- By private vehicle. Historian- patient. HISTORY OF PRESENT ILLNESS Chief Complaint: dental pain. No nausea or vomiting. This started 1 weeks and is still present. (33-year-old female presents with right lower dental pain. States that she had a tooth pulled with concern for infection almost 1 week ago. One further day of antibiotics. Also on steroid therapy. States that she has continued to have swelling. Denies any fever, chills, vomiting, abdominal pain, fall or trauma.). REVIEW OF SYSTEMS CONSTITUTIONAL: No fever. PAST HISTORY CVA - Cerebrovascular Accident Hypertension 1 of 3 Narrative Surgeries: Gallbladder Surgery Medications: amoxicillin 500 mg capsule: 500 mg three times a day . ibuprofen 600 mg tablet: 600 mg three times a day . methylPREDNISolone 4 mg tablet: 4 mg . Allergies: no known drug allergies ADDITIONAL NOTES The nursing notes have been reviewed. PHYSICAL EXAM Vital Signs: Have been reviewed. Appearance: Alert. No acute distress. ENT: Pharynx normal. No evidence of periapical abscess. Neck: Mild right anterior neck and mild right submandibular lymphadenopathy present. Neck supple and nontender. Full ROM. CVS: Normal heart rate and rhythm. Heart sounds normal. Pulses normal. Respiratory: No respiratory distress. Skin: Skin warm and dry. Normal skin color. PROGRESS AND PROCEDURES Differential Diagnosis: Other possible considerations: Dental abscess, dental infection, postoperative pain and swelling. MEDICAL DECISION MAKING: (patient appears well nontoxic. No evidence of abscess. Slight lymphadenopathy. Patient will be treated with clindamycin following the completion of her amoxicillin. Advised follow-up with dentist. Stable time of discharge.). Disposition: Condition: stable. Discharged in stable condition. 2 of 3 Narrative CLINICAL IMPRESSION Dental pain. DISCHARGE INSTRUCTIONS Warnings: GENERAL WARNINGS: Return or contact your physician immediately if your condition worsens or changes unexpectedly, if not improving as expected, or if other problems arise. Prescription Medications: Medications prescribed: Oral Clindamycin. Follow-up: Follow up with your healthcare provider in two days. Call for an appointment. (Electronically signed by Eric Milan D.O. 03/14/24 13:26:43 EDT) Generated by [facility] 3 of 3 [facility] PHYS CODING SUMMARY PLATE GLASS POLISHER [facility] 03-14-2024 PHYS CODING SUMMARY PLATE GLASS POLISHER ABSCassandra Coding Summary Coding Summary [address] [address] [id number] 03/14/2024 Patient: CASIE SOLANO Sex: Female : 1990 Age: 33y ICD-10 Codes K08.89: Other specified disorders of teeth and supporting structures This is a partial abstract of information documented in the full record. Beef Splitter must use independent judgment in selecting codes. CPT copyright 2022 [employer]. All Rights Reserved. 1 of 1 [facility] SUPER BILL 03-14-[address] [address] [id number] 03/14/2024 Patient: CASIE SOLANO Sex: Female : 1990 Age: 33y Item Professional Category Description Facility Code Code Quantity Fee Total Nurse/E/M EMERGENCY 262490 1 $0.00 $0.00 DEPARTMENT VISIT LIMITED/MINOR PROB (95464) Grand Total $0.00 Providers Eric Milan D.O. Chief Complaint dental pain. Principal Diagnosis Dental pain. ICD-10 Codes K08.89: Other specified disorders of teeth and supporting structures 1 of 1 [facility] VISIT SUMMARYon 03-14-2024 VISIT SUMMARY Visit Overview Visit Overview [facility] [address] [place] [address] [id number] 03/14/2024 Patient: CASIE SOLANO Sex: Female : 1990 Age: 33y 03/14/2024 01:42 PM EDT ED Arrival:12:46 03/14/2024 EDT Status:not Recent Travel:no Language:eng Adv Directive: Isolation Status: Ethnicity:N Fall Risk:no risk Infectious Disease Exposure:no Measurements:5'4 / 162.6 Self-Harm Status:risk Sepsis Screen:negative cm 330.0 lb / 149.7 kg Chief Complaint:RIGHT LOWER TOOTHACHE, SWELLING OF JAW / FACE, and (1 weeks) ALLERGIES No Known Drug Allergies HOME MEDICATIONS amoxicillin 500 mg capsule: 500 mg three times a day . ibuprofen 600 mg tablet: 600 mg three times a day . methylPREDNISolone 4 mg tablet: 4 mg . PAST MEDICAL HISTORY / PROBLEMS 1 of 3 Visit Overview CVA - Cerebrovascular Accident Hypertension Last normal menstrual period- 2 weeks PAST SURGICAL HISTORY Gallbladder Surgery SOCIAL HISTORY Smoking status: No Alcohol use: No Drug use: No ED COURSE MEDICATIONS GIVEN IN EMERGENCY DEPARTMENT IV SITE INFORMATION INTAKE OUTPUT REASSESMENT (most recent) 13:38 03/14/24. ( Patient describes a one week hx of right lower jaw pain. Patient recently had a tooth pulled in this area and is concerned for infection.). GENERAL / NEURO / PSYCH: Alert. Oriented X 4. Appears in no acute distress. HEENT: Pupils equal, round and reactive to light. Pharynx within normal limits. Voice within normal limits. No dental injury noted. Mucous membranes are pink. RESPIRATORY: Respirations not labored. CVS: Capillary refill less than 2 seconds. SKIN: Skin is warm and dry. Normal skin turgor. VITAL SIGNS First Vitals Last Vitals Temp 13:04 03/14/24 98.5 F Temp 13:04 03/14/24 98.5 F BP 13:04 03/14/24 189/85 BP 13:04 03/14/24 189/85 HR 13:04 03/14/24 103 HR 13:04 03/14/24 103 2 of 3 Visit Overview First Vitals Last Vitals RR 13:04 03/14/24 20 RR 13:04 03/14/24 20 O2 Sat 13:04 03/14/24 96% O2 Sat 13:04 03/14/24 96% Pain 13:04 03/14/24 7 Pain 13:04 03/14/24 7 ETCO2 13:04 03/14/24 ETCO2 13:04 03/14/24 GCS 13:04 03/14/24 GCS 13:04 03/14/24 RTS 13:04 03/14/24 RTS 13:04 03/14/24 PROCEDURES NURSING INTERVENTIONS LABS / STUDIES CLINICAL IMPRESSION DENTAL PAIN [address] [facility] US FEMALE PELVIS TRANSVAGon 04-21-2023 [facility] Absolute lymphocyte countOrd ered By: Alison Gary on 04-18-2023 Lymphocytes Auto (Unsp spec) [#/Vol] 1.71 10*3/uL 0.83-4.51 [facility] Basophil percentageOrdered B y: Alison Gary on 04-18-2023 Basophil percentage 10-25 SEEN /hpf 0-5 [facility] Basophils/100 WBC (Bld) 0.2 % 0-1 [facility] Bilirubin [Mass/Vol] 0.70 mg/dL 0.20-1.00 [facility] Comment on above: For patients on eltr ombopag therapy, use of Dimension [place] TBIL is not recommended. Chloride [Moles/Vol] 106 mmol/L 98-107 [facility] Eosinophils/100 WBC (Bld) 0.8 % 0-5 [facility] Glucose [Mass/Vol] 131 mg/dL 74-106 [facility] Comment on above: Fasting Glucose resu lt greater than or equal to 126 mg/dL suggests DIABETES MELLITUS per A.D.A. criteria. Neutrophils (Bld) [#/Vol] 6.3 10*3/uL 2.0-7.7 [facility] Neutrophils/100 WBC (Bld) 74.7 % 47-70 [facility] Potassium [Moles/Vol] 3.8 mmol/L 3.5-5.1 [facility] Protein [Mass/Vol] 7.6 g/dL 6.4-8.2 [facility] Sodium [Moles/Vol] 139 mmol/L 136-145 [facility] WBC (Bld) [#/Vol] 8.5 10*3/uL 4.4-11.0 [facility] Beta hCG serum qualOrdered B y: Alison Gary on 04-18-2023 Beta HCG ( test) Ql Negative [facility] Bilirubin Test strip Ql (U)O rdered By: Alison Gary on 04-18-2023 Bilirubin Ql (U) Negative Negative [facility] Blood erythrocytes count (nu mber/volume)Ordered By: Alison Gary on 04-18-2023 RBC (Bld) [#/Vol] 5.29 10*6/uL 4.2-5.4 [facility] Blood hemoglobin measurement (mass/volume)Ordered By: Alison Gary on 04-18-2023 Hemoglobin (Bld) [Mass/Vol] 15.7 g/dL 12.0-15.0 [facility] Blood lymphocytes/100 leukoc ytesOrdered By: Alison Gary on 04-18-2023 Lymphocytes/100 WBC (Bld) 20.2 % 19-41 [facility] Blood monocytes/100 leukocyt esOrdered By: Alison Gary on 04-18-2023 Monocytes/100 WBC (Bld) 3.9 % 0-10 [facility] Blood platelet mean volumeOr dered By: Alison Gary on 04-18-2023 Platelet mean volume (Bld) [Entitic vol] 9.6 fL 6.2-12.0 [facility] Determination of erythrocyte mean corpuscular volume (MCV)Ordered By: Alison Gary on 04-18-2023 MCV (RBC) [Entitic vol] 90.5 fL 81-99 [facility] Hematocrit Auto (Bld) [Volum e fraction]Ordered By: Alison Gary on 04-18-2023 Hematocrit (Bld) [Volume fraction] 47.9 % 37-47 [facility] Ketones Test strip Ql (U)Ord ered By: Alison Gary on 04-18-2023 Ketones Ql (U) Negative Negative [facility] Laboratory - Chemistry and C hemistry - challengeOrdered By: Alison Gary on 04-18-2023 ALP [Catalytic activity/Vol] 67 U/L 45-117 [facility] ALT [Catalytic activity/Vol] 35 U/L 13-56 [facility] CO2 [Moles/Vol] 28.0 mmol/L 21.0-32.0 [facility] Globulin (S) [Mass/Vol] 4.1 g/dL 2.2-4.2 [facility] Urea nitrogen/Creatinine [Mass ratio] 13.1 mg/mg 10-20 [facility] Laboratory - Hematology and Cell countsOrdered By: Alison Gary on 04-18-2023 Erythrocyte distribution width (RBC) [Entitic vol] 44.1 fL 35.1-43.9 [facility] Erythrocyte distribution width (RBC) [Ratio] 13.2 % 11.6-14.6 [facility] Immature granulocytes/100 WBC (Bld) 0.200 % 0.0-0.9 [facility] Comment on above: IG% - Immature Granu locytes (promyelocytes, myelocytes and metamyelocytes) > 1% indicates that a LEFT SHIFT is Present. MCH (RBC) [Entitic mass] 29.7 pg 27.0-32.0 [facility] Nucleated RBC/100 WBC (Bld) [Ratio] 0 % 0-5 [facility] MCHC Auto (RBC) [Mass/Vol]Or dered By: Alison Gary on 04-18-2023 MCHC (RBC) [Mass/Vol] 32.8 g/dL 32-36 [facility] Mucus LM Ql (Urine sed)Order ed By: Alison Gary on 04-18-2023 Mucus Ql (Urine sed) 0 SEEN /hpf [facility] Nitrite Test strip Ql (U)Ord ered By: Alison Gary on 04-18-2023 Nitrite Ql (U) Negative Negative [facility] No Panel InformationOrdered By: Alison Gary on 04-18-2023 Estimated Creatinine Clearance Calc 76.04 ml/min [facility] Estimated GFR (MDRD) Amer 101 mL/min >60 [facility] Comment on above: GFR Calc Estimated GFR (MDRD) Non-Af Amer 83 mL/min >60 [facility] Comment on above: Non- GFR Calc Platelets bldOrdered By: Raoul Gary on 04-18-2023 Platelets (Bld) [#/Vol] 258 10*3/uL 150-450 [facility] Protein Test strip Ql (U)Ord ered By: Alison Gary on 04-18-2023 Protein Ql (U) 15 mg/dl Negative [facility] Serum or plasma albumin paras urement (mass/volume)Ordered By: Alison Gary on 04-18-2023 Albumin [Mass/Vol] 3.5 g/dL 3.2-5.0 [facility] Serum or plasma albumin/glob ulin mass ratioOrdered By: Alison Gary on 04-18-2023 Albumin/Globulin [Mass ratio] 0.9 {ratio} 0.9-2.4 [facility] Serum or plasma calcium paras urement (mass/volume)Ordered By: Alison Gary on 04-18-2023 Calcium [Mass/Vol] 9.0 mg/dL 8.5-10.1 [facility] Serum or plasma creatinine m easurement (mass/volume)Ordered By: Alison Gary on 04-18-2023 Creatinine [Mass/Vol] 0.84 mg/dL 0.55-1.02 [facility] Comment on above: The validity of the calculated GFR & GFRAA in patients over 70 years has not been determined. Clinical correlation is essential. Serum or plasma urea nitroge n measurement (mass/volume)Ordered By: Alison Gary on 04-18-2023 Urea nitrogen [Mass/Vol] 11 mg/dL 12-16 [facility] Squamous epithelial cells de tection in urine sediment by light microscopyOrdered By: Alison Gary on 04-18-2023 Epithelial cells.squamous LM Ql (Urine sed) 5-10 SEEN /hpf 5-10 [facility] Thin prep Papanicolaou smear with manual screeningOrdered By: Alison Gary on 04-18-2023 Thin prep Papanicolaou smear with manual screening 22 U/L 15-37 [facility] Thin prep Papanicolaou smear with manual screening 5 5-15 [facility] Urine blood detectionOrdered By: Alison Gary on 04-18-2023 RBC Ql (U) 50 /ul Negative [facility] RBC Ql (U) 0 SEEN /hpf 0-5 [facility] Urine clarityOrdered By: Raoul Gary on 04-18-2023 Clarity (U) Clear Clear [facility] Urine color determinationOrd ered By: Alison Gary on 04-18-2023 Color (U) Yellow Yellow [facility] Urine glucose detectionOrder ed By: Alison Gary on 04-18-2023 Glucose Ql (U) Normal mg/dl Normal [facility] Urine leukocyte esterase det ection by dipstickOrdered By: Alison Gary on 04-18-2023 Leukocyte esterase Test strip Ql (U) 100 /ul Negative [facility] Urine pHOrdered By: Amaury Gary on 04-18-2023 pH (U) 6.0 [pH] 5.0 - 8.0 [facility] Urine sediment bacteria coun t by microscopy (number/high power field)Ordered By: Alison Gary on 04-18-2023 Bacteria LM.HPF (Urine sed) [#/Area] 1 /[HPF] None Seen [facility] Urine specific gravity measu rementOrdered By: Alison Gary on 04-18-2023 Specific gravity (U) [Rel density] 1.015 1.002-1.03 0 [facility] Urobilinogen Auto test strip Ql (U)Ordered By: Alison Gary on 04-18-2023 Urobilinogen Ql (U) Normal mg/dl Normal [facility] Final Surgical Pathology Rep [facility] 01-02-2023 Final Surgical Pathology Report . Pathology Reports Accession: Collected Date/Time: Received Date/Time: Pathologist: [id number] 12/31/2022 14:49 EDT 01/01/2023 10:11 EDT BRANDEE NASSAR MD Final Surgical Pathology Report DIAGNOSIS: CERVIX, BIOPSY: - ECTOCERVICAL SQUAMOUS MUCOSA, NEGATIVE FOR DYSPLASIA CLINICAL INFORMATION: LGSIL ON PAP SMEAR OF CERVIX Procedure: CERVICAL BX Preoperative diagnosis: LGSIL PAP Postoperative diagnosis: LGSIL PAP SPECIMEN: A CERVICAL BX GROSS DESCRIPTION: All parts labelled with patient name and [id number] Received in formalin labeled undesignated is 1 jay tissue fragment measuring 0.2 cm. TS-1 Renae Eastman, Grossing Tech [employer] Tester/ Dr. João Sheth, Pathologist Dictated by Renae Eastman MICROSCOPIC DESCRIPTION: The microscopic examination is performed, except in the case of Gross Only. Electronically Signed by Pathology Report verified by [facility] BRANDEE ANDERSONMADAY Sign out Date: 01/02/2023 10:52 Performing Lab: [facility], [address] [place] [address] Pathology Dept Disclaimer If ancillary studies were utilized, the following Laboratory Developed Test (LDT) disclaimer will apply: Under CLIA requirements, [facility] is qualified to perform high complexity testing. For all ancillary stains, positive and negative controls stain appropriately. Performance characteristics of immunohistochemical and chromogenic in-situ hybridization tests have been determined by [facility]. These tests are used for clinical purposes, They should not be regarded as investigational or for research. Normal [facility] ([place]) B-TYPE NATRIURETIC PEPTIDE ( BRAIN)on 12-27-2022 Natriuretic peptide B (Bld) [Mass/Vol] 3 pg/mL Normal 0-100 [facility] Comment on above: Performed By: #### B SUPERVISOR FLOOR ASSEMBLY, [id number] #### [facility] (DEFAULT) [address] [address] BETA HCG, QUAL, BLOODon 11-30 HCG (Qual) Serum Negative Normal Negative [facility] Comment on above: Performed By: #### L ABHSTI1, IPB, CA, CHM7, CKB, MGO #### [facility] (DEFAULT) [address] [place] [address] CALCIUMon 12-27-2022 Calcium [Mass/Vol] 9.3 mg/dL Normal 8.6-10.5 [place] Comment on above: Performed By: #### L ABHSTI1, IPB, CA, CHM7, CKB, MGO #### [facility] (DEFAULT) [address] [place] [address] CBC AND ELECTRONIC DIFFon Abs Baso Auto < Normal 0.00-0.15 [facility] Comment on above: Performed By: #### B SUPERVISOR FLOOR ASSEMBLY, [id number] #### [facility] (DEFAULT) [address] [address] Abs Eos Auto < Normal 0.00-0.42 [facility] Comment on above: Performed By: #### B SUPERVISOR FLOOR ASSEMBLY, [id number] #### [facility] (DEFAULT) [address] [address] Basophils/100 WBC (Bld) 0.2 % Normal [facility] Comment on above: Performed By: #### B SUPERVISOR FLOOR ASSEMBLY, [id number] #### [facility] (DEFAULT) [address] [address] DIFF STATUS Electronic Differential Normal [facility] Comment on above: Performed By: #### B SUPERVISOR FLOOR ASSEMBLY, [id number] #### [facility] (DEFAULT) [address] [address] Eosinophils/100 WBC (Bld) 0.3 % Normal [facility] Comment on above: Performed By: #### B SUPERVISOR FLOOR ASSEMBLY, [id number] #### U [facility] (DEFAULT) [address] [address] Hematocrit (Bld) [Volume fraction] 45.0 % High 34.9-44.3 [facility] Comment on above: Performed By: #### B SUPERVISOR FLOOR ASSEMBLY, [id number] #### U [facility] (DEFAULT) [address] [address] Hemoglobin (Bld) [Mass/Vol] 15.1 g/dL Normal 11.4-15.2 [facility] Comment on above: Performed By: #### B SUPERVISOR FLOOR ASSEMBLY, [id number] #### [facility] (DEFAULT) [address] [address] Immature Grans % 0.5 % Normal [facility] Comment on above: Performed By: #### B SUPERVISOR FLOOR ASSEMBLY, [id number] #### [facility] (DEFAULT) [address] [address] Immature Grans Absolute 0.05 K/uL Normal <=0.08 [facility] Comment on above: Performed By: #### B SUPERVISOR FLOOR ASSEMBLY, [id number] #### [facility] (DEFAULT) [address] [place] [address] Lymphocytes (Bld) [#/Vol] 2.20 10*3/uL Normal 1.16-3.51 [facility] Comment on above: Performed By: #### B SUPERVISOR FLOOR ASSEMBLY, [id number] #### [facility] (DEFAULT) [address] [place] [address] Lymphocytes/100 WBC (Bld) 21.3 % Normal [facility] Comment on above: Performed By: #### B SUPERVISOR FLOOR ASSEMBLY, [id number] #### [facility] (DEFAULT) [address] [place] [address] MCV (RBC) [Entitic vol] 88.6 fL Normal 79.6-97.7 [facility] Comment on above: Performed By: #### B SUPERVISOR FLOOR ASSEMBLY, [id number] #### [facility] (DEFAULT) [address] [place] [address] Mean Cell Hgb 29.7 pg Normal 25.9-33.9 [facility] Comment on above: Performed By: #### B SUPERVISOR FLOOR ASSEMBLY, [id number] #### [facility] (DEFAULT) [address] [place] [address] Mean Cell Hgb Conc 33.6 g/dL Normal 31.4-35.9 [place] Comment on above: Performed By: #### B SUPERVISOR FLOOR ASSEMBLY, [id number] #### [facility] (DEFAULT) [address] [place] [address] Monocytes (Bld) [#/Vol] 0.61 10*3/uL Normal 0.22-0.87 [facility] Comment on above: Performed By: #### B SUPERVISOR FLOOR ASSEMBLY, [id number] #### [facility] (DEFAULT) [address] [place] [address] Monocytes/100 WBC (Bld) 5.9 % Normal [facility] Comment on above: Performed By: #### B SUPERVISOR FLOOR ASSEMBLY, [id number] #### [facility] (DEFAULT) [address] [place] [address] Nucleated RBC 0.0 /100 WBC Normal <=0.2 [facility] Comment on above: Performed By: #### B SUPERVISOR FLOOR ASSEMBLY, [id number] #### [facility] (DEFAULT) [address] [address] Platelet mean volume (Bld) [Entitic vol] 9.7 fL Normal 8.5-12.2 [facility] Comment on above: Performed By: #### B SUPERVISOR FLOOR ASSEMBLY, [id number] #### [facility] (DEFAULT) [address] [address] Platelets (Bld) [#/Vol] 259 10*3/uL Normal 150-393 [facility] Comment on above: Performed By: #### B SUPERVISOR FLOOR ASSEMBLY, [id number] #### [facility] (DEFAULT) [address] [place] [address] RBC (Bld) [#/Vol] 5.08 10*6/uL High 3.91-5.04 [facility] Comment on above: Performed By: #### B SUPERVISOR FLOOR ASSEMBLY, [id number] #### [facility] (DEFAULT) [address] [address] RBC Distribution 12.6 % Normal 10.8-14.9 [facility] Comment on above: Performed By: #### B SUPERVISOR FLOOR ASSEMBLY, [id number] #### [facility] (DEFAULT) [address] [address] Segs + Bands Auto 71.8 % Normal [facility] Comment on above: Performed By: #### B SUPERVISOR FLOOR ASSEMBLY, [id number] #### [facility] (DEFAULT) [address] [place] [address] Segs + Bands,Absolute Auto 7.43 K/uL High 1.64-7.28 [facility] Comment on above: Performed By: #### B SUPERVISOR FLOOR ASSEMBLY, [id number] #### [facility] (DEFAULT) [address] [place] [address] WBC (Bld) [#/Vol] 10.34 10*3/uL Normal 3.99-11.19 [facility] Comment on above: Performed By: #### B SUPERVISOR FLOOR ASSEMBLY, [id number] #### [facility] (DEFAULT) [address] [place] [address] CHEM 7 (LYTES,BUN,CREA,GLUC) on 12-27-2022 Anion gap [Moles/Vol] 14 mmol/L Normal 7-17 [facility] Comment on above: Performed By: #### L ABHSTI1, IPB, CA, CHM7, CKB, MGO #### [facility] (DEFAULT) [address] [place] [address] Chloride [Moles/Vol] 103 mmol/L Normal 98-108 [facility] Comment on above: Performed By: #### L ABHSTI1, IPB, CA, CHM7, CKB, MGO #### [facility] (DEFAULT) [address] [place] [address] CO2 [Moles/Vol] 25 mmol/L Normal 21-31 [facility] Comment on above: Performed By: #### L ABHSTI1, IPB, CA, CHM7, CKB, MGO #### [facility] (DEFAULT) [address] [place] [address] Creatinine [Mass/Vol] 0.67 mg/dL Normal 0.50-1.20 [facility] Comment on above: Performed By: #### L ABHSTI1, IPB, CA, CHM7, CKB, MGO #### [facility] (DEFAULT) [address] [place] [address] eGFR, CKD-EPI, Female > Normal >=60 [facility] Comment on above: Result Comment: Repo rted eGFR is based on the CKD-EPI 2020 equation using creatinine, age, and sex. Performed By: #### L ABHSTI1, IPB, CA, CHM7, CKB, MGO #### [facility] (DEFAULT) [address] [place] [address] Glucose [Mass/Vol] 116 mg/dL High 70-99 [place] Comment on above: Performed By: #### L ABHSTI1, IPB, CA, CHM7, CKB, MGO #### [facility] (DEFAULT) [address] [place] [address] Osmolality [Osmolality] 289 mosm/kg Normal 278-305 [facility] Comment on above: Performed By: #### L ABHSTI1, IPB, CA, CHM7, CKB, MGO #### [facility] (DEFAULT) [address] [place] [address] Potassium [Moles/Vol] 4.0 mmol/L Normal 3.5-5.0 [facility] Comment on above: Performed By: #### L ABHSTI1, IPB, CA, CHM7, CKB, MGO #### [facility] (DEFAULT) [address] [place] [address] Sodium [Moles/Vol] 138 mmol/L Normal 135-145 [place] Comment on above: Performed By: #### L ABHSTI1, IPB, CA, CHM7, CKB, MGO #### [facility] (DEFAULT) [address] [place] [address] Urea nitrogen [Mass/Vol] 10 mg/dL Normal 7-25 [facility] Comment on above: Performed By: #### L ABHSTI1, IPB, CA, CHM7, CKB, MGO #### [facility] (DEFAULT) [address] [place] [address] Urea nitrogen/Creatinine [Mass ratio] 15 mg/mg Normal [facility] Comment on above: Performed By: #### L ABHSTI1, IPB, CA, CHM7, CKB, MGO #### [facility] (DEFAULT) [address] [place] [address] CKon 12-27-2022 CK [Catalytic activity/Vol] 132 U/L Normal 30-184 [facility] Comment on above: Performed By: #### L ABHSTI1, IPB, CA, CHM7, CKB, MGO #### [facility] (DEFAULT) [address] [place] [address] D-DIMER,QUANTITATIVEon 12-27 D-Dimer, High Sensitivity 0.45 mcg/mL FEU Normal <0.50 [facility] Comment on above: Result Comment: The D-Dimer assay is intended for use in conjuction with a clinical pretest probability (PTP) assessment model to exclude pulmonary embolism (PE) and as an aid in the diagnosis of Deep Vein Thrombosis (DVT) in outpatients suspected of PE or DVT. For the assay in use at [facility] ([facility]), a cutoff of <0.50 mcg/mL has a Negative Predictive Value of 99.7% for exclusion of DVT in low and moderate PTP patients. Performed By: #### H SDDI #### [facility] (DEFAULT) [address] [address] HIGH SENSITIVITY TROPONIN I - SINGLE ORDERon 12-27-2022 hs-Troponin I <3 Normal <34 [facility] Comment on above: Order Comment: Acute Coronary Syndrome (ACS): Initial Evaluation and Management: [email or web address] [email or web address] Performed By: #### L ABHSTI1, IPB, CA, CHM7, CKB, MGO #### [facility] (DEFAULT) [address] [place] [address] MAGNESIUMon 12-27-2022 Magnesium [Mass/Vol] 1.8 mg/dL Normal 1.6-2.6 [facility] Comment on above: Performed By: #### L ABHSTI1, IPB, CA, CHM7, CKB, MGO #### [facility] (DEFAULT) [address] [place] [address] PHOSPHATE, INORGANICon 12-27 Phosphorous 3.7 mg/dL Normal 2.2-4.6 [facility] Comment on above: Performed By: #### L ABHSTI1, IPB, CA, CHM7, CKB, MGO #### [facility] (DEFAULT) [address] [place] [address] XR CHEST AP PORTABLE EDon XR CHEST AP PORTABLE ED EXAM: XR CHEST AP PORTABLE ED, 12/27/2022 11:11 AM COMPARISON: No prior studies available for comparison. CLINICAL INDICATIONS: chest pain RELEVANT CLINICAL HISTORY: FINDINGS: (Adequate technique) Implanted Devices: None Thorax: No acute findings in the chest. IMPRESSION: No acute cardiopulmonary disease Normal [facility] Basophil percentageOrdered B y: Baudilio Walton on 12-26-2022 Bilirubin [Mass/Vol] 0.70 mg/dL 0.20-1.00 [facility] Comment on above: For patients on eltr ombopag therapy, use of Dimension [place] TBIL is not recommended. Chloride [Moles/Vol] 103 mmol/L 98-107 [facility] Glucose [Mass/Vol] 99 mg/dL 74-106 [facility] Potassium [Moles/Vol] 4.0 mmol/L 3.5-5.1 [facility] Protein [Mass/Vol] 7.6 g/dL 6.4-8.2 [facility] Sodium [Moles/Vol] 136 mmol/L 136-145 [facility] Basophil percentage 0-5 SEEN /hpf 0-5 [facility] Bilirubin Test strip Ql (U)O rdered By: Baudilio Walton on 12-26-2022 Bilirubin Ql (U) Negative Negative [facility] Culture, urineOrdered By: Ug abner Robbo on 12-26-2022 Bacteria identified Cx Nom (U) Positive [facility] Ketones Test strip Ql (U)Ord ered By: Baudilio Walton on 12-26-2022 Ketones Ql (U) Negative Negative [facility] Laboratory - Chemistry and C hemistry - challengeOrdered By: Baudilio Walton on 12-26-2022 ALP [Catalytic activity/Vol] 65 U/L 45-117 [facility] ALT [Catalytic activity/Vol] 40 U/L 13-56 [facility] CO2 [Moles/Vol] 28.0 mmol/L 21.0-32.0 [facility] Globulin (S) [Mass/Vol] 4.0 g/dL 2.2-4.2 [facility] Urea nitrogen/Creatinine [Mass ratio] 12.1 mg/mg 10-20 [facility] Mucus LM Ql (Urine sed)Order ed By: Baudilio Walton on 12-26-2022 Mucus Ql (Urine sed) 0 SEEN /hpf [facility] Nitrite Test strip Ql (U)Ord ered By: Baudilio Walton on 12-26-2022 Nitrite Ql (U) Negative Negative [facility] No Panel InformationOrdered By: Baudilio Walton on 12-26-2022 Estimated Creatinine Clearance Calc 82.36 ml/min [facility] Estimated GFR (MDRD) Amer 116 mL/min >60 [facility] Comment on above: GFR Calc Estimated GFR (MDRD) Non-Af Amer 96 mL/min >60 [facility] Comment on above: Non- GFR Calc Thyroid Stimulating Hormone (TSH) 2.15 uIU/mL 0.358-3.74 [facility] Protein Test strip Ql (U)Ord ered By: Baudilio Walton on 12-26-2022 Protein Ql (U) Negative Negative [facility] Serum or plasma albumin paras urement (mass/volume)Ordered By: Baudilio Walton on 12-26-2022 Albumin [Mass/Vol] 3.6 g/dL 3.2-5.0 [facility] Serum or plasma albumin/glob ulin mass ratioOrdered By: Baudilio Walton on 12-26-2022 Albumin/Globulin [Mass ratio] 0.9 {ratio} 0.9-2.4 [facility] Serum or plasma calcium paras urement (mass/volume)Ordered By: Baudilio Walton on 12-26-2022 Calcium [Mass/Vol] 8.9 mg/dL 8.5-10.1 [facility] Serum or plasma creatinine m easurement (mass/volume)Ordered By: Baudilio Walton on 12-26-2022 Creatinine [Mass/Vol] 0.74 mg/dL 0.55-1.02 [facility] Comment on above: The validity of the calculated GFR & GFRAA in patients over 70 years has not been determined. Clinical correlation is essential. Serum or plasma urea nitroge n measurement (mass/volume)Ordered By: Baudilio Walton on 12-26-2022 Urea nitrogen [Mass/Vol] 9 mg/dL 7-18 [facility] Squamous epithelial cells de tection in urine sediment by light microscopyOrdered By: Baudilio Walton on 12-26-2022 Epithelial cells.squamous LM Ql (Urine sed) 0-5 SEEN /hpf 5-10 [facility] Thin prep Papanicolaou smear with manual screeningOrdered By: Baudilio Walton on 12-26-2022 Thin prep Papanicolaou smear with manual screening 28 U/L 15-37 [facility] Thin prep Papanicolaou smear with manual screening 5 5-15 [facility] Urine blood detectionOrdered By: Baudilio Walton on 12-26-2022 RBC Ql (U) 10 /ul Negative [facility] RBC Ql (U) 0-5 SEEN /hpf 0-5 [facility] Urine clarityOrdered By: Baudilio Walton on 12-26-2022 Clarity (U) Clear Clear [facility] Urine color determinationOrd ered By: Baudilio Walton on 12-26-2022 Color (U) Yellow Yellow [facility] Urine glucose detectionOrder ed By: Baudilio Walton on 12-26-2022 Glucose Ql (U) Normal mg/dl Normal [facility] Urine leukocyte esterase det ection by dipstickOrdered By: Baudilio Walton on 12-26-2022 Leukocyte esterase Test strip Ql (U) 100 /ul Negative [facility] Urine pHOrdered By: Baudilio levine on 12-26-2022 pH (U) 6.5 [pH] 5.0 - 8.0 [facility] Urine sediment bacteria coun t by microscopy (number/high power field)Ordered By: Baudilio Walton on 12-26-2022 Bacteria LM.HPF (Urine sed) [#/Area] 1 /[HPF] None Seen [facility] Urine specific gravity measu rementOrdered By: Baudilio Walton on 12-26-2022 Specific gravity (U) [Rel density] 1.010 1.002-1.03 0 [facility] Urobilinogen Auto test strip Ql (U)Ordered By: Baudilio Walton on 12-26-2022 Urobilinogen Ql (U) Normal mg/dl Normal [facility] Basophil percentageOrdered B y: Altagracia Bourgeois on 10-24-2022 WBC (Bld) [#/Vol] 7.5 10*3/uL 4.4-11.0 [facility] Blood erythrocytes count (nu mber/volume)Ordered By: Altagracia Bourgeois on 10-24-2022 RBC (Bld) [#/Vol] 5.24 10*6/uL 4.2-5.4 [facility] Blood hemoglobin measurement (mass/volume)Ordered By: Altagracia Bourgeois on 10-24-2022 Hemoglobin (Bld) [Mass/Vol] 15.6 g/dL 12.0-15.0 [facility] Blood platelet mean volumeOr dered By: Altagracia Bourgeois on 10-24-2022 Platelet mean volume (Bld) [Entitic vol] 10.0 fL 6.2-12.0 [facility] Determination of erythrocyte mean corpuscular volume (MCV)Ordered By: Altagracia Bourgeois on 10-24-2022 MCV (RBC) [Entitic vol] 89.7 fL 81-99 [facility] Hematocrit Auto (Bld) [Volum e fraction]Ordered By: Altagracia Bourgeois on 10-24-2022 Hematocrit (Bld) [Volume fraction] 47.0 % 37-47 [facility] Laboratory - Chemistry and C hemistry - challengeOrdered By: Oliverio Lyon on 10-24-2022 HCG ( test) Ql (U) Negative [facility] Comment on above: Very dilute urine sp ecimens, as indicated by a low specificgravity, may not contain sales representative raw fibers levels of hCG. If is still suspected, a first morning urinespecimen should be collected 48 hours later and tested. Laboratory - Hematology and Cell countsOrdered By: Altagracia Bourgeois on 10-24-2022 Erythrocyte distribution width (RBC) [Entitic vol] 42.5 fL 35.1-43.9 [facility] Erythrocyte distribution width (RBC) [Ratio] 13.1 % 11.6-14.6 [facility] MCH (RBC) [Entitic mass] 29.8 pg 27.0-32.0 [facility] MCHC Auto (RBC) [Mass/Vol]Or dered By: Altagracia Bourgeois on 10-24-2022 MCHC (RBC) [Mass/Vol] 33.2 g/dL 32-36 [facility] Platelets bldOrdered By: Gladys aundrea Bk on 10-24-2022 Platelets (Bld) [#/Vol] 241 10*3/uL 150-450 [facility] CULTURE, URINE, ROUTINEon CULTURE, URINE, ROUTINE SEE NOTE Normal [facility] Comment on above: Result Comment: CULTURE, URINE, ROUTINE Micro Number: [id number] Test Status: Final Specimen Source: Urine, clean catch Specimen Quality: Adequate Result: Mixed genital cheikh isolated. These superficial bacteria are not indicative of a urinary tract infection. No further organism identification is warranted on this specimen. If clinically indicated, recollect clean-catch, mid-stream urine and transfer immediately to Urine Culture Transport Tube. Performed By: #### 3 95 #### [facility] [address], [address] [place] [id number] Head Control Clerk: Bryce Lopez MD RF UGI w/o KUB w/ or w/o Del ay [facility] 11-07-2019 RF UGI w/o KUB w/ or w/o Delay [facility] Patient Name: CASIE SOLANO Fluoroscopy Exam Date/Time 11/07/2019 10:52:33 EDT Exam RF UGI w/o KUB and w/ or w/o Delay [facility] Ordering Physician HUSAM SPEAR, LIZ Lemon Accession Number [id number] CTP4 Codes 37762 () Reason For Exam Heartburn Report AIR CONTRAST UGI SERIES CLINICAL INDICATIONS: Preoperative evaluation for bariatric surgery. Recent EGD. COMPARISON: None FLUOROSCOPY TIME: 1.25 minutes. FLUOROSCOPIC EXPOSURES: 22 fluoroscopic spot images were obtained. TECHNIQUE: Biphasic exam was performed with barium and air. FINDINGS: Barium and air are administered. The esophagus is studied in the upright as well as the horizontal positions. The esophagus is normal in course and caliber. There is no hiatal hernia. No free gastroesophageal reflux is seen at this time. Barium flows freely from the esophagus into the stomach. The stomach and duodenum show normal mucosal pattern, with no discrete ulcer or mass. The visualized proximal jejunum is unremarkable. IMPRESSION: Unremarkable UGI series. Report Dictated on Final Dictated: 11/07/2019 11:17 am Dictating Physician: MD [place] JONATHAN R Signed Date and Time: 11/07/2019 1:03 pm Signed by: MD [place] JONATHAN R Transcribed Date and Time: 11/07/2019 11:19 Normal [facility] US ABDOMEN COMPLETEon 2019 Patient Name: CASIE SOLANO ---Ultrasound--- Exam Date/Time 11/07/2019 10:00:00 EDT Exam US Abdomen Complete Ordering Physician HUSAM SPEAR LEISA R. Accession Number [id number] CPT4 Codes 91759 () Reason For Exam Abdominal Pain Report CLINICAL INFORMATION: Abdominal pain. Preop. Sonogram of the abdomen is performed. Coarse echotexture of the liver parenchyma is compatible with fatty infiltration. No hyper or hypo echoic lesions are evident. There is no intrahepatic biliary ductal dilatation. The gallbladder is surgically absent. The common bile duct diameter of 3.1 mm is within normal limits. The pancreas is incompletely visualized due to bowel gas artifact . No peripancreatic fluid collection is identified. Cursory examination of the kidneys is performed. The right kidney measures 11.1 x 4.4 x 5.0 cm. The left kidney measures 11.4 x 5.2 x 4.1 cm. There is no hydronephrosis. There is no ascites. The visualized portions of the aorta and inferior vena cava are within normal limits. The Spleen is normal in size, measuring 9.6 x 4.6 x 3.6 cm. IMPRESSION: Fatty infiltration of the liver parenchyma. Incomplete visualization of the pancreas. Status post cholecystectomy. No biliary ductal dilatation. Report Dictated on --- Final --- Dictated: 11/07/2019 12:21 pm Dictating Physician: MD LANG LAURA Signed Date and Time: 11/07/2019 12:23 pm Signed by: MD LANG LAURA Transcribed Date and Time: 11/07/2019 12:21 [place], [place] [facility] Incoming Radiology Results From [facility] - 11/07/2019 12:24 PM EDT Patient Name: CASIE SOLANO ---Ultrasound--- Exam Date/Time 11/07/2019 10:00:00 EDT Exam US Abdomen Complete Ordering Physician HUSAM SPEAR LEISA R. Accession Number [id number] CPT4 Codes 77784 () Reason For Exam Abdominal Pain Report CLINICAL INFORMATION: Abdominal pain. Preop. Sonogram of the abdomen is performed. Coarse echotexture of the liver parenchyma is compatible with fatty infiltration. No hyper or hypo echoic lesions are evident. There is no intrahepatic biliary ductal dilatation. The gallbladder is surgically absent. The common bile duct diameter of 3.1 mm is within normal limits. The pancreas is incompletely visualized due to bowel gas artifact . No peripancreatic fluid collection is identified. Cursory examination of the kidneys is performed. The right kidney measures 11.1 x 4.4 x 5.0 cm. The left kidney measures 11.4 x 5.2 x 4.1 cm. There is no hydronephrosis. There is no ascites. The visualized portions of the aorta and inferior vena cava are within normal limits. The Spleen is normal in size, measuring 9.6 x 4.6 x 3.6 cm. IMPRESSION: Fatty infiltration of the liver parenchyma. Incomplete visualization of the pancreas. Status post cholecystectomy. No biliary ductal dilatation. Report Dictated on --- Final --- Dictated: 11/07/2019 12:21 pm Dictating Physician: MD LANG LAURA Signed Date and Time: 11/07/2019 12:23 pm Signed by: MD LANG LAURA Transcribed Date and Time: 11/07/2019 12:21 [place], [place] US Abdomen Completeon 2019 US Abdomen Complete Patient Name: CASIE SOLANO Ultrasound Exam Date/Time 11/07/2019 10:00:00 EDT Exam US Abdomen Complete Ordering Physician HUSAM SPEAR LEISA R. Accession Number [id number] CPT4 Codes 13026 () Reason For Exam Abdominal Pain Report CLINICAL INFORMATION: Abdominal pain. Preop. Sonogram of the abdomen is performed. Coarse echotexture of the liver parenchyma is compatible with fatty infiltration. No hyper or hypo echoic lesions are evident. There is no intrahepatic biliary ductal dilatation. The gallbladder is surgically absent. The common bile duct diameter of 3.1 mm is within normal limits. The pancreas is incompletely visualized due to bowel gas artifact . No peripancreatic fluid collection is identified. Cursory examination of the kidneys is performed. The right kidney measures 11.1 x 4.4 x 5.0 cm. The left kidney measures 11.4 x 5.2 x 4.1 cm. There is no hydronephrosis. There is no ascites. The visualized portions of the aorta and inferior vena cava are within normal limits. The Spleen is normal in size, measuring 9.6 x 4.6 x 3.6 cm. IMPRESSION: Fatty infiltration of the liver parenchyma. Incomplete visualization of the pancreas. Status post cholecystectomy. No biliary ductal dilatation. Report Dictated on Final Dictated: 11/07/2019 12:21 pm Dictating Physician: MD LANG LAURA Signed Date and Time: 11/07/2019 12:23 pm Signed by: MD LANG LAURA Transcribed Date and Time: 11/07/2019 12:21 Normal [facility] Surgical Pathologyon 05-19-2 020 Surgical Pathology [id number] [facility] PATHOLOGY AND LABORATORY MEDICINE [address] [place] [id number] FINAL SURGICAL PATHOLOGY REPORT NAME: CASIE SOLANO N [id number] : 1990 28 Y Sena MENDEZ NO.: [id number] LOCATION: [facility] 1PAC 04 PROCEDURE 10/18/2019 DATE: SURGEON: ALMA NGUYEN M.D. RECEIVED 10/18/2019 DATE: ATTENDING: ALMA NGUYEN M.D. REPORT DATE: 10/19/2019 COPIES TO: DIAGNOSIS: A. STOMACH, ANTRUM, BIOPSY - MILD CHRONIC, INACTIVE GASTRITIS Comment: Evaluation of the H&E-stained sections shows no evidence of Helicobacter pylori or any morphologic features to suggest infection with the organism; as such, further studies for Helicobacter are not indicated. There is no evidence of intestinal metaplasia, dysplasia or malignancy. B. STOMACH, BODY, BIOPSY - FUNDIC GLAND POLYP HCK/HCK Signature> RONNIE KELLY M.D. CLINICAL INFORMATION: GERD SPECIMEN: (A) GASTRIC BIOPSY (B) GASTRIC POLYP, BIOPSY GROSS DESCRIPTION: A. Received in formalin labeled antrum biopsy are two segments of jay tissue measuring 0.3 x 0.3 x 0.3 cm.. Submitted in toto. B. Received in formalin labeled gastric body polyp is one segments of jay tissue measuring 0.3 x 0.3 x 0.2 cm.. Submitted in toto. AHD/AHD Disclaimer: The following statement applies to all immunohistochemistry, in situ hybridization, molecular studies, and immunofluorescence testing. The use of one or more reagents in the above tests is regulated as an analyte specific reagent (ASR). These tests were developed and their performance characteristics determined by the clinical laboratories of [facility]. They have not been cleared by the US Food and Drug Administration (FDA). The FDA has determined that such clearance or approval is not necessary. All the above immunostains were performed on paraffin embedded tissue. Appropriate positive and negative controls (where applicable) were run in parallel with the patient's specimen; these controls showed expected staining pattern, with acceptable intensity of staining. Immunohistochemical assays have not been validated on decalcified tissues. Results should be interpreted with caution given the raised possibility of false negativity on decalcified specimens. Professional Performing Location: [address] [address]. DEPARTMENT OF PATHOLOGY AND LABORATORY MEDICINE [place], [place] [address] Normal [facility] Vitamin B1,Whole Bloodon Vitamin B1,Whole Blood 134 nmol/L Normal 70-180 [facility] Comment on above: Result Comment: INTE RPRETIVE INFORMATION: Vitamin B1, Whole Blood This assay measures the concentration of thiamine diphosphate (TDP), the primary active form of vitamin B1. Approximately 90 percent of vitamin B1 present in whole blood is TDP. Thiamine and thiamine monophosphate, which comprise the remaining 10 percent, are not measured. Test developed and characteristics determined by [employer] See Compliance Statement B: [employer]/ Performed by [employer] [address] [place] [id number] [email or web address], Dennys Sarmiento MD, Lab. Director Performed By: #### H EMOG, HA1C2, LIPD2, CMP3, MG3, TSH5, FERR3, B12, FOLT3, IRON3 #### [address] [id number] #### [id number] #### [facility] [address] [place] [address] #### ZINC2, WBB1O #### The performing lab is in the report. Zinc, Serumon 07-25-2019 Zinc, Serum 76.5 ug/dL Normal 60.0-120.0 [facility] Comment on above: Result Comment: INTE RPRETIVE INFORMATION: Zinc, Serum or Plasma Elevated results may be due to skin or collection-related contamination, including the use of a noncertified metal-free collection/transport tube. If contamination concerns exist due to elevated levels of serum/plasma zinc, confirmation with a second specimen collected in a certified metal-free tube is recommended. Circulating zinc concentrations are dependent on albumin status and are depressed with malnutrition. Zinc may also be lowered with infection, inflammation, stress, oral contraceptives, and . Zinc may be elevated with zinc supplementation or fasting. Elevated zinc concentrations may interfere with copper absorption. Test developed and characteristics determined by [employer] See Compliance Statement B: [employer]/CS Performed by [employer] [address] [place] [id number] [email or web address], Dennys Sarmiento MD, Lab. Director Performed By: #### H EMOG, HA1C2, LIPD2, CMP3, MG3, TSH5, FERR3, B12, FOLT3, IRON3 #### [facility] [address] [place] [id number] #### [id number] #### [facility] [email or web address] [facility] [address] [place] [address] #### ZINC2, WBB1O #### The performing lab is in the report. Vit D 25-OH, Totalon 020 Vit D 25-OH, Total < 13 Low 30-100 [facility] Comment on above: Result Comment: Ther apy is based on measurement of Total 25- OHD with the following classification levels: Less than 20 ng/mL: Indicative of Vit D deficiency 20-30 ng/mL: Suggests Vit D insufficiency Optimal: Greater than or equal to 30 ng/mL Test performed by [employer], measuring Total Vitamin D, not individual fractions. Performed By: #### H EMOG, HA1C2, LIPD2, CMP3, MG3, TSH5, FERR3, B12, FOLT3, IRON3 #### [facility] [address] [place] [address] #### [id number] #### [facility] [address] [place] [address] #### ZINC2, WBB1O #### The performing lab is in the report. Vitamin D 25 Hydroxyon 07-22 Interpretation and review of laboratory results Abnormal [place], [place] Vit D, 25-Hydroxy <13 Low 30 - 100 ng/mL [place] Comment on above: Therapy is based on measurement of Total 25-OHD with the following classification levels: Less than 20 ng/mL: Indicative of Vit D deficiency 20-30 ng/mL: Suggests Vit D insufficiency Optimal: Greater than or equal to 30 ng/mL Test performed by [employer], measuring Total Vitamin D, not individual fractions. Test Performed by [facility], [address], [place], [place] [address] [place], [place] CBCon 07-21-2019 Erythrocyte distribution width (RBC) [Ratio] 13.4 % 11.5 - 14.5 % [place] Hematocrit (Bld) [Volume fraction] 46.7 % 35 - 47 % [place] Hemoglobin (Bld) [Mass/Vol] 15.8 g/dL 11.7 - 16 g/dL [place] Interpretation and review of laboratory results Abnormal [place] MCH (RBC) [Entitic mass] 29.4 pg 26 - 34 pg [place] MCHC (RBC) [Mass/Vol] 33.8 % 32 - 36 % [place] MCV (RBC) [Entitic vol] 87.2 fL 79 - 98 fL [place] Platelet mean volume (Bld) [Entitic vol] 8.4 fL 7.4 - 10.4 fL [place] Platelets (Bld) [#/Vol] 229 10*3/uL 140 - 440 10*3/uL [place] RBC (Bld) [#/Vol] 5.36 10*6/uL High 3.8 - 5.2 10*6/uL [place] WBC (Bld) [#/Vol] 7.4 10*3/uL 3.6 - 10.7 10*3/uL [place] Test Performed by [facility], [address] [place] [address] [place] Comp Metabolic Panelon 07-21 ALT [Catalytic activity/Vol] 25 U/L Normal 13-69 [facility] Comment on above: Performed By: #### H EMOG, HA1C2, LIPD2, CMP3, MG3, TSH5, FERR3, B12, FOLT3, IRON3 #### [address] #### [id number] #### [facility] [address] [place] [address] #### ZINC2, WBB1O #### The performing lab is in the report. Calcium [Mass/Vol] 9.4 mg/dL Normal 8.4-10.4 [facility] Comment on above: Performed By: #### H EMOG, HA1C2, LIPD2, CMP3, MG3, TSH5, FERR3, B12, FOLT3, IRON3 #### [address] #### [id number] #### [facility] [address] [place] [address] #### ZINC2, WBB1O #### The performing lab is in the report. ALP [Catalytic activity/Vol] 71 U/L Normal 38-126 [facility] Comment on above: Performed By: #### H EMOG, HA1C2, LIPD2, CMP3, MG3, TSH5, FERR3, B12, FOLT3, IRON3 #### [address] #### [id number] #### [facility] [address] [place] [address] #### ZINC2, WBB1O #### The performing lab is in the report. Anion gap [Moles/Vol] 9 Normal [facility] Comment on above: Performed By: #### H EMOG, HA1C2, LIPD2, CMP3, MG3, TSH5, FERR3, B12, FOLT3, IRON3 #### [address] #### [id number] #### [address] [place] [address] #### ZINC2, WBB1O #### The performing lab is in the report. AST [Catalytic activity/Vol] 31 U/L Normal 15-46 [facility] Comment on above: Performed By: #### H EMOG, HA1C2, LIPD2, CMP3, MG3, TSH5, FERR3, B12, FOLT3, IRON3 #### [address] #### [id number] #### [address] [place] [address] #### ZINC2, WBB1O #### The performing lab is in the report. Bilirubin [Mass/Vol] 0.8 mg/dL Normal 0.2-1.3 [facility] Comment on above: Performed By: #### H EMOG, HA1C2, LIPD2, CMP3, MG3, TSH5, FERR3, B12, FOLT3, IRON3 #### [address] #### [id number] #### [address] [place] [address] #### ZINC2, WBB1O #### The performing lab is in the report. CO2 [Moles/Vol] 28 mmol/L Normal 22-30 [facility] Comment on above: Performed By: #### H EMOG, HA1C2, LIPD2, CMP3, MG3, TSH5, FERR3, B12, FOLT3, IRON3 #### [address] #### [id number] #### [address] [place] [address] #### ZINC2, WBB1O #### The performing lab is in the report. Creatinine [Mass/Vol] 0.62 mg/dL Normal 0.52-1.25 [facility] Comment on above: Performed By: #### H EMOG, HA1C2, LIPD2, CMP3, MG3, TSH5, FERR3, B12, FOLT3, IRON3 #### [address] #### [id number] #### [place] [address] [place] [address] #### ZINC2, WBB1O #### The performing lab is in the report. GFR/1.73 sq M predicted among blacks MDRD (S/P/Bld) [Vol rate/Area] mL/min/{1.73_m2} Normal >60 [facility] Comment on above: Performed By: #### H EMOG, HA1C2, LIPD2, CMP3, MG3, TSH5, FERR3, B12, FOLT3, IRON3 #### [address] #### [id number] #### [address] [place] [address] #### ZINC2, WBB1O #### The performing lab is in the report. GFR/1.73 sq M predicted among non-blacks MDRD (S/P/Bld) [Vol rate/Area] mL/min/{1.73_m2} Normal >60 [facility] Comment on above: Result Comment: Sour ce- MDRD equation with creatinine calibration to IDMS(NKDEP) eGFR not recommended for drug dose adjustment Performed By: #### H EMOG, HA1C2, LIPD2, CMP3, MG3, TSH5, FERR3, B12, FOLT3, IRON3 #### [address] #### [id number] #### [address] [place] [address] #### ZINC2, WBB1O #### The performing lab is in the report. Glucose [Mass/Vol] 68 mg/dL Low 70-100 [facility] Comment on above: Performed By: #### H EMOG, HA1C2, LIPD2, CMP3, MG3, TSH5, FERR3, B12, FOLT3, IRON3 #### [address] #### [id number] #### [address] [place] [address] #### ZINC2, WBB1O #### The performing lab is in the report. Protein [Mass/Vol] 8.0 g/dL Normal 6.3-8.2 [facility] Comment on above: Performed By: #### H EMOG, HA1C2, LIPD2, CMP3, MG3, TSH5, FERR3, B12, FOLT3, IRON3 #### [address] #### [id number] #### [address] [place] [address] #### ZINC2, WBB1O #### The performing lab is in the report. Urea nitrogen [Mass/Vol] 13 mg/dL Normal 7-20 [facility] Comment on above: Performed By: #### H EMOG, HA1C2, LIPD2, CMP3, MG3, TSH5, FERR3, B12, FOLT3, IRON3 #### [address] #### [id number] #### [address] [place] [address] #### ZINC2, WBB1O #### The performing lab is in the report. Potassium [Moles/Vol] 3.7 mmol/L Normal 3.5-5.1 [facility] Comment on above: Performed By: #### H EMOG, HA1C2, LIPD2, CMP3, MG3, TSH5, FERR3, B12, FOLT3, IRON3 #### [address] #### [id number] #### [address] [place] [address] #### ZINC2, WBB1O #### The performing lab is in the report. Sodium [Moles/Vol] 139 mmol/L Normal 135-145 [facility] Comment on above: Performed By: #### H EMOG, HA1C2, LIPD2, CMP3, MG3, TSH5, FERR3, B12, FOLT3, IRON3 #### [address] #### [id number] #### [facility] [address] [place] [address] #### ZINC2, WBB1O #### The performing lab is in the report. Albumin [Mass/Vol] 4.2 g/dL Normal 3.5-5.0 [facility] Comment on above: Performed By: #### H EMOG, HA1C2, LIPD2, CMP3, MG3, TSH5, FERR3, B12, FOLT3, IRON3 #### [address] #### [id number] #### [facility] [address] [place] [address] #### ZINC2, WBB1O #### The performing lab is in the report. Chloride [Moles/Vol] 102 mmol/L Normal 98-107 [facility] Comment on above: Performed By: #### H EMOG, HA1C2, LIPD2, CMP3, MG3, TSH5, FERR3, B12, FOLT3, IRON3 #### [address] #### [id number] #### [facility] [address] [place] [address] #### ZINC2, WBB1O #### The performing lab is in the report. Comprehensive Metabolic Pane roshan 07-21-2019 Albumin [Mass/Vol] 4.2 g/dL 3.5 - 5 g/dL [place] ALP [Catalytic activity/Vol] 71 U/L 38 - 126 U/L [place] ALT [Catalytic activity/Vol] 25 U/L 13 - 69 U/L [place] Anion gap [Moles/Vol] 9 mmol/L [place], [place] AST [Catalytic activity/Vol] 31 U/L 15 - 46 U/L [place] Bilirubin Ql (U) 0.8 mg/dL 0.2 - 1.3 mg/dL [place] Calcium [Mass/Vol] 9.4 mg/dL 8.4 - 10. 4 mg/dL [place] Chloride [Moles/Vol] 102 mmol/L 98 - 10 7 mmol/L [place] CO2 [Moles/Vol] 28 mmol/L 22 - 30 mmol/L [place] Creatinine [Mass/Vol] 0.62 mg/dL 0.52 - 1.25 mg/dL [place] EGFR IF NonAfrican [place] >60.0 >60 mL/min [place] Comment on above: Source- MDRD equatio n with creatinine calibration to IDMS(NKDEP) eGFR not recommended for drug dose adjustment GFR/1.73 sq M predicted among blacks MDRD (S/P/Bld) [Vol rate/Area] mL/min/{1.73_m2} >60 mL/min [place] Glucose [Mass/Vol] 68 mg/dL Low 70 - 100 mg/dL [place] Potassium [Moles/Vol] 3.7 mmol/L 3.5 - 5.1 mmol/L [place] Protein [Mass/Vol] 8.0 g/dL 6.3 - 8.2 g/dL [place] Sodium [Moles/Vol] 139 mmol/L 135 - 145 mmol/L [place] Urea nitrogen [Mass/Vol] 13 mg/dL 7 - 20 mg/dL [place] Ferritinon 07-21-2019 Ferritin [Mass/Vol] 36 ng/mL Normal 8-252 [facility] Comment on above: Performed By: #### H EMOG, HA1C2, LIPD2, CMP3, MG3, TSH5, FERR3, B12, FOLT3, IRON3 #### [facility] [address] [place] [address] #### [id number] #### [facility] [address] [place] [address] #### ZINC2, WBB1O #### The performing lab is in the report. Ferritin [Mass/Vol] 36 ng/mL 8 - 252 ng/mL [place] Test Performed by [facility], [address] [place] [id number] [place] [address] Folateon 07-21-2019 Folate 15.4 ng/mL Normal 2.8-20.0 [facility] Comment on above: Performed By: #### H EMOG, HA1C2, LIPD2, CMP3, MG3, TSH5, FERR3, B12, FOLT3, IRON3 #### [address] #### [id number] #### [address] [place] [address] #### ZINC2, WBB1O #### The performing lab is in the report. Folate 15.4 ng/mL 2.8 - 20 ng/mL [place] Hemoglobin A1Con 07-21-2019 HbA1c (Bld) [Mass fraction] 5.3 % Normal 4.0-5.7 [facility] Comment on above: Result Comment: --Hg bA1C levels may not be accurate in patients who have renal disease, received recent blood transfusions, are anemic, or who have dyshemoglobinemia. Performed By: #### H EMOG, HA1C2, LIPD2, CMP3, MG3, TSH5, FERR3, B12, FOLT3, IRON3 #### [address] #### [id number] #### [facility] [address] [facility] [place] [address] #### ZINC2, WBB1O #### The performing lab is in the report. HbA1c (Bld) [Mass fraction] 105 mg/dL Normal [facility] Comment on above: Performed By: #### H EMOG, HA1C2, LIPD2, CMP3, MG3, TSH5, FERR3, B12, FOLT3, IRON3 #### [address] #### [id number] #### [facility] [address] [place] [address] #### ZINC2, WBB1O #### The performing lab is in the report. eAG 105 mg/dL [place] HbA1c (Bld) [Mass fraction] 5.3 % 4 - 5.7 % [place] Comment on above: --HgbA1C levels may not be accurate in patients who have renal disease, received recent blood transfusions, are anemic, or who have dyshemoglobinemia. Test Performed by [facility], [address] [place] [address] Hemogramon 07-21-2019 Erythrocyte distribution width (RBC) [Ratio] 13.4 % Normal 11.5-14.5 [facility] Comment on above: Performed By: #### H EMOG, HA1C2, LIPD2, CMP3, MG3, TSH5, FERR3, B12, FOLT3, IRON3 #### [address] #### [id number] #### [address] [place] [address] #### ZINC2, WBB1O #### The performing lab is in the report. Hematocrit (Bld) [Volume fraction] 46.7 % Normal 35.0-47.0 [facility] Comment on above: Performed By: #### H EMOG, HA1C2, LIPD2, CMP3, MG3, TSH5, FERR3, B12, FOLT3, IRON3 #### [address] #### [id number] #### [address] [place] [address] #### ZINC2, WBB1O #### The performing lab is in the report. Hemoglobin (Bld) [Mass/Vol] 15.8 g/dL Normal 11.7-16.0 [facility] Comment on above: Performed By: #### H EMOG, HA1C2, LIPD2, CMP3, MG3, TSH5, FERR3, B12, FOLT3, IRON3 #### [address] #### [id number] #### [facility] [address] [place] [address] #### ZINC2, WBB1O #### The performing lab is in the report. MCH (RBC) [Entitic mass] 29.4 pg Normal 26.0-34.0 [facility] Comment on above: Performed By: #### H EMOG, HA1C2, LIPD2, CMP3, MG3, TSH5, FERR3, B12, FOLT3, IRON3 #### [address] #### [id number] #### [address] [place] [address] #### ZINC2, WBB1O #### The performing lab is in the report. MCHC (RBC) [Mass/Vol] 33.8 % Normal 32.0-36.0 [facility] Comment on above: Performed By: #### H EMOG, HA1C2, LIPD2, CMP3, MG3, TSH5, FERR3, B12, FOLT3, IRON3 #### [address] #### [id number] #### [address] [place] [address] #### ZINC2, WBB1O #### The performing lab is in the report. MCV (RBC) [Entitic vol] 87.2 fL Normal 79.0-98.0 [facility] Comment on above: Performed By: #### H EMOG, HA1C2, LIPD2, CMP3, MG3, TSH5, FERR3, B12, FOLT3, IRON3 #### [address] #### [id number] #### [address] [place] [address] #### ZINC2, WBB1O #### The performing lab is in the report. Platelet mean volume (Bld) [Entitic vol] 8.4 fL Normal 7.4-10.4 [facility] Comment on above: Performed By: #### H EMOG, HA1C2, LIPD2, CMP3, MG3, TSH5, FERR3, B12, FOLT3, IRON3 #### [address] #### [id number] #### [facility] [address] [place] [address] #### ZINC2, WBB1O #### The performing lab is in the report. Platelets (Bld) [#/Vol] 229 10*3/uL Normal 140-440 [facility] Comment on above: Performed By: #### H EMOG, HA1C2, LIPD2, CMP3, MG3, TSH5, FERR3, B12, FOLT3, IRON3 #### [address] #### [id number] #### [facility] [address] [place] [address] #### ZINC2, WBB1O #### The performing lab is in the report. RBC (Bld) [#/Vol] 5.36 10*6/uL High 3.80-5.20 [facility] Comment on above: Performed By: #### H EMOG, HA1C2, LIPD2, CMP3, MG3, TSH5, FERR3, B12, FOLT3, IRON3 #### [address] #### [id number] #### [facility] [address] [place] [address] #### ZINC2, WBB1O #### The performing lab is in the report. WBC (Bld) [#/Vol] 7.4 10*3/uL Normal 3.6-10.7 [facility] Comment on above: Performed By: #### H EMOG, HA1C2, LIPD2, CMP3, MG3, TSH5, FERR3, B12, FOLT3, IRON3 #### [address] #### [id number] #### [facility] [address] [place] [address] #### ZINC2, WBB1O #### The performing lab is in the report. Ironon 07-21-2019 Iron [Mass/Vol] 88 ug/dL 37 - 170 ug/dL [place] Test Performed by [facility], [address] [place], [place] [address] [place] [address], [place] Iron, Totalon 07-21-2019 Iron, Total 88 ug/dL Normal 37-170 [facility] Comment on above: Performed By: #### H EMOG, HA1C2, LIPD2, CMP3, MG3, TSH5, FERR3, B12, FOLT3, IRON3 #### [address] #### [id number] #### [place] [address] [place] [address] #### ZINC2, WBB1O #### The performing lab is in the report. Lipid Panelon 07-21-2019 Cholesterol in HDL [Mass/Vol] 44 mg/dL Normal 40-60 [facility] Comment on above: Performed By: #### H EMOG, HA1C2, LIPD2, CMP3, MG3, TSH5, FERR3, B12, FOLT3, IRON3 #### [address] #### [id number] #### [facility] [address] [place] [address] #### ZINC2, WBB1O #### The performing lab is in the report. Cholesterol.total/Cho lesterol in HDL [Mass ratio] 4 Normal [facility] Comment on above: Result Comment: Ref Range: < 3 Low Risk for CHD 3-6 Mod Risk for CHD > 6 High Risk for CHD Performed By: #### H EMOG, HA1C2, LIPD2, CMP3, MG3, TSH5, FERR3, B12, FOLT3, IRON3 #### [address] #### [id number] #### [facility] [address] [place] [address] #### ZINC2, WBB1O #### The performing lab is in the report. Protein [Mass/Vol] 101 mg/dL Abnormal <100 [facility] Comment on above: Performed By: #### H EMOG, HA1C2, LIPD2, CMP3, MG3, TSH5, FERR3, B12, FOLT3, IRON3 #### [address] #### [id number] #### [facility] [address] [place] [address] #### ZINC2, WBB1O #### The performing lab is in the report. Cholesterol [Mass/Vol] 160 mg/dL Normal < 200 [facility] Comment on above: Performed By: #### H EMOG, HA1C2, LIPD2, CMP3, MG3, TSH5, FERR3, B12, FOLT3, IRON3 #### [address] #### [id number] #### [facility] [address] [place] [address] #### ZINC2, WBB1O #### The performing lab is in the report. Triglyceride [Mass/Vol] 76 mg/dL Normal <150 [facility] Comment on above: Performed By: #### H EMOG, HA1C2, LIPD2, CMP3, MG3, TSH5, FERR3, B12, FOLT3, IRON3 #### [address] #### [id number] #### [facility] [address] [place] [address] #### ZINC2, WBB1O #### The performing lab is in the report. Cholesterol [Mass/Vol] 160 mg/dL <200 [place] Cholesterol in HDL [Mass/Vol] 44 mg/dL 40 - 60 mg/dL [place] Cholesterol in LDL [Mass/Vol] 101 mg/dL Abnormal <100 [place] Cholesterol.total/Cho lesterol in HDL [Mass ratio] 4 {ratio} [place] Comment on above: Ref Range: < 3 Low Risk for CHD 3-6 Mod Risk for CHD > 6 High Risk for CHD Triglyceride [Mass/Vol] 76 mg/dL <150 [place] Magnesiumon 07-21-2019 Magnesium [Mass/Vol] 1.7 mg/dL Normal 1.6-2.3 [facility] Comment on above: Performed By: #### H EMOG, HA1C2, LIPD2, CMP3, MG3, TSH5, FERR3, B12, FOLT3, IRON3 #### [address] #### [id number] #### [facility] [address] [place] [address] #### ZINC2, WBB1O #### The performing lab is in the report. Magnesium [Mass/Vol] 1.7 mg/dL 1.6 - 2 .3 mg/dL [place] Otheron 07-21-2019 Test Performed by [facility], [address] [place] [address] Interpretation and review of laboratory results Abnormal [place] Test Performed by [address] TSH without Reflexon 020 TSH Qn 1.624 u[IU]/mL 0.465 - 4.68 u[IU]/mL [place] Test Performed by [address] Thyroid Stim. Hormoneon 07-03 Thyroid Stim. Hormone 1.624 u[IU]/mL Normal 0.46 5-4.68 0 [facility] Comment on above: Performed By: #### H EMOG, HA1C2, LIPD2, CMP3, MG3, TSH5, FERR3, B12, FOLT3, IRON3 #### [facility] [address], [place] #### [id number] #### [facility] [address] [place] [address] #### ZINC2, [id number] #### The performing lab is in the report. Vitamin B12on 07-21-2019 Cobalamin (Vitamin B12) [Mass/Vol] 467 pg/mL Normal 239-931 [facility] Comment on above: Performed By: #### H EMOG, HA1C2, LIPD2, CMP3, MG3, TSH5, FERR3, B12, FOLT3, IRON3 #### [email or web address] [address] [place] [address] #### [id number] #### [email or web address] [address] [place] [address] #### ZINC2, WBB1O #### The performing lab is in the report. Cobalamin (Vitamin B12) [Mass/Vol] 467 pg/mL 239 - 931 pg/mL [place], [place] Vital Signs Date Time Vital Sign Value Performing Clinician Facility 03-14-2025 08:45-0400 Body height 154.94 cm Prudence Vergara SUPERVISOR FLOOR ASSEMBLY-C Work Phone: [facility] 03-14-2025 08:45-0400 Body mass index (BMI) [Ratio] 64.2 kg/m2 Prudence Vergara SUPERVISOR FLOOR ASSEMBLY-C Work Phone: [facility] 03-14-2025 08:45-0400 Body weight 154.22 kg Prudence Vergara NP-C Work Phone: [facility] 03-14-2025 08:45-0400 Diastolic blood pressure 76 mm[Hg] Prudence Vergara SUPERVISOR FLOOR ASSEMBLY-C Work Phone: [facility] 03-14-2025 08:45-0400 Heart rate 70 /min Prudence Vergara SUPERVISOR FLOOR ASSEMBLY-C Work Phone: [facility] 03-14-2025 08:45-0400 Systolic blood pressure 130 mm[Hg] Prudence Vergara SUPERVISOR FLOOR ASSEMBLY-C Work Phone: [facility] 02-21-2025 10:47-0400 Body height 154.94 cm Prudence Vergara SUPERVISOR FLOOR ASSEMBLY-C Work Phone: [facility] 02-21-2025 10:47-0400 Body mass index (BMI) [Ratio] 64.2 kg/m2 Prudence Vergara SUPERVISOR FLOOR ASSEMBLY-C Work Phone: [facility] 02-21-2025 10:47-0400 Body weight 154.22 kg Prudence Vergara SUPERVISOR FLOOR ASSEMBLY-C Work Phone: [facility] 02-21-2025 10:47-0400 Diastolic blood pressure 62 mm[Hg] Prudence Vergara SUPERVISOR FLOOR ASSEMBLY-C Work Phone: [facility] 02-21-2025 10:47-0400 Heart rate 76 /min Prudence Vergara SUPERVISOR FLOOR ASSEMBLY-C Work Phone: [facility] 02-21-2025 10:47-0400 Systolic blood pressure 124 mm[Hg] Prudence Vergara SUPERVISOR FLOOR ASSEMBLY-C Work Phone: [facility] 02-07-2025 06:34-0400 Body height 154.94 cm Prudence Vergara SUPERVISOR FLOOR ASSEMBLY-C Work Phone: [facility] 02-07-2025 06:34-0400 Body mass index (BMI) [Ratio] 67.1 kg/m2 Prudence Vergara SUPERVISOR FLOOR ASSEMBLY-C Work Phone: [facility] 02-07-2025 06:34-0400 Body temperature 98.4 [degF] Prudence Vergara SUPERVISOR FLOOR ASSEMBLY-C Work Phone: [facility] 02-07-2025 06:34-0400 Body weight 161.02 kg Prudence Vergara SUPERVISOR FLOOR ASSEMBLY-C Work Phone: [facility] 02-07-2025 06:34-0400 Diastolic blood pressure 88 mm[Hg] Prudence Vergara SUPERVISOR FLOOR ASSEMBLY-C Work Phone: [facility] 02-07-2025 06:34-0400 Heart rate 106 /min Prudence Vergara SUPERVISOR FLOOR ASSEMBLY-C Work Phone: [facility] 02-07-2025 06:34-0400 SaO2% (BldA) [Mass fraction] 97 % Prudence Vergara SUPERVISOR FLOOR ASSEMBLY-C Work Phone: [facility] 02-07-2025 06:34-0400 Systolic blood pressure 128 mm[Hg] Prudence Vergara SUPERVISOR FLOOR ASSEMBLY-C Work Phone: [facility] 11-30-2024 00:05-0400 Body temperature 98.1 [degF] Prudence Vergara SUPERVISOR FLOOR ASSEMBLY-C Work Phone: [facility] 11-30-2024 00:05-0400 Diastolic blood pressure 70 mm[Hg] Prudence Vergara SUPERVISOR FLOOR ASSEMBLY-C Work Phone: [facility] 11-30-2024 00:05-0400 Heart rate 93 /min Prudence Vergara SUPERVISOR FLOOR ASSEMBLY-C Work Phone: [facility] 11-30-2024 00:05-0400 Respiratory rate 16 /min Prudence Vergara SUPERVISOR FLOOR ASSEMBLY-C Work Phone: [facility] 11-30-2024 00:05-0400 SaO2% (BldA) [Mass fraction] 96 % Prudence Vergara SUPERVISOR FLOOR ASSEMBLY-C Work Phone: [facility] 11-30-2024 00:05-0400 Systolic blood pressure 110 mm[Hg] Prudence Vergara SUPERVISOR FLOOR ASSEMBLY-C Work Phone: [facility] 11-29-2024 17:36-0400 Body height 154.94 cm Prudence Vergara SUPERVISOR FLOOR ASSEMBLY-C Work Phone: [facility] 11-29-2024 17:36-0400 Body mass index (BMI) [Ratio] 66.6 kg/m2 Prudence Vregara SUPERVISOR FLOOR ASSEMBLY-C Work Phone: [facility] 11-29-2024 17:36-0400 Body weight 160.07 kg Prudence Vergara SUPERVISOR FLOOR ASSEMBLY-C Work Phone: [facility] 11-29-2024 16:48-0400 Body mass index (BMI) [Ratio] 65 kg/m2 Alec PARTIDA Work Phone: [facility] 11-29-2024 16:48-0400 Body temperature 98.91 [degF] Krislyn Aberegg PA Work Phone: [facility] 11-29-2024 16:48-0400 Body weight 161.2 kg Krislyn Aberegg PA Work Phone: [facility] 11-29-2024 16:48-0400 Heart rate 86 /min Krislyn Aberegg PA Work Phone: [facility] 11-29-2024 16:48-0400 Respiratory rate 18 /min Krislyn Aberegg PA Work Phone: [facility] 11-29-2024 16:48-0400 SaO2% (BldA) [Mass fraction] 95 % Krislyn Aberegg PA Work Phone: [facility] 04-09-2024 12:54-0500 Body mass index (BMI) [Ratio] 61.9 kg/m2 Lucas Peñaloza MD Work Phone: [facility] 04-09-2024 12:54-0500 Body temperature 97.81 [degF] Lucas Peñaloza MD Work Phone: [facility] 04-09-2024 12:54-0500 Body weight 153.5 kg Lucas Peñaloza MD Work Phone: [facility] 04-09-2024 12:54-0500 Diastolic blood pressure 94 mm[Hg] Lucas Peñaloza MD Work Phone: [facility] 04-09-2024 12:54-0500 Heart rate 107 /min Lucas Peñaloza MD Work Phone: [facility] 04-09-2024 12:54-0500 Respiratory rate 18 /min Lucas Peñaloza MD Work Phone: [facility] 04-09-2024 12:54-0500 SaO2% (BldA) [Mass fraction] 97 % Lucas Peñaloza MD Work Phone: [facility] 04-09-2024 12:54-0500 Systolic blood pressure 164 mm[Hg] Lucas Peñaloza MD Work Phone: [facility] 08-02-2023 06:05-0500 Body temperature 97.9 [degF] [facility] 08-02-2023 06:05-0500 Diastolic blood pressure 110 mm[Hg] [facility] 08-02-2023 06:05-0500 Heart rate 100 /min [facility] 08-02-2023 06:05-0500 Respiratory rate 19 /min [facility] 08-02-2023 06:05-0500 SaO2% (BldA) [Mass fraction] 96 % [facility] 08-02-2023 06:05-0500 Systolic blood pressure 156 mm[Hg] [facility] 08-02-2023 03:08-0500 Body height 157.48 cm [facility] 08-02-2023 03:08-0500 Body mass index (BMI) [Ratio] 63.3 kg/m2 [facility] 08-02-2023 03:08-0500 Body weight 157.1 kg [facility] 04-18-2023 14:28-0500 Diastolic blood pressure 88 mm[Hg] [facility] 04-18-2023 14:28-0500 Respiratory rate 16 /min [facility] 04-18-2023 14:28-0500 Systolic blood pressure 141 mm[Hg] [facility] 04-18-2023 12:09-0500 Body height 157.48 cm [facility] 04-18-2023 12:09-0500 Body mass index (BMI) [Ratio] 62.6 kg/m2 [facility] 04-18-2023 12:09-0500 Body temperature 97.8 [degF] [facility] 04-18-2023 12:09-0500 Body weight 155.27 kg [facility] 04-18-2023 12:09-0500 Heart rate 106 /min [facility] 04-18-2023 12:09-0500 SaO2% (BldA) [Mass fraction] 98 % [facility] 04-17-2023 15:19-0500 Body height 157.5 cm Mattie Hyman APRN.CNP Work Phone: [facility] 04-17-2023 15:19-0500 Body weight 156.04 kg Mattie Yenni SENIOR JAVA SOFTWARE ENGINEER.UG DESIGNER Work Phone: [facility] 04-17-2023 15:19-0500 Diastolic blood pressure 78 mm[Hg] Mattie Auburn SENIOR JAVA SOFTWARE ENGINEER.UG DESIGNER Work Phone: [facility] 04-17-2023 15:19-0500 Systolic blood pressure 124 mm[Hg] Mattie Auburn SENIOR JAVA SOFTWARE ENGINEER.UG DESIGNER Work Phone: [facility] 12-26-2022 19:14-0400 Diastolic blood pressure 90 mm[Hg] [facility] 12-26-2022 19:14-0400 Heart rate 91 /min [facility] 12-26-2022 19:14-0400 Respiratory rate 18 /min [facility] 12-26-2022 19:14-0400 SaO2% (BldA) [Mass fraction] 100 % [facility] 12-26-2022 19:14-0400 Systolic blood pressure 143 mm[Hg] [facility] 12-26-2022 15:59-0400 Body height 154.94 cm [facility] 12-26-2022 15:59-0400 Body mass index (BMI) [Ratio] 65.4 kg/m2 [facility] 12-26-2022 15:59-0400 Body temperature 97.2 [degF] [facility] 12-26-2022 15:59-0400 Body weight 157.07 kg [facility] 10-24-2022 12:46-0400 Body temperature 97 [degF] [facility] 10-24-2022 12:46-0400 Diastolic blood pressure 82 mm[Hg] [facility] 10-24-2022 12:46-0400 Heart rate 81 /min [facility] 10-24-2022 12:46-0400 Respiratory rate 16 /min [facility] 10-24-2022 12:46-0400 SaO2% (BldA) [Mass fraction] 99 % [facility] 10-24-2022 12:46-0400 Systolic blood pressure 148 mm[Hg] [facility] 10-24-2022 10:06-0400 Body mass index (BMI) [Ratio] 65.7 kg/m2 [facility] 10-24-2022 10:06-0400 Body weight 157.8 kg [facility] 10-18-2019 08:50-0400 BP Diastolic 81 mm[Hg] Alma Nguyen [place] 10-18-2019 08:50-0400 BP Systolic 126 mm[Hg] Alma Nguyen [place] 10-18-2019 08:50-0400 Pulse (Heart Rate) 99 /min Alma Nguyen [place] 10-18-2019 08:50-0400 Pulse Oximetry 95 % Alma Nguyen [place] 10-18-2019 08:50-0400 Respiratory Rate 18 /min Alma Nguyen [place] 10-18-2019 07:59-0400 BMI (Body Mass Index) 55.74 kg/m2 [facility] [place] [place] 10-18-2019 07:59-0400 Body Temperature 98.71 [degF] Alma [place] 10-18-2019 07:59-0400 Body weight 133.81 kg Alma Nguyen [place] 10-18-2019 07:59-0400 Height 154.9 cm Alma Nguyen [place] Encounters Encounter Date Encounter Type Care Provider Facility Start: 04-05-2025 End: 04-05-2025 ambulatory Destiny Jay Facility:[facility] Start: 03-14-2025 End: 03-14-[address] Destiny Jay MD -[facility] Work Phone: Start: 03-14-2025 End: 03-14-2025 ambulatory Prudence ALCARAZ Work Phone: -[facility] Start: 02-21-2025 End: 02-21-[address] Destiny Jay MD -[facility] Work Phone: Start: 02-21-2025 End: 02-21-2025 ambulatory Prudence Vergara SUPERVISOR FLOOR ASSEMBLY-C Work Phone: -[facility] Start: 02-07-2025 End: 02-07-2025 ambulatory Prudence Vergara SUPERVISOR FLOOR ASSEMBLY-C Work Phone: -Laboratory Specimen Start: 02-07-2025 End: 02-07-2025 Patient encounter procedure Landon PARTIDA -Laboratory Specimen Work Phone: Start: 02-07-2025 End: 02-07-2025 Patient encounter procedure Landon Hansen PA -[facility] Work Phone: Start: 02-07-2025 End: 02-07-2025 ambulatory Prudence Vergara SUPERVISOR FLOOR ASSEMBLY-C Work Phone: -[facility] Start: 02-07-2025 End: 02-07-2025 ambulatory Landon PARTIDA Facility:[facility] Start: 11-29-2024 End: 11-30-2024 Emergency department patient visit Prudence Jai SUPERVISOR FLOOR ASSEMBLY-C Work Phone: -Emergency Department Work Phone: Start: 11-29-2024 End: 11-29-2024 Patient encounter procedure Alec Saenz PA Work Phone: [facility] Comment on above: Lower abdominal pain (Primary Dx) Start: 11-29-2024 End: 11-29-2024 ambulatory ALEC Monson ABEREGG Facility:[facility] Start: 11-29-2024 Non-patient / Non-visit Dr. Destiny richardson MD -[facility] Work Phone: Start: 11-13-2024 End: 11-13-2024 Emergency department patient visit PRUDENCE LAURoxy VERGARA [facility] Start: 10-19-2024 End: 10-19-20[address] [facility] Start: 08-17-2024 End: 08-17-2024 ambulatory PRUDENCE BARNETT [facility] Start: 05-11-2024 End: 05-11-2024 ambulatory PRUDENCE BARNETT [facility] Start: 04-09-2024 End: 04-09-2024 Emergency department patient visit Donal Saavedra Facility:[facility] Start: 04-09-2024 End: 04-09-2024 ambulatory ALEC SAENZ Facility:[facility] Start: 04-09-2024 End: 04-09-2024 Office outpatient new 20 minutes Lucas Peñaloza MD Work Phone: [facility] Comment on above: Sore throat (Primary Dx); Otalgia, right ear; TMJ dysfunction Start: 03-14-2024 End: 03-14-2024 [facility] Start: 08-02-2023 End: 08-02-2023 Emergency department patient visit [facility] Work Phone: Start: 04-21-2023 End: 04-21-2023 Subsequent hospital visit by physician [facility] Work Phone: Radiology Comment on above: Pelvic pain in femal e [R10.2] Start: 04-18-2023 End: 04-18-2023 Emergency department patient visit [facility] Work Phone: Start: 04-17-2023 End: 04-17-2023 Patient encounter procedure Mattie Hyman APRN.UG DESIGNER Work Phone: OB/Gynecology Comment on above: Pelvic pain in femal e (Primary Dx) Start: 04-16-2023 ambulatory ALEJANDRA ARANA SENIOR JAVA SOFTWARE ENGINEER-UG DESIGNER Facility:B Start: 01-14-2023 End: 01-15-2023 ambulatory BRE SIMS MD Facility:A Start: 01-14-2023 End: 01-15-2023 Encounter for other specified special examinations BRE SIMS MD Facility:A Start: 01-14-2023 End: 01-14-2023 Patient encounter procedure BRE SIMS [facility] Start: 12-31-2022 End: 01-01-2023 ambulatory BRE SIMS MD Facility:A Start: 12-31-2022 End: 12-31-2022 Patient encounter procedure BRE SIMS MD [facility] Start: 12-27-2022 End: 12-27-2022 Emergency department patient visit HUGO JONES Facility:[facility] Start: 12-26-2022 End: 12-26-2022 Emergency department patient visit [facility]gency [facility] Work Phone: Start: 10-24-2022 End: 10-24-2022 Admission to same day surgery center [facility] Start: 08-20-2022 End: 08-20-2022 ambulatory [facility] Work Phone: Start: 08-20-2022 End: 08-20-2022 Patient encounter procedure [facility]-Laboratory, Specimen Start: 03-26-2022 End: 03-26-2022 ambulatory [facility] Work Phone: Start: 03-26-2022 End: 03-26-2022 Patient encounter procedure [facility]Laboratory, Specimen Start: 09-20-2021 End: 09-20-2021 Patient encounter procedure [facility]Laboratory, Specimen Start: 12-28-2019 End: 12-28-2019 Subsequent hospital visit by physician Lisa Olson Work Phone: [facility] [place] [facility] Start: 12-01-2019 End: 12-01-2019 Subsequent hospital visit by physician Shahana Tariq Work Phone: [facility] Start: 11-11-2019 End: 11-11-2019 Subsequent hospital visit by physician Lisa Olson Work Phone: [employer] [facility] Start: 11-07-2019 End: 11-07-2019 Subsequent hospital visit by physician Liz Spear Work Phone: [facility] [address] Ultrasound Comment on above: Generalized abdomina l pain Start: 10-18-2019 End: 10-18-2019 Subsequent hospital visit by physician Alma Nguyen Work Phone: [facility] General Surgery Comment on above: Arrived Start: 08-08-2019 End: 08-08-2019 Subsequent hospital visit by physician Lisa Olson Work Phone: [facility] [place] [facility] Start: 07-21-2019 End: 07-21-2019 Subsequent hospital visit by physician Tali Jovel Work Phone: [facility] Start: 07-21-2019 End: 07-21-2019 Subsequent hospital visit by physician Liz Spear Work Phone: [facility] [address] Laboratory Comment on above: Essential hypertensi on; Daytime sleepiness; Morbid obesity (HCC) Start: 07-04-2019 End: 07-04-2019 Subsequent hospital visit by physician Alma Nguyen Work Phone: [facility] Start: 06-06-2019 End: 06-06-2019 Subsequent hospital visit by physician Lisa Olson MD Work Phone: [facility] Start: 05-09-2019 End: 05-09-2019 Subsequent hospital visit by physician Lisa Olson MD Work Phone: [facility] Start: 04-21-2019 End: 04-21-2019 Subsequent hospital visit by physician Alma Nguyen Work Phone: [facility] Start: 04-11-2019 End: 04-11-2019 Subsequent hospital visit by physician Jonnathan Martinez Work Phone: [facility] Start: 10-26-2018 Emergency department patient visit MARK MARTINEZ [facility] Procedures Date Procedure Procedure Detail Performing Clinician Start: 02-07-2025 Urine culture Prudence boyle SUPERVISOR FLOOR ASSEMBLY-C Work Phone: Start: 11-29-2024 Computed tomography of abdomen and pelvis with intravenous contrast Prudence Vergara SUPERVISOR FLOOR ASSEMBLYTabbyC Work Phone: Start: 11-29-2024 Urnls dip stick/tabl et reagent auto microscopy Prudence Vergara SUPERVISOR FLOOR ASSEMBLY-C Work Phone: Start: 11-29-2024 Estimated creatinine clearance Prudence Vergara SUPERVISOR FLOOR ASSEMBLY-C Work Phone: Start: 11-29-2024 Urnls dip stick/tabl et rgnt auto w/o microscopy Alec PARTIDA Work Phone: Start: 11-29-2024 Urine culture Prudence boyle SUPERVISOR FLOOR ASSEMBLY-C Work Phone: Start: 11-13-2024 Urinalysis PRUDENCE NUGENT H Comment on above: Result Comment: URIN ALYSIS Performed By: #### [id number] ####[facility],[address] [place] [address] Start: 04-09-2024 STREP A MOLECULAR (POC) Lucas Peñaloza MD Work Phone: Start: 08-02-2023 CT of head without contrast Start: 04-21-2023 Us transvaginal Mattie M etcalf SENIOR JAVA SOFTWARE ENGINEER.UG DESIGNER Work Phone: Start: 04-18-2023 Computed tomography of abdomen and pelvis with intravenous contrast Start: 12-26-2022 Urine culture Start: 06-01-2020 Loop electrosurgical excision procedure BRE SIMS MD Start: 11-07-2019 Us abdominal real ti me w/image documentation Liz R Bridle Work Phone: Start: 10-18-2019 [facility] ENDOSCOPY REPORT 3m Scanning Start: 07-21-2019 25 hydroxy includes fractions if performed Liz R Bridle Work Phone: Start: 07-21-2019 Assay of ferritin Liz R Bridle Work Phone: Start: 07-21-2019 Assay of folic acid serum Liz R Bridle Work Phone: Start: 07-21-2019 Assay of iron Liz R B ridle Work Phone: Start: 07-21-2019 Assay of magnesium Leis a R Bridle Work Phone: Start: 07-21-2019 Assay of thyroid sti mulating hormone tsh Liz R Bridle Work Phone: Start: 07-21-2019 Blood count complete automated Liz R Bridle Work Phone: Start: 07-21-2019 Comprehensive metabo lic panel Liz R Bridle Work Phone: Start: 07-21-2019 Cyanocobalamin vitamin b-12 Liz R Bridle Work Phone: Start: 07-21-2019 Hemoglobin glycosylated a1c Liz R Bridle Work Phone: Start: 07-21-2019 Lipid panel Liz R Br idle Work Phone: Start: 06-01-2018 Cholecystectomy BRE SIMS MD Start: 06-01-2015 section JAIME SIMS MD Colposcopy BRE Dominguez Comment on above: 09/2022, 11/2021 Extraction of wisdom tooth S BRYANNA SIMS MD Plan of Treatment Date Care Activity Detail Author Start: 2040 Shingles Vaccine (1 of 2) Shingles Vaccine (1 of 2) [place] Start: 01-30-2025 Influenza vaccination Influenza Vacc ine (#1) [facility] Start: 11-29-2024 [facility] Start: 11-29-2024 [facility] Start: 11-29-2024 Bacteria identified in Urine by Culture Urine Culture [facility] Start: 01-31-2024 Covid-19 Vaccine ( season) Covid-19 Vaccine ( season) [facility] Start: 01-31-2024 Influenza vaccination Influenza Vacc ine (#1) [facility] Start: 08-02-2023 [facility] Start: 04-18-2023 End: 04-18-2023 [facility] Start: 01-30-2023 Influenza vaccination Influenza Vacc ine (#1) [facility] Start: 12-26-2022 [facility] Start: 10-24-2022 Anesthesia vaginal procedure w/biopsy nos ANESTH VAGINAL PROCEDURES [facility] Start: 10-24-2022 Colposcopy entire vagina w/vagina/cervix bx EXAM/BIOPSY OF VAG W/SCOPE [facility] Start: 10-24-2022 Ambulation without limitation [facility] Start: 10-24-2022 Medication education [facility] Start: 10-24-[address] [facility] Start: 10-24-2022 Taking patient vital signs [facility] Start: 10-24-2022 Vital signs measurements [facility] Start: 10-24-2022 [facility] Start: 06-01-2022 Depression Assessment Depression Ass essment [facility] Start: 2020 HPV Testing HPV Testing [facility] Start: 01-31-2020 Influenza vaccination [place], [place] Start: 12-16-2019 End: 12-16-2019 Office Visit 12/16/2019 Office Visit Hematology and Oncology Alma Pacheco MD [address] [facility] [address] [place] [address] [phone] [facility] Start: 11-23-2019 End: 11-23-2019 Virtual Visit 11/23/2019 Virtual Visit Psychology Tali Jovel, PhD [address] [place] [address] [phone] [facility] Start: 11-11-2019 End: 11-11-2019 Virtual Visit [facility] Start: 10-18-2019 End: 10-18-2019 Appointment 10/18/2019 Appointment IP Unit Alma Nguyen MD [address] [place] [address] [phone] [facility] Start: 06-30-2019 End: 06-30-2019 Patient encounter procedure 06/30/2019 Office Visit Pulmonology Shahana Tariq MD [address] [place] [address] [phone] Summ Pulm [facility] Start: 04-21-2019 End: 04-21-2019 Office Visit 04/21/2019 Office Visit Bariatrics Alma Nguyen MD [address] [place] [address] [phone] [facility] Start: 01-30-2019 Influenza vaccination Flu vaccine (# 1) [place] Start: 11-03-2011 Cervical cancer screen Cervical canc er screen [place] Start: 11-03-2011 Pap Testing Pap Testing [facility] Start: 11-03-2011 Screening for malign ant neoplasm of cervix [facility] Start: 2009 DTaP/Tdap/Td vaccine (1 - Tdap) DTaP/Tdap/Td vaccine (1 - Tdap) [place] Start: 2009 Hepatitis B Vaccine (1 of 3 - 19+ 3-dose series) Hepatitis B Vaccine (1 of 3 - 19+ 3-dose series) [facility] Start: 2009 Urine microalbumin profile DTaP,Tdap,Td Vaccine (4 - Tdap) [facility] Start: 2008 Anxiety Screening Anxiety Screening [facility] Start: 2008 Depression Screening Depression Scre [facility] Start: 2008 Hepatitis C Screening Hepatitis C [facility] Start: 2008 Hepatitis C screening Hepatitis C [facility] Start: 2008 HIV Screening HIV Screening [facility] Start: 2008 HIV screening HIV Screening [facility] Start: 2005 HIV screen HIV screen [place], [place] Start: 2005 HIV screening [facility] [place] [place] Start: 2001 DTaP/Tdap/Td vaccine (1 - Tdap) DTaP/Tdap/Td vaccine (1 - Tdap) [place] Start: 11-03-1991 Varicella Vaccine (1 of 2 - 2-dose childhood series) Varicella Vaccine (1 of 2 - 2-dose childhood series) [place] Start: 05-04-1991 Covid-19 Vaccine (#1) Covid-19 Vacci ne (#1) [facility] Start: 1990 Hepatitis B Vaccine (1 of 3 - 3-dose series) Hepatitis B Vaccine (1 of 3 - 3-dose series) [facility] Path report.final Dx Spec [facility] Work Phone: Path report.final Dx Spec [facility] Patient Education [facility] Work Phone: Patient referral [facility] Work Phone: Urine culture [facility] End: 05-16-2024 Us transvaginal US FEMALE PELVIS TRANSVAG Radiology Routine Pelvic pain in female 1 Occurrences starting 04/17/2023 until 05/16/2024 [facility] Work Phone: Comment on above: 1 Occurrences starti ng 04/17/2023 until 05/16/2024 End: 07-21-2019 Vitamin B1, Whole Blood Vitamin B1, Whole Blood Lab Routine Essential hypertension Daytime sleepiness Morbid obesity (HCC) 1 Occurrences starting 07/21/2019 until 07/21/2019 [facility] [place], [place] Comment on above: 1 Occurrences starti ng 07/21/2019 until 07/21/2019 Vitamin B1, Whole Blood Vitamin B1, Whole Blood Lab Routine Essential hypertension Daytime sleepiness Morbid obesity (HCC) 07/21/2019 1:03 PM [facility] [place] End: 07-21-2019 Zinc Zinc Lab Routine Essential hypertension Daytime sleepiness Morbid obesity (HCC) 1 Occurrences starting 07/21/2019 until 07/21/2019 [place] Comment on above: 1 Occurrences starti ng 07/21/2019 until 07/21/2019 Zinc Zinc Lab Routine Essential hypertension Daytime sleepiness Morbid obesity (HCC) 07/21/2019 1:03 PM [facility] Immunizations Immunization Date Immunization Notes Care Provider Osei fonseca 02-24[birth year]1992 haemophilus influenz ae type b vaccine, PRP-T conjugate Alec PARTIDA Work Phone: [facility] 02-24-1992 measles, mumps and rubella virus vaccine Krislyn Aberegg PA Work Phone: [facility] 05-13-1991 diphtheria, tetanus toxoids and acellular pertussis vaccine Krislyn Aberegg PA Work Phone: [facility] 05-13-1991 haemophilus influenz ae type b vaccine, PRP-T conjugate Krislyn Aberegg PA Work Phone: [facility] 03-11-1991 diphtheria, tetanus toxoids and acellular pertussis vaccine Krislyn Aberegg PA Work Phone: [facility] 03-11-1991 haemophilus influenz ae type b vaccine, PRP-T conjugate Krislyn Aberegg PA Work Phone: [facility] 03-11-1991 poliovirus vaccine, inactivated Krislyn Aberegg PA Work Phone: [facility] 01-06-1991 diphtheria, tetanus toxoids and acellular pertussis vaccine Krislyn Aberegg PA Work Phone: [facility] 01-06-1991 haemophilus influenz ae type b vaccine, PRP-T conjugate Krislyn Aberegg PA Work Phone: [facility] 01-06-1991 poliovirus vaccine, inactivated Krislyn Aberegg PA Work Phone: [facility] Payers Date Payer Category Payer Self-pay [id number] 2019 Unknown [employer] [place] [address] xxxxxxxxxxxx 2019-Present [phone] [address] [place] [address] xxxxxxxxxxxx [id number] 2019 Unknown [employer] [place] [address] [id number] 2019-Present [phone] [address] [place] [address] [id number] 2017 Unknown [id number] 1990 Unknown [id number] 1990 Unknown [id number] 1990 Unknown [id number] 1990 Unknown [id number] Unknown [id number] Unknown [id number] Unknown [id number] Unknown [id number] Unknown [id number] Unknown [id number] Unknown [id number] Unknown [id number] Social History Date Type Detail Facility Start: 04-11-2019 End: 02-21-2025 Tobacco smoking status NHIS Former smoker [facility] Start: 2008 End: 06-01-2014 History of tobacco use Current smoker [place], [place] Start: 2008 End: 06-01-2014 History of tobacco use Cigarette Smoker [place] Start: 04-11-2019 End: 11-29-2024 Cigarettes smoked current (pack per day) - Reported [place] Start: 04-11-2019 End: 11-29-2024 Alcohol intake Ex-drinker (finding) [facility] Louis COOLEY Y Start: 04-01-2019 History SDOH [facility] [address] [facility] Start: 1990 [facility]2 (event) [facility] Start: 11-11-2019 End: 04-17-2023 Tobacco use and exposure [facility] Start: 03-28-2020 End: 08-02-2023 Tobacco smoking status NHIS Unknown if ever smoked [facility] Start: 01-07-2019 None [facility] Start: 01-07-2019 With Family [facility] Start: 03-28-2020 Non-smoker [facility] Start: 1990 Sex Assigned At Female [facility] Start: 12-29-2022 End: 04-17-2023 Tobacco smoking status Never smoked tobacco (finding) [facility] Start: 04-17-2023 End: 11-29-2024 Tobacco use panel [facility] NEGATED: Highlighted row [facility] Medical Equipment Procedure Code Equipment Code Equipment Original Text Equipment Identifier Dates Total cholecystectomy with exploration of common bile duct [facility] [employer] [facility] Start: 04-20-2018 Total cholecystectomy with exploration of common bile duct CLIP,[place] [facility] FDA Start: 04-20-2018 Total cholecystectomy with exploration of common bile duct [facility] [employer] [facility] FDA Start: 04-20-2018 Total cholecystectomy with exploration of common bile duct [facility]IP,[facility] [employer] [facility] FDA Start: 04-20-2018 Total cholecystectomy with exploration of common bile duct [facility]IP,[facility] [employer] [facility] FDA Start: 04-20-2018 Total cholecystectomy with exploration of common bile duct CLIP,[facility] [employer] [facility] FDA Start: 04-20-2018 Total cholecystectomy with exploration of common bile duct CLIP,[facility] [employer] [facility] FDA Start: 04-20-2018 Total cholecystectomy with exploration of common bile duct [facility]IP,[facility] [employer] [facility] FDA Start: 04-20-2018 Total cholecystectomy with exploration of common bile duct CLIP,[facility] [facility] FDA Start: 04-20-2018 Total cholecystectomy with exploration of common bile duct CLIP,CRISTINA [place] FDA Start: 04-20-2018 Total cholecystectomy with exploration of common bile duct CLIP,CRISTINA BROOKS WECK FDA Start: 04-20-2018 Total cholecystectomy with exploration of common bile duct CLIP,CRISTINA BROOKS [facility]ECK FDA Start: 04-20-2018 Total cholecystectomy with exploration of common bile duct CLIP,CRISTINA [place] FDA Start: 04-20-2018 Total cholecystectomy with exploration of common bile duct CLIP,CRISTINA [place] FDA Start: 04-20-2018 Total cholecystectomy with exploration of common bile duct CLIP,CIRSTINA [place] FDA Start: 04-20-2018 Total cholecystectomy with exploration of common bile duct CLIP,CRISTINA [place] FDA Start: 04-20-2018 Total cholecystectomy with exploration of common bile duct CLIP,CRISTINA SPANN FDA Start: 04-20-2018 Total cholecystectomy with exploration of common bile duct CLIP,CRISTINA SPANN FDA Start: 04-20-2018 Total cholecystectomy with exploration of common bile duct CLIP,CRISTINA SPANN FDA Start: 04-20-2018 Total cholecystectomy with exploration of common bile duct CLIP,CRISTINA SPANN FDA Start: 04-20-2018 Total cholecystectomy with exploration of common bile duct CLIP,CRISTINA SPANN FDA Start: 04-20-2018 Total cholecystectomy with exploration of common bile duct CLIP,CRISTINA SPANN FDA Start: 04-20-2018 Goals Date Patient Goal Desired Activity /State Mental Status Date Assessment Result Facility 08-02-2023 Cognitive function Level Of Cons ciousness Awake;Alert [facility] Work Phone: 12-26-2022 Cognitive function Level Of Cons ciousness Awake;Alert;Appropriate;Follow s Commands [facility] Work Phone: 10-24-2022 Cognitive function Level Of Cons ciousness Awake;Alert;Appropriate;Follow s Commands [facility] Work Phone: 10-24-2022 Cognitive function Voice/Name [facility] Work Phone: Clinical Notes 12-26-2022 to 03-14-2025 Note Date & Type Note Facility 03-14-2025 Progress note [facility] 02-21-2025 Progress note [facility] 02-07-2025 Evaluation note Diagnosis Onset Date Resolution UTI symptoms acute January 6:09am Urinary tract infection noneactive S eptember 2024 6:09am Acute vaginitis acute February 21, 2025 10:04am Dyspareunia, female acute Septe mber 2024 10:04am Pelvic floor dysfunction acute February 21, 2025 10:04am [facility] Work Phone: 1(440) 326-988909-09-2025 Evaluation note* Diagnosis Onset Date Resolution Status Admit Date UTI symptoms acute January 6:09am Urinary tract infection noneactive S eptember 2024 6:09am Acute vaginitis acute February 21, 2025 10:04am Dyspareunia, female acute Septe mber 2024 10:04am Pelvic floor dysfunction acute February 21, 2025 10:04am Acute vaginitis acute March 012024 8:24am Dyspareunia, female acute Octob er 2024 8:24am Pelvic floor dysfunction acute March 14, 2025 8:24am UTI (urinary tract infection) acute March 14 8:24am [facility] Work Phone: 1(213) 998-648807-01-2025 Radiology Diagnostic study note [facility] Imaging Services [address] [place] [address] [id number] Abdomen/Pelvis W IV Cont ONLY MR#: [id number] Acct: [id number] Name: CASIE SOLANO Rep #: [id number] : 1990 F 34 From: Reny Han MD PCP: LISSA Coleman Status: REG ER Study:Abdomen/Pelvis W IV Cont ONLY Date of E xam: 11/29/24 Exam# [id number] Ordering Dr: Feroz Hernandez DO PROCEDURE: ABDOMEN/PELVIS W IV CONT ONLY 11/29/2024 REASON FOR EXAM: RIGHT LOWER QUADRANT NOMINAL PAIN TECHNIQUE: ABDOMEN/PELVIS W IV CONT ONLY Coronal and Sagittal reconstruction series were provided. CONTRAST: Isovue 370 VOLUME: 90 mL One or more dose reduction techniques were used (e.g., Automated exposure control, adjustment of the mA and/or kV according to patient size, use of iterative reconstruction technique. RADIATION DOSE SUMMARY: CTDlvol: 38 mGy DLP: 1534 mGycm COMPARISON: 04/18/2023 FINDINGS: Clear lung bases. Normal heart size. Status post cholecystectomy. Liver, pancreas, spleen, adrenal glands and kidneys are unremarkable. No hydronephrosis. Normal bladder. IUD in uterus. Normal ovaries. No retroperitoneal or pelvic adenopathy. No free air. Nondistended bowel. Normal appendix. No acute large bowel findings. Rectus muscle diastasis. No acute abdominal wall findings. CT/Abdomen/Pelvis W IV Cont ONLY IMPRESSION: No acute findings Reading Location: [place] [address] CC: LISSA Vergara; Dr. Feroz Hernandez-[place], ~ Oral Surgery Assistant: Signed [facility]07-01-2025 NoteHNO ID: [id number] Author: ALEC SAENZ PA Service: ? Author Type: Physician Frame Stripper Type: Progress Notes Filed: 11/29/2024 17:09 Note Text: [facility] Subjective Casie Solano is a 34 year old female. Patient presents with: Abdominal Pain: Mid to lower abd pain radiating to RLQ, ER for UTI, tx Bactrim and Diflucan w/o relief HPI Abdominal Pain: - Initial abdominal pain began approximately two weeks ago, prompting an ER visit on Father's Day. - ER evaluation included a CT scan, which was reportedly normal. - Diagnosed with a UTI in the ER and prescribed Bactrim. Per chart review, urine culture came back negative. - Pain initially resolved but has gradually returned, described as a burning, pinching feeling when pressure is applied. - Pain is now also felt in the back. - Denies hematuria, fever, or emesis. - Recent urine culture from the ER visit was negative for UTI. Vaginal Irritation: - Patient requested fluconazole during the ER visit due to a history of yeast infections following antibiotic use. - After completing Bactrim, patient noticed white discharge indicative of a yeast infection, which has since resolved. - Currently experiencing redness and irritation in the vaginal area. - Denies current abnormal vaginal discharge or itching. PAST MEDICAL HISTORY Diagnosis Date Generalized anxiety disorder Stroke due to embolism (HCC) 2016 1 month PAST SURGICAL HISTORY Procedure Laterality Date CERVIX UTERI CONIZA LP ELCTRO EXCI SECTION HX EXTRACTION ERUPTED TOOTH/EXR REMOVAL GALLBLADDER ALLERGIES Patient has no known allergies. MEDICATIONS fluconazole (DIFLUCAN) 100 mg tablet TAKE 1 TABLET BY MOUTH DIRECTED. TAKE 1 TABLET FOLLOWING COMPLETION OF ANTIBIOTIC THERAPY. TAKE THE SECOND TABLET 3 DAYS LATER (Patient not taking: Reported on 11/29/2024) sulfamethoxazole-trimethoprim (BACTRIM DS) 800-160 mg per tablet Take 1 tablet by mouth every 12 hours. (Patient not taking: Reported on 11/29/2024) semaglutide 0.5 mg/0.1 mL syringe Inject 0.5 mg subcutaneously one time a week. copper (PARAGARD T 380A) 380 square mm intrauterine device 1 Intra Uterine Device by INTRAUTERINE route. No family history on file. Social History Tobacco Use Smoking status: Never Smokeless tobacco: Never Vaping Use Vaping status: Never Used Substance Use Topics Alcohol use: Not Currently Drug use: Yes Types: Marijuana Review of Systems Constitutional: (-) fever Gastrointestinal: (+) abdominal pain, (+) nausea, (-) vomiting Genitourinary: (+) genital erythema, (-) abnormal vaginal discharge, (-) vaginal pruritus, (-) hematuria Musculoskeletal: (+) back pain Skin: (-) rash Objective Pulse 86 Temp 37.2 ?C (98.9 ?F) Resp 18 Wt (!) 161.2 kg (355 lb 6.1 oz) LMP 11/23/2024 (Within Days) SpO2 95% BMI 65.00 kg/m? Physical Exam Vitals and nursing note reviewed. Constitutional: General: She is not in acute distress. Appearance: Normal appearance. She is not toxic-appearing. HENT: Mouth/Throat: Mouth: Mucous membranes are moist. Cardiovascular: Rate and Rhythm: Normal rate and regular rhythm. Pulmonary: Effort: Pulmonary effort is normal. Breath sounds: Normal breath sounds. Abdominal: General: Abdomen is flat. Palpations: Abdomen is soft. Tenderness: There is abdominal tenderness in the right lower quadrant. There is no right CVA tenderness, left CVA tenderness, guarding or rebound. Skin: General: Skin is warm and dry. Neurological: Mental Status: She is alert. {1. Lower abdominal pain (R10.30) - Abdominal pain initially evaluated in the ER two weeks ago; CT scan was normal, and patient was treated with Bactrim for presumed UTI. Urine culture from that visit was negative. - Currently experiencing recurrent lower abdominal pain, described as a burning, pinching sensation, with associated back pain and erythema in the genital area. No hematuria, abnormal vaginal discharge, or pruritus reported. No fevers or emesis. - Urinalysis today shows minimal leukocytes, not indicative of significant infection. - Differential diagnoses include ovarian pathology, appendicitis, or nephrolithiasis. - Referred to the emergency room for further evaluation and imaging to rule out appendicitis, ovarian pathology, or nephrolithiasis. Recording using [employer] software for draft documentation of the visit was discussed with the patient/authorized sales representative raw fibers; all questions welcomed and answered. Patient/authorized sales representative raw fibers agreed to proceed History and Record Review External record(s) reviewed: prior labs/imaging. Findings from review of prior labs/imaging: Urine culture negative 2 weeks ago Disposition The patient was other (comment) (sent to er). [facility] History of Present illness Narrative* Alec Saenz PA - 11/29/2024 5:05 PM EDT [facility] Subjective Casie Solano is a 34 year old female. Patient presents with: Abdominal Pain: Mid to lower abd pain radiating to RLQ, ER for UTI, tx Bactrim and Diflucan w/o relief HPI Abdominal Pain: - Initial abdominal pain began approximately two weeks ago, prompting an ER visit on Father's Day. - ER evaluation included a CT scan, which was reportedly normal. - Diagnosed with a UTI in the ER and prescribed Bactrim. Per chart review, urine culture came back negative. - Pain initially resolved but has gradually returned, described as a burning, pinching feeling when pressure is applied. - Pain is now also felt in the back. - Denies hematuria, fever, or emesis. - Recent urine culture from the ER visit was negative for UTI. Vaginal Irritation: - Patient requested fluconazole during the ER visit due to a history of yeast infections following antibiotic use. - After completing Bactrim, patient noticed white discharge indicative of a yeast infection, which has since resolved. - Currently experiencing redness and irritation in the vaginal area. - Denies current abnormal vaginal discharge or itching. PAST MEDICAL HISTORY Diagnosis Date Generalized anxiety disorder Stroke due to embolism (HCC) 2016 1 month PAST SURGICAL HISTORY Procedure Laterality Date CERVIX UTERI CONIZA LP ELCTRO EXCI SECTION HX EXTRACTION ERUPTED TOOTH/EXR REMOVAL GALLBLADDER ALLERGIES Patient has no known allergies. MEDICATIONS fluconazole (DIFLUCAN) 100 mg tablet TAKE 1 TABLET BY MOUTH DIRECTED. TAKE 1 TABLET FOLLOWING COMPLETION OF ANTIBIOTIC THERAPY. TAKE THE SECOND TABLET 3 DAYS LATER (Patient not taking: Reported on11/29/2024) sulfamethoxazole-trimethoprim (BACTRIM DS) 800-160 mg per tablet Take 1 tablet by mouth every 12 hours. (Patient not taking: Reported on 11/29/2024) semaglutide 0.5 mg/0.1 mL syringe Inject 0.5 mg subcutaneously one time a week. copper (PARAGARD T 380A) 380 square mm intrauterine device 1 Intra Uterine Device by INTRAUTERINE route. No family history on file. Social History Tobacco Use Smoking status: Never Smokeless tobacco: Never Vaping Use Vaping status: Never Used Substance Use Topics Alcohol use: Not Currently Drug use: Yes Types: Marijuana Review of Systems Constitutional: (-) fever Gastrointestinal: (+) abdominal pain, (+) nausea, (-) vomiting Genitourinary: (+) genital erythema, (-) abnormal vaginal discharge, (-) vaginal pruritus, (-) hematuria Musculoskeletal: (+) back pain Skin: (-) rash Objective Pulse 86 Temp 37.2 C (98.9 F) Resp 18 Wt (!) 161.2 kg (355 lb 6.1 oz) LMP 11/23/2024 (Within Days) SpO2 95% BMI 65.00 kg/m Physical Exam Vitals and nursing note reviewed. Constitutional: General: She is not in acute distress. Appearance: Normal appearance. She is not toxic-appearing. HENT: Mouth/Throat: Mouth: Mucous membranes are moist. Cardiovascular: Rate and Rhythm: Normal rate and regular rhythm. Pulmonary: Effort: Pulmonary effort is normal. Breath sounds: Normal breath sounds. Abdominal: General: Abdomen is flat. Palpations: Abdomen is soft. Tenderness: There is abdominal tenderness in the right lower quadrant. There is no right CVA tenderness, left CVA tenderness, guarding or rebound. Skin: General: Skin is warm and dry. Neurological: Mental Status: She is alert. {1. Lower abdominal pain (R10.30) - Abdominal pain initially evaluated in the ER two weeks ago; CT scan was normal, and patient was treated with Bactrim for presumed UTI. Urine culture from that visit was negative. - Currently experiencing recurrent lower abdominal pain, described as a burning, pinching sensation, with associated back pain and erythema in the genital area. No hematuria, abnormal vaginal discharge, or pruritus reported. No fevers or emesis. - Urinalysis today shows minimal leukocytes, not indicative of significant infection. - Differential diagnoses include ovarian pathology, appendicitis, or nephrolithiasis. - Referred to the emergency room for further evaluation and imaging to rule out appendicitis, ovarian pathology, or nephrolithiasis. Recording using [employer] software for draft documentation of the visit was discussed with the patient/authorized sales representative raw fibers; all questions welcomed and answered. Patient/authorized sales representative raw fibers agreed to proceed History and Record Review External record(s) reviewed: prior labs/imaging. Findings from review of prior labs/imaging: Urine culture negative 2 weeks ago Disposition The patient was other (comment) (sent to er). Procedures documented [facility]11-09-2024 NoteHNO ID: [id number] Author: LUCAS PEÑALOZA MD Service: ? Author Type: Physician Type: Progress Notes Filed: 04/09/2024 15:33 Note Text: Patient presents with: Sinus Problem: R lower tooth pulled 1 month ago, was on amox and then augmentin, has had sinus and R ear pain since HPI: Right head pain: Duration: intermittent issues for 1 month since having a right lower molar pulled Location: right ear, right throat, Character: aching Radiation: into the right neck and shoulder, sometimes into the back of the head Pain relievers: Motrin yesterday Associated: sore throat (worse today), right earache, slight post-nasal drainage and sinus pressure, TMJ Pertinent negatives: Denies fever, chills, nasal congestion, rhinorrhea Patient has been treated with amoxicillin, cephalexin, clindamycin, ibuprofen, and Medrol (only able to take 1 dose because she had pruritus with it). She completed clindamycin 4 days ago and was feeling well until 2 days ago. MEDICATIONS: copper (PARAGARD T 380A) 380 square mm intrauterine device 1 Intra Uterine Device by INTRAUTERINE route. ALLERGIES: ALLERGIES No Known Allergies VITALS: BP 164/94 Pulse 107 Temp 36.6 ?C (97.8 ?F) Resp 18 Wt (!) 153.5 kg (338 lb 6.5 oz) LMP 04/10/2023 SpO2 97% BMI 61.90 kg/m? PHYSICAL EXAM: GEN: pleasant, no acute distress, alert HEENT: PERRL, EOMI, no pain with palpation over the frontal or maxillary sinuses. Mouth: MMM, mild erythema, right lower last molar socket appears to be healing without erythema, edema, or purulent drainage. Left canal occluded by cerumen. Right canal clear. Right tympanic membrane without erythema, bulge, or effusion. Bilateral crepitus with jaw opening. NECK: supple, no lymphadenopathy, no thyromegaly HEART: regular rate, regular rhythm, no murmurs LUNGS: clear to auscultation, no wheezes or crackles, no increased WOB EXT: no clubbing, no cyanosis, no edema ASSESSMENT/PLAN: 1. Sore throat - ICD9: 462, ICD10: J02.9 (primary diagnosis) 2. Otalgia, right ear - ICD9: 388.70, ICD10: H92.01 3. TMJ dysfunction - ICD9: 524.60, ICD10: M26.609 - STREP A MOLECULAR (POC) - negative. Distribution of symptoms is not classic for sinusitis. Her ear exam is normal. I do suspect component of temporomandibular joint arthralgia. Ibuprofen has been upsetting her stomach. She declines meloxicam. Possible new viral URI developing the last couple days. Imaging may be required to further evaluate her lingering, recurrent symptoms. Follow-up with ENT or PCP. Lucas Peñaloza, [facility]11-09-2024 History of Present illness Narrative* Lucas Peñaloza MD - 04/09/2024 1:13 PM EST Patient presents with: Sinus Problem: R lower tooth pulled 1 month ago, was on amox and then augmentin, has had sinus and R ear pain since HPI: Right head pain: Duration: intermittent issues for 1 month since having a right lower molar pulled Location: right ear, right throat, Character: aching Radiation: into the right neck and shoulder, sometimes into the back of the head Pain relievers: Motrin yesterday Associated: sore throat (worse today), right earache, slight post-nasal drainage and sinus pressure, TMJ Pertinent negatives: Denies fever, chills, nasal congestion, rhinorrhea Patient has been treated with amoxicillin, cephalexin, clindamycin, ibuprofen, and Medrol (only able to take 1 dose because she had pruritus with it). She completed clindamycin 4 days ago and was feeling well until 2 days ago. MEDICATIONS: copper (PARAGARD T 380A) 380 square mm intrauterine device 1 Intra Uterine Device by INTRAUTERINE route. ALLERGIES: ALLERGIES No Known Allergies VITALS: BP 164/94 Pulse 107 Temp 36.6 C (97.8 F) Resp 18 Wt (!) 153.5 kg (338 lb 6.5 oz) LMP 04/10/2023 SpO2 97% BMI 61.90 kg/m PHYSICAL EXAM: GEN: pleasant, no acute distress, alert HEENT: PERRL, EOMI, no pain with palpation over the frontal or maxillary sinuses. Mouth: MMM, mild erythema, right lower last molar socket appears to be healing without erythema, edema, or purulent drainage. Left canal occluded by cerumen. Right canal clear. Right tympanic membrane without erythema, bulge,or effusion. Bilateral crepitus with jaw opening. NECK: supple, no lymphadenopathy, no thyromegaly HEART: regular rate, regular rhythm, no murmurs LUNGS: clear to auscultation, no wheezes or crackles, no increased WOB EXT: no clubbing, no cyanosis, no edema ASSESSMENT/PLAN: 1. Sore throat - ICD9: 462, ICD10: J02.9 (primary diagnosis) 2. Otalgia, right ear - ICD9: 388.70, ICD10: H92.01 3. TMJ dysfunction - ICD9: 524.60, ICD10: M26.609 - STREP A MOLECULAR (POC) - negative. Distribution of symptoms is not classic for sinusitis. Her ear exam is normal. I do suspect component of temporomandibular joint arthralgia. Ibuprofen has been upsetting her stomach. She declines meloxicam. Possible new viral URI developing the last couple days. Imaging may be required to further evaluate her lingering, recurrent symptoms. Follow-up with ENT or PCP. Lucas Peñaloza MD documented in this encounterWilson Health10-14-2024 NoteDischarge Instructions Discharge Summary [address] [address] [id number] 03/14/2024 Patient: CASIE SOLANO Sex: Female : 1990 Age: 33y Thank you for visiting [facility]. You have been evaluated today by Eric Milan D.O. for the following condition(s): Principal Diagnosis Dental pain. INSTRUCTIONS Warnings: GENERAL WARNINGS: Return or contact your physician immediately if your condition worsens or changes unexpectedly, if not improving as expected, or if other problems arise. Prescription Medications: Medications prescribed: Oral Clindamycin. Follow-up: Follow up with your healthcare provider in two days. Call for an appointment. You have been given the following additional information: Dental Pain Patient Signature 1 of 4 Discharge Instructions Facility Licensed Audiologist Date/Time General Instructions with ExitWriter [address] [address] [phone] 03/14/2024 Patient: CASIE SOLANO Sex: Female : 1990 Age: 33y Thank you for visiting [facility]. You have been evaluated today by Eric Milan D.O. for the following condition(s): Principal Diagnosis Dental pain. INSTRUCTIONS Warnings: GENERAL WARNINGS: Return or contact your physician immediately if your condition worsens or changes unexpectedly, if not improving as expected, or if other problems arise. Prescription Medications: Medications prescribed: Oral Clindamycin. Follow-up: Follow up with your healthcare provider in two days. Call for an appointment. ADDITIONAL INFORMATION 2 of 4 Discharge Instructions Dental Pain A crack or cavity in a tooth can cause tooth pain. This is because the crack or cavity exposes the sensitive inner area of the tooth. An infection in the gum or the tooth's root can cause pain and swelling. The pain is often made worse when you have a hot or cold drink. It can also be worse when you bite on hard foods. Pain mayspread from the tooth to your ear, or to the part of the jaw on the same side. Home care Follow these tips when caring for yourself at home: Don't have hot and cold foods and drinks. Your tooth may be sensitive to changes in temperature. Use toothpaste made for sensitive teeth. Man gently up and down instead of sideways. Brushing sideways can wear away root surfaces if they are exposed. If your tooth is chipped or cracked, see a dentist right away. For short-term pain relief, put clove oil right on the tooth. You can buy clove oil at pharmacies. Some pharmacies carry an kudj-rrf-veufxkr toothachekit. This has a paste you can put on the exposed tooth to make it less sensitive. Use a cold pack. Put a cold pack on your jaw over the sore area to help reduce pain. Ask your healthcare provider about using tlfv-lti-keuqpyd medicine for pain. You may use this unless your provider prescribed another medicine. If you have long-term (chronic) liver or kidney disease,talk with 3 of 4 Discharge Instructions your provider before using acetaminophen or ibuprofen. Also talk with your provider if you've had a stomach ulcer or GI (gastrointestinal) bleeding. Be aware of infection. If you have signs of an infection, you will be given an antibiotic. Take it as directed. Follow-up care Follow up with your dentist, or as advised. Your pain may go away with the treatment given today. But only a dentist can fully check and treat the cause of your pain. This will keep the pain from coming back. Call 911 Call 911 if any of these occur: Abnormal drowsiness Headache or stiff neck Weakness or fainting Trouble swallowing or breathing When to get medical advice Call your healthcare provider right away if any of these occur: Your face gets swollen or red Pain gets worse or spreads to your neck Fever of 100.4F (38.0C) or higher, or as directed by your provider Pus drains from the tooth [address] [place], [place] [id number] History of Present illness Narrative* Jen Thorpe RDMS - 04/21/2023 7:00 AM EST Radiology Service Progress Note PATIENT NAME: Casie Solano DATE OF SERVICE: April 21, 2023 TIME: 11:19 AM PATIENT IDENTITY VERIFICATION COMPLETED USING TWO (2) IDENTIFIERS: Name and Date of confirmedby patient verbally. FALL SCREENING: Has the patient had 2 falls in the last year or 1 fall with injury or currently using an Ambulatory Assistive Device (Walker, Cane, Wheelchair, Crutches, etc.)? No PATIENT GENDER DATA: Female. status: : No status: NO. PATIENT RELEVANT IMPLANT DATA REVIEWED: Not Applicable RADIOLOGY DEPARTMENT: Ultrasound PERIPHERAL IV DATA: Not applicable SIGNED BY: Jen Thorpe RDMS RVT April 21, 2023 11:19 AM documented in this encounter[facility]11-17-2023 History of Present illness Narrative* Mattie Hyman APRN.UG DESIGNER - 04/17/2023 3:14 PM EST Acute Care Physician offered: Patient declines. Casie Solano is a 32 year old female who presents for problem visit pelvic pain RLQ. Transfer from [place] HPI: pt states that she will get a random pain in the RLQ that is aching and will radiate into her hip and groin area. She has noticed over the past few months that she has been getting more crampingwith her period and some pain with intercourse. She has a Paragard in place. She does not want anymore children due to the complication after her son. OB History T0 L1 SAB0 IAB0 Ectopic0 Multiple0 Live Births0 Shoder Filler History LMP: 04/10/2023, Having periods Age at Menarche: Age at First : Age at Menopause: Shoder Filler History Comments: Sexual Activity: Yes; Male Contraception: [...] 3 - Low ' documented in this encounterWilson Health08-02-2023 Evaluation + Plan note Future Scheduled Tests Laboratory* Pathology Tissue Request 12/31/22 [facility] 07-28-2023 Discharge summary Author Baudilio Walton [facility] December 26, 2022 7:00pm Note Date/Time December 26, 2022 5:19 pm [facility] Medical Records Department [address] [place] [id number] Emergency Department Summary 12/26/22 MR#: [id number] Acct: [id number] Name: CASIE SOLANO Rep #:[id number] : 1990 32 From: Baudilio Walton MD PCP: Alejandra Josse, SUPERVISOR FLOOR ASSEMBLY-C Status:REG E R Location: ED HPI History of Present Illness Chief Complaint: Edema Detail of Chief Complaint: Edema of the feet and lower extremity, pain in lower extremity, paresthesia Informant: patient and spouse/S.O. Onset/Context/Timing Onset: Weeks Context: Sudden Onset Timing: Intermittent Quality: Paresthesia and electrical shocking pain Current Severity: Mild Maximum Severity: Moderate Worsened by: Nothing Relieved by: Nothing Associated Symptoms Associated Symptoms: Question of claudication right calf. Narrative Narrative: Patient is a 32-year-old woman who is BMI is 65.4. She presents because of edema to her lower extremities. She also complains of electrical pain right heelradiating into her calf. She also complains of bilateral numbness in her lower extremities. She denies recent weight gain or weight loss. She states she has seen a chiropractor and told she has sciatica. Patient states the pain is on the side and goes down to her ankle. This crosses multiple dermatomes. Patientdoes complain of fatigue. Significant other states she snores significantly. She is never been tested for obstructive sleep apnea. She reports decreased urine output over the last week. She states she is drinking more fluids. She denies history of diabetes. Prior similar symptoms: No Recent Illness/Hospitalization: No PFSH [facility] Medical History Abdominal pain Alcohol use Anxiety Back pain Chlamydia Easy bruising Former smoker Heartburn Hemorrhoid History of edema Hx of LEEP (loop electrosurgical excision procedure) of cervix complicating Hypertension Leg cramps Marijuana use Shortness of breath on exertion TIA (transient ischemic attack) Vertigo Home Medications ibuprofen 600 mg tablet 600 mg PO TID PRN Pain Score 1-10 #30 tabs 04/05/20 [Rx Last Taken Unknown] apple cider vinegar 500 mg tablet 500 mg PO DAILY 10/22/22 [History Last Taken Unknown] cholecalciferol (vitamin D3) 25 mcg (1,000 unit) capsule (Vitamin D3) 25 mcg PO DAILY 10/22/22 [History Last Taken Unknown] lactobacillus combination no.4 3 billion cell capsule (Probiotic) 3,000 mmu cells PO DAILY 10/22/22 [History Last Taken Unknown] multivitamin 1 cap PO DAILY 10/22/22 [History Last Taken Unknown] aspirin 81 mg capsule 81 mg PO DAILY 12/26/22 [History Last Taken Unknown] Allergy/AdvReac Type Severity Reaction Status Date / Time No Known Allergies Allergy Verified 12/26/22 16:01 Family History Mother Diabetes Hypertension Surgical History History of History of cholecystectomy (~2018) History of esophagogastroduodenoscopy (EGD) Hx of wisdom tooth extraction Social History (Updated 12/26/22 @ 17:[address] Baudilio Walton MD) household members: significant other Smoking Status: Former smoker alcohol intake: never substance use type: does not use ROS ROS ED Constitutional Constitutional ED: Denies chills, fever(s), subjective, sweats or weight loss Cardiovascular Cardiovascular: Denies chest pain or palpitations Respiratory/Chest Respiratory/Chest: Denies cough, dyspnea or dyspnea on exertion Gastrointestinal Gastrointestinal: Denies abdominal pain, constipation, nausea or vomiting Genitourinary Genitourinary ED: Denies dysuria, hematuria or urinary frequency Musculoskeletal Musculoskeletal: Reports back pain; Denies arthralgias, myalgias or neck pain Integumentary Denies rash Neurologic Neurologic: Reports paresthesias; Denies headache(s) or weakness Endocrine Endocrinology: Denies cold intolerance or heat intolerance Hematologic/Lymphatic Hematologic/Lymphatic: Reports systems reviewed and no addt'l complaints, exceptas documented EXAM Physical Exam Const Vital Signs: 12/26/22 15:59 12/26/22 16:29 Temperature 97.2 F L Temperature Source Temporal Pulse Rate 120 H Respiratory Rate 17 Respiratory Effort Normal Non-Labored Respiratory Pattern Normal Blood Pressure 168/98 H Blood Pressure Mean 121 Pulse Ox 99 Oxygen Delivery Method Room Air Positive well nourished and well developed Constitutional Narrative: BMI is 65.4. General Appearance ED: well developed and NAD; Negative for pallor HEENT Reports moist mucous membranes HEENT Narrative: Head is atraumatic normocephalic. Ears normal. Eyes PERRL and EOMs intact bilaterally General Eye ED: Negative for pale conjunctiva or scleral icterus Neck no lymphadenopathy, supple and no JVD Resp normal respiratory effort Cardio regular rate and regular rhythm Back/Spine no CVA tenderness Back/Spine Narrative: Straight leg test is negative right and left. Patient reports altered sensationL3 and L5 5 dermatome on the left. Patellar and ankle reflexes are 1+. There is no delayed relaxation of the ankle reflex. EHLs intact. 5/5 strength with plantar dorsiflexion of the foot. Gait observed no foot drop. Extremity normal to inspection Extremity Narrative: There is no pitting edema. DP and PT pulse are palpable. Patient does have hair on her toes. There is no discoloration, asymmetry, leg vein distention, palpable cords or tenderness in the distribution of deep venous system. Neuro oriented x3, CN's II-XII intact bilaterally and no sensory deficits noted Sensorium / Orientation: alert Psych mental status grossly normal Skin no rashes or lesions noted, no wounds and skin turgor normal General Skin Exam: Negative for jaundice or pallor MDM MDM MDM Narrative Medical decision making narrative: Suspect patient's leg swelling is due to pulmonary hypertension from undiagnosedobstructive sleep apnea We will obtain comprehensive metabolic panel to assess total protein, albumin and renal function. UA to assess for proteinuria and hematuria. TSH to evaluate for hypothyroidism. Lab Data Attestation: I reviewed the patient's lab results. Lab results narrative: Comprehensive metabolic panel is normal. Urine is positive for bacteria. Sinceshe is asymptomatic urine culture was sent. If positive she will receive a call. Patient was informed that it is my opinion that this is related to obstructive sleep apnea. She needs to follow-up with her doctor for sleep study. She apparently had a sleep study 4 to 5 years ago which was borderline. Labs: Laboratory Results - last 24 hr 12/26/22 12/26/22 17:40 18:00 Sodium 136 Potassium 4.0 Chloride 103 Carbon Dioxide 28.0 Anion Gap 5 BUN 9 Creatinine 0.74 Estim Creat Clear Calc 82.36 Est GFR (MDRD) Af Amer 116 Est GFR (MDRD) Non-Af 96 BUN/Creatinine Ratio 12.1 Glucose 99 Calcium 8.9 Total Bilirubin 0.70 AST 28 ALT 40 Alkaline Phosphatase 65 Total Protein 7.6 Albumin 3.6 Globulin 4.0 Albumin/Globulin Ratio 0.9 TSH 2.15 Urine Color Yellow Urine Clarity Clear Urine pH 6.5 Ur Specific [place] 1.010 Urine Protein Negative Urine Glucose (UA) Normal Urine Ketones Negative Urine Occult Blood 10 H Urine Nitrite Negative Urine Bilirubin Negative Urine Urobilinogen Normal Ur Leukocyte Esterase 100 H Urine RBC 0-5 SEEN Urine WBC 0-5 SEEN Ur Squamous Epith Cells 0-5 SEEN Urine Bacteria 1+ Urine Mucus 0 SEEN Discharge Plan Triage Chief Complaint: Edema ED Provider: Baudilio Walton Dx/Rx/DC Orders Clinical Impression: Lymphedema associated with obesity, Body mass index (BMI) greater than 50 Instructions: ED Peripheral Edema, Bilateral, ED Sleep Apnea, Obstructive Prescriptions: No Action ibuprofen 600 MG tablet 600 mg PO TID PRN (Reason: Pain Score 1-10) Qty: 30 0RF multivitamin Capsule 1 cap PO DAILY cholecalciferol (vitamin D3) [Vitamin D3] 25 mcg (1,000 unit) Capsule 25 mcg PO DAILY apple cider vinegar 500 mg Tablet 500 mg PO DAILY Probiotic 3 billion cell Capsule 3,000 mmu cells PO DAILY Rx Instructions: administer with a meal aspirin 81 mg capsule 81 mg PO DAILY Primary Care Provider: Alejandra Vincent NP Referrals: Alejandra Vincent SUPERVISOR FLOOR ASSEMBLY, SUPERVISOR FLOOR ASSEMBLY-C [Primary Care Provider] - 1 Week Activity Restrictions/Additional Instructions: Recommend contacting your doctor for outpatient sleep study. Disposition Disposition: Home, Self Care What to do if you have Problems For any increased pain, shortness of breath, bleeding, nausea or vomiting, chestpain, or any unexpected problems, contact your Primary Care Provider. Call [facility] ([phone]) or report to the closest Emergency Room. Call 911 if necessary. 12/26/22 1900 <Electronically signed by Baudilio Walton MD> Cosigner Signature (if applicable): CC: SUPERVISOR FLOOR ASSEMBLY-C Alejandra Vincent ~ Signed [facility] Work Phone: Evaluation + Plan note Future Appointments Appointment Date:01/14/2023 03:40:00 PM Scheduled Provider:BRE SIMS MD Location:[facility] Appointment Type:Telephone Future Scheduled Tests Laboratory* Pathology Tissue Request 12/31/22 [facility] Evaluxjyop noteNo assessment information available [facility] Work Phone: Evalugfzmk note* Diagnosis Pelvic pain in female- Primary Unspecified symptom associated with female genital organs [facility] Diagnosis Pelvic pain in female Unspecified symptom associated with female genital organs [facility] Diagnosis Sore throat- Primary Acute pharyngitis Otalgia, right ear TMJ dysfunction Temporomandibular joint disorders, unspecified [facility] Diagnosis Lower abdominal pain- Primary Abdominal pain, other specified site [facility]* Diagnosis Onset Date Resolution Status Admit Date Urinary tract infection noneactive S hersonteirais 2024 6:09am [facility] Work Phone: Hospital course Narrative No data available for this section [facility] Hospital Discharge instructions Additional Instructions Recommend contacting your doctor for outpatient sleep study.[facility] Work Phone: Hospital Discharge instructions No data available for this section [facility] Hospital Discharge instructions Additional Instructions Please follow-up with your PCP and return for any worsening of your symptoms. [facility] Work Phone: Hospital Discharge instructions Additional Instructions Please begin taking the lisinopril once a day for improved blood pressure control. Keep a blood pressure journal so your family doctor can evaluate your blood pressure and his response to the medication. If you have any further concerns or worsening of symptoms please [facility] Work Phone: Hospital Discharge instructionsAdditional Instructions Follow-up with your primary care physician. Return back to the ED if symptoms change or [facility] Work Phone: Progress note No data available for this section [facility] Progress note Author Destiny Jay [facility] Note Date/Time February 21, 2025 11:28am [facility] [address], [address] [place], [place] [address] OFFICE VISIT Date of Service: 02/21/25 MR#: [id number] Acct: [id number] Name: CASIE SOLANO Rep #: [id number] : 1990 Provider: Dr. Kayla Jay MD Age/Sex: 34/F Location: [facility] Status: Signed Intake Vital Signs 11/29/24 17:36 02/07/25 06:34 02/21/25 10:47 Height 5 ft 1 in 5 ft 1 in 5 ft 1 in Weight: 340 lb BMI 64.2 BP 124/62 H Pulse 76 Intake Visit Reasons: uti & yeast infections Chief Complaint: new patient- uti and yeast infections Unindentured Apprentice Required: No Accompanied by: boyfriend Is patient in pain?: No Allergies No Known Allergies Allergy (Verified 02/21/25 10:43) Medications ?Medication ?Instructions ?Recorded ?Confirmed ?Type apple cider vinegar 500 mg tablet 500 mg PO DAILY 09/3002/07/25 History cholecalciferol (vitamin D3) 25 25 mcg PO DAILY 02/07/25 History mcg (1,000 unit) capsule (Vitamin D3) lactobacillus combination no.4 3 3,000 mmu cells PO DA ERIK 10/22/22 02/07/25 History billion cell capsule (Probiotic) magnesium glycinate 100 mg (as 100 mg PO TID 02/21/25 02/21/25 History glycinate) tablet semaglutide (weight loss) 0.5 0.5 mg subcut QWEEK 01/3102/21/25 History mg/0.5 mL subcutaneous pen injector Is last menstrual period known: Yes Last menstrual period: 02/21/25 Nurse's Note: uti and then yeast infection after, one and off since october. Some vaginal itchingand irritated sensation. Patient is on her period today. 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 Stroke Chronic headaches UTI (urinary tract infection) Back problem Marijuana use Alcohol use Easy bruising Back pain Vertigo Heartburn Former smoker Shortness of breath on exertion Leg cramps History of edema Hx of LEEP (loop electrosurgical excision procedure) of cervix complicating Anxiety TIA (transient ischemic attack) Hemorrhoid Chlamydia Abdominal pain Hypertension Surgical History Hx of wisdom tooth extraction History of esophagogastroduodenoscopy (EGD) History of cholecystectomy (~2018) History of Family History Mother Diabetes Hypertension Social History household members: significant other Smoking Status: Former smoker alcohol intake: never substance use type: does not use what type of physical activity do you participate in: other How many days of moderate to strenuous exercise, like a brisk walk, did you do in the last 7 days: 3 frequency: 3-4 times per week duration: other do you feel safe at home: Yes Female Reproductive History Menstrual Date of last menstrual period: 02/21/25 HPI HPI Urology Chief Complaint: new patient- uti and yeast infections Details: CASIE SOLANO, is a 34 F. She is here for evaluation and management of []. Issues started in October with periumbilical abdominal pain. She had no symptoms of urinary tract infection at that time. They treated her with Bactrim and developed acute vaginitis that was treated with fluconazole. No vaginal culture was done. It was determined that her psoas muscle tightness and was causing pain and massage therapy resolved this issue. She was then seen in urgent care a second time and was sent to the ER for potential issue with her ovaries. In follow up she was given metrogel and 5 days fluconazole. She was sent here after that as she continued to have vaginal irritation. Right now she still has mild vaginal and urethral irritation. It is not constant, and it is not horrible. The issue now is pain with intercourse. The pain is at the opening and inside vaginally. She did have some bleeding with intercourse one time. She is currently on her period and the pad is causing discomfort as well. She has trouble wearing tampons now as well. It is uncomfortable and then hurts with removal. She is voiding 5-10 times during the day, 0-1 times at night. There is no urge incontinence where she cannot make it to the bathroom. There is no stress incontinence with cough, laugh, sneeze, lifting, etc. She has had maybe one urinary tract infections in the last year. She has not had visible blood in her urine. She has the following issues with chronic bowel function: none. She has no history of smoking. There was a post stroke. ROS Const Constitutional: No chills, fatigue, fever(s), headache(s), night sweats, weakness, weight change, abnormal sleep pattern or change in appetite Eyes Eyes: No change in vision ENT ENT: No headache(s) or dry mouth Resp Respiratory: No cough, chest congestion, shortness of breath or wheezing Cardio Cardiology: Positive for other (No chest pain.); No shortness of breath, irregular heart rhythm or lightheadedness Gastro GI: Positive for other (No nausea.); No abdominal pain, change in bowel habits, constipation, diarrhea or vomiting Musc Musculoskeletal: No abnormal gait Skin Skin: No yellowing of the eye, lesions, itchy eyes, rash or skin ulcer Neuro Neurology: No abnormal gait, confusion, dizziness, weakness, headache(s) or memory loss Psych Psychiatric: No abnormal sleep pattern, No change in appetite, No confusion and No memory loss Endo Endocrine: No fatigue, increased thirst/drinking or weight change Aller/Imm Allergy/Immunologic: No itchy eyes or wheezing Caleb/Lymp Hematologic/Lymphatic: No easy bleeding, easy bruising or enlarged lymph nodes Exam Const General: cooperative, healthy appearing, comfortable and no acute distress [facility] Head: normocephalic and atraumatic Ears: hearing grossly normal bilaterally and external ears normal Nose: external nose normal Eyes General: appearance normal, both eyes and all related structures Neck Neck: normal visual inspection and trachea midline Chest Chest palpation & inspection: normal inspection of the chest Resp Effort & Inspection: normal respiratory effort, able to speak in complete sentences and symmetric chest movement Cardio Rate: regular rate GI Inspection: normal to inspection Palpation: soft and nontender General: No CVA tenderness External Female Exam: normal external appearance and normal appearance of the urethra Urethra: normal appearance of the urethra Speculum Exam - Vagina: no masses and tenderness (bilateral posteriorly at introitus) Bimanual Exam- Adnexa, other: normal Pelvic Support: normal Other: Vaginal pathogens sent. Skin General: no rashes or lesions noted Neuro General: patient alert, patient awake, patient oriented x3 and CN's II-XI intact bilaterally Extrem General: normal to inspection Psych Appearance: grossly normal and well kempt Mental Status: mental status grossly normal Results POC UA Auto w/o Microscopy Office Urine Color Last Edit by Brandie Levin on 02/21/25 10:51 Office Urine Clarity Last Edit by Brandie Levin on 02/21/25 10:51 Office Urine Glucose Negative Last Edit by Brandie Levin on 02/21/25 10:5 1 Office Urine Ketones Negative Last Edit by Brandie Levin on 02/21/25 10:5 1 Office Urine Bilirubin Negative Last Edit by Brandie Levin on 02/21/25 10 :51 Office Urine Urobilinogen 0.2 mg/dL Last Edit by Brandie Levin on 5 10:51 Off Ur Spec [place] 1.005 Last Edit by Brandie Levin on 02/21/25 10:51 Office Urine pH 7 Last Edit by Brandie Levin on 02/21/25 10:51 Office Urine Protein 2+ Last Edit by Brandie Levin on 02/21/25 10:51 Office Urine Blood Large Last Edit by Brandie Levin on 02/21/25 10:51 Office Urine Blood Hemolyzed Large Last Edit by Brandie Poonam on 02/21/25 10:51 Office Urine Nitrate Negative Last Edit by Brandie Levin on 02/21/25 10:5 1 Off Ur Leukocytes Positive Last Edit by Brandie Poonam on 02/21/25 10:51 leuks 70 Patient reports she is on her period today. Supplemental Info 60 minutes were spent in record review, history and physical exam, discussion of options, development of a plan, and documentation for this appointment today. Coding Level of Care Code Off vis,new,level 5 Diagnoses Acute vaginitis N76.0 Dyspareunia, female N94.10 Pelvic floor dysfunction M62.89 Assessment and Plan Assessment and Plan (1) Acute vaginitis: Status: Acute (2) Dyspareunia, female: Status: Acute (3) Pelvic floor dysfunction: Status: Acute Orders: Orders POC UA Auto w/o Microscopy Today R39.9 - Unspecified symptoms and signs involving the genitourinary system Plan vaginal pathogens and urine PCR today continue vaginal moisturizer for comfort we discussed pelvic floor physical therapy as the next step once we make sure any infection has been managed I did review her previous culture results and UA. We discussed that the pelvic floor dysfunction can also be the issue with inability to use tampons. 02/21/25 2957 <Electronically signed by Destiny Jay MD> Date _ Destiny Jay MD Cosign Signature: Date (if applicable) CC: ~ [facility] Work Phone: Progress note Author Destiny Jay [facility] Note Date/Time March 14, 2025 9 :29am [facility] [address], [address] [place] [id number] OFFICE VISIT Date of Service: 03/14/25 MR#: [id number] Acct: [id number] Name: CASIE SOLANO Rep #: [id number] : 1990 Provider: Dr. Kayla Jay MD Age/Sex: 34/F Location: [facility] Status: Signed Intake Vital Signs 02/21/25 10:47 03/14/25 08:45 Height 5 ft 1 in 5 ft 1 in Weight: 340 lb 340 lb BMI 64.2 64.2 BP 124/62 H 130/76 H Pulse 76 70 Intake Visit Reasons: repeat cultures Chief Complaint: repeat urine and vaginal cultures. Unindentured Apprentice Required: No Accompanied by: self Is patient in pain?: No Allergies No Known Allergies Allergy (Verified 03/14/25 08:43) Medications ?Medication ?Instructions ?Recorded ?Confirmed ?Type apple cider vinegar 500 mg tablet 500 mg PO DAILY 09/3003/14/25 History cholecalciferol (vitamin D3) 25 25 mcg PO DAILY 02/07/25 History mcg (1,000 unit) capsule (Vitamin D3) lactobacillus combination no.4 3 3,000 mmu cells PO DA ERIK 10/22/22 02/07/25 History billion cell capsule (Probiotic) magnesium glycinate 100 mg (as 100 mg PO TID 02/21/25 02/21/25 History glycinate) tablet metronidazole 500 mg tablet 500 mg PO BID #14 tabs Rx phenazopyridine 200 mg tablet 200 mg PO TID #30 tabs 1 Rx (Pyridium) Nurse's Note: sx have gotten some better but still feel irritability going on in that area. Patient is undressed for swab today. [facility] Medical History (Updated 03/14/25 @ 19:[address] Destiny Jay MD) Blood clots in brain Stroke Chronic headaches UTI (urinary tract infection) Back problem Marijuana use Alcohol use Easy bruising Back pain Vertigo Heartburn Former smoker Shortness of breath on exertion Leg cramps History of edema Hx of LEEP (loop electrosurgical excision procedure) of cervix complicating Anxiety TIA (transient ischemic attack) Hemorrhoid Chlamydia Abdominal pain Hypertension Surgical History Hx of wisdom tooth extraction History of esophagogastroduodenoscopy (EGD) History of cholecystectomy (~2017) History of Family History Mother Diabetes Hypertension Social History household members: significant other Smoking Status: Former smoker alcohol intake: never substance use type: does not use what type of physical activity do you participate in: other frequency: 3-4 times per week duration: other do you feel safe at home: Yes HPI HPI Urology Chief Complaint: repeat urine and vaginal cultures. Details: CASIE SOLANO, is a 34 F. She is here for repeat cultures after being treated for urinary and vaginal infections. She is still feeling completely normal, still some irritation. Doctor called away for emergency surgery. Cultures completed per nursing staff. Results POC Urinalysis w/Micro Office Urine Color Last Edit by Brandie Levin on 03/14/25 08:49 Office Urine Clarity Last Edit by Brandie Levin on 03/14/25 08:49 Office Urine Glucose Negative Last Edit by Brandie Levin on 03/14/25 08:4 9 Office Urine Ketones Negative Last Edit by Brandie Levin on 03/14/25 08:4 9 Office Urine Bilirubin Negative Last Edit by Brandie Levin on 03/14/25 08 :49 Office Urine Urobilinogen 0.2 mg/dL Last Edit by Brandie Levin on 5 08:49 Off Ur Spec [place] 1.015 Last Edit by Brandie Levin on 03/14/25 08:49 Office Urine pH 6 Last Edit by Brandie Levin on 03/14/25 08:49 Office Urine Protein Negative Last Edit by Brandie Levin on 03/14/25 08:4 9 Office Urine Blood Trace Last Edit by Brandie Levin on 03/14/25 08:49 Office Urine Blood Hemolyzed Negative Last Edit by Brandie Levin on 03/14 08:49 Office Urine Nitrate Negative Last Edit by Brandie Levin on 03/14/25 08:4 9 Off Ur Leukocytes Negatve Last Edit by Brandie Levin on 03/14/25 08:49 Off Ur WBC Microscopic Last Edit by Brandie Levin on 03/14/25 08:49 Off Ur RBC Microscopic Last Edit by Brandie Levin on 03/14/25 08:49 Off Ur Bacteria Microscopic Last Edit by Brandie Levin on 03/14/25 08:49 Coding Level of Care Code No Charge Diagnoses Acute vaginitis N76.0 Dyspareunia, female N94.10 Pelvic floor dysfunction M62.89 UTI (urinary tract infection) N39.0 Assessment and Plan Assessment and Plan (1) Acute vaginitis: Status: Acute (2) Dyspareunia, female: Status: Acute (3) Pelvic floor dysfunction: Status: Acute (4) UTI (urinary tract infection): Status: Acute Orders: Orders POC UA Automated w/Microscopy Today R39.9 - Unspecified symptoms and signs involving the genitourinary system Plan repeat cultures Plan Details Follow Up: 1-2 weeks (UTI f/u) 03/14/25 191 <Electronically signed by Destiny Jay MD> Date _ Destiny Jay MD Cosigner Signature: Date (if applicable) CC: ~ [facility] Work Phone: Reason for referral (narrative)* Diagnostic Procedure Only (Routine) - Authorized Specialty Diagnoses / Procedures Referred By Contac t Referred To Contact US IMAGING Diagnoses Pelvic pain in female Procedures US FEMALE PELVIS TRANSVAG US TRANSVAGINAL Mattie Hyman APRN.CNP [address] [place] [address] [place] [address] Referral ID Status Reason Start Date Expiration Date Visits Requested Visits Authorized [id number] Authorized Auto-Generat ed Referral 3 05/16/2024 1 1 [facility] for referral (narrative)* Diagnostic Procedure Only (Routine) - Closed Specialty Diagnoses / Procedures Referred By Yvette garza Referred To Contact US IMAGING Diagnoses Pelvic pain in female Procedures US FEMALE PELVIS TRANSVAG US TRANSVAGINAL Mattie Hyman APRN.CNP [address] [place] [address] [place] [address] Referral ID Status Reason Start Date Expiration Date V isits Requested Visits Authorized [id number] Closed Patient Cleared - Qualified 100% FAS 04/17/2023 04/19/2023 1 1 [facility] for referral (narrative)No reason for referral information [facility] Work Phone: Summary Purpose Family History No Family History Records Found Relationship Condition Age at Onset Recorded Date/T jamia mother Diabetes mellitus Unknown Hypertension Unknown Advance Directives No Advanced Directives Records FoundDocuments on File Type Date Recorded Patient Licensed Audiologist Expl anation Advance Directives and Living Will Power of Custodial Officer Latest Code Status on File Code Status Date Activated Date Inactivated Comments Full Code 10/18/2019 7:50 AM Documents on File Type Date Recorded Patient Licensed Audiologist Expl anation Advance Directives and Living Will Power of Custodial Officer Latest Code Status on File Code Status Date Activated Date Inactivated Comments Full Code 10/18/2019 7:50 AM 10/18/2019 11:44 AM Latest Code Status on File Code Status Date Activated Date Inactivated Comments Full Code 10/18/2019 7:50 AM 10/18/2019 11:44 AM Advance Directive Response Recorded Date/ Time Living Will No March 28 20 11:21am Power of Custodial Officer No March 28, 2020 11:21am Advance Directive Response Recorded Date/ Time Living Will No December 26, 2022 4:29pm Power of Custodial Officer No December 26 4:29pm Advance Directive Response Recorded Date/ Time Living Will No April 18, 023 12:54pm Power of Custodial Officer No April 18, 2023 12:54pm Advance Directive Response Recorded Date/ Time Living Will No August 02, 2023 3:08am Power of Custodial Officer No August 01 3:08am Advance Directive Response Recorded Date/ Time Do you have a Healthcare Power of Custodial Officer? No November 29, 2024 10:16pm Assessments Diagnosis Essential hypertension Unspecified essential hypertension [...] mild sore throat. You may use an [id number] chloraseptic spray, gargle with warm salt water, [...] Generalized abdominal pain Procedures US Abdomen Complete Liz Spear, SENIOR JAVA SOFTWARE ENGINEER - UG DESIGNER [address] [id number] Chief Complaint and Reason for Visit Chief Complaint edema markos lower Chief Complaint edema markos lower RLQ PAIN Chief Complaint RLQ PAIN headache Chief Complaint Admit Date abd pain November 29, 2024 5:35p m Chief Complaint Admit Date abd pain November 29, 2024 5:35p m Urinary tract infection February 07 6:09am Reason for Visit Admit Date Urinary tract infection February 07 6:09am Chief Complaint Admit Date abd pain November 29, 2024 5:35p m Urinary tract infection February 07 6:09am uti & yeast infections February 21 10:04am Reason for Visit Admit Date UTI symptoms February 07, 2025 6:09am Urinary tract infection February 07 6:09am Acute vaginitis February 21, 2025 10:04am Dyspareunia, female February 21, 2025 10:04am Pelvic floor dysfunction February 21, 2025 10:04am Chief Complaint Admit Date abd pain November 29, 2024 5:35p m Urinary tract infection February 07 6:09am uti & yeast infections February 21 10:04am repeat cultures March 14, 2025 8 :24am Reason for Visit Admit Date UTI symptoms February 07, 2025 6:09am Urinary tract infection February 07 6:09am Acute vaginitis February 21, 2025 10:04am Dyspareunia, female February 21, 2025 10:04am Pelvic floor dysfunction February 21, 2025 10:04am Acute vaginitis March 14, 2025 8 :24am Dyspareunia, female March 14, 2025 8 :24am Pelvic floor dysfunction March 14 8:24am UTI (urinary tract infection) March 142024 8:24am Additional Source Comments INFORMATION SOURCE (unrecogn ized section and content) DATE CREATED AUTHOR 01/10/2019 [facility] DATE CREATED AUTHOR AUTHOR'S ORGANIZ ATION 12/18/2019 [facility] DATE CREATED AUTHOR AUTHOR'S ORGANIZ ATION 09/15/2021 [facility] DATE CREATED AUTHOR AUTHOR'S ORGANIZ ATION 01/01/2023 [facility] DATE CREATED AUTHOR AUTHOR'S ORGANIZ ATION 04/18/2023 Pending sale to [facility] ([facility]) DATE CREATED AUTHOR AUTHOR'S ORGANIZ ATION 05/22/2024 [facility] DATE CREATED AUTHOR AUTHOR'S ORGANIZ ATION 11/19/2024 [facility] DATE CREATED AUTHOR AUTHOR'S ORGANIZ ATION 12/01/2024 [facility] DATE CREATED AUTHOR AUTHOR[facility]S [facility]GANIZ ATION [facility] Goals (unrecognized section and content) Goals may be documented in a n alternate sectionGoals may be documented in an alternate sectionGoals may be documented in an alternate section No data available for this section No data available for this sectionGoals may be documented in an alternate sectionGoals may be documented in an alternate sectionGoals may be documented in an alternate sectionGoals may be documented in an alternate sectionGoals may be documented in an alternate sectionGoals may be documented in an alternate sectionGoals may be documented in an alternate section Care Teams (unrecognized sec tion and content) Team Status: Active Member Role Status Dates Dr. Alma Antony MD Family Provider Active Dr. Alma Antony MD Primary Care Provider Active Team Status: Inactive Member Role Status Dates Dr. Alma Antony MD Primary Care Provider Active Dr. Altagracia Bourgeois DO Attending Provider Active Team Status: Active Member Role Status Dates Dr. Alma Antony MD Family Provider Active Alejandra Vincent SUPERVISOR FLOOR ASSEMBLY, SUPERVISOR FLOOR ASSEMBLY-C Primary Care Provider Active Team Status: Inactive Member Role Status Dates Dr. Altagracia Bourgeois DO Attending Provider, [facility] Active No Primary Care Physician Primary Care Provider Active Team Status: Inactive Member Role Status Dates Alejandra Vincent NP, SUPERVISOR FLOOR ASSEMBLY-C Primary Care Provider Active Dr. Baudilio Walton MD Emergency Provider Active Team Status: Inactive Member Role Status Dates Alejandra Vincent NP, SUPERVISOR FLOOR ASSEMBLY-C Primary Care Provider Active Dr. Bhavin Kelly MD Emergency Provider Active Team Status: Inactive Member Role Status Dates Alejandra Vincent NP, SUPERVISOR FLOOR ASSEMBLY-C Primary Care Provider Active Dr. Baudilio Walton MD Attending Provider, Emergency Provi aries Active Team Status: Inactive Member Role Status Dates Alejandra Vincent NP, SUPERVISOR FLOOR ASSEMBLY-C Primary Care Provider Active Dr. Bhavin Kelly MD Attending Provider, Emergency Pro vider Active Team Status: Inactive Member Role Status Dates Alejandra Vincent NP, SUPERVISOR FLOOR ASSEMBLY-C Primary Care Provider Active Dr. Manuel Kraus , DO Emergency Provider Active Team Status: Active Member Role/Relationship Status Dates Prudence Vergara NP-C Primary Care Provider Acti ve Team Status: Inactive Member Role/Relationship Status Dates Prudence Vergara NP-C Primary Care Provider Acti ve Start: November 29, 2024 End: November 30, 2024 Dr. Feroz Stevenson DO Emergency Provider Activ e Start: November 29, 2024 End: November 30, 2024 Team Status: Inactive Member Role/Relationship Status Dates Prudence Vergara NP-C Primary Care Provider Acti ve Start: November 29, 2024 Dr. Destiny Jay MD Attending Provider Active Start: November 29, 2024 Team Status: Inactive Member Role/Relationship Status Dates Prudence Vergara NP-C Primary Care Provider Acti ve Start: November 29, 2024 End: November 30, 2024 Dr. Feroz Stevenson , DO Attending Provider Activ e Start: November 29, 2024 End: November 30, 2024 Dr. Feroz Stevenson , DO Emergency Provider Activ e Start: November 29, 2024 End: November 30, 2024 Team Status: Inactive Member Role/Relationship Status Dates Prudence Vergara NP-C Primary Care Provider Acti ve Start: February 07, 2025 End: February 07, 2025 Prudence Vergara NP-C Referring Provider Active Start: February 07, 2025 End: February 07, 2025 JAQUAN Richards Attending Provider Active Sta rt: February 07, 2025 End: February 07, 2025 Team Status: Active Member Role/Relationship Status Dates Prudence Vergara NP-C Primary care physician Act russell Team Status: Inactive Member Role/Relationship Status Dates Prudence Vergaar NP-C Primary care physician Act russell Start: November 29, 2024 Dr. Destiny Jay MD Attending physician Active Start: November 29, 2024 Team Status: Inactive Member Role/Relationship Status Dates Prudence Vergara NP-C Primary care physician Act russell Start: November 29, 2024 End: November 30, 2024 Dr. Feroz Stevenson DO Attending physician Active Start: November 29 End: November 30, 2024 Dr. Feroz Stevenson DO Emergency Department Physician Active Start: November 29, 2024 End: November 30, 2024 Team Status: Inactive Member Role/Relationship Status Dates Prudence Vergara NP-C Primary care physician Act russell Start: February 07, 2025 End: February 07, 2025 Prudence Vergara NP-C Referring Provider Active Start: February 07, 2025 End: February 07, 2025 JAQUAN Richards Attending physician Active St art: February 07, 2025 End: February 07, 2025 Team Status: Inactive Member Role/Relationship Status Dates Prudence Vergara NP-C Primary care physician Act russell Start: February 07, 2025 End: February 07, 2025 JAQUAN Richards Attending physician Active St art: February 07, 2025 End: February 07, 2025 JAQUAN Richards Referring Provider Active Sta rt: February 07, 2025 End: February 07, 2025 Team Status: Inactive Member Role/Relationship Status Dates Prudence Vergara NP-C Primary care physician Act russell Start: February 21, 2025 End: February 21, 2025 Prudence Vergara NP-C Referring Provider Active Start: February 21, 2025 End: February 21, 2025 Dr. Destiny Jay MD Attending physician Active Start: February 21, 2025 End: February 21, 2025 Team Status: Inactive Member Role/Relationship Status Dates Prudence Vergara NP-C Primary care physician Act russell Start: March 14, 2025 End: March 14, 2025 Prudence Vergara NP-C Referring Provider Active Start: March 14, 2025 End: March 14, 2025 Dr. Destiny Jay MD Attending physician Active Start: March 14, 2025 End: March 14, 2025 Source Comments (unrecognize d section and content) In the event this informatio n is protected by the Federal Confidentiality of Alcohol and Drug Abuse Patient Records regulations: The Federal rules restrict any use of the information to criminally investigate or prosecute any alcohol or drug abuse patient.[facility] HealthIn the event this information is protected by the Federal Confidentiality of Alcohol and Drug Abuse Patient Records regulations: The Federal rules restrict any use of the information to criminally investigate or prosecute any alcohol or drug abuse patient.[facility] HealthIn the event this information is protected by the Federal Confidentiality of Alcohol and Drug Abuse Patient Records regulations: The Federal rules restrict any use of the information to criminally investigate or prosecute any alcohol or drug abuse patient.[facility] HealthIn the event this information is protected by the Federal Confidentiality of Alcohol and Drug Abuse Patient Records regulations: The Federal rules restrict any use of the information to criminally investigate or prosecute any alcohol or drug abuse patient.[facility] Reason for Visit (unrecogniz ed section and content) Reason Comments Radiology US Specialty Diagnoses / Procedures Referred By Yvette garza Referred To Contact Diagnoses Abnormal period Procedures [place] [address] Referral ID Status Reason Start Date Expiration Date Visits Requested Visits Authorized [id number] Authorized Patient Cleared - Qualified 100% FAS 3 07/15/2023 99 99 Reason Comments Pelvic Pain Reason Comments Sinus Problem R lower tooth pulled 1 month ago, was on amox and then augmentin, has had sinus and R ear pain since Reason Comments Abdominal Pain Mid to lower abd melony n radiating to RLQ, ER for UTI, tx Bactrim and Diflucan w/o relief Specialty Diagnoses / Procedures Referred By Yvette t Referred To Contact Emergency Medicine / [facility] Diagnoses Lower abdominal pain, wants checked for UTI, Procedures EST SAME DAY Self Alec Saenz, JAQUAN [address] [place] [address] Phone: tel: fax: Referral ID Status Reason Start Date Expiration Date Visits Requested Visits Authorized [id number] New Request Financial Clearance Required - Self Pay 11/29/2024 02/27/202506 01 FOR RECORDS PERTAINING TO PATIENTS WHO ARE [...] BE BASED ON THE PRIMARY CLINICAL RECORDS. [employer] [facility]. provides no warranty or guarantee of the accuracy or completeness of information in this document.
--- NOTE | 2025-04-23 15:57 | ED.VIS.FEGU ---
HPI HPI - Female History of Present Illness Chief Complaint: Female C/O Informant: patient Narrative Narrative: 34-year-old female presenting to the emergency room out of concerns for pelvic pain and spotting. Patient states she has an IUD that is about 8 to 9 years old. Originally placed by Dr. Norma Henderson. 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 She has been seen primary care. She states that recently she began seeing a chiropractor has been having some hip and pelvis discomfort. She states that she had x-rays through her chiropractor and there was concerns that her IUD had moved on the x-ray so she followed up in [place] at Dr. Norma Henderson's gynecology office. Dr. Norma Henderson is on maternity leave. She saw somebody else but does not recall who. She states they did a pelvic exam and could not find the strings to the IUD. She states that a ultrasound was ordered but she was not able to get 1 scheduled. Over the past couple days she has developed a sharp stabbing pain in the right lower side of the abdomen/pelvis. Today she noted that she started having some spotting. It is not uncommon for her to have spotting prior to her menstruation but this is earlier than is to be expected for her. She states she should start her menstrual cycle this Thursday or Thursday. She denies any fevers or chills. She denies any dysuria urinary frequency hematuria or vaginal discharge. 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 Stroke Chronic headaches UTI (urinary tract infection) Back problem Marijuana use Alcohol use Easy bruising Back pain Vertigo Heartburn Former smoker Shortness of breath on exertion Leg cramps History of edema Hx of LEEP (loop electrosurgical excision procedure) of cervix complicating Anxiety TIA (transient ischemic attack) Hemorrhoid Chlamydia Abdominal pain Hypertension Home Medications ?Medication ?Instructions ?Recorded ?Last Taken ?Type apple cider vinegar 500 mg tablet 500 mg PO DAILY 10/22/22 Unknown History cholecalciferol (vitamin D3) 25 25 mcg PO DAILY 10/22/22 Unknown History mcg (1,000 unit) capsule (Vitamin D3) lactobacillus combination no.4 3 3,000 mmu cells PO DAILY 10/22/22 Unknown History billion cell capsule (Probiotic) magnesium glycinate 100 mg (as 100 mg PO TID 02/21/25 Unknown History glycinate) tablet doxycycline hyclate 100 mg tablet 100 mg PO QHS #90 tabs 03/31/25 Unknown Rx nystatin-triamcinolone 100,000 1 applic topical BID #60 grams 04/05/25 Unknown Rx unit/gram-0.1 % topical ointment Allergy/AdvReac Type Severity Reaction Status Date / Time No Known Allergies Allergy Verified 04/23/25 14:34 Family History Mother Diabetes Hypertension Surgical History Hx of wisdom tooth extraction History of esophagogastroduodenoscopy (EGD) History of cholecystectomy (~2018) History of Social History household members: significant other Smoking Status: Former smoker alcohol intake: never substance use type: does not use what type of physical activity do you participate in: other frequency: 3-4 times per week duration: other do you feel safe at home: Yes ROS ROS ED Constitutional Constitutional ED: Denies chills, fever(s) or weight loss Eyes Eyes: Denies change in vision or diplopia ENT ENT ED: Denies ear pain, rhinorrhea or sore throat Cardiovascular Cardiovascular: Denies chest pain, orthopnea, palpitations or racing heartbeat Respiratory/Chest Respiratory/Chest: Denies cough, dyspnea or orthopnea Gastrointestinal Gastrointestinal: Reports abdominal pain; Denies diarrhea, nausea or vomiting Genitourinary Genitourinary ED: Reports other Details: Vaginal spotting ; Denies dysuria, hematuria or urinary frequency Musculoskeletal Musculoskeletal: Denies arthralgias or myalgias Integumentary Denies abscess or rash Neurologic Neurologic: Denies headache(s) or weakness Psychiatric Psychiatric: Denies anxiety, depression, suicidal ideation or suicidal thoughts Endocrine Endocrinology: Denies polydipsia, polyphagia or polyuria Allergic/Immunologic Allergic/Immunologic ED: Denies mouth swelling, tongue swelling or urticaria EXAM Physical Exam Const Vital Signs: 04/23/25 14:34 04/23/25 16:33 11/23/25 19:39 Temperature 97.2 F L 97.2 F L Temperature Source Temporal Pulse Rate 118 H 99 92 Respiratory Rate 18 16 18 Blood Pressure 162/98 H 158/70 H 130/93 H Blood Pressure Mean 119 99 105 Pulse Ox 98 99 100 Oxygen Delivery Method Room Air Positive well nourished, well developed and obese General Appearance ED: well developed and NAD Nutritional Appearance: obese HEENT Reports normocephalic, head/scalp atraumatic and moist mucous membranes Eyes PERRL and EOMs intact bilaterally Neck no lymphadenopathy, supple and no JVD Resp normal respiratory effort and clear to auscultation bilaterally Cardio regular rate, regular rhythm and no murmurs GI GI Narrative: Patient points to the right lower adnexal region as the area that hurts. Palpation: soft Back/Spine no CVA tenderness and normal ROM Extremity normal to inspection General Extremety ED: Negative for edema General Extremity: Negative for edema Neuro oriented x3 and CN's II-XII intact bilaterally Sensorium / Orientation: alert Motor Exam: strength 5/5 throughout Psych mental status grossly normal Mood & Affect: Negative for depressed or tearful Skin no rashes or lesions noted and no wounds MDM MDM MDM Narrative Medical decision making narrative: Differential diagnosis includes but not limited to abscess infection ovarian cyst complications of IUD PID ureterolithiasis acute cystitis muscular spasm/strain dysfunctional uterine bleeding Patient blood work obtained that shows a glucose of 141 normal white count hemoglobin 15.4. She tested negative urinalysis negative. Pelvic ultrasound was obtained. Please see radiologist read for full details. There is a hide IUD in the uterus. Do not see any tubo-ovarian abscess. Small cyst on left ovary. Above results were discussed with the patient. She will follow-up with gynecology. History & Record Review Discussion w/independent historian: Patient Lab Data Attestation: I reviewed the patient's lab results. Labs: Laboratory Results - last 24 hr 04/23/25 04/23/25 16:25 16:29 WBC 9.4 RBC 5.06 Hgb 15.4 H Hct 45.5 MCV 89.9 MCH 30.4 MCHC 33.8 RDW Std Deviation 42.5 RDW Coeff of Susie 13.0 Plt Count 251 MPV 9.5 Immature Gran % (Auto) 0.300 Neut % (Auto) 69.6 Lymph % (Auto) 22.8 [place] % (Auto) 6.3 Eos % (Auto) 0.7 Baso % (Auto) 0.3 Absolute Neuts (auto) 6.5 Absolute Lymphs (auto) 2.14 Nucleated RBC % 0 Sodium 140 Potassium 3.9 Chloride 102 Carbon Dioxide 25.2 Anion Gap 13 BUN 11 Creatinine 0.68 L Estim Creat Clear Calc 173.68 Est GFR (MDRD) Non-Af 117 BUN/Creatinine Ratio 15.4 Glucose 141 H Calcium 9.0 Urine Color Yellow Urine Clarity Clear Urine pH 6.0 Ur Specific [place] 1.010 Urine Protein 30 H Urine Glucose (UA) Normal Urine Ketones Negative Urine Occult Blood 250 H Urine Nitrite Negative Urine Bilirubin Negative Urine Urobilinogen Normal Ur Leukocyte Esterase 25 H Urine RBC 0-5 SEEN Urine WBC 0-5 SEEN Ur Squamous Epith Cells 0-5 SEEN Urine Bacteria RARE Urine Mucus 0 SEEN Urine Test Negative Radiography Diagnostic Testing: Clinical Impression(s) from Imaging Studies Transvaginal US 04/23/25 16:28 IMPRESSION: No acute process. IUD noted within the uterine fundus. Reading Location: [facility] Discharge Plan Triage Chief Complaint: Female C/O ED Provider: João Harry Dx/Rx/DC Orders Clinical Impression: Pelvic pain, Abnormal uterine bleeding Prescriptions: No Action magnesium glycinate 100 mg tablet 100 mg PO TID nystatin-triamcinolone 100,000-0.1 unit/gram-% ointment 1 applic topical BID Qty: 60 3RF cholecalciferol (vitamin D3) [Vitamin D3] 25 mcg (1,000 unit) Capsule 25 mcg PO DAILY apple cider vinegar 500 mg Tablet 500 mg PO DAILY Probiotic 3 billion cell Capsule 3,000 mmu cells PO DAILY Rx Instructions: administer with a meal doxycycline hyclate 100 mg tablet 100 mg PO QHS Qty: 90 0RF Rx Instructions: start after the cipro is done Primary Care Provider: Prudence Vergara Referrals: Janet Gallagher MD [Med Staff - Active Staff, Obstetrics-Gynecology (OBGYN)] - As soon as possible Prudence Vergara, LOCK TENDER CHIEF OPERATOR-C [Primary Care Provider, Family Practice] Print Language: Mongolian Disposition Disposition: Home, Self Care Discharge Date/Time: 04/23/25 19:51
--- NOTE | 2025-04-23 16:28 | US_ITS ---
PROCEDURE: TRANSVAGINAL NON- 04/23/2025 REASON FOR EXAM: R PELVIC PAIN BLEEDING IUD TECHNIQUE: Procedure Code: USTVAG Modality: US Procedure: TRANSVAGINAL NON- COMPARISON: None FINDINGS: Uterus measures 9.1 x 5.3 x 4.3 cm. It is anteverted position. No uterine fibroids are noted. Endometrial stripe measures 3 mm. It is hyperechoic. Nabothian cysts are noted. IUD noted within the fundus Right ovary measures 3.4 x 3.1 x 2.4 cm and left ovary measures 2.8 x 3.8 x 2.3 cm. There is normal bilateral symmetrical blood flow within bilateral ovaries. 1.5 x 1.8 cm cyst within left ovary. No significant free fluid within the cul-de-sac. US/Transvaginal Non- IMPRESSION: No acute process. IUD noted within the uterine fundus. Reading Location: [id number]
[2025-04-23 16:33] VITALS: BP 158/70; PULSE 99; RESP 16; O2SAT 99
[2025-04-23 16:35] LABS: Mucous, Urine 0 SEEN /hpf (<or=2+)
[2025-04-23 16:38] LABS: Color, Urine Yellow (Yellow); Glucose, Dipstick Normal (Normal); Ketone-Dipstick Negative (Negative); Leukocyte Esterase-Dipstick 25 /ul (Negative); Nitrite-Dipstick Negative (Negative); Occult Blood-Urine 250 /ul (Negative); Protein-Dipstick 30 mg/dl (Negative); Specific Gravity, Urine 1.010 (1.002-1.030); Urine Bilirubin Dipstick Negative (Negative)
[2025-04-23 16:39] LABS: Hematocrit 45.5 % (37-47); Hemoglobin 15.4 g/dL (12.0-15.0); Immature Granulocytes Count 0.030 X10^3/uL (0.0-0.0); Mean Corp Hgb Conc 33.8 g/dL (32-36); Mean Corpuscular Volume 89.9 fL (81-99); Mean Platelet Vol. 9.5 fl (6.2-12.0); NRBC Flagged by Analyzer 0 % (0-5); Platelet Count 251 K/mm3 (150-450); RBC Distribution Width CV 13.0 % (11.6-14.6); RBC Distribution Width SD 42.5 fl (35.1-43.9); Red Blood Count 5.06 M/mm3 (4.2-5.4); White Blood Count 9.4 K/mm3 (4.4-11.0)
[2025-04-23 16:45] LABS: Internal QC Validated? YES +Cl - CLEAR BKGD; Pregnancy, Urine Negative Negative; Record Kit Lot#,Urine Preg 980607; Red Blood Cells-Urine 0-5 SEEN /hpf (0-5); Squamous Epithelial Cells - UA 0-5 SEEN /hpf (5-10)
[2025-04-23 17:05] LABS: Anion Gap 13 (5-15); BUN 11 mg/dL (4-19); BUN/Creat Ratio 15.4 RATIO (10-20); Calcium,Total 9.0 mg/dL (7.6-11.0); Carbon Dioxide 25.2 mmol/L (21.0-32.0); Chloride 102 mmol/L (98-108); Estimated Creatinine Clearance 173.68 ml/min (50-250); Glucose 141 mg/dL (70-99); Potassium 3.9 mmol/L (3.3-5.1)
[2025-04-23 19:39] VITALS: BP 130/93; PULSE 92; RESP 18; TEMP 36.2; O2SAT 100
== END 2025-04-23 19:51 | disposition home or self-care (01) ==
PROVIDERS: Emergency Provider Emergency Medicine; PCP Nurse Practitioner Family; Visit Provider Emergency Medicine
DX: N93.9 Abnormal uterine and vaginal bleeding, unspecified (principal); R10.20 Pelvic and perineal pain unspecified side; Z87.891 Personal history of nicotine dependence; Z86.73 Personal history of transient ischemic attack (TIA), and cerebral infarction without residual deficits; I10 Essential (primary) hypertension; Z90.49 Acquired absence of other specified parts of digestive tract
CPT/HCPCS: 76830; 80048; 81001; 81025; 85025; 99282; A4216